=== PATIENT | female | born 1975 | race Caucasian/White ===

== ENCOUNTER 2016-04-01 01:43 | Inpatient (IN) | payer MEDICARE, OTHER ==
[~2016-04-01] VITALS: Ht 160 cm; Wt 68.0 kg
[2016-04-01] VITALS (54 sets, daily range): BP systolic 63–112; BP diastolic 27–83; PULSE 99–119; RESP 12–20; TEMP 98.3; Ht 160 cm; Wt 68.0 kg
[~2016-04-01 01:43] MED LIST: BACL20TA PO; CIPR500S2 PO; CLON-412 PO; DIVA250T4 PO; DULO60CA6 PO; HYDR-3010 PO; HYDR-906 PO; METO5TAB58 PO; OXYB15TA4 PO; OXYC40TA26 PO
[2016-04-01] MEDS ORDERED: SUCCINYLCHOLINE CHLORIDE 100 MG/5 ML SYG IV STA (02:22)
[2016-04-01] MEDS ORDERED: ETOMIDATE 20 MG INJ IV STA (02:22)
[2016-04-01] MEDS ORDERED: PROPOFOL 100 ML IV STA (02:22)
--- NOTE | 2016-04-01 02:25 | RADRPT ---
PROCEDURE: Portable chest x-ray. CLINICAL INDICATION: Shortness of breath. TECHNIQUE: Portable AP view of the chest. COMPARISON: 12/21/2015. FINDINGS: An endotracheal tube terminates 2.9 cm above the galileo. A left upper extremity PICC terminates in t he right atrium. A transcutaneous pacer pad projects over the right chest. No pulmonary edema or co nolidation is identified. The cardiac silhouette is magnified. No pleural effusion is seen. There is no pneumothorax. IMPRESSION: 1. Endotracheal tube tip 2.9 cm above the galileo. 2. Left PICC tip in the right atrium. Recommend 2 cm retraction. 3. Transcutaneous pacer pad. 4. Clear lungs. RPTAT: HTAR .Yuriy Reyes MD, Date Time Electronically viewed and signed by .Yuriy Reyes MD, on 04/01/2016 02:25 .R/
[2016-04-01 02:29] LABS: ALBUMIN 3.5 g/dl (3.3-4.9); CHLORIDE 99 mmol/L (97-110); POTASSIUM 4.3 mmol/L (3.5-5.1); SODIUM 140 mmol/L (135-144)
[2016-04-01] MEDS ORDERED: LEVOFLOXACIN 750MG/D5W (PMX) 150 ML IVPB ONE (02:30)
[2016-04-01] MEDS ORDERED: VANCOMYCIN 1 GM (PMX) 250 ML IVPB ONE (02:30)
[2016-04-01] MEDS ORDERED: SOD CHLORIDE 0.9% 2,020 ML IV ONE (02:30)
[2016-04-01] MEDS ORDERED: ACETAMINOPHEN 650 MG SUPP PR ONE (02:30)
[2016-04-01 02:31] LABS: ANION GAP 15 (8-16); ASPARTATE AMINO TRANSFERASE 19 IU/L (15-46); CARBON DIOXIDE 30 mmol/L (21-31); CREATININE 0.67 mg/dl (0.44-1.00)
[2016-04-01 02:32] LABS: ALANINE AMINOTRANSFERASE 14 IU/L (13-69); ALBUMIN/GLOBULIN RATIO 0.79; ALKALINE PHOSPHATASE 89 IU/L (42-121); BLOOD UREA NITROGEN 12 mg/dl (7-20); CALCIUM 8.9 mg/dl (8.4-10.2); GLUCOSE 124 mg/dl (70-220); TOTAL PROTEIN 7.9 g/dl (6.1-8.1)
[2016-04-01] MEDS ORDERED: LEVE500T8 PO (02:40)
[2016-04-01] MEDS ORDERED: CLIN-73 PO (02:40)
[2016-04-01] MEDS ORDERED: CLON2TAB3 PO (02:40)
[2016-04-01] MEDS ORDERED: DIVA-16 PO (02:40)
[2016-04-01] MEDS ORDERED: ALPR2TAB PO (02:40)
[2016-04-01 02:45] LABS: AADO2 Arterial 277.9 mmHg (7.0-24.0); Allen Test ACCEPTAB; Arterial Base Excess -2.2 mmol/L (-3.0-3); Arterial COHb 0.6 % (0.0-3.0); Arterial Fraction of Oxyhgb 96.5 % (93.0-99.0); Arterial HCO3 22.9 mmol/L (22.0-26.0); Arterial MetHb 0.4 % (0.0-1.5); Arterial Total Hemglobin 12.3 g/dl (12.0-18.0); MODE VENT - AC
[2016-04-01 02:49] LABS: INR 1.07; PROTIME 13.9 Sec (12.2-14.2); PT RATIO 1.1
[2016-04-01 02:50] LABS: PARTIAL THROMBOPLASTIN TIME 30.3 Sec (25.0-35.0)
[2016-04-01 02:55] LABS: TROPONIN-I < 0.012 ng/ml (0.00-0.12)
[2016-04-01 03:02] LABS: ADD UMIC YES; URINE BILIRUBIN (Dip) 1+ (NEGATIVE); URINE BLOOD (Dip) 3+ (NEGATIVE); URINE COLOR YELLOW (YELLOW); URINE GLUCOSE (Dip) NEGATIVE (NEGATIVE); URINE KETONES (Dip) TRACE (NEGATIVE); URINE LEUKOCYTE ESTERASE (Dip) 2+ (NEGATIVE); URINE NITRITE (Dip) NEGATIVE (NEGATIVE); URINE TOTAL PROTEIN (Dip) 2+ (NEGATIVE); URINE UROBILINOGEN (Dip) 0.2 E.U./dL (0.1-1.0)
[2016-04-01 03:12] LABS: ICTOTEST POSITIVE (NEGATIVE)
[2016-04-01 03:13] LABS: BACTERIA,URINE FEW; MUCUS,URINE FEW; SQUAMOUS EPITHELIAL CELL,UR MANY; URINE RBCS >200 /HPF (0)
[2016-04-01 03:21] LABS: HEMATOCRIT 38.9 % (37.0-47.0); HEMOGLOBIN 12.1 g/dl (12.0-16.0); RED BLOOD COUNT 4.48 10^6/ul (4.20-5.40); WHITE BLOOD COUNT 21.4 10^3/ul (4.8-10.8)
[2016-04-01 03:22] LABS: MEAN CORPUSCULAR HGB CONC 31.1 g/dl (32.0-37.0); MEAN CORPUSCULAR VOLUME 86.8 fl (82.0-101.0); PLATELET COUNT 681 10^3/UL (140-440)
--- NOTE | 2016-04-01 03:23 | ERA ---
ER Documentation Chief Complaint Date/Time DATE: 04/01/16 TIME: 03:20 Chief Complaint BROUGHT FROM HOME BY EMS SEC TO SOB [facility] This is a 41 year female brought in by EMS secondary to progressive worsening shortness of breath. Patient has a history of multiple sclerosis. Patient is obtunded upon arrival to ER. Decision made immediately to intubate the patient. ROS All systems reviewed and are negative except as per history of present illness. Medications Home Meds Active Scripts Hydrocodone/Acetaminophen ([place] 5-325 Tablet) 1 Each Tablet, 1 TAB PO Q6H Y for PAIN, #7 TAB Prov:SHYAM GUTHRIE MD 12/20/15 Ciprofloxacin (Ciprofloxacin) 500 Mg/5 Ml Alivia..rec, 500 MG PO BID for 14 Days , #14 TAB Prov:SHYAM GUTHRIE MD 12/20/15 Reported Medications Alprazolam* (Xanax*) 2 Mg Tablet, 2 MG PO Q8H Y for ANXIETY, TAB 04/01/16 Clonazepam* (Clonazepam*) 2 Mg Tablet, 2 MG PO BID, TAB 04/01/16 Levetiracetam* (Levetiracetam*) 500 Mg Tablet, 500 MG PO BID, TAB 04/01/16 Clindamycin Hcl* (Clindamycin Hcl*) 300 Mg Capsule, 300 MG PO Q6, CAP 04/01/16 Divalproex Sodium* (Divalproex Sodium*) 500 Mg Tablet.dr, 500 MG PO BID, #120 TAB 04/01/16 Hydroxyzine Hcl* (Hydroxyzine Hcl*) 10 Mg Tablet, 10 MG PO Q6H Y for ITCHING, # 30 TAB 12/21/15 Divalproex Sodium* (Divalproex Sodium*) 250 Mg Tablet.dr, 250 MG PO TID, #90 TAB 12/21/15 Metoclopramide* (Reglan*) 5 Mg Tablet, 5 MG PO AC MEALS, TAB 12/21/15 Oxycodone Hcl* (Oxycontin*) 40 Mg Tab.er.12h, 40 MG PO Q12, TAB 12/21/15 Clonazepam* (Klonopin*) 1 Mg Tablet, 2 MG PO BID, TAB 12/21/15 Duloxetine Hcl* (Cymbalta*) 60 Mg Capsule.dr, 60 MG PO DAILY, CAP 12/21/15 Oxybutynin Chloride* (Ditropan* XL) 15 Mg/Bottle Tab.osm.24, 15 MG PO BID 06/23/10 Baclofen* (Baclofen*) 20 Mg Tablet, 20 MG PO Q6H 06/23/10 Allergies Allergies: Coded Allergies: Penicillins (Verified Allergy, Unknown, 12/20/15) latex (Verified Allergy, Unknown, 12/20/15) PMhx/Soc History of Surgery: No (sacral wound) Anesthesia Reaction: No Hx Neurological Disorder: Yes (multiple sclerosis) Hx Respiratory Disorders: No Hx Cardiac Disorders: No Hx Psychiatric Problems: Yes (depression) Hx Miscellaneous Medical Probl: No Hx Alcohol Use: No Hx Substance Use: Yes (medical marijuana) Hx Tobacco Use: No Smoking Status: Never smoker Physical Exam Vitals Vital Signs Date Time Temp Pulse Resp B/P Pulse Ox O2 Delivery O2 Flow Rate FiO2 04/01/16 02:16 Non Rebreather 04/01/16 02:12 101.8 143 26 130/73 100 Mechanical Ventilator 04/01/16 02:10 148 14 100 60 04/01/16 02:08 101.8 155 26 130/73 100 Physical Exam Const: [] Head: Atraumatic Eyes: Normal Conjunctiva ENT: Normal External Ears, Nose and Mouth. Neck: Full range of motion..~ No meningismus. Resp: Decreased breath sounds, scattered rales in all lung solano Cardio: Regular rate and rhythm, no murmurs Abd: Soft, non tender, non distended. Normal bowel sounds Skin: No petechiae or rashes Back: No midline or flank tenderness Ext: No cyanosis, or edema Neur: Obtunded Psych: Normal Mood and Affect Result Diagram: 04/01/16 0152 Results 24 hrs Laboratory Tests Test 04/01/16 01:52 04/01/16 01:59 04/01/16 02:02 Activated Partial Thromboplast Time 30.3Sec Alanine Aminotransferase (ALT/SGPT) 14IU/L Albumin 3.5g/dl Albumin/Globulin Ratio 0.79 Alkaline Phosphatase 89IU/L Anion Gap 15 Aspartate Amino Transf (AST/SGOT) 19IU/L Blood Urea Nitrogen 12mg/dl Calcium Level 8.9mg/dl Carbon Dioxide Level 30mmol/L Chloride Level 99mmol/L Creatinine 0.67mg/dl Direct Bilirubin 0.00mg/dl Globulin 4.40g/dl Glucose Level 124mg/dl INR International Normalized Ratio 1.07 Indirect Bilirubin 0.0mg/dl Lactic Acid Level 1.0mmol/L Potassium Level 4.3mmol/L Prothrombin Time 13.9Sec Prothrombin Time Ratio 1.1 Sodium Level 140mmol/L Total Bilirubin 0.0mg/dl Total Protein 7.9g/dl Troponin I < 0.012ng/ml Urine Bacteria FEW Urine Bilirubin 1+ Urine Clarity TURBID Urine Color YELLOW Urine Glucose NEGATIVE% Urine Hemoglobin 3+ Urine Ictotest POSITIVE Urine Ketones TRACE Urine Leukocyte Esterase 2+ Urine Microscopic RBC >200/HPF Urine Microscopic WBC >200/HPF Urine Mucus FEW Urine Nitrite NEGATIVE Urine Specific [place] >=1.030 Urine Squamous Epithelial Cells MANY Urine Total Protein 2+ Urine Urobilinogen 0.2 E.U./dL Urine pH 6.0 Arterial Blood HCO3 22.9mmol/L Arterial Blood Base Excess -2.2mmol/L Arterial Blood Oxygen Saturation 97.5mmHG Talon Test ACCEPTAB Arterial Blood Gas Puncture Site Right Radial Arterial Blood Carboxyhemoglobin 0.6% Arterial Blood Date Drawn 04/01/2016 2:32:34 AM Arterial Blood Methemoglobin 0.4% Arterial Blood pCO2 (Temp correct) 40.4mmhg Arterial Blood pH (Temp corrected) 7.371 Arterial Blood pO2 (Temp corrected) 105.5mmHG Blood Gas A-a O2 Differential 277.9mmHg Blood Gas Actual Respiration Rate 14 Blood Gas Inspiratory Pressure 32.0 Blood Gas Low PEEP Setting 5.0cmH2O Blood Gas Modality VENT - AC Blood Gas Notified Time 04/01/2016 2:45:37 AM Blood Gas Notified Whom AA Blood Gas Respiration Rate 14.0 Blood Gas Specimen Source Blood arterial Blood Gas Temperature 37.0C Blood Gas Tidal Volume 500.0mL FiO2 60.0% Oxyhemoglobin Percent 96.5% Total Hemoglobin 12.3g/dl Current Medications Medications (Trade) Dose Ordered Sig/Stacey Route PRN Reason Start Time Stop Time Status Last Admin Dose Admin Vancomycin HCl 250 ml @ 125 mls/hr ONCE ONCE IVPB 04/01/16 02:30 04/01/16 04:29 Levofloxacin/ Dextrose (Levaquin 750 Mg/ D5W 150 ml (Pmx)) 150 ml @ 100 mls/hr ONCE ONCE IVPB 04/01/16 02:30 04/01/16 03:59 04/01/16 02:19 Acetaminophen 650 mg 650 mg ONCE ONCE OK 04/01/16 02:30 04/01/16 02:31 DC 04/01/16 02:19 Sodium Chloride (NS) 2,020 ml @ 2,020 mls/hr BOLUS X1 ONCE IV 04/01/16 02:30 04/01/16 03:29 04/01/16 02:16 Succinylcholine Chloride (Anectine Syringe) 100 mg ONCE STAT IV 04/01/16 02:22 04/01/16 02:23 DC Etomidate 20 mg 20 mg ONCE STAT IV 04/01/16 02:22 04/01/16 02:23 DC Propofol (Diprivan) 100 ml @ 1.95 mls/hr ONCE STAT IV 04/01/16 02:22 04/03/16 05:38 04/01/16 02:31 Procedures/MDM EKG: Rate/Rhythm: Normal Sinus Rhythm QRS, ST, T-waves: No changes consistent w/ acute ischemia Impression: No evidence of ischemia or arrhythmia Chest X-ray 1V Interpreted by me: Soft Tissue: No acute abnormalities Bones: No acute abnormalities Mediastinum/Cardiac Silhouette/Lungs: ET tube and central line in good position Patient's infectious symptoms have not stabilized and the patient is at risk of rapid decompensation. The patient will be admitted for careful hydration, antibiotic therapy, and infectious source control. Severe Sepsis Assessment: Infectious Source: Pneumonia End organ damage indicated by: [Lactate > 2.0 mmol/L Hypotension( SBP < 90 or >40 mmHG drop or MAP < 65) Acute Resp Failure (sat < 92% w/o oxygen) ] Severe Sepsis Managment: Blood Cultures X 2 before broad spectrum antibiotics initiated within 3 hours of recognition. 30 ml/kg NS bolus Completed Initial Lactate: [normal] Repeat Lactate pending Critical Care: Time: 45 minutes Treatments/Evaluations: Emergent fluid management, while maintaining close respiratory support. Immediate broad spectrum antibiotic therapy. Simultaneous assessment for possible sources in order to direct therapy. Consideration for invasive and chemical support to prevent respiratory or cardiac collapse. Septic Shock Assessment (1 hour post 30 ml/kg fluid bolus): Hypotension (SBP < 90 or 40 mmHg drop, MAP < 65): [No] Lactic acid > 4.0 [No] Perfusion Reassessment for Septic Shock: Temp 99.9, Pulse 90, RR 18, BP 117/77 Heart Exam: [Tachycardic] Lung Exam: [No Crackles] Capillary Refill: [Delayed] Peripheral Pulses: [Radially present] Skin: [Mottled, pale] Hypotensive Treatment (not required for isolated lactic acid elevation): Comfort Care: No Central LIne: Left subclavian Accepting Care Team: Current data and ongoing care discussed. Time: 2 AM Primary Provider: Hospitalist Consulting: [XOXOXO] Outstanding Data: none Departure Diagnosis: Primary Impression: Sepsis Qualified Code: A41.9 - Sepsis, due to unspecified organism Additional Impression: Respiratory failure Qualified Code: J96.01 - Acute respiratory failure with hypoxia and hypercapnia Condition: Critical KATELYN WILSON Apr 01, 2016 03:23
[2016-04-01 05:19] LABS: EOSINOPHILS # 0.6 10^3/ul (0.0-0.5); LYMPHOCYTES # 8.3 10^3/ul (0.8-2.9); MONOCYTE # 2.8 10^3/ul (0.3-0.9); NEUTROPHIL # 9.6 10^3/ul (1.6-7.5)
[2016-04-01 05:20] LABS: PLATELET ESTIMATE PLT APPEAR INCREASED
[2016-04-01] MEDS ORDERED: IPRATROPIUM (HFA) 12.9 GM INHALER INH PRN (06:00)
[2016-04-01] MEDS ORDERED: ALBUTEROL HFA 8 GM INHALER INH PRN (06:00)
[2016-04-01] MEDS ORDERED: VANCOMYCIN IV PER PHARMACY XX SCH (06:00)
[2016-04-01] MEDS ORDERED: PROPOFOL 100 ML IV SCH (06:00)
[2016-04-01] MEDS ORDERED: IMIPENEM-CILAST 500MG IV (PMX) 100 ML IVPB SCH (06:00)
[2016-04-01 06:33] LABS: BASOPHILS % 0.3 % (0.0-2.0); EOSINOPHILS # 0.1 10^3/ul (0.0-0.5); EOSINOPHILS % 0.5 % (0.0-7.0); HEMATOCRIT 31.3 % (37.0-47.0); HEMOGLOBIN 10.6 g/dl (12.0-16.0); LYMPHOCYTES # 3.9 10^3/ul (0.8-2.9); LYMPHOCYTES % 24.5 % (15.0-51.0); MEAN CORPUSCULAR HEMOGLOBIN 27.6 pg (29.0-33.0); MEAN CORPUSCULAR VOLUME 81.2 fl (82.0-101.0); MEAN PLATELET VOLUME 8.2 fl (7.4-10.4); MONOCYTE # 1.4 10^3/ul (0.3-0.9); MONOCYTES % 8.9 % (0.0-11.0); NEUTROPHIL # 10.6 10^3/ul (1.6-7.5); NEUTROPHILS % 65.8 % (39.0-77.0); PLATELET COUNT 511 10^3/UL (140-440); RED BLOOD COUNT 3.86 10^6/ul (4.20-5.40); RED CELL DISTRIBUTION WIDTH 15.7 % (11.5-14.5); UNCORRECTED WBC 16.1 10^3/ul (4.8-10.8); WHITE BLOOD COUNT 16.1 10^3/ul (4.8-10.8)
[2016-04-01 06:34] LABS: CONDITION 1; LH ANALYZER COMMENTS 1
[2016-04-01 06:45] LABS: VALPROATE 50 ug/ml (50-100)
[2016-04-01 07:08] LABS: CARBAMAZEPINE (TEGRETOL) < 8.0 ug/ml (8.0-12.0)
[2016-04-01 07:19] LABS: ALBUMIN 3.6 g/dl (3.3-4.9); POTASSIUM 4.6 mmol/L (3.5-5.1)
[2016-04-01 07:21] LABS: CREATININE 0.69 mg/dl (0.44-1.00)
[2016-04-01 07:22] LABS: ALBUMIN/GLOBULIN RATIO 0.9; CALCIUM 9.2 mg/dl (8.4-10.2); TOTAL PROTEIN 7.6 g/dl (6.1-8.1)
[2016-04-01] MEDS: DEXTROSE 5%-0.45% NACL 1,000 ML IV SCH ×3 (08:58→21:41)
[2016-04-01] MEDS ORDERED: LEVETIRACETAM 500 MG TAB PO SCH (09:00)
[2016-04-01] MEDS ORDERED: DIVALPROEX (EC) 500 MG TAB PO SCH (09:00)
[2016-04-01] MEDS: DULOXETINE 30 MG CAP DR PO SCH (09:00)
--- NOTE | 2016-04-01 09:20 | HP ---
DATE OF ADMISSION: 04/01/2016 TIME SEEN: 5 a.m. CHIEF COMPLAINT: Shortness of breath and altered mentation. HISTORY OF PRESENT ILLNESS: The patient is a 41-year-old female with a history of multiple sclerosi s, wheelchair-bound, depression, bilateral lower extremity weakness, and sacral wounds who was broug ht to the ER for shortness of breath and altered mentation. Upon arrival to the ER, the patient was noted to be obtunded, and as such, she was immediately intubated, and as such, I am not able to get information. As such, information has been obtained from the ER physician and from chart review. Reportedly family noted noisy breathing last night, and at that time they also checked temperature a nd noted that she had a fever of 102. They tried to adjust her position by changing of the head of bed position, but no improvement. Then they noted foam coming out of the patient's mouth so they ca lled 911. They started doing CPR as they were instructed until the EMS arrived. Upon EMS arrival, the patient actually noticed to have a pulse, but she was tachycardic, continued to have some noisy breathing, and also was able to move her upper extremities. Then EMS started ventilation assistance via BVM. When she presented to the ER, as mentioned above, she was obtunded, and as such, she was immediately intubated. Her initial vitals show blood pressure of 130/73, she was tachycardic with a heart rate of 155, tachypneic with a rate of 26, and she was febrile with a temperature of 100.8. Her oxygen saturation was 100% on 60% FIO2. Laboratory value was notable for a WBC of 21,000, platelet count 6 81,000. Otherwise, rest of CBC and also CMP are within normal limits. Chest x-ray showed clear lungs with no consolidation or small effusion. Her urinalysis was consiste nt with a severe UTI. She was started on weight-based IV fluids, and also started on vancomycin and Levaquin. Note that the patient is ALLERGIC TO PENICILLIN. Note that the patient had been admitted here in December of last year for a UTI. She has also been to the ER multiple times, almost all the time related to her indwelling Roberson being clogged. REVIEW OF SYSTEMS: Unable to fully assess. PAST MEDICAL HISTORY: As per HPI. SOCIAL HISTORY: No reported history of tobacco, alcohol, or illicit drug use. ALLERGIES: 1. PENICILLIN. 2. LATEX. HOME MEDICATIONS: 1. Baclofen. 2. Clonidine. 3. Divalproex. 4. Cipro. 5. Cymbalta. 6. [place]. 7. Oxycodone. 8. Reglan. 9. Oxybutynin. 10. Clindamycin. 11. Xanax. 12. Cymbalta. 13. Reglan. PHYSICAL EXAMINATION: VITAL SIGNS: Blood pressure 109/70, heart rate 116, respiratory rate 14, temperature 3 hours ago wa s 101.8, oxygen saturation 100% on a vent on 60% FIO2. GENERAL: Intubated and sedated, looks comfortable on the vent. HEENT: Normocephalic, atraumatic. Pupils are sluggish, but reactive to light. CARDIOVASCULAR: Tachycardic with regular rhythm. LUNGS: Clear, no wheezes. ABDOMEN: Soft, no grimaces noted on palpation. No rigidity. There are positive bowel sounds. EXTREMITIES: No edema. NEUROLOGIC: The patient is currently intubated and sedated, so not able to fully assess. LABORATORY: Pertinent positive results as mentioned in the HPI. IMAGING: Chest x-ray shows clear lungs with no consolidation, effusion, or pneumothorax. IMPRESSION: 1. Sepsis secondary to urinary tract infection. 2. Acute encephalopathy, secondary to sepsis. 3. History of multiple sclerosis and bilateral lower extremity weakness and wheelchair-bound. 4. History of depression. 5. History of sacral wound with wound VAC. 6. Indwelling Roberson. We will admit to ICU. We will continue vent support. She will be placed on broad-spectrum antibiot ic. We will follow up on the culture results. We will consider an ID consult. She will receive IV fluids. We will continue her home medications with adjustment and provided via an NG tube. Further workup and management will be per clinical course. Total critical time spent is about 40 minutes. Dictated By: KATELYN VILLANUEVA/JOSELIN Conf#: [id number] DID#: [id number]
--- NOTE | 2016-04-01 09:52 | QN ---
Documentation Comment The patient was seen and examined. Infectious diseases consult was called. Case discussed with Dr. Ortiz. JORI JO NP Apr 01, 2016 09:52
--- NOTE | 2016-04-01 10:05 | CONS ---
Date/Time of Note Date/Time of Note DATE: 04/01/16 TIME: 09:58 Assessment/Plan Assessment/Plan Additional Assessment/Plan Assessment and recommendations; 1. Patient admitted with severe UTI with sepsis. 2. History of multiple sclerosis. 3. Sacral decubitus ulcer. 4. Multiple other comorbidities as outlined above. Continue current treatment. Antibiotic adjustment to be done once urine culture results and sensitivities are obtained. Consultation Date/Type/Reason Admit Date/Time Apr 01, 2016 at 05:52 Date of Consultation: Apr 01, 2016 Type of Consultation: Pulmonary/critical care Reason for Consultation Patient admitted with respiratory failure and sepsis from UTI. Consultation requested for respiratory failure and ventilator management. History of present illness; patient is a 81-year-old lady who was brought into the hospital with complaints of having altered mental status as well as hypotension. Upon evaluation patient was diagnosed with severe UTI patient also was in respiratory failure was intubated and then transferred to ICU. The time I saw the patient is orally intubated on ventilator sedated and currently in no distress. Will she was obtained from medical records. Past medical history; next 1. History of multiple sclerosis, patient is wheelchair-bound. 2. Sacral wound. A wound VAC in place. 3. Muscle spasms. 4. Hypertension. 5. Urinary incontinence. 6. Depression. 7. Arthritis. Medications; both inpatient and outpatient medications were reviewed. Allergies; penicillin and latex. Social history; noncontributory. Family history; not available. Occupational history; patient is on disability. Review of systems; currently unable to be obtained. General exam; young woman, orally intubated. Sedated. Currently in no distress. Social History Smoking Status: Never smoker Exam/Review of Systems Vital Signs Vitals Vital Signs Date Time Temp Pulse Resp B/P Pulse Ox O2 Delivery O2 Flow Rate FiO2 04/01/16 08:20 115 14 99 60 04/01/16 07:30 98.3 112/81 Room Air 04/01/16 07:00 10.0 Intake and Output 03/31/16 03/31/16 04/01/16 15:00 23:00 07:00 Intake Total 2170 ml Balance 2170 ml Exam Ventilator settings; assist control 14, tidal volume 500, PEEP of 5, 50% FiO2. H EENT examination; supple neck, no JVD. No lymphadenopathy. Orally intubated. Pupils are midsize and reactive to light. No thyromegaly, no neck masses. Chest examination; clear to auscultation bilaterally. S1-S2 audible, no murmurs. Regular rhythm. Abdomen examination; soft, normal distended. No organomegaly. Bowel sounds audible. Extremity examination; no peripheral edema. Back examination; there is a wound VAC in place over the sacrum. ADMISSION DISCHARGE RN examination; patient currently is sedated. Results Result Diagram: 04/01/1652304/01/16523 Results 24 hrs Laboratory Tests Test 04/01/16 01:52 04/01/16 01:59 04/01/16 02:02 04/01/16 05:24 Activated Partial Thromboplast Time 30.3 Alanine Aminotransferase (ALT/SGPT) 14 8 L Albumin 3.5 3.6 Albumin/Globulin Ratio 0.79 0.90 Alkaline Phosphatase 89 83 Anion Gap 15 20 H Aspartate Amino Transf (AST/SGOT) 19 30 Basophils # 0.0 Basophils % 0.3 Blood Urea Nitrogen 12 13 Calcium Level 8.9 9.2 Carbon Dioxide Level 30 27 Chloride Level 99 101 Creatinine 0.67 0.69 Direct Bilirubin 0.00 0.00 Eosinophils # 0.6 H 0.1 Eosinophils % 3.0 0.5 Globulin 4.40 H 4.00 H Glucose Level 124 123 Hematocrit 38.9 31.3 L Hemoglobin 12.1 10.6 L INR International Normalized Ratio 1.07 Indirect Bilirubin 0.0 0.0 Lactic Acid Level 1.0 0.9 Lymphocytes # 8.3 H 3.9 H Lymphocytes % 39.0 24.5 Mean Corpuscular Hemoglobin 27.0 L 27.6 L Mean Corpuscular Hemoglobin Concent 31.1 L 34.0 Mean Corpuscular Volume 86.8 81.2 L Mean Platelet Volume 10.0 # 8.2 Monocytes # 2.8 H 1.4 H Monocytes % 13.0 H 8.9 Neutrophils # 9.6 H 10.6 H Neutrophils % 45.0 65.8 Nucleated Red Blood Cells # 0.0 Nucleated Red Blood Cells % 0.0 Platelet Count 681 #H 511 #H Platelet Estimate PLT APPEAR INCREASED Potassium Level 4.3 4.6 Prothrombin Time 13.9 Prothrombin Time Ratio 1.1 Red Blood Count 4.48 3.86 L Red Cell Distribution Width 15.0 H 15.7 H Sodium Level 140 143 Total Bilirubin 0.0 L 0.0 L Total Protein 7.9 7.6 Troponin I < 0.012 White Blood Count 21.4 #H 16.1 #H Urine Bacteria FEW Urine Bilirubin 1+ H Urine Clarity TURBID Urine Color YELLOW Urine Glucose NEGATIVE Urine Hemoglobin 3+ H Urine Ictotest POSITIVE Urine Ketones TRACE H Urine Leukocyte Esterase 2+ H Urine Microscopic RBC >200 Urine Microscopic WBC >200 Urine Mucus FEW Urine Nitrite NEGATIVE Urine Specific [place] >=1.030 H Urine Squamous Epithelial Cells MANY Urine Total Protein 2+ H Urine Urobilinogen 0.2 E.U./dL Urine pH 6.0 Arterial Blood HCO3 22.9 Arterial Blood Base Excess -2.2 Arterial Blood Oxygen Saturation 97.5 Talon Test ACCEPTAB Arterial Blood Gas Puncture Site Right Radial Arterial Blood Carboxyhemoglobin 0.6 Arterial Blood Date Drawn 04/01/2016 2:32:34 AM Arterial Blood Methemoglobin 0.4 Arterial Blood pCO2 (Temp correct) 40.4 Arterial Blood pH (Temp corrected) 7.371 Arterial Blood pO2 (Temp corrected) 105.5 H Blood Gas A-a O2 Differential 277.9 H Blood Gas Actual Respiration Rate 14 Blood Gas Inspiratory Pressure 32.0 Blood Gas Low PEEP Setting 5.0 Blood Gas Modality VENT - AC Blood Gas Notified Time 04/01/2016 2:45:37 AM Blood Gas Notified Whom AA Blood Gas Respiration Rate 14.0 Blood Gas Specimen Source Blood arterial Blood Gas Temperature 37.0 Blood Gas Tidal Volume 500.0 FiO2 60.0 Oxyhemoglobin Percent 96.5 Total Hemoglobin 12.3 Blood Morphology Comment Carbamazepine (Tegretol) Level < 8.0 L Valproic Acid (Depakene) Level 50 Test 04/01/16 07:00 Lactic Acid Level 0.8 Medications Medications Current Medications Dextrose/Sodium Chloride (D5-1/2ns) 1,000 ml @ 100 mls/hr Q10H IV Last administered on 04/01/16t 08:58; Admin Dose 100 MLS/HR; Start 04/01/16 at 05:49 Ondansetron HCl (Zofran Inj) 4 mg Q6H PRN IV NAUSEA AND/OR VOMITING; Start at 06:00 Acetaminophen (Tylenol Liquid) 650 mg Q6H PRN PO PAIN LEVEL 1-3 OR FEVER; Start 04/01/16 at 06:00 Lorazepam (Ativan) 1 mg Q2H PRN IV ANXIETY; Start 04/01/16 at 06:00 Famotidine (Pepcid Iv) 20 mg Q12 IV ; Start 04/01/16 at 09:00 Enoxaparin Sodium (Lovenox) 40 mg DAILY SC ; Start 04/01/16 at 09:00 Divalproex Sodium (Depakote) 500 mg BID PO ; Start 04/01/16 at 09:00 Duloxetine HCl (Cymbalta) 60 mg DAILY PO ; Start 04/01/16 at 09:00 Levetiracetam 500 mg 500 mg BID PO ; Start 04/01/16 at 09:00 Levofloxacin/ Dextrose (Levaquin 750 Mg/ D5W 150 ml (Pmx)) 150 ml @ 100 mls/hr Q24H IVPB ; Start 04/02/16 at 02:00 HALIMA DRUMMOND Apr 01, 2016 10:05
[2016-04-01] MEDS: FAMOTIDINE 20 MG INJ IV SCH ×2 (10:18→20:51)
[2016-04-01] MEDS: ENOXAPARIN 40 MG/0.4 ML SYG SC SCH (10:32)
[2016-04-01] MEDS: DIVALPROEX SPRINKLE 125 MG CAP NGT SCH ×2 (14:11→20:52)
[2016-04-01] MEDS: LEVETIRACETAM (100 MG/ML) 5ML CUP GTB SCH ×2 (14:12→20:52)
[2016-04-01] MEDS: ACETAMINOPHEN 650MG/20.3ML CUP PO PRN (15:45)
[2016-04-01] MEDS: VANCOMYCIN 1 GM in NS 250 ML IVPB SCH (15:45)
--- NOTE | 2016-04-01 15:53 | CONS ---
DATE OF ADMISSION: 04/01/2016 DATE OF CONSULTATION: 04/01/2016 TYPE OF CONSULTATION: Infectious Disease. REASON FOR CONSULTATION: Antibiotic management. HISTORY OF PRESENT ILLNESS: Carito Piper is a 41-year-old female who comes in with shortness of breath and altered mentation. PAST MEDICAL HISTORY: Her past problems include: 1. Multiple sclerosis, wheelchair bound. 2. Depression. 3. Bilateral lower extremity weakness. 4. Sacral wounds. 5. ALLERGY TO PENICILLIN. She was brought to the emergency room with shortness of breath and altered mentation. She is obtund ed and as such, she was immediately intubated. In the emergency room, her temperature was 102 degre es. She had CPR done in the field until the EMS arrived. She was noted to have a pulse, was tachyc ardic, continued to have some noisy breathing and was able to move her extremities. In the emergenc y room, her vital signs were stable. Heart rate was 155. She was tachypneic at 26, afebrile to 100 .8, oxygen saturation 100% on 60% FIO2. Laboratory value was noted to be 21,000, platelet count 681,000. Chest x-ray reviewed, showed clear lungs with no consolidation or small effusion. A urinalysis was consistent with a UTI. She was started on vancomycin and Levaquin. She also was a dmitted in December for a UTI. She has been to the emergency room on numerous occasions. PAST MEDICAL HISTORY: Operations as outlined. FAMILY HISTORY: Noncontributory. SOCIAL HISTORY: She does not smoke, drink or abuse drugs. ALLERGIES: 1. PENICILLIN. 2. LATEX. MEDICATIONS: Per chart. REVIEW OF SYSTEMS: As per HPI. PHYSICAL EXAMINATION: GENERAL: The patient is a well-developed, well-nourished, chronically ill-appearing female who is i ntubated, sedated, on a respirator. SKIN: Without generalized rash. HEENT: Within normal limits. NECK: Supple. LYMPH NODES: None palpable. CHEST: Decreased breath sounds at the bases. HEART: Without murmur or gallop. ABDOMEN: Soft, nontender, without organosplenomegaly or masses. EXTREMITIES: Without cyanosis, clubbing, or edema. RECTAL AND GENITAL: Deferred. NEUROLOGIC: No focal neurological abnormalities. Chest x-ray showed clear lungs with no consolidation, effusion, or pneumothorax. Patient was begun on Levaquin and vancomycin. She had one dose of imipenem in the emergency room. Her chest x-ray showed a left PICC line in the right atrium, transcutaneous pacer pad, clear lungs a nd an ET tube 2.49 cm above the galileo. Micro is pending. We will continue her on this regimen for the time being. I will dictate my findings to the hospitalist. Dictated By: VISHNU CHRISTIANSON MD, JD/JOSELIN Conf#: [id number] DID#: [id number]
[2016-04-01] MEDS ORDERED: SOD CHLORIDE 0.9% 500 ML IV ONE (19:00)
[2016-04-01] MEDS: morphine 2 MG INJ IV PRN (21:40)
[2016-04-01] MEDS: LORAZEPAM 2 MG INJ IV PRN (23:30)
[2016-04-02] VITALS (36 sets, daily range): BP systolic 59–114; BP diastolic 29–97; PULSE 85–120; RESP 13–25
[2016-04-02] MEDS: LEVOFLOXACIN 750MG/D5W (PMX) 150 ML IVPB SCH (02:02)
[2016-04-02] MEDS: LORAZEPAM 2 MG INJ IV PRN (03:54)
[2016-04-02] MEDS: VANCOMYCIN 1 GM in NS 250 ML IVPB SCH ×2 (04:14→15:46)
[2016-04-02 05:03] LABS: BASOPHILS % 0.3 % (0.0-2.0); EOSINOPHILS # 0.4 10^3/ul (0.0-0.5); EOSINOPHILS % 3.3 % (0.0-7.0); LYMPHOCYTES # 2.1 10^3/ul (0.8-2.9); LYMPHOCYTES % 16.9 % (15.0-51.0); MEAN CORPUSCULAR HEMOGLOBIN 27.5 pg (29.0-33.0); MEAN CORPUSCULAR HGB CONC 33.4 g/dl (32.0-37.0); MEAN CORPUSCULAR VOLUME 82.4 fl (82.0-101.0); MEAN PLATELET VOLUME 7.9 fl (7.4-10.4); MONOCYTES % 8.3 % (0.0-11.0); NEUTROPHIL # 8.8 10^3/ul (1.6-7.5); NEUTROPHILS % 71.2 % (39.0-77.0); PLATELET COUNT 378 10^3/UL (140-440); RED BLOOD COUNT 3.28 10^6/ul (4.20-5.40); RED CELL DISTRIBUTION WIDTH 15.5 % (11.5-14.5); UNCORRECTED WBC 12.3 10^3/ul (4.8-10.8); WHITE BLOOD COUNT 12.3 10^3/ul (4.8-10.8)
[2016-04-02 05:16] LABS: POTASSIUM 3.1 mmol/L (3.5-5.1)
[2016-04-02 05:18] LABS: CREATININE 0.44 mg/dl (0.44-1.00)
[2016-04-02 05:19] LABS: CALCIUM 7.9 mg/dl (8.4-10.2); MAGNESIUM 1.7 mg/dl (1.7-2.5); PHOSPHORUS 2.8 mg/dl (2.5-4.9)
[2016-04-02 05:58] LABS: CONDITION 1; LH ANALYZER COMMENTS 1
[2016-04-02] MEDS ORDERED: POTASSIUM CHLORIDE 250 ML IVPB ONE ×2 (06:30→07:00)
[2016-04-02] MEDS: DIVALPROEX SPRINKLE 125 MG CAP NGT SCH ×2 (08:43→20:39)
[2016-04-02] MEDS: LEVETIRACETAM (100 MG/ML) 5ML CUP GTB SCH ×2 (08:43→20:39)
[2016-04-02] MEDS: FAMOTIDINE 20 MG INJ IV SCH ×2 (08:43→20:39)
[2016-04-02] MEDS: ENOXAPARIN 40 MG/0.4 ML SYG SC SCH (08:46)
--- NOTE | 2016-04-02 09:01 | CONS ---
Date/Time of Note Date/Time of Note DATE: 04/02/16 TIME: 08:57 Assessment/Plan Assessment/Plan Additional Assessment/Plan Ventilator settings; AC of 14, tidal volume 500, PEEP of 5, 30% FiO2. Assessment and recommendations; 1. Patient admitted with severe sepsis from UTI. 2. History of multiple sclerosis with paraplegia. 3. History of sacral decubitus ulcer, currently on wound VAC. 4. History of hypertension. 5. History of muscle spasms. Ventilator settings have been adjusted. Patient has been switched over to CPAP mode and currently has good weaning parameters. I would recommend observing her for the next 30-40 minutes, to perform an ABG and if it is adequate, to extubate her. Meanwhile continue current antibiotics. Continue other supportive measures as well. Consultation Date/Type/Reason Admit Date/Time Apr 01, 2016 at 05:52 Initial Consult Date 04/01/16 Type of Consultation: Pulmonary/critical care 24 HR Interval Summary Free Text/Dictation Patient's condition remains critical. However , patient's mental status is markedly improved, she is off sedation and is awake and alert. Remained hemodynamically stable. General examination; young woman, orally intubated. Awake and alert. Currently in no distress. Exam/Review of Systems Vital Signs Vitals Vital Signs Date Time Temp Pulse Resp B/P Pulse Ox O2 Delivery O2 Flow Rate FiO2 04/02/16 08:00 98.5 106 14 101/68 100 Mechanical Ventilator 04/02/16 05:58 50 04/01/16 07:00 10.0 Intake and Output 04/01/16 04/01/16 04/02/16 15:00 23:00 07:00 Intake Total 779 ml 865 ml 826.95 ml Output Total 1090 ml 270 ml 185 ml Balance -311 ml 595 ml 641.95 ml Exam H EENT examination; supple neck, no JVD. No lymphadenopathy. Or intubated. Pupils are midsize and reactive to light bilaterally. Fair dentition. No thyromegaly. Chest examination; clear to auscultation bilaterally. S1-S2 audible, no murmurs. Regular rhythm. Abdomen examination; soft, nontender. No organomegaly. Bowel sounds audible. Extremity examination; no peripheral edema. EMPLOYEE PLACEMENT SPECIALIST examination; patient is awake and moves upper extremities. Back examination; there is a wound VAC applied to the sacral area. Results Result Diagram: 04/02/16 0415 04/02/16 0415 Results 24 hrs Laboratory Tests Test 04/02/16 04:15 Anion Gap 14 Basophils # 0.0 Basophils % 0.3 Blood Morphology Comment Blood Urea Nitrogen 6 L Calcium Level 7.9 L Carbon Dioxide Level 25 Chloride Level 107 Creatinine 0.44 Eosinophils # 0.4 Eosinophils % 3.3 Glucose Level 121 Hematocrit 27.0 L Hemoglobin 9.0 L Lymphocytes # 2.1 Lymphocytes % 16.9 Magnesium Level 1.7 Mean Corpuscular Hemoglobin 27.5 L Mean Corpuscular Hemoglobin Concent 33.4 Mean Corpuscular Volume 82.4 Mean Platelet Volume 7.9 Monocytes # 1.0 H Monocytes % 8.3 Neutrophils # 8.8 H Neutrophils % 71.2 Nucleated Red Blood Cells # 0.0 Nucleated Red Blood Cells % 0.0 Phosphorus Level 2.8 Platelet Count 378 # Potassium Level 3.1 L Red Blood Count 3.28 L Red Cell Distribution Width 15.5 H Sodium Level 143 White Blood Count 12.3 #H Medications Medications Current Medications Dextrose/Sodium Chloride (D5-1/2ns) 1,000 ml @ 100 mls/hr Q10H IV Last administered on 04/01/16 21:41; Admin Dose 100 MLS/HR; Start 04/01/16 at 05:49 Ondansetron HCl (Zofran Inj) 4 mg Q6H PRN IV NAUSEA AND/OR VOMITING; Start at 06:00 Acetaminophen (Tylenol Liquid) 650 mg Q6H PRN PO PAIN LEVEL 1-3 OR FEVER Last administered on 04/01/16 15:45; Admin Dose 650 MG; Start 04/01/16 at 06:00 Lorazepam (Ativan) 1 mg Q2H PRN IV ANXIETY Last administered on 04/02/16 03:54 ; Admin Dose 1 MG; Start 04/01/16 at 06:00 Famotidine (Pepcid Iv) 20 mg Q12 IV Last administered on 04/02/16 08:43; Admin Dose 20 MG; Start 04/01/16 at 09:00 Enoxaparin Sodium (Lovenox) 40 mg DAILY SC Last administered on 04/02/16 08:46 ; Admin Dose 40 MG; Start 04/01/16 at 09:00 Duloxetine HCl 60 mg 60 mg DAILY PO ; Start 04/01/16 at 09:00; Status Future Hold Levofloxacin/ Dextrose (Levaquin 750 Mg/ D5W 150 ml (Pmx)) 150 ml @ 100 mls/hr Q24H IVPB Last administered on 04/02/16 02:02; Admin Dose 100 MLS/HR; Start at 02:00 Divalproex Sodium (Depakote Sprinkle) 500 mg BID NGT Last administered on 08:43; Admin Dose 500 MG; Start 04/01/16 at 13:00 Levetiracetam (Keppra Liquid) 500 mg BID GTB Last administered on 04/02/16 08: 43; Admin Dose 500 MG; Start 04/01/16 at 13:00 Miscellaneous Information VANCO TR LEVEL PRIOR... ONCE ONCE XX ; Start at 15:00; Stop 04/02/16 at 15:01 Vancomycin HCl (Vancocin) 250 ml @ 125 mls/hr Q12H IVPB Last administered on 04:14; Admin Dose 125 MLS/HR; Start 04/01/16 at 16:00 Morphine Sulfate 2 mg 2 mg Q4H PRN IV severe pain Last administered on 21:40; Admin Dose 2 MG; Start 04/01/16 at 21:30 Magnesium Sulfate 50 ml @ 25 mls/hr ONCE ONCE IVPB ; Start 04/02/16 at 10:30; Stop 04/02/16 at 12:29 Potassium Chloride (KCl 40 MEQ/250 ML NS) 250 ml @ 62.5 mls/hr ONCE ONCE IVPB Last administered on 04/02/16 08:42; Admin Dose 62.5 MLS/HR; Start 04/02/16 at 07:00; Stop 04/02/16 at 10:59 HALIMA DRUMMOND Apr 02, 2016 09:01
--- NOTE | 2016-04-02 10:18 | PN ---
DATE: 04/02/2016 TIME OF EVALUATION: 8:30 a.m. SUBJECTIVE DATA: The patient's vital signs remain stable. The patient remains afebrile. Remains on mechanical ventilation. OBJECTIVE DATA: VITAL SIGNS: Temperature 98.5, pulse rate 106, respiratory rate 14, blood pressure 101/58, oxygen saturation 100% on mechanical ventilator. GENERAL: This is a 41-year-old female lying in bed, orally intubated, not in any apparent distress. HEENT: Head normocephalic and atraumatic. Eyes: Anicteric sclerae. Conjunctivae clear. ENT: Nasal septum is midline. Oral mucosa is dry. Orally intubated. Orogastric tube in place. NECK: Supple. No JVD noticed. RESPIRATORY: Bilaterally diminished breath sounds. On mechanical ventilator. On AC mode ventilation. CARDIAC: Regular rate and rhythm. No obvious murmurs heard. Left-sided subclavian triple-lumen catheter in place. ABDOMEN: Soft, nontender and nondistended. Bowel sounds hypoactive in all 4 quadrants. GENITOURINARY: The patient has a Roberson catheter in place. EXTREMITIES: No cyanosis, no clubbing. Left foot pressure ulcer. Peripheral pulses palpable. NEUROLOGIC: The patient is awake and alert. Follows commands. Moves all 4 extremities. SKIN: Sacral pressure ulcer with wound VAC in place. LABORATORY AND DIAGNOSTIC DATA: WBC 12.3, hemoglobin 9.0, hematocrit 27.0, platelet count 378. Sodium 143, potassium 3.1, chloride 107, carbon dioxide 26 , anion gap 14, BUN 6, creatinine 0.44, glucose 131, calcium 7.9. Phosphorus 2.8, magnesium 1.7. ASSESSMENT: 1. Sepsis, most probably secondary to underlying urinary tract infection and infected pressure ulcers. Cultures pending at this time. On antibiotics as per infectious diseases. 2. Infected pressure ulcer. Continue antibiotics as per infectious diseases. Continue local wound care. Surgical consult called for surgical debridement. 3. Multiple sclerosis. Continue supportive care. 4. Seizure disorder. Continue anticonvulsants. 5. Depression. Continue antidepressants. 6. Acute respiratory failure. Hypoxic. Continue mechanical ventilator. Ventilator weaning as per pulmonary. 7. Fluid, electrolytes and nutrition. N.p.o. Continue IVFs. 8. Deep venous thrombosis prophylaxis with subcutaneous Lovenox. 9. Gastrointestinal prophylaxis with histamine 2 receptor blockers. PLAN: Repeat potassium and magnesium. Ventilator weaning as per pulmonary. Continue antibiotics as per infectious diseases. Case discussed with Dr. Ortiz. Critical care time: 35 minutes. JORI ORTIZ MD, AM/JOSELIN Conf#: [id number] DID#: [id number] MTDD
[2016-04-02] MEDS ORDERED: MAGNESIUM SULFATE 2 GM/50 ML 50 ML IVPB ONE (10:30)
[2016-04-02] MEDS: DEXTROSE 5%-0.45% NACL 1,000 ML IV SCH ×2 (11:46→21:49)
--- NOTE | 2016-04-02 12:05 | PN ---
DATE: 04/02/2016 SUBJECTIVE: The patient was just extubated this morning. She is lethargic, arousable, lying comfor tably in bed. No fevers. VITAL SIGNS: Temperature 98.5, pulse 106, respirations 14, blood pressure 101/68, saturation 100% o n nasal cannula. LABORATORY DATA: WBC 12.3, H and H 9 and 27, platelets 378, neutrophils 71.2. BUN 6, creatinine 0. 44. MICROBIOLOGY: Blood culture growing gram-negative rods since admission. Wound culture is pending. Urinalysis on admission was grossly positive for leukocyte esterase, white blood cell count, bacter ia. INDWELLINGS: The patient has Roberson catheter, left subclavian triple-lumen catheter. ALLERGIES: PENICILLIN. ANTIMICROBIALS: The patient is on: 1. Levaquin. 2. Vancomycin. PHYSICAL EXAMINATION: GENERAL: This is a chronically ill-appearing, middle-aged white woman who is in no distress. HEENT: Head atraumatic, normocephalic. Sclerae anicteric. Buccal mucosa dry. NECK: Supple, trachea midline. CHEST: Rise symmetrical. Breath sounds diminished to bases. HEART: S1, S2. ABDOMEN: Soft, bowel sounds present. EXTREMITIES: Without cyanosis. SKIN: With unstageable sacral wound ASSESSMENT: 1. Severe sepsis status post shock. 2. Acute respiratory failure, status post extubated this morning. 3. Gram-negative arun bacteremia, likely secondary to #4. 4. Urinary tract infection as per urinalysis. 5. Functional quadriplegia secondary to advanced multiple sclerosis. PLAN: The patient remains hemodynamically stable post extubation. WBC tracing down. Blood culture growing gram-negative rods. She is on Levaquin and urine culture supposed to be sent, but I do not see it in the computer. We are going to order urine culture, wound culture and repeat blood cultur e in the a.m. Continue her on current antimicrobials. Continue anti-aspiration measures. Local wo und care. Dictated By: KASIA TAPIA GENERAL INTERNAL MEDICINE PHYSICIAN for VISHNU TINSLEY/JOSELIN Conf#: [id number] DID#: [id number]
--- NOTE | 2016-04-02 21:34 | PN ---
Date/Time of Note Date/Time of Note DATE: 04/02/16 TIME: 21:34 Assessment/Plan Lines/Catheters IV Catheter Type (from [facility]): Central Line Roberson in Place (from [facility]): Yes Assessment/Plan Chief Complaint/Hosp Course 1. Sepsis multifactorial with UTI and probable wound -Antibiotics -Wound care -Supportive 2. Stage IV sacral decubitus ulceration with debris and possible infection -As above -Offload -Local wound care -Nutrition optimization -Vitamin C -Debridement were more stable 3. UTI on antibiotics 4. Multiple sclerosis with significant lower extremity weakness weakness and wheelchair-bound -Optimization of offloading encouraged -Nutrition optimization -Medical optimization 5. Seizure disorder on medication 6. Encephalopathy and respiratory failure improved 7. Anemia without evidence of acute blood loss -Monitor Thank you Dictation # [id number] Problems: Subjective 24 Hr Interval Summary Extubated. No fevers or chills. No nausea vomiting. No bloating. No blood per mouth or rectum. No pyuria. No rashes. No cough. No seizure. Bowel function. Exam/Review of Systems Vital Signs Vitals Vital Signs Date Time Temp Pulse Resp B/P Pulse Ox O2 Delivery O2 Flow Rate FiO2 04/07/16 08:01 98.8 82 18 102/55 94 04/06/16 00:05 21 04/04/16 05:48 3.0 04/03/16 18:51 Room Air Intake and Output 04/06/16 04/06/16 04/07/16 15:00 23:00 07:00 Intake Total 580 ml 790 ml Output Total 1250 ml 1600 ml Balance -670 ml -810 ml Exam Constitutional: alert, No distress Psych: No anxiety Head: atraumatic, normocephalic Eyes: EOMI, nl conjunctiva, No PERRL ENMT: nl external ears & nose, nl nasal mucosa & septum Neck: non-tender, supple, No jvd Respiratory: normal air movement, No congested cough, No labored breathing Cardiovascular: regular rate and rhythm, No edema Gastrointestinal: non-tender, soft, No rebound or guarding Musculoskeletal: No joint tenderness, No nl extremities to inspection, No nl gait and stance Extremities: normal pulses, No calf tenderness Neurological: nl mental status, No nl strength Skin: rash or lesions (sacral decubitus ulcer, stage IV, with debris), No diaphoresis Lymph: nl lymph nodes Results Result Diagram: 04/06/16 0545 04/06/16 0545 LEONILA GARCIA MD Apr 02, 2016 21:34
[2016-04-03] VITALS (22 sets, daily range): BP systolic 71–121; BP diastolic 48–87; PULSE 70–95; RESP 13–26
[2016-04-03] MEDS ORDERED: ALTEPLASE (CATHFLO) 2 MG INJ CATHETER ONE
[2016-04-03] MEDS: LEVOFLOXACIN 750MG/D5W (PMX) 150 ML IVPB SCH (01:43)
[2016-04-03] MEDS: DEXTROSE 5%-0.45% NACL 1,000 ML IV SCH ×2 (02:00→12:59)
[2016-04-03] MEDS: VANCOMYCIN 1 GM in NS 250 ML IVPB SCH ×2 (04:30→16:55)
[2016-04-03 04:47] LABS: BASOPHILS % 0.3 % (0.0-2.0); EOSINOPHILS # 0.5 10^3/ul (0.0-0.5); EOSINOPHILS % 5.4 % (0.0-7.0); HEMATOCRIT 25.6 % (37.0-47.0); HEMOGLOBIN 8.5 g/dl (12.0-16.0); LYMPHOCYTES # 2.7 10^3/ul (0.8-2.9); LYMPHOCYTES % 30.4 % (15.0-51.0); MEAN CORPUSCULAR HEMOGLOBIN 27.4 pg (29.0-33.0); MEAN CORPUSCULAR HGB CONC 33.3 g/dl (32.0-37.0); MEAN CORPUSCULAR VOLUME 82.4 fl (82.0-101.0); MEAN PLATELET VOLUME 7.5 fl (7.4-10.4); MONOCYTE # 0.7 10^3/ul (0.3-0.9); MONOCYTES % 7.6 % (0.0-11.0); NEUTROPHIL # 5.1 10^3/ul (1.6-7.5); NEUTROPHILS % 56.3 % (39.0-77.0); PLATELET COUNT 406 10^3/UL (140-440); RED BLOOD COUNT 3.11 10^6/ul (4.20-5.40); RED CELL DISTRIBUTION WIDTH 15.9 % (11.5-14.5)
[2016-04-03 05:01] LABS: POTASSIUM 3.3 mmol/L (3.5-5.1)
[2016-04-03 05:02] LABS: MAGNESIUM 2.1 mg/dl (1.7-2.5); PHOSPHORUS 3.4 mg/dl (2.5-4.9)
[2016-04-03 05:03] LABS: CREATININE 0.43 mg/dl (0.44-1.00)
[2016-04-03 05:04] LABS: CALCIUM 7.9 mg/dl (8.4-10.2)
[2016-04-03 05:12] LABS: CONDITION 1; LH ANALYZER COMMENTS 1
--- NOTE | 2016-04-03 07:39 | CONS ---
Date/Time of Note Date/Time of Note DATE: 04/03/16 TIME: 07:36 Assessment/Plan Assessment/Plan Additional Assessment/Plan Assessment and recommendations; next 1. Patient admitted with severe sepsis from UTI with respiratory failure now successfully extubated yesterday, doing very well overall. 2. Multiple sclerosis. 3. Stable seizure disorder. 4. Sacral wound. Continue current supportive care. Patient was transferred out of ICU to the medical floor. Consultation Date/Type/Reason Admit Date/Time Apr 01, 2016 at 05:52 Initial Consult Date 04/01/16 Type of Consultation: Pulmonary/critical care 24 HR Interval Summary Free Text/Dictation Patient condition is stable. Was successfully extubated yesterday morning. Has remained hemodynamically stable. General examination; young lady, currently in no distress awake and alert. Exam/Review of Systems Vital Signs Vitals Vital Signs Date Time Temp Pulse Resp B/P Pulse Ox O2 Delivery O2 Flow Rate FiO2 04/03/16 06:00 93 15 88 Nasal Cannula 04/03/16 04:00 98.2 04/03/16 02:37 3.0 04/02/16 09:20 30 Intake and Output 04/02/16 04/02/16 04/03/16 15:00 23:00 07:00 Intake Total 867.00 ml 975.00 ml 1100 ml Output Total 895 ml 655 ml 220 ml Balance -28.00 ml 320.00 ml 880 ml Exam H EENT examination; supple neck, no JVD. No lymphadenopathy. Pupils are midsize and reactive to light. Pharynx is clear. Fair dentition. No neck masses. No thyromegaly. Next Chest examination; clear to auscultation bilaterally. S1-S2 audible, no murmurs. Regular rhythm. Abdomen examination; no distention. No organomegaly. Bowel sounds audible. Back examination; there is a dressing applied over the sacral area with a wound VAC in place. Extremity examination; no peripheral edema. DESIGN PAINTER examination; patient stable paraplegia. Results Result Diagram: 04/03/16 0430 04/03/16 0430 Results 24 hrs Laboratory Tests Test 04/02/16 14:30 04/03/16 04:30 Vancomycin Level Trough 11.8 Anion Gap 10 Basophils # 0.0 Basophils % 0.3 Blood Morphology Comment Blood Urea Nitrogen 3 L Calcium Level 7.9 L Carbon Dioxide Level 27 Chloride Level 112 H Creatinine 0.43 L Eosinophils # 0.5 Eosinophils % 5.4 Glucose Level 111 Hematocrit 25.6 L Hemoglobin 8.5 L Lymphocytes # 2.7 Lymphocytes % 30.4 Magnesium Level 2.1 Mean Corpuscular Hemoglobin 27.4 L Mean Corpuscular Hemoglobin Concent 33.3 Mean Corpuscular Volume 82.4 Mean Platelet Volume 7.5 Monocytes # 0.7 Monocytes % 7.6 Neutrophils # 5.1 Neutrophils % 56.3 Nucleated Red Blood Cells # 0.0 Nucleated Red Blood Cells % 0.0 Phosphorus Level 3.4 Platelet Count 406 Potassium Level 3.3 L Red Blood Count 3.11 L Red Cell Distribution Width 15.9 H Sodium Level 146 H White Blood Count 9.0 # Medications Medications Current Medications Dextrose/Sodium Chloride (D5-1/2ns) 1,000 ml @ 100 mls/hr Q10H IV Last administered on 04/03/16 02:00; Admin Dose 100 MLS/HR; Start 04/01/16 at 05:49 Ondansetron HCl (Zofran Inj) 4 mg Q6H PRN IV NAUSEA AND/OR VOMITING; Start at 06:00 Acetaminophen (Tylenol Liquid) 650 mg Q6H PRN PO PAIN LEVEL 1-3 OR FEVER Last administered on 04/01/16 15:45; Admin Dose 650 MG; Start 04/01/16 at 06:00 Lorazepam (Ativan) 1 mg Q2H PRN IV ANXIETY Last administered on 04/02/16 03:54 ; Admin Dose 1 MG; Start 04/01/16 at 06:00 Famotidine (Pepcid Iv) 20 mg Q12 IV Last administered on 04/02/16 20:39; Admin Dose 20 MG; Start 04/01/16 at 09:00 Enoxaparin Sodium (Lovenox) 40 mg DAILY SC Last administered on 04/02/16 08:46 ; Admin Dose 40 MG; Start 04/01/16 at 09:00 Duloxetine HCl 60 mg 60 mg DAILY PO ; Start 04/01/16 at 09:00; Status Future Hold Levofloxacin/ Dextrose (Levaquin 750 Mg/ D5W 150 ml (Pmx)) 150 ml @ 100 mls/hr Q24H IVPB Last administered on 04/03/16 01:43; Admin Dose 100 MLS/HR; Start at 02:00 Divalproex Sodium (Depakote Sprinkle) 500 mg BID NGT Last administered on 20:39; Admin Dose 500 MG; Start 04/01/16 at 13:00 Levetiracetam 500 mg 500 mg BID GTB Last administered on 04/02/16 20:39; Admin Dose 500 MG; Start 04/01/16 at 13:00 Vancomycin HCl (Vancocin) 250 ml @ 125 mls/hr Q12H IVPB Last administered on 04:30; Admin Dose 125 MLS/HR; Start 04/01/16 at 16:00 Morphine Sulfate (morphine) 2 mg Q4H PRN IV severe pain Last administered on 21:40; Admin Dose 2 MG; Start 04/01/16 at 21:30 HALIMA DRUMMOND Apr 03, 2016 07:39
--- NOTE | 2016-04-03 08:31 | PN ---
Date/Time of Note Date/Time of Note DATE: 04/03/16 TIME: 08:30 Assessment/Plan VTE Prophylaxis VTE Prophylaxis Intervention: LMWH Lines/Catheters IV Catheter Type (from [facility]): Central Line Central line still needed: Yes Urinary Cath still in place: Yes Reason Cath still needed: skin wounds contaminated by urine Assessment/Plan Chief Complaint/Hosp Course 1. Sepsis secondary to underlying urinary tract infection and infected sacral pressure ulcer with implying gram-negative bacteremia. Continue antibiotics as per infectious diseases. No evidence of any septic shock. 2. Infected pressure ulcer. Continue antibiotics as per infectious diseases. Continue local wound care. Surgical consult called for surgical debridement. 3. Multiple sclerosis. Continue supportive care. 4. Seizure disorder. Continue anticonvulsants. 5. Depression. Continue antidepressants. 6. Acute respiratory failure. Hypoxic. The patient was intubated on admission. Extubated on 04/02/2016. 7. Fluid, electrolytes and nutrition. Pending speech therapy evaluation. 8. Deep venous thrombosis prophylaxis with subcutaneous Lovenox. 9. Gastrointestinal prophylaxis with histamine 2 receptor blockers. PLAN: Replete potassium. Continue antibiotics as per infectious diseases. The patient may be moved out of the intensive care unit if cleared by pulmonary. Case discussed with Dr. Ortiz. Critical care time: 35 minutes. Problems: Subjective 24 Hr Interval Summary Free Text/Dictation The patient was extubated on 04/02/2016. Remains awake. Exam/Review of Systems Vital Signs Vitals Vital Signs Date Time Temp Pulse Resp B/P Pulse Ox O2 Delivery O2 Flow Rate FiO2 04/03/16 06:00 93 15 88 Nasal Cannula 04/03/16 04:00 98.2 04/03/16 02:37 3.0 04/02/16 09:20 30 Intake and Output 04/02/16 04/02/16 04/03/16 15:00 23:00 07:00 Intake Total 867.00 ml 975.00 ml 1100 ml Output Total 895 ml 655 ml 220 ml Balance -28.00 ml 320.00 ml 880 ml Exam GENERAL: This is a 41-year-old female lying in bed, orally intubated, not in any apparent distress. HEENT: Head normocephalic and atraumatic. Eyes: Anicteric sclerae. Conjunctivae clear. ENT: Nasal septum is midline. Oral mucosa is dry. NECK: Supple. No JVD noticed. RESPIRATORY: Bilaterally diminished breath sounds. No use of accessory muscles of respiration. CARDIAC: Regular rate and rhythm. No obvious murmurs heard. Left-sided subclavian triple-lumen catheter in place. ABDOMEN: Soft, nontender and nondistended. Bowel sounds hypoactive in all 4 quadrants. GENITOURINARY: The patient has a Roberson catheter in place. EXTREMITIES: No cyanosis, no clubbing. Left foot pressure ulcer. Peripheral pulses palpable. NEUROLOGIC: The patient is awake and alert. Follows commands. Moves all 4 extremities. SKIN: Sacral pressure ulcer. Results Result Diagram: 04/03/1642904/03/16429 Results 24 hrs Laboratory Tests Test 04/02/16 14:30 04/03/16 04:30 Vancomycin Level Trough 11.8 Anion Gap 10 Basophils # 0.0 Basophils % 0.3 Blood Morphology Comment Blood Urea Nitrogen 3 L Calcium Level 7.9 L Carbon Dioxide Level 27 Chloride Level 112 H Creatinine 0.43 L Eosinophils # 0.5 Eosinophils % 5.4 Glucose Level 111 Hematocrit 25.6 L Hemoglobin 8.5 L Lymphocytes # 2.7 Lymphocytes % 30.4 Magnesium Level 2.1 Mean Corpuscular Hemoglobin 27.4 L Mean Corpuscular Hemoglobin Concent 33.3 Mean Corpuscular Volume 82.4 Mean Platelet Volume 7.5 Monocytes # 0.7 Monocytes % 7.6 Neutrophils # 5.1 Neutrophils % 56.3 Nucleated Red Blood Cells # 0.0 Nucleated Red Blood Cells % 0.0 Phosphorus Level 3.4 Platelet Count 406 Potassium Level 3.3 L Red Blood Count 3.11 L Red Cell Distribution Width 15.9 H Sodium Level 146 H White Blood Count 9.0 # Medications Medications Current Medications Dextrose/Sodium Chloride (D5-1/2ns) 1,000 ml @ 100 mls/hr Q10H IV Last administered on 04/03/16 02:00; Admin Dose 100 MLS/HR; Start 04/01/16 at 05:49 Ondansetron HCl (Zofran Inj) 4 mg Q6H PRN IV NAUSEA AND/OR VOMITING; Start at 06:00 Acetaminophen (Tylenol Liquid) 650 mg Q6H PRN PO PAIN LEVEL 1-3 OR FEVER Last administered on 04/01/16 15:45; Admin Dose 650 MG; Start 04/01/16 at 06:00 Lorazepam (Ativan) 1 mg Q2H PRN IV ANXIETY Last administered on 04/02/16 03:54 ; Admin Dose 1 MG; Start 04/01/16 at 06:00 Famotidine (Pepcid Iv) 20 mg Q12 IV Last administered on 04/02/16 20:39; Admin Dose 20 MG; Start 04/01/16 at 09:00 Duloxetine HCl 60 mg 60 mg DAILY PO ; Start 04/01/16 at 09:00; Status Future Hold Levofloxacin/ Dextrose (Levaquin 750 Mg/ D5W 150 ml (Pmx)) 150 ml @ 100 mls/hr Q24H IVPB Last administered on 04/03/16 01:43; Admin Dose 100 MLS/HR; Start at 02:00 Divalproex Sodium (Depakote Sprinkle) 500 mg BID NGT Last administered on 20:39; Admin Dose 500 MG; Start 04/01/16 at 13:00 Levetiracetam 500 mg 500 mg BID GTB Last administered on 04/02/16 20:39; Admin Dose 500 MG; Start 04/01/16 at 13:00 Vancomycin HCl (Vancocin) 250 ml @ 125 mls/hr Q12H IVPB Last administered on 04:30; Admin Dose 125 MLS/HR; Start 04/01/16 at 16:00 Morphine Sulfate (morphine) 2 mg Q4H PRN IV severe pain Last administered on 21:40; Admin Dose 2 MG; Start 04/01/16 at 21:30 Enoxaparin Sodium (Lovenox) 30 mg DAILY SC ; Start 04/03/16 at 09:00 JORI JO NP Apr 03, 2016 08:31
[2016-04-03] MEDS: DIVALPROEX SPRINKLE 125 MG CAP NGT SCH ×2 (09:23→20:41)
[2016-04-03] MEDS: FAMOTIDINE 20 MG INJ IV SCH ×2 (09:24→20:39)
[2016-04-03] MEDS: LEVETIRACETAM (100 MG/ML) 5ML CUP GTB SCH ×2 (09:24→20:40)
[2016-04-03] MEDS ORDERED: POTASSIUM CHLORIDE 250 ML IVPB SCH (09:30)
[2016-04-03] MEDS: ENOXAPARIN 30 MG/0.3 ML SYG SC SCH (09:33)
--- NOTE | 2016-04-03 12:54 | PN ---
DATE: 04/03/2016 SUBJECTIVE: The patient is alert, feels better. Looks comfortable. No fevers. Family at bedside. VITAL SIGNS: Temperature 97.5, pulse 74, respirations 13, blood pressure 121/72, saturation 100% on 2 liters. LABORATORY DATA: WBC 9, H and H 8.5 and 25.6, platelets 406. BUN 3, creatinine 0.43. MICROBIOLOGY: Blood and urine cultures growing E. coli susceptible to cefotaxime and tobramycin, re sistant to Levaquin. Wound culture growing E. coli gram-negative rods and Enterococcus species. INDWELLINGS: The patient has Roberson catheter, left subclavian triple-lumen catheter. ANTIMICROBIALS: 1. Vancomycin. 2. Levaquin. PHYSICAL EXAMINATION: GENERAL: This is a well-developed, ill-appearing, middle-aged woman who is lying comfortably in bed . HEENT: Head atraumatic, normocephalic. Sclerae anicteric. Buccal mucosa dry. NECK: Supple, trachea midline. CHEST: Rise symmetrical. Breath sounds diminished to bases. HEART: S1, S2. ABDOMEN: Soft. Bowel sounds present. EXTREMITIES: Without cyanosis. ASSESSMENT: 1. Resolving sepsis status post shock. 2. Escherichia coli urinary tract infection with bacteremia. 3. Sacral decubitus with culture growing multiple organisms. 4. Neurogenic bladder. 5. Advanced multiple sclerosis. 6. Status post respiratory failure. PLAN: The patient remains stable, overall improving. We are going to change Levaquin to Invanz. C ontinue vancomycin. Await for final wound cultures. Repeat blood cultures in a.m. Follow surgical recommendations. Dictated By: KASIA TAPIA DIGITAL ADVERTISING SPECIALIST for VISHNU TINSLEY/JOSELIN Conf#: [id number] DID#: [id number]
[2016-04-03] MEDS ORDERED: ERTAPENEM SODIUM 1 GM in SOD CHLORIDE 0.9% 100 ML IVPB SCH (14:00)
--- NOTE | 2016-04-03 23:33 | PN ---
Date/Time of Note Date/Time of Note DATE: 04/03/16 TIME: 23:33 Assessment/Plan Lines/Catheters IV [facility] Type (from [facility] Central Line Roberson in Place (from [facility]): Yes Assessment/Plan Chief Complaint/Hosp Course 1. Sepsis multifactorial with UTI and probable wound. Improved -Antibiotics -Wound care -Supportive 2. Stage IV sacral decubitus ulceration with debris and possible infection -As above -Offload -Local wound care -Nutrition optimization -Vitamin C -Debridement were more stable 3. UTI on antibiotics 4. Multiple sclerosis with significant lower extremity weakness weakness and wheelchair-bound -Optimization of offloading encouraged -Nutrition optimization -Medical optimization 5. Seizure disorder on medication 6. Encephalopathy and respiratory failure improved 7. Anemia without evidence of acute blood loss -Monitor Thank you Problems: Subjective 24 Hr Interval Summary No fevers or chills. No nausea vomiting. No bloating. No blood per mouth or rectum. No pyuria. No rashes. No cough. No seizure. Bowel function. Exam/Review of Systems Vital Signs Vitals Vital Signs Date Time Temp Pulse Resp B/P Pulse Ox O2 Delivery O2 Flow Rate FiO2 04/07/16 08:01 98.8 82 18 102/55 94 04/06/16 00:05 21 04/04/16 05:48 3.0 04/03/16 18:51 Room Air Intake and Output 04/06/16 04/06/16 04/07/16 15:00 23:00 07:00 Intake Total 580 ml 790 ml Output Total 1250 ml 1600 ml Balance -670 ml -810 ml Exam Free Text/Dictation Constitutional: alert, No distress Psych: No anxiety Head: atraumatic, normocephalic Eyes: EOMI, nl conjunctiva, No PERRL ENMT: nl external ears & nose, nl nasal mucosa & septum Neck: non-tender, supple, No jvd Respiratory: normal air movement, No congested cough, No labored breathing Cardiovascular: regular rate and rhythm, No edema Gastrointestinal: non-tender, soft, No rebound or guarding Musculoskeletal: No joint tenderness, No nl extremities to inspection, No nl gait and stance Extremities: normal pulses, No calf tenderness Neurological: nl mental status, No nl strength Skin: rash or lesions (sacral decubitus ulcer, stage IV, with debris), No diaphoresis Lymph: nl lymph nodes Results Result Diagram: 04/06/16 0545 04/06/16 0545 LEONILA GARCIA MD Apr 03, 2016 23:33
[2016-04-04] MEDS: DEXTROSE 5%-0.45% NACL 1,000 ML IV SCH ×3 (02:50→23:49)
[2016-04-04] MEDS: VANCOMYCIN 1 GM in NS 250 ML IVPB SCH (03:46)
[2016-04-04 06:13] LABS: POTASSIUM 3.2 mmol/L (3.5-5.1)
[2016-04-04 06:15] LABS: CREATININE 0.37 mg/dl (0.44-1.00); MAGNESIUM 1.9 mg/dl (1.7-2.5)
[2016-04-04 06:16] LABS: CALCIUM 8.2 mg/dl (8.4-10.2)
[2016-04-04 06:55] LABS: BASOPHILS % 0.2 % (0.0-2.0); EOSINOPHILS % 2.3 % (0.0-7.0); HEMATOCRIT 28.2 % (37.0-47.0); HEMOGLOBIN 8.9 g/dl (12.0-16.0); LYMPHOCYTES # 2.7 10^3/ul (0.8-2.9); LYMPHOCYTES % 32.6 % (15.0-51.0); MEAN CORPUSCULAR HEMOGLOBIN 26.7 pg (29.0-33.0); MEAN CORPUSCULAR HGB CONC 31.6 g/dl (32.0-37.0); MEAN CORPUSCULAR VOLUME 84.7 fl (82.0-101.0); MEAN PLATELET VOLUME 9.9 fl (7.4-10.4); MONOCYTES % 8.9 % (0.0-11.0); NEUTROPHIL # 4.6 10^3/ul (1.6-7.5); NEUTROPHILS % 55.8 % (39.0-77.0); PLATELET COUNT 405 10^3/UL (140-440); RED BLOOD COUNT 3.33 10^6/ul (4.20-5.40); RED CELL DISTRIBUTION WIDTH 14.6 % (11.5-14.5); WHITE BLOOD COUNT 8.2 10^3/ul (4.8-10.8)
[2016-04-04 06:56] LABS: EOSINOPHILS # 0.2 10^3/ul (0.0-0.5); MONOCYTE # 0.7 10^3/ul (0.3-0.9)
[2016-04-04 07:24] VITALS: BP 111/58; RESP 14
[2016-04-04] MEDS: DIVALPROEX SPRINKLE 125 MG CAP NGT SCH ×2 (09:46→21:00)
[2016-04-04] MEDS: LEVETIRACETAM (100 MG/ML) 5ML CUP GTB SCH ×2 (09:46→20:31)
[2016-04-04] MEDS: FAMOTIDINE 20 MG INJ IV SCH ×2 (09:46→20:31)
[2016-04-04] MEDS: morphine 2 MG INJ IV PRN ×3 (09:59→21:29)
[2016-04-04] MEDS: ENOXAPARIN 30 MG/0.3 ML SYG SC SCH (10:16)
--- NOTE | 2016-04-04 10:33 | CONS ---
Date/Time of Note Date/Time of Note DATE: 04/04/16 TIME: 10:30 Assessment/Plan Assessment/Plan Additional Assessment/Plan Assessment recommendations; 1. Patient admitted with UTI and severe sepsis with significant clinical improvement. 2. Stable sacral decubitus ulcer. 3. History of multiple sclerosis with paraplegia. The patient is progressing well. Continue current treatment. I will sign off. Thanks for the consult. Consultation Date/Type/Reason Admit Date/Time Apr 01, 2016 at 05:52 Initial Consult Date 04/01/16 Type of Consultation: Pulmonary/critical care 24 HR Interval Summary Free Text/Dictation Patient is doing very well. Has been transferred out of ICU to the medical floor. Denies any shortness of breath, chest pain, wheezing. Denies any nausea , vomiting. Denies any fever or chills. Denies any urinary symptoms. General examination; young lady, awake alert currently in no distress. Exam/Review of Systems Vital Signs Vitals Vital Signs Date Time Temp Pulse Resp B/P Pulse Ox O2 Delivery O2 Flow Rate FiO2 04/04/16 07:24 98.6 50 14 111/58 98 04/04/16 05:48 3.0 04/03/16 18:51 Room Air 04/02/16 09:20 30 Intake and Output 04/03/16 04/03/16 04/04/16 15:00 23:00 07:00 Intake Total 1220.0 ml 690 ml 490 ml Output Total 950 ml 275 ml 450 ml Balance 270.0 ml 415 ml 40 ml Exam HEENT examination; supple neck, no JVD. No lymphadenopathy. Pharynx is clear. Patient has a few missing teeth. Pupils are midsize and reactive to light bilaterally. Chest examination; clear to auscultation bilaterally. S1-S2 audible, no murmurs. Regular rhythm. Abdomen examination; soft, nontender bowel sounds audible no organomegaly. Back examination; there is a wound VAC applied over the sacrum area. Extremity examination; no peripheral edema. ANALYTICAL LABORATORY TECHNICIAN examination; patient has stable paraplegia. Results Result Diagram: 04/04/16 0520 04/04/16 0520 Results 24 hrs Laboratory Tests Test 04/04/16 05:20 Anion Gap 12 Basophils # 0.0 Basophils % 0.2 Blood Urea Nitrogen 3 L Calcium Level 8.2 L Carbon Dioxide Level 25 Chloride Level 112 H Creatinine 0.37 L Eosinophils # 0.2 Eosinophils % 2.3 Glucose Level 89 Hematocrit 28.2 L Hemoglobin 8.9 L Lymphocytes # 2.7 Lymphocytes % 32.6 Magnesium Level 1.9 Mean Corpuscular Hemoglobin 26.7 L Mean Corpuscular Hemoglobin Concent 31.6 L Mean Corpuscular Volume 84.7 Mean Platelet Volume 9.9 # Monocytes # 0.7 Monocytes % 8.9 Neutrophils # 4.6 Neutrophils % 55.8 Nucleated Red Blood Cells # 0.0 Nucleated Red Blood Cells % 0.0 Phosphorus Level 3.0 Platelet Count 405 Potassium Level 3.2 L Red Blood Count 3.33 L Red Cell Distribution Width 14.6 H Sodium Level 146 H White Blood Count 8.2 Medications Medications Current Medications Dextrose/Sodium Chloride (D5-1/2ns) 1,000 ml @ 100 mls/hr Q10H IV Last administered on 04/04/16 02:50; Admin Dose 100 MLS/HR; Start 04/01/16 at 05:49 Ondansetron HCl (Zofran Inj) 4 mg Q6H PRN IV NAUSEA AND/OR VOMITING; Start at 06:00 Acetaminophen (Tylenol Liquid) 650 mg Q6H PRN PO PAIN LEVEL 1-3 OR FEVER Last administered on 04/01/16 15:45; Admin Dose 650 MG; Start 04/01/16 at 06:00 Lorazepam (Ativan) 1 mg Q2H PRN IV ANXIETY Last administered on 04/02/16 03:54 ; Admin Dose 1 MG; Start 04/01/16 at 06:00 Famotidine (Pepcid Iv) 20 mg Q12 IV Last administered on 04/04/16 09:46; Admin Dose 20 MG; Start 04/01/16 at 09:00 Duloxetine HCl (Cymbalta) 60 mg DAILY PO ; Start 04/01/16 at 09:00; Status Future Hold Divalproex Sodium (Depakote Sprinkle) 500 mg BID NGT Last administered on 09:46; Admin Dose 500 MG; Start 04/01/16 at 13:00 Levetiracetam (Keppra Liquid) 500 mg BID GTB Last administered on 04/04/16 09: 46; Admin Dose 500 MG; Start 04/01/16 at 13:00 Morphine Sulfate (morphine) 2 mg Q4H PRN IV severe pain Last administered on 09:59; Admin Dose 2 MG; Start 04/01/16 at 21:30 Enoxaparin Sodium 30 mg 30 mg DAILY SC Last administered on 04/04/16 10:16; Admin Dose 30 MG; Start 04/03/16 at 09:00 Ertapenem/Sodium Chloride (Invanz/NS) 100 ml @ 200 mls/hr Q24H IVPB Last administered on 04/03/16 14:18; Admin Dose 200 MLS/HR; Start 04/03/16 at 14:00 Linezolid (Zyvox) 600 mg BID PO ; Start 04/04/16 at 11:00 HALIMA DRUMMOND Apr 04, 2016 10:32
[2016-04-04] MEDS: ZYVOX 600 MG TAB PO SCH ×2 (11:20→20:31)
[2016-04-04] MEDS ORDERED: TOBRAMYCIN IV PER PHARMACY XX SCH (13:00)
--- NOTE | 2016-04-04 13:01 | PN ---
DATE: 04/04/2016 SUBJECTIVE: No events overnight. The patient is sleeping. Transferred to medical/surgical. Looks comfortable. MICROBIOLOGY: Blood culture growing E. coli and enterococcus species. Sacral wound culture grew Pr oteus mirabilis, VRE and E. coli. ANTIMICROBIALS: 1. Zyvox. 2. Invanz. 3. Status post vancomycin. INDWELLINGS: Roberson catheter, left subclavian triple-lumen catheter. PHYSICAL EXAMINATION: GENERAL: This is a well-developed middle-aged, ill-appearing woman who is in no distress. HEENT: Head atraumatic, normocephalic. Sclerae anicteric. Buccal mucosa dry. NECK: Supple. CHEST: Rise symmetrical. Breath sounds clear, diminished to bases. HEART: S1, S2. ABDOMEN: Soft, bowel sounds present. EXTREMITIES: No cyanosis. ASSESSMENT: 1. Status post septic shock, currently stable. 2. Unstageable sacral decubitus with multidrug resistant bacteria growing from her wound. 3. Polymicrobial bacteremia secondary to urinary tract infection. 4. Advanced multiple sclerosis. 5. Neurogenic bladder. 6. Status post respiratory failure. PLAN: We are going to start patient on tobramycin that will cover E. coli and Proteus mirabilis dina t she is growing both in her blood, urine and wound. Continue her on Zyvox. Continue wound managem ent as per surgical recommendations. Repeat blood cultures. Dictated By: KASIA TAPIA CALL CENTER DIRECTOR for VISHNU CHRISTIANSON MD NI/NTS Conf#: [id number] DID#: [id number]
--- NOTE | 2016-04-04 13:21 | PN ---
Date/Time of Note Date/Time of Note DATE: 04/04/16 TIME: 13:19 Assessment/Plan VTE Prophylaxis VTE Prophylaxis Intervention: LMWH Lines/Catheters IV Catheter Type (from [facility] Central Line Central line still needed: Yes Urinary Cath still in place: Yes Reason Cath still needed: skin wounds contaminated by urine Assessment/Plan Chief Complaint/Hosp Course 1. Sepsis secondary to underlying urinary tract infection and infected sacral pressure ulcer with underlying gram-negative bacteremia. Continue antibiotics as per infectious diseases. No evidence of any septic shock. 2. Infected pressure ulcer. Sacral pressure ulcer culture showing polymicrobials including VRE. Continue antibiotics as per infectious diseases. Continue local wound care. Surgical consult called for surgical debridement. 3. Multiple sclerosis. Continue supportive care. 4. Seizure disorder. Continue anticonvulsants. 5. Depression. Continue antidepressants. 6. Acute respiratory failure. Hypoxic. The patient was intubated on admission. Extubated on 04/02/2016. 7. Fluid, electrolytes and nutrition. Pured diet. 8. Deep venous thrombosis prophylaxis with subcutaneous Lovenox. 9. Gastrointestinal prophylaxis with histamine 2 receptor blockers. PLAN: Replete potassium. Continue antibiotics as per infectious diseases. Case discussed with Dr. Ortiz. Problems: Subjective 24 Hr Interval Summary Free Text/Dictation Patient remains afebrile. Vital signs stable. Exam/Review of Systems Vital Signs Vitals Vital Signs Date Time Temp Pulse Resp B/P Pulse Ox O2 Delivery O2 Flow Rate FiO2 04/04/16 07:24 98.6 50 14 111/58 98 04/04/16 05:48 3.0 04/03/16 18:51 Room Air 04/02/16 09:20 30 Intake and Output 04/03/16 04/03/16 04/04/16 15:00 23:00 07:00 Intake Total 1220.0 ml 690 ml 490 ml Output Total 950 ml 275 ml 450 ml Balance 270.0 ml 415 ml 40 ml Exam GENERAL: This is a 41-year-old female lying in bed, orally intubated, not in any apparent distress. HEENT: Head normocephalic and atraumatic. Eyes: Anicteric sclerae. Conjunctivae clear. ENT: Nasal septum is midline. Oral mucosa is dry. NECK: Supple. No JVD noticed. RESPIRATORY: Bilaterally diminished breath sounds. No use of accessory muscles of respiration. CARDIAC: Regular rate and rhythm. No obvious murmurs heard. Left-sided subclavian triple-lumen catheter in place. ABDOMEN: Soft, nontender and nondistended. Bowel sounds hypoactive in all 4 quadrants. GENITOURINARY: The patient has a Roberson catheter in place. EXTREMITIES: No cyanosis, no clubbing. Left foot pressure ulcer. Peripheral pulses palpable. NEUROLOGIC: The patient is awake and alert. Follows commands. Moves all 4 extremities. SKIN: Sacral pressure ulcer. Results Result Diagram: 04/04/1651904/04/16519 Results 24 hrs Laboratory Tests Test 04/04/16 05:20 Anion Gap 12 Basophils # 0.0 Basophils % 0.2 Blood Urea Nitrogen 3 L Calcium Level 8.2 L Carbon Dioxide Level 25 Chloride Level 112 H Creatinine 0.37 L Eosinophils # 0.2 Eosinophils % 2.3 Glucose Level 89 Hematocrit 28.2 L Hemoglobin 8.9 L Lymphocytes # 2.7 Lymphocytes % 32.6 Magnesium Level 1.9 Mean Corpuscular Hemoglobin 26.7 L Mean Corpuscular Hemoglobin Concent 31.6 L Mean Corpuscular Volume 84.7 Mean Platelet Volume 9.9 # Monocytes # 0.7 Monocytes % 8.9 Neutrophils # 4.6 Neutrophils % 55.8 Nucleated Red Blood Cells # 0.0 Nucleated Red Blood Cells % 0.0 Phosphorus Level 3.0 Platelet Count 405 Potassium Level 3.2 L Red Blood Count 3.33 L Red Cell Distribution Width 14.6 H Sodium Level 146 H White Blood Count 8.2 Medications Medications Current Medications Dextrose/Sodium Chloride (D5-1/2ns) 1,000 ml @ 100 mls/hr Q10H IV Last administered on 04/04/16 02:50; Admin Dose 100 MLS/HR; Start 04/01/16 at 05:49 Ondansetron HCl (Zofran Inj) 4 mg Q6H PRN IV NAUSEA AND/OR VOMITING; Start at 06:00 Acetaminophen (Tylenol Liquid) 650 mg Q6H PRN PO PAIN LEVEL 1-3 OR FEVER Last administered on 04/01/16 15:45; Admin Dose 650 MG; Start 04/01/16 at 06:00 Lorazepam (Ativan) 1 mg Q2H PRN IV ANXIETY Last administered on 04/02/16 03:54 ; Admin Dose 1 MG; Start 04/01/16 at 06:00 Famotidine (Pepcid Iv) 20 mg Q12 IV Last administered on 04/04/16 09:46; Admin Dose 20 MG; Start 04/01/16 at 09:00 Duloxetine HCl (Cymbalta) 60 mg DAILY PO ; Start 04/01/16 at 09:00; Status Future Hold Divalproex Sodium (Depakote Sprinkle) 500 mg BID NGT Last administered on 09:46; Admin Dose 500 MG; Start 04/01/16 at 13:00 Levetiracetam (Keppra Liquid) 500 mg BID GTB Last administered on 04/04/16 09: 46; Admin Dose 500 MG; Start 04/01/16 at 13:00 Morphine Sulfate (morphine) 2 mg Q4H PRN IV severe pain Last administered on 09:59; Admin Dose 2 MG; Start 04/01/16 at 21:30 Enoxaparin Sodium (Lovenox) 30 mg DAILY SC Last administered on 04/04/16 10:16 ; Admin Dose 30 MG; Start 04/03/16 at 09:00 Linezolid (Zyvox) 600 mg BID PO Last administered on 04/04/16 11:20; Admin Dose 600 MG; Start 04/04/16 at 11:00 Tobramycin TOBRAMYCIN PER PHARMACY NOTE XX ; Start 04/04/16 at 13:00 Tobramycin/Sodium Chloride (Tobramycin/NS) 106.25 ml @ 106.25 mls/hr Q24H IVPB ; Start 04/04/16 at 15:00 JORI JO NP Apr 04, 2016 13:21
[2016-04-04] MEDS ORDERED: POTASSIUM CHLORIDE 250 ML IVPB ONE (13:30)
[2016-04-04] MEDS ORDERED: POTASSIUM CHLORIDE IV SCH (14:00)
[2016-04-04] MEDS ORDERED: SOD CHLORIDE 0.9% IV SCH (14:00)
[2016-04-04] MEDS ORDERED: TOBRAMYCIN 250 MG in SOD CHLORIDE 0.9% 100 ML IVPB SCH (15:00)
[2016-04-04 20:43] VITALS: BP 108/64; RESP 18
[2016-04-04] MEDS: ACETAMINOPHEN 650MG/20.3ML CUP PO PRN (23:23)
[2016-04-04] MEDS: LORAZEPAM 2 MG INJ IV PRN (23:24)
[2016-04-05] MEDS: morphine 2 MG INJ IV PRN ×3 (03:15→22:03)
[2016-04-05] MEDS: DEXTROSE 5%-0.45% NACL 1,000 ML IV SCH ×3 (03:17→15:06)
[2016-04-05 05:43] LABS: ADD SCAN DIFF NO
[2016-04-05 06:01] LABS: BASOPHILS % 0.4 % (0.0-2.0); EOSINOPHILS # 0.2 10^3/ul (0.0-0.5); EOSINOPHILS % 2.5 % (0.0-7.0); HEMATOCRIT 27.4 % (37.0-47.0); HEMOGLOBIN 8.9 g/dl (12.0-16.0); LYMPHOCYTES # 2.8 10^3/ul (0.8-2.9); LYMPHOCYTES % 41.4 % (15.0-51.0); MEAN CORPUSCULAR HEMOGLOBIN 27.1 pg (29.0-33.0); MEAN CORPUSCULAR HGB CONC 32.5 g/dl (32.0-37.0); MEAN CORPUSCULAR VOLUME 83.5 fl (82.0-101.0); MEAN PLATELET VOLUME 9.9 fl (7.4-10.4); MONOCYTE # 0.7 10^3/ul (0.3-0.9); MONOCYTES % 9.5 % (0.0-11.0); NEUTROPHIL # 3.2 10^3/ul (1.6-7.5); NEUTROPHILS % 45.9 % (39.0-77.0); PLATELET COUNT 450 10^3/UL (140-415); RED BLOOD COUNT 3.28 10^6/ul (4.20-5.40); RED CELL DISTRIBUTION WIDTH 14.6 % (11.5-14.5); WHITE BLOOD COUNT 6.9 10^3/ul (4.8-10.8)
[2016-04-05 06:05] LABS: POTASSIUM 3.6 mmol/L (3.5-5.1)
[2016-04-05 06:08] LABS: CREATININE 0.44 mg/dl (0.44-1.00)
[2016-04-05 06:09] LABS: CALCIUM 8.5 mg/dl (8.4-10.2)
[2016-04-05 06:44] LABS: MAGNESIUM 1.8 mg/dl (1.7-2.5); PHOSPHORUS 3.2 mg/dl (2.5-4.9)
[2016-04-05 08:42] VITALS: BP 114/69; RESP 20
[2016-04-05] MEDS: DIVALPROEX SPRINKLE 125 MG CAP NGT SCH ×2 (10:12→21:16)
[2016-04-05] MEDS: LEVETIRACETAM (100 MG/ML) 5ML CUP GTB SCH ×2 (10:12→21:10)
[2016-04-05] MEDS: ZYVOX 600 MG TAB PO SCH ×2 (10:13→21:11)
[2016-04-05] MEDS: FAMOTIDINE 20 MG INJ IV SCH (10:13)
[2016-04-05] MEDS: ENOXAPARIN 30 MG/0.3 ML SYG SC SCH (10:16)
--- NOTE | 2016-04-05 12:59 | CONS ---
Date/Time of Note Date/Time of Note DATE: 04/05/16 TIME: 12:57 Assessment/Plan Assessment/Plan Chief Complaint/Hosp Course SUBJECTIVE: No events overnight. The patient is sleeping. Transferred to medical/surgical. Looks comfortable. MICROBIOLOGY: Blood culture growing E. coli and enterococcus species. Sacral wound culture grew Proteus mirabilis, VRE and E. coli. ANTIMICROBIALS: 1. Zyvox. 2. Tobramycin INDWELLINGS: Roberson catheter, left subclavian triple-lumen catheter. PHYSICAL EXAMINATION: GENERAL: This is a well-developed middle-aged, ill-appearing woman who is in no distress. HEENT: Head atraumatic, normocephalic. Sclerae anicteric. Buccal mucosa dry. NECK: Supple. CHEST: Rise symmetrical. Breath sounds clear, diminished to bases. HEART: S1, S2. ABDOMEN: Soft, bowel sounds present. EXTREMITIES: No cyanosis. ASSESSMENT: 1. Status post septic shock, currently stable. 2. Unstageable sacral decubitus with multidrug resistant bacteria growing from her wound. 3. Polymicrobial bacteremia secondary to urinary tract infection. 4. Advanced multiple sclerosis. 5. Neurogenic bladder. 6. Status post respiratory failure. PLAN: Stable, continue abx, local wound care, f/u repeat bld cx DW staff Problems: Consultation Date/Type/Reason Admit Date/Time Apr 01, 2016 at 05:52 Initial Consult Date 04/01/16 Type of Consultation: ID Exam/Review of Systems Vital Signs Vitals Vital Signs Date Time Temp Pulse Resp B/P Pulse Ox O2 Delivery O2 Flow Rate FiO2 04/05/16 08:42 98.9 89 20 114/69 96 04/04/16 17:17 21 04/04/16 05:48 3.0 04/03/16 18:51 Room Air Intake and Output 04/04/16 04/04/16 04/05/16 15:00 23:00 07:00 Intake Total 1000 ml 610 ml 240 ml Output Total 400 ml 600 ml Balance 1000 ml 210 ml -360 ml Results Result Diagram: 04/05/16 0505 04/05/16 0500 Results 24 hrs Laboratory Tests Test 04/05/16 05:00 04/05/16 05:05 Anion Gap 13 Blood Urea Nitrogen 7 Calcium Level 8.5 Carbon Dioxide Level 25 Chloride Level 111 H Creatinine 0.44 Glucose Level 106 Magnesium Level 1.8 Phosphorus Level 3.2 Potassium Level 3.6 Sodium Level 145 H Basophils # 0.0 Basophils % 0.4 Eosinophils # 0.2 Eosinophils % 2.5 Hematocrit 27.4 L Hemoglobin 8.9 L Lymphocytes # 2.8 Lymphocytes % 41.4 Mean Corpuscular Hemoglobin 27.1 L Mean Corpuscular Hemoglobin Concent 32.5 Mean Corpuscular Volume 83.5 Mean Platelet Volume 9.9 Monocytes # 0.7 Monocytes % 9.5 Neutrophils # 3.2 Neutrophils % 45.9 Nucleated Red Blood Cells # 0.0 Nucleated Red Blood Cells % 0.0 Platelet Count 450 H Random Tobramycin Level 1.8 Red Blood Count 3.28 L Red Cell Distribution Width 14.6 H White Blood Count 6.9 Medications Medications Current Medications Dextrose/Sodium Chloride (D5-1/2ns) 1,000 ml @ 100 mls/hr Q10H IV Last administered on 04/05/16 03:17; Admin Dose 100 MLS/HR; Start 04/01/16 at 05:49 Ondansetron HCl (Zofran Inj) 4 mg Q6H PRN IV NAUSEA AND/OR VOMITING; Start at 06:00 Acetaminophen (Tylenol Liquid) 650 mg Q6H PRN PO PAIN LEVEL 1-3 OR FEVER Last administered on 04/04/16 23:23; Admin Dose 650 MG; Start 04/01/16 at 06:00 Lorazepam (Ativan) 1 mg Q2H PRN IV ANXIETY Last administered on 04/04/16 23:24 ; Admin Dose 1 MG; Start 04/01/16 at 06:00 Famotidine (Pepcid Iv) 20 mg Q12 IV Last administered on 04/05/16 10:13; Admin Dose 20 MG; Start 04/01/16 at 09:00 Duloxetine HCl (Cymbalta) 60 mg DAILY PO ; Start 04/01/16 at 09:00; Status Future Hold Divalproex Sodium (Depakote Sprinkle) 500 mg BID NGT Last administered on 10:12; Admin Dose 500 MG; Start 04/01/16 at 13:00 Levetiracetam (Keppra Liquid) 500 mg BID GTB Last administered on 04/05/16 10: 12; Admin Dose 500 MG; Start 04/01/16 at 13:00 Morphine Sulfate (morphine) 2 mg Q4H PRN IV severe pain Last administered on 03:15; Admin Dose 2 MG; Start 04/01/16 at 21:30 Enoxaparin Sodium (Lovenox) 30 mg DAILY SC Last administered on 04/05/16 10:16 ; Admin Dose 30 MG; Start 04/03/16 at 09:00 Linezolid (Zyvox) 600 mg BID PO Last administered on 04/05/16 10:13; Admin Dose 600 MG; Start 04/04/16 at 11:00 Tobramycin TOBRAMYCIN PER PHARMACY NOTE XX ; Start 04/04/16 at 13:00 Tobramycin/Sodium Chloride (Tobramycin/NS) 106.25 ml @ 106.25 mls/hr Q24H IVPB ; Start 04/05/16 at 18:00 Miscellaneous Information (*Rx Drug Level Order Reminder*) TOBRA TROUGH @ 1, 700 ON... ONCE ONCE XX ; Start 04/06/16 at 17:00; Stop 04/06/16 at 17:01 KASIA TAPIA NP Apr 05, 2016 12:59
--- NOTE | 2016-04-05 14:59 | PN ---
Date/Time of Note Date/Time of Note DATE: 04/05/16 TIME: 14:57 Assessment/Plan VTE Prophylaxis VTE Prophylaxis Intervention: LMWH Lines/Catheters IV Catheter Type (from [facility]): Central Line Central line still needed: Yes Urinary Cath still in place: Yes Reason Cath still needed: skin wounds contaminated by urine Assessment/Plan Chief Complaint/Hosp Course 1. Sepsis secondary to underlying urinary tract infection and infected sacral pressure ulcer with underlying gram-negative bacteremia. Continue antibiotics as per infectious diseases. No evidence of any septic shock. 2. Infected pressure ulcer. Sacral pressure ulcer culture showing polymicrobials including VRE. Continue antibiotics as per infectious diseases. Continue local wound care. Surgical consult called for surgical debridement. 3. Multiple sclerosis. Continue supportive care. 4. Seizure disorder. Continue anticonvulsants. 5. Depression. Continue antidepressants. 6. Acute respiratory failure. Hypoxic. Resolved. The patient was intubated on admission. Extubated on 04/02/2016. 7. Fluid, electrolytes and nutrition. Pured diet. 8. Deep venous thrombosis prophylaxis with subcutaneous Lovenox. 9. Gastrointestinal prophylaxis with histamine 2 receptor blockers. PLAN: Continue antibiotics as per infectious diseases. Continue inhouse care. Case discussed with Dr. Ortiz. Problems: Subjective 24 Hr Interval Summary Free Text/Dictation The patient has been refusing diet today. Exam/Review of Systems Vital Signs Vitals Vital Signs Date Time Temp Pulse Resp B/P Pulse Ox O2 Delivery O2 Flow Rate FiO2 04/05/16 08:42 98.9 89 20 114/69 96 04/04/16 17:17 21 04/04/16 05:48 3.0 04/03/16 18:51 Room Air Intake and Output 04/04/16 04/04/16 04/05/16 14:59 22:59 06:59 Intake Total 1000 ml 610 ml 240 ml Output Total 400 ml 600 ml Balance 1000 ml 210 ml -360 ml Exam GENERAL: This is a 41-year-old female lying in bed, orally intubated, not in any apparent distress. HEENT: Head normocephalic and atraumatic. Eyes: Anicteric sclerae. Conjunctivae clear. ENT: Nasal septum is midline. Oral mucosa is dry. NECK: Supple. No JVD noticed. RESPIRATORY: Bilaterally diminished breath sounds. No use of accessory muscles of respiration. CARDIAC: Regular rate and rhythm. No obvious murmurs heard. Left-sided subclavian triple-lumen catheter in place. ABDOMEN: Soft, nontender and nondistended. Bowel sounds hypoactive in all 4 quadrants. GENITOURINARY: The patient has a Roberson catheter in place. EXTREMITIES: No cyanosis, no clubbing. Left foot pressure ulcer. Peripheral pulses palpable. NEUROLOGIC: The patient is awake and alert. Oriented 1-2. Follows commands. Moves all 4 extremities. SKIN: Sacral pressure ulcer. Results Result Diagram: 04/05/16 0505 04/05/16 0500 Results 24 hrs Laboratory Tests Test 04/05/16 05:00 04/05/16 05:05 Anion Gap 13 Blood Urea Nitrogen 7 Calcium Level 8.5 Carbon Dioxide Level 25 Chloride Level 111 H Creatinine 0.44 Glucose Level 106 Magnesium Level 1.8 Phosphorus Level 3.2 Potassium Level 3.6 Sodium Level 145 H Basophils # 0.0 Basophils % 0.4 Eosinophils # 0.2 Eosinophils % 2.5 Hematocrit 27.4 L Hemoglobin 8.9 L Lymphocytes # 2.8 Lymphocytes % 41.4 Mean Corpuscular Hemoglobin 27.1 L Mean Corpuscular Hemoglobin Concent 32.5 Mean Corpuscular Volume 83.5 Mean Platelet Volume 9.9 Monocytes # 0.7 Monocytes % 9.5 Neutrophils # 3.2 Neutrophils % 45.9 Nucleated Red Blood Cells # 0.0 Nucleated Red Blood Cells % 0.0 Platelet Count 450 H Random Tobramycin Level 1.8 Red Blood Count 3.28 L Red Cell Distribution Width 14.6 H White Blood Count 6.9 Medications Medications Current Medications Dextrose/Sodium Chloride (D5-1/2ns) 1,000 ml @ 100 mls/hr Q10H IV Last administered on 04/05/16 03:17; Admin Dose 100 MLS/HR; Start 04/01/16 at 05:49 Ondansetron HCl (Zofran Inj) 4 mg Q6H PRN IV NAUSEA AND/OR VOMITING; Start at 06:00 Acetaminophen (Tylenol Liquid) 650 mg Q6H PRN PO PAIN LEVEL 1-3 OR FEVER Last administered on 04/04/16 23:23; Admin Dose 650 MG; Start 04/01/16 at 06:00 Lorazepam (Ativan) 1 mg Q2H PRN IV ANXIETY Last administered on 04/04/16 23:24 ; Admin Dose 1 MG; Start 04/01/16 at 06:00 Famotidine (Pepcid Iv) 20 mg Q12 IV Last administered on 04/05/16 10:13; Admin Dose 20 MG; Start 04/01/16 at 09:00 Duloxetine HCl (Cymbalta) 60 mg DAILY PO ; Start 04/01/16 at 09:00; Status Future Hold Divalproex Sodium (Depakote Sprinkle) 500 mg BID NGT Last administered on 10:12; Admin Dose 500 MG; Start 04/01/16 at 13:00 Levetiracetam (Keppra Liquid) 500 mg BID GTB Last administered on 04/05/16 10: 12; Admin Dose 500 MG; Start 04/01/16 at 13:00 Morphine Sulfate (morphine) 2 mg Q4H PRN IV severe pain Last administered on 03:15; Admin Dose 2 MG; Start 04/01/16 at 21:30 Enoxaparin Sodium (Lovenox) 30 mg DAILY SC Last administered on 04/05/16 10:16 ; Admin Dose 30 MG; Start 04/03/16 at 09:00 Linezolid (Zyvox) 600 mg BID PO Last administered on 04/05/16 10:13; Admin Dose 600 MG; Start 04/04/16 at 11:00 Tobramycin TOBRAMYCIN PER PHARMACY NOTE XX ; Start 04/04/16 at 13:00 Tobramycin/Sodium Chloride (Tobramycin/NS) 106.25 ml @ 106.25 mls/hr Q24H IVPB ; Start 04/05/16 at 18:00 Miscellaneous Information (*Rx Drug Level Order Reminder*) TOBRA TROUGH @ 1, 700 ON... ONCE ONCE XX ; Start 04/06/16 at 17:00; Stop 04/06/16 at 17:01 JORI JO NP Apr 05, 2016 14:59
[2016-04-05] MEDS: TOBRAMYCIN 250 MG in SOD CHLORIDE 0.9% 100 ML IVPB SCH (18:17)
[2016-04-05] MEDS: ACETAMINOPHEN 650MG/20.3ML CUP PO PRN (19:10)
[2016-04-05 19:46] VITALS: BP 115/63; RESP 16
[2016-04-05] MEDS: FAMOTIDINE 20 MG TAB PO SCH (21:11)
[2016-04-06] MEDS: morphine 2 MG INJ IV PRN ×3 (02:02→09:55)
[2016-04-06] MEDS: DEXTROSE 5%-0.45% NACL 1,000 ML IV SCH ×2 (02:08→05:49)
[2016-04-06] MEDS: LORAZEPAM 2 MG INJ IV PRN (04:30)
[2016-04-06 06:24] LABS: ADD SCAN DIFF NO; BASOPHIL # 0.1 10^3/ul (0.0-0.1); BASOPHILS % 0.5 % (0.0-2.0); EOSINOPHILS # 0.4 10^3/ul (0.0-0.5); EOSINOPHILS % 4.2 % (0.0-7.0); HEMATOCRIT 28.9 % (37.0-47.0); HEMOGLOBIN 9.2 g/dl (12.0-16.0); LYMPHOCYTES # 4.7 10^3/ul (0.8-2.9); LYMPHOCYTES % 50.7 % (15.0-51.0); MEAN CORPUSCULAR HEMOGLOBIN 26.6 pg (29.0-33.0); MEAN CORPUSCULAR HGB CONC 31.8 g/dl (32.0-37.0); MEAN CORPUSCULAR VOLUME 83.5 fl (82.0-101.0); MEAN PLATELET VOLUME 9.5 fl (7.4-10.4); MONOCYTE # 0.9 10^3/ul (0.3-0.9); MONOCYTES % 9.9 % (0.0-11.0); NEUTROPHIL # 3.2 10^3/ul (1.6-7.5); NEUTROPHILS % 34.5 % (39.0-77.0); PLATELET COUNT 463 10^3/UL (140-415); RED BLOOD COUNT 3.46 10^6/ul (4.20-5.40); RED CELL DISTRIBUTION WIDTH 14.7 % (11.5-14.5); WHITE BLOOD COUNT 9.3 10^3/ul (4.8-10.8)
[2016-04-06] MEDS ORDERED: LIDOCAINE 1%/EPI (MDV) 20 ML INJ INJ ONE (06:30)
[2016-04-06 06:52] LABS: PHOSPHORUS 3.6 mg/dl (2.5-4.9)
[2016-04-06 06:53] LABS: MAGNESIUM 1.7 mg/dl (1.7-2.5)
[2016-04-06 07:00] LABS: POTASSIUM 3.5 mmol/L (3.5-5.1)
[2016-04-06 07:02] LABS: CREATININE 0.51 mg/dl (0.44-1.00)
[2016-04-06 07:03] LABS: CALCIUM 8.5 mg/dl (8.4-10.2)
[2016-04-06 07:50] VITALS: BP 122/70; RESP 18
[2016-04-06] MEDS: FAMOTIDINE 20 MG TAB PO SCH ×2 (09:14→20:45)
[2016-04-06] MEDS: ZYVOX 600 MG TAB PO SCH ×2 (09:14→20:45)
[2016-04-06] MEDS: LEVETIRACETAM (100 MG/ML) 5ML CUP GTB SCH ×2 (09:14→20:45)
[2016-04-06] MEDS: DIVALPROEX SPRINKLE 125 MG CAP PO SCH ×2 (09:14→20:45)
[2016-04-06] MEDS: ENOXAPARIN 30 MG/0.3 ML SYG SC SCH (09:36)
--- NOTE | 2016-04-06 10:18 | PN ---
Date/Time of Note Date/Time of Note DATE: 04/06/16 TIME: 10:16 Assessment/Plan VTE Prophylaxis VTE Prophylaxis Intervention: LMWH Lines/Catheters IV Catheter Type (from [facility]): Central Line Central line still needed: Yes Urinary Cath still in place: Yes Reason Cath still needed: skin wounds contaminated by urine Assessment/Plan Chief Complaint/Hosp Course 1. Sepsis secondary to underlying urinary tract infection and infected sacral pressure ulcer with underlying gram-negative bacteremia. Continue antibiotics as per infectious diseases. No evidence of any septic shock. 2. Infected pressure ulcer. Sacral pressure ulcer culture showing polymicrobials including VRE. Continue antibiotics as per infectious diseases. Continue local wound care. Surgical consult called for surgical debridement. 3. Multiple sclerosis. Continue supportive care. 4. Seizure disorder. Continue anticonvulsants. 5. Depression. Continue antidepressants. 6. Acute respiratory failure. Hypoxic. Resolved. The patient was intubated on admission. Extubated on 04/02/2016. 7. Fluid, electrolytes and nutrition. Soft diet. 8. Deep venous thrombosis prophylaxis with subcutaneous Lovenox. 9. Gastrointestinal prophylaxis with histamine 2 receptor blockers. PLAN: Continue antibiotics as per infectious diseases. Continue inhouse care. Case discussed with Dr. Ortiz. Problems: Subjective 24 Hr Interval Summary Free Text/Dictation Complains of pain in the sacral area. Exam/Review of Systems Vital Signs Vitals Vital Signs Date Time Temp Pulse Resp B/P Pulse Ox O2 Delivery O2 Flow Rate FiO2 04/06/16 07:50 98.7 82 18 122/70 95 04/06/16 00:05 21 04/04/16 05:48 3.0 04/03/16 18:51 Room Air Intake and Output 04/05/16 04/05/16 04/06/16 15:00 23:00 07:00 Intake Total 1786.25 ml 1520 ml Output Total 2300 ml 800 ml Balance -513.75 ml 720 ml Exam GENERAL: This is a 41-year-old female lying in bed, orally intubated, not in any apparent distress. HEENT: Head normocephalic and atraumatic. Eyes: Anicteric sclerae. Conjunctivae clear. ENT: Nasal septum is midline. Oral mucosa is dry. NECK: Supple. No JVD noticed. RESPIRATORY: Bilaterally diminished breath sounds. No use of accessory muscles of respiration. CARDIAC: Regular rate and rhythm. No obvious murmurs heard. Left-sided subclavian triple-lumen catheter in place. ABDOMEN: Soft, nontender and nondistended. Bowel sounds hypoactive in all 4 quadrants. GENITOURINARY: The patient has a Roberson catheter in place. EXTREMITIES: No cyanosis, no clubbing. Left foot pressure ulcer. Peripheral pulses palpable. NEUROLOGIC: The patient is awake and alert. Oriented 1-2. Follows commands. Moves all 4 extremities. SKIN: Sacral pressure ulcer. Results Result Diagram: 04/06/1645 04/06/16 0545 Results 24 hrs Laboratory Tests Test 04/06/16 05:45 Anion Gap 14 Basophils # 0.1 Basophils % 0.5 Blood Urea Nitrogen 9 Calcium Level 8.5 Carbon Dioxide Level 26 Chloride Level 111 H Creatinine 0.51 Eosinophils # 0.4 Eosinophils % 4.2 Glucose Level 94 Hematocrit 28.9 L Hemoglobin 9.2 L Lymphocytes # 4.7 H Lymphocytes % 50.7 Magnesium Level 1.7 Mean Corpuscular Hemoglobin 26.6 L Mean Corpuscular Hemoglobin Concent 31.8 L Mean Corpuscular Volume 83.5 Mean Platelet Volume 9.5 Monocytes # 0.9 Monocytes % 9.9 Neutrophils # 3.2 Neutrophils % 34.5 L Nucleated Red Blood Cells # 0.0 Nucleated Red Blood Cells % 0.0 Phosphorus Level 3.6 Platelet Count 463 H Potassium Level 3.5 Red Blood Count 3.46 L Red Cell Distribution Width 14.7 H Sodium Level 147 H White Blood Count 9.3 # Medications Medications Current Medications Dextrose/Sodium Chloride (D5-1/2ns) 1,000 ml @ 100 mls/hr Q10H IV Last administered on 04/06/16 02:08; Admin Dose 100 MLS/HR; Start 04/01/16 at 05:49 Ondansetron HCl (Zofran Inj) 4 mg Q6H PRN IV NAUSEA AND/OR VOMITING; Start at 06:00 Acetaminophen (Tylenol Liquid) 650 mg Q6H PRN PO PAIN LEVEL 1-3 OR FEVER Last administered on 04/05/16 19:10; Admin Dose 650 MG; Start 04/01/16 at 06:00 Lorazepam (Ativan) 1 mg Q2H PRN IV ANXIETY Last administered on 04/06/16 04:30 ; Admin Dose 1 MG; Start 04/01/16 at 06:00 Duloxetine HCl (Cymbalta) 60 mg DAILY PO ; Start 04/01/16 at 09:00; Status Future Hold Levetiracetam (Keppra Liquid) 500 mg BID GTB Last administered on 04/06/16 09: 14; Admin Dose 500 MG; Start 04/01/16 at 13:00 Morphine Sulfate (morphine) 2 mg Q4H PRN IV severe pain Last administered on 09:55; Admin Dose 2 MG; Start 04/01/16 at 21:30 Enoxaparin Sodium (Lovenox) 30 mg DAILY SC Last administered on 04/06/16 09:36 ; Admin Dose 30 MG; Start 04/03/16 at 09:00 Linezolid (Zyvox) 600 mg BID PO Last administered on 04/06/16 09:14; Admin Dose 600 MG; Start 04/04/16 at 11:00 Tobramycin TOBRAMYCIN PER PHARMACY NOTE XX ; Start 04/04/16 at 13:00 Tobramycin/Sodium Chloride (Tobramycin/NS) 106.25 ml @ 106.25 mls/hr Q24H IVPB Last administered on 04/05/16 18:17; Admin Dose 106.25 MLS/HR; Start at 18:00 Miscellaneous Information (*Rx Drug Level Order Reminder*) TOBRA TROUGH @ 1, 700 ON... ONCE ONCE XX ; Start 04/06/16 at 17:00; Stop 04/06/16 at 17:01 Famotidine (Pepcid) 20 mg BID PO Last administered on 04/06/16 09:14; Admin Dose 20 MG; Start 04/05/16 at 21:00 Divalproex Sodium (Depakote Sprinkle) 500 mg BID PO Last administered on 09:14; Admin Dose 500 MG; Start 04/06/16 at 09:00 JORI JO NP Apr 06, 2016 10:17
[2016-04-06 10:56] LABS: IRON 31 ug/dl (35-150)
[2016-04-06 11:10] LABS: TOTAL IRON BINDING CAPACITY 214 ug/dl (241-421)
[2016-04-06] MEDS: HYDROCODONE/APAP (7.5/325) TAB PO PRN ×3 (12:17→20:43)
[2016-04-06] MEDS: morphine 4 MG/ML VIAL IV PRN ×3 (14:09→21:35)
--- NOTE | 2016-04-06 14:25 | CONS ---
Date/Time of Note Date/Time of Note DATE: 04/06/16 TIME: 14:25 Assessment/Plan Assessment/Plan Chief Complaint/Hosp Course ID PROGRESS NOTE CURRENT ABX=> Zyvox #3 + Tobra IV #3 24H INTERVAL SUMMARY * She is tearful today difficulty coping with life "unfair" that she does not get $$$ for diapers and dental care from the Govt' due to her disability while others who are not disabled get $$$ for having children. She feels self- conscious due to lack of front teeth. * She also asks me if it is safe for her to have indwelling urinary catheter as per a [employer] DRIVER @ [facility] informed her a resident due to indwelling FC. My response is that the details of that patient's are not known and cannot be applied to her case. We discussed the risk of catheter related infx + sepsis vs the benefit of keeping her sacral decub dry and skin free of incontinence dermatitis as well as her risk of urinary retention which may require in/out catheter and also carries risks of renal injury, infx. Patient satisfied with our discussion and I assured her that ID team and her primary provider round on her daily to watch for these risks vs benefits. * Afebrile, VSS, NAD PHYSICAL EXAMINATION: GENERAL: VSS, NAD HEENT: Unremarkable -- NECK: Supple, trachea midline. CHEST: Rise symmetrical, without dyspnea on observation HEART: Pulse RRR ABDOMEN: Soft, benign EXTREMITIES: Warm ID ASSESSMENT 41 yo F admit with PMHx advanced MS, functional quadriplegia-bedbound, neurogenic bladder admit with: 1. Status post septic shock due to #2 , currently stable. 2. Polymicrobial bacteremia secondary to urinary tract infection. * MICROBIOLOGY: Blood culture growing E. coli and enterococcus species. Urine Cx (+)VRE * Repeat BCx 04/04/16 (-)48H 3. Unstageable sacral decubitus with multidrug resistant bacteria growing from her wound. * Wound culture grew Proteus mirabilis, VRE and E. coli. 4. Neurogenic bladder-> Indwelling FC 6. Status post respiratory failure. (-)MRSA Nares INVASIVES: L-SC TLC, FC ABX ALLERGY: KNDA CURRENT ABX: =>Zyvox #3 + Tobra IV #3 ID RECOMMENDATIONS 1. Continue Zyvox total 10 days and Tobra IV total 14 days * Back to SNF on ABX to complete course when cleared by PMD 2. Patient given assurance with much time spent therapeutic listening: * She also asks me if it is safe for her to have indwelling urinary catheter as per a [employer] DRIVER @ [facility] informed her a resident due to indwelling FC. My response is that the details of that patient's are not known and cannot be applied to her case. We discussed the risk of catheter related infx + sepsis vs the benefit of keeping her sacral decub dry and skin free of incontinence dermatitis as well as her risk of urinary retention which may require in/out catheter and also carries risks of renal injury, infx. Patient satisfied with our discussion and I assured her that ID team and her primary provider round on her daily to watch for these risks vs benefits. Problems: Consultation Date/Type/Reason Admit Date/Time Apr 01, 2016 at 05:52 Initial Consult Date 04/01/16 Type of Consultation: ID Exam/Review of Systems Vital Signs Vitals Vital Signs Date Time Temp Pulse Resp B/P Pulse Ox O2 Delivery O2 Flow Rate FiO2 04/06/16 07:50 98.7 82 18 122/70 95 04/06/16 00:05 21 04/04/16 05:48 3.0 04/03/16 18:51 Room Air Intake and Output 04/05/16 04/05/16 04/06/16 15:00 23:00 07:00 Intake Total 1786.25 ml 1520 ml Output Total 2300 ml 800 ml Balance -513.75 ml 720 ml Results Result Diagram: 04/06/16 0545 04/06/16 0545 Results 24 hrs Laboratory Tests Test 04/06/16 05:45 Anion Gap 14 Basophils # 0.1 Basophils % 0.5 Blood Urea Nitrogen 9 Calcium Level 8.5 Carbon Dioxide Level 26 Chloride Level 111 H Creatinine 0.51 Eosinophils # 0.4 Eosinophils % 4.2 Ferritin 49.1 Glucose Level 94 Hematocrit 28.9 L Hemoglobin 9.2 L Iron Level 31 L Lymphocytes # 4.7 H Lymphocytes % 50.7 Magnesium Level 1.7 Mean Corpuscular Hemoglobin 26.6 L Mean Corpuscular Hemoglobin Concent 31.8 L Mean Corpuscular Volume 83.5 Mean Platelet Volume 9.5 Monocytes # 0.9 Monocytes % 9.9 Neutrophils # 3.2 Neutrophils % 34.5 L Nucleated Red Blood Cells # 0.0 Nucleated Red Blood Cells % 0.0 Percent Iron Saturation 14 L Phosphorus Level 3.6 Platelet Count 463 H Potassium Level 3.5 Red Blood Count 3.46 L Red Cell Distribution Width 14.7 H Sodium Level 147 H Total Iron Binding Capacity 214 L White Blood Count 9.3 # Medications Medications Current Medications Ondansetron HCl (Zofran Inj) 4 mg Q6H PRN IV NAUSEA AND/OR VOMITING; Start at 06:00 Acetaminophen (Tylenol Liquid) 650 mg Q6H PRN PO PAIN LEVEL 1-3 OR FEVER Last administered on 04/05/16 19:10; Admin Dose 650 MG; Start 04/01/16 at 06:00 Lorazepam (Ativan) 1 mg Q2H PRN IV ANXIETY Last administered on 04/06/16 04:30 ; Admin Dose 1 MG; Start 04/01/16 at 06:00 Duloxetine HCl (Cymbalta) 60 mg DAILY PO ; Start 04/01/16 at 09:00; Status Future hold Levetiracetam (Keppra Liquid) 500 mg BID GTB Last administered on 04/06/16 09: 14; Admin Dose 500 MG; Start 04/01/16 at 13:00 Enoxaparin Sodium (Lovenox) 30 mg DAILY SC Last administered on 04/06/16 09:36 ; Admin Dose 30 MG; Start 04/03/16 at 09:00 Linezolid (Zyvox) 600 mg BID PO Last administered on 04/06/16 09:14; Admin Dose 600 MG; Start 04/04/16 at 11:00 Tobramycin TOBRAMYCIN PER PHARMACY NOTE XX ; Start 04/04/16 at 13:00 Tobramycin/Sodium Chloride (Tobramycin/NS) 106.25 ml @ 106.25 mls/hr Q24H IVPB Last administered on 04/05/16 18:17; Admin Dose 106.25 MLS/HR; Start at 18:00 Miscellaneous Information (*Rx Drug Level Order Reminder*) TOBRA TROUGH @ 1, 700 ON... ONCE ONCE XX ; Start 04/06/16 at 17:00; Stop 04/06/16 at 17:01 Famotidine (Pepcid) 20 mg BID PO Last administered on 04/06/16 09:14; Admin Dose 20 MG; Start 04/05/16 at 21:00 Divalproex Sodium (Depakote Sprinkle) 500 mg BID PO Last administered on 09:14; Admin Dose 500 MG; Start 04/06/16 at 09:00 Morphine Sulfate (morphine) 4 mg Q4H PRN IV severe pain Last administered on 14:09; Admin Dose 4 MG; Start 04/06/16 at 13:30 Acetaminophen/ Hydrocodone Bitart ([place] (7.5-325)) 1 tab Q4H PRN PO Pain Last administered on 04/06/16 12:17; Admin Dose 1 TAB; Start 04/06/16 at 12:00 REMY JUÁREZ NP Apr 06, 2016 14:25
[2016-04-06] MEDS: TOBRAMYCIN 250 MG in SOD CHLORIDE 0.9% 100 ML IVPB SCH (17:59)
[2016-04-06 20:05] VITALS: BP 122/58; RESP 20
[2016-04-06] MEDS: ONDANSETRON 4 MG INJ IV PRN (21:42)
[2016-04-07] MEDS: HYDROCODONE/APAP (7.5/325) TAB PO PRN ×3 (01:01→15:57)
[2016-04-07] MEDS: morphine 4 MG/ML VIAL IV PRN ×4 (03:51→18:16)
[2016-04-07] MEDS: ONDANSETRON 4 MG INJ IV PRN ×2 (03:51→10:36)
[2016-04-07 08:01] VITALS: BP 102/55; RESP 18
[2016-04-07] MEDS: FAMOTIDINE 20 MG TAB PO SCH ×2 (08:52→20:32)
[2016-04-07] MEDS: ZYVOX 600 MG TAB PO SCH ×2 (08:52→20:32)
[2016-04-07] MEDS: DULOXETINE 30 MG CAP DR PO SCH (08:52)
[2016-04-07] MEDS: LEVETIRACETAM (100 MG/ML) 5ML CUP GTB SCH ×2 (08:53→20:32)
[2016-04-07] MEDS: DIVALPROEX SPRINKLE 125 MG CAP PO SCH ×2 (08:53→20:32)
[2016-04-07] MEDS: ENOXAPARIN 30 MG/0.3 ML SYG SC SCH (09:20)
--- NOTE | 2016-04-07 10:09 | PN ---
Date/Time of Note Date/Time of Note DATE: 04/07/16 TIME: 10:07 Assessment/Plan VTE Prophylaxis VTE Prophylaxis Intervention: LMWH Lines/Catheters IV Catheter Type (from [facility]): Central Line Central line still needed: Yes Urinary Cath still in place: Yes Reason Cath still needed: skin wounds contaminated by urine Assessment/Plan Chief Complaint/Hosp Course 1. Sepsis secondary to underlying urinary tract infection and infected sacral pressure ulcer with underlying gram-negative bacteremia. Continue antibiotics as per infectious diseases. No evidence of any septic shock. 2. Infected pressure ulcer. Sacral pressure ulcer culture showing polymicrobials including VRE. Continue antibiotics as per infectious diseases. Continue local wound care. Surgical consult called for surgical debridement. 3. Multiple sclerosis. Continue supportive care. 4. Seizure disorder. Continue anticonvulsants. 5. Depression. Continue antidepressants. 6. Acute respiratory failure. Hypoxic. Resolved. The patient was intubated on admission. Extubated on 04/02/2016. 7. Iron deficiency anemia. Will start the patient on iron supplements. 8. Fluid, electrolytes and nutrition. Soft diet. 9. Deep venous thrombosis prophylaxis with subcutaneous Lovenox. 10. Gastrointestinal prophylaxis with histamine 2 receptor blockers. PLAN: Continue antibiotics as per infectious diseases. Continue inhouse care. Start iron supplements. Case discussed with Dr. Ortiz. Problems: Subjective 24 Hr Interval Summary Free Text/Dictation Patient remains afebrile. Exam/Review of Systems Vital Signs Vitals Vital Signs Date Time Temp Pulse Resp B/P Pulse Ox O2 Delivery O2 Flow Rate FiO2 04/07/16 08:01 98.8 82 18 102/55 94 04/06/16 00:05 21 04/04/16 05:48 3.0 04/03/16 18:51 Room Air Intake and Output 04/06/16 04/06/16 04/07/16 15:00 23:00 07:00 Intake Total 580 ml 790 ml Output Total 1250 ml 1600 ml Balance -670 ml -810 ml Exam GENERAL: This is a 41-year-old female lying in bed, orally intubated, not in any apparent distress. HEENT: Head normocephalic and atraumatic. Eyes: Anicteric sclerae. Conjunctivae clear. ENT: Nasal septum is midline. Oral mucosa is dry. NECK: Supple. No JVD noticed. RESPIRATORY: Bilaterally diminished breath sounds. No use of accessory muscles of respiration. CARDIAC: Regular rate and rhythm. No obvious murmurs heard. Left-sided subclavian triple-lumen catheter in place. ABDOMEN: Soft, nontender and nondistended. Bowel sounds hypoactive in all 4 quadrants. GENITOURINARY: The patient has a Roberson catheter in place. EXTREMITIES: No cyanosis, no clubbing. Left foot pressure ulcer. Peripheral pulses palpable. NEUROLOGIC: The patient is awake and alert. Oriented 2-3. Follows commands. Moves all 4 extremities. SKIN: Sacral pressure ulcer. Results Result Diagram: 04/06/1654404/06/16544 Results 24 hrs Laboratory Tests Test 04/06/16 17:00 Tobramycin Level Trough < 0.6 L Medications Medications Current Medications Ondansetron HCl (Zofran Inj) 4 mg Q6H PRN IV NAUSEA AND/OR VOMITING Last administered on 04/07/16 03:51; Admin Dose 4 MG; Start 04/01/16 at 06:00 Acetaminophen (Tylenol Liquid) 650 mg Q6H PRN PO PAIN LEVEL 1-3 OR FEVER Last administered on 04/05/16 19:10; Admin Dose 650 MG; Start 04/01/16 at 06:00 Lorazepam (Ativan) 1 mg Q2H PRN IV ANXIETY Last administered on 04/06/16 04:30 ; Admin Dose 1 MG; Start 04/01/16 at 06:00 Duloxetine HCl (Cymbalta) 60 mg DAILY PO Last administered on 04/07/16 08:52; Admin Dose 60 MG; Start 04/01/16 at 09:00; Status Future hold Levetiracetam (Keppra Liquid) 500 mg BID GTB Last administered on 04/07/16 08: 53; Admin Dose 500 MG; Start 04/01/16 at 13:00 Enoxaparin Sodium (Lovenox) 30 mg DAILY SC Last administered on 04/07/16 09:20 ; Admin Dose 30 MG; Start 04/03/16 at 09:00 Linezolid (Zyvox) 600 mg BID PO Last administered on 04/07/16 08:52; Admin Dose 600 MG; Start 04/04/16 at 11:00 Tobramycin TOBRAMYCIN PER PHARMACY NOTE XX ; Start 04/04/16 at 13:00 Tobramycin/Sodium Chloride (Tobramycin/NS) 106.25 ml @ 106.25 mls/hr Q24H IVPB Last administered on 04/06/16 17:59; Admin Dose 106.25 MLS/HR; Start at 18:00 Famotidine (Pepcid) 20 mg BID PO Last administered on 04/07/16 08:52; Admin Dose 20 MG; Start 04/05/16 at 21:00 Divalproex Sodium (Depakote Sprinkle) 500 mg BID PO Last administered on 08:53; Admin Dose 500 MG; Start 04/06/16 at 09:00 Morphine Sulfate (morphine) 4 mg Q4H PRN IV severe pain Last administered on 08:55; Admin Dose 4 MG; Start 04/06/16 at 13:30 Acetaminophen/ Hydrocodone Bitart ([place] (7.5-325)) 1 tab Q4H PRN PO Pain Last administered on 04/07/16 05:43; Admin Dose 1 TAB; Start 04/06/16 at 12:00 JORI JO NP Apr 07, 2016 10:09
[2016-04-07] MEDS: SOD FERRIC GLUC COMPLX 125 MG in SOD CHLORIDE 0.9% 100 ML IVPB SCH (13:15)
--- NOTE | 2016-04-07 15:34 | CONS ---
Date/Time of Note Date/Time of Note DATE: 04/07/16 TIME: 15:32 Assessment/Plan Assessment/Plan Chief Complaint/Hosp Course ID PROGRESS NOTE CURRENT ABX=> Zyvox #4 + Tobra IV #4 24H INTERVAL SUMMARY * Clinically status quo - no new issues, no fevers, VSS, NAD * Overall much improved - sepsis on admission resolved PHYSICAL EXAMINATION: GENERAL: VSS, NAD HEENT: Unremarkable -- NECK: Supple, trachea midline. CHEST: Rise symmetrical, without dyspnea on observation HEART: Pulse RRR ABDOMEN: Soft, benign EXTREMITIES: Warm ID ASSESSMENT 41 yo F admit with PMHx advanced MS, functional quadriplegia-bedbound, neurogenic bladder admit with: 1. Status post septic shock due to #2 , currently stable. 2. Polymicrobial bacteremia secondary to urinary tract infection. * MICROBIOLOGY: Blood culture growing E. coli and enterococcus species. Urine Cx (+)VRE * Repeat BCx 04/04/16 (-)48H 3. Unstageable sacral decubitus with multidrug resistant bacteria growing from her wound. * Wound culture grew Proteus mirabilis, VRE and E. coli. 4. Neurogenic bladder-> Indwelling FC 6. Status post respiratory failure. (-)MRSA Nares INVASIVES: L-SC TLC, FC ABX ALLERGY: KNDA CURRENT ABX: =>Zyvox #4 + Tobra IV #4 ID RECOMMENDATIONS 1. Continue Zyvox total 10 days and Tobra IV total 14 days * Back to SNF on ABX to complete course when cleared by PMD 2.Patient given assurance on ABX plan of care -- she will be monitored for recurrent UTI/Urosepsis while chronic FC remains intact due to urinary retention + incontinence dermatitis that risks healing of decubs/ . Problems: Consultation Date/Type/Reason Admit Date/Time Apr 01, 2016 at 05:52 Initial Consult Date 04/01/16 Type of Consultation: ID Exam/Review of Systems Vital Signs Vitals Vital Signs Date Time Temp Pulse Resp B/P Pulse Ox O2 Delivery O2 Flow Rate FiO2 04/07/16 08:01 98.8 82 18 102/55 94 04/06/16 00:05 21 04/04/16 05:48 3.0 04/03/16 18:51 Room Air Intake and Output 04/06/16 04/06/16 04/07/16 15:00 23:00 07:00 Intake Total 580 ml 790 ml Output Total 1250 ml 1600 ml Balance -670 ml -810 ml Results Result Diagram: 04/06/16 0545 04/06/16 0545 Results 24 hrs Laboratory Tests Test 04/06/16 17:00 Tobramycin Level Trough < 0.6 L Medications Medications Current Medications Ondansetron HCl (Zofran Inj) 4 mg Q6H PRN IV NAUSEA AND/OR VOMITING Last administered on 04/07/16 10:36; Admin Dose 4 MG; Start 04/01/16 at 06:00 Acetaminophen (Tylenol Liquid) 650 mg Q6H PRN PO PAIN LEVEL 1-3 OR FEVER Last administered on 04/05/16 19:10; Admin Dose 650 MG; Start 04/01/16 at 06:00 Lorazepam (Ativan) 1 mg Q2H PRN IV ANXIETY Last administered on 04/06/16 04:30 ; Admin Dose 1 MG; Start 04/01/16 at 06:00 Duloxetine HCl (Cymbalta) 60 mg DAILY PO Last administered on 04/07/16 08:52; Admin Dose 60 MG; Start 04/01/16 at 09:00; Status Future hold Levetiracetam (Keppra Liquid) 500 mg BID GTB Last administered on 04/07/16 08: 53; Admin Dose 500 MG; Start 04/01/16 at 13:00 Enoxaparin Sodium (Lovenox) 30 mg DAILY SC Last administered on 04/07/16 09:20 ; Admin Dose 30 MG; Start 04/03/16 at 09:00 Linezolid (Zyvox) 600 mg BID PO Last administered on 04/07/16 08:52; Admin Dose 600 MG; Start 04/04/16 at 11:00 Tobramycin TOBRAMYCIN PER PHARMACY NOTE XX ; Start 04/04/16 at 13:00 Tobramycin/Sodium Chloride (Tobramycin/NS) 106.25 ml @ 106.25 mls/hr Q24H IVPB Last administered on 04/06/16 17:59; Admin Dose 106.25 MLS/HR; Start at 18:00 Famotidine (Pepcid) 20 mg BID PO Last administered on 04/07/16 08:52; Admin Dose 20 MG; Start 04/05/16 at 21:00 Divalproex Sodium (Depakote Sprinkle) 500 mg BID PO Last administered on 08:53; Admin Dose 500 MG; Start 04/06/16 at 09:00 Morphine Sulfate (morphine) 4 mg Q4H PRN IV severe pain Last administered on 13:16; Admin Dose 4 MG; Start 04/06/16 at 13:30 Acetaminophen/ Hydrocodone Bitart 1 tab 1 tab Q4H PRN PO Pain Last administered on 04/07/16 05:43; Admin Dose 1 TAB; Start 04/06/16 at 12:00 Ferric Sodium Gluconate Complex/ Sodium Chloride ([place]lecit/NS) 110 ml @ 100 mls/hr Q24H IVPB Last administered on 04/07/16 13:15; Admin Dose 100 MLS/HR; Start 04/07/16 at 12:00; Stop 04/09/16 at 13:05 REMY JUÁREZ NP Apr 07, 2016 15:34
--- NOTE | 2016-04-07 17:16 | QN ---
Documentation Comment Date/Time of Note DATE: 04/04/16 TIME: 23:33 Assessment/Plan 1. Sepsis multifactorial with UTI and probable wound. Improved -Antibiotics -Wound care -Supportive 2. Stage IV sacral decubitus ulceration with debris and possible infection -As above -Offload -Local wound care -Nutrition optimization -Vitamin C -Debridement were more stable 3. UTI on antibiotics 4. Multiple sclerosis with significant lower extremity weakness weakness and wheelchair-bound -Optimization of offloading encouraged -Nutrition optimization -Medical optimization 5. Seizure disorder on medication 6. Encephalopathy and respiratory failure improved 7. Anemia without evidence of acute blood loss -Monitor Thank you Subjective No fevers or chills. No nausea vomiting. No bloating. No blood per mouth or rectum. No pyuria. No rashes. No cough. No seizure. Bowel function. Exam/Review of Systems Vital Signs Vitals noted Exam Constitutional: alert, No distress Psych: No anxiety Head: atraumatic, normocephalic Eyes: EOMI, nl conjunctiva, No PERRL ENMT: nl external ears & nose, nl nasal mucosa & septum Neck: non-tender, supple, No jvd Respiratory: normal air movement, No congested cough, No labored breathing Cardiovascular: regular rate and rhythm, No edema Gastrointestinal: non-tender, soft, No rebound or guarding Musculoskeletal: No joint tenderness, No nl extremities to inspection, No nl gait and stance Extremities: normal pulses, No calf tenderness Neurological: nl mental status, No nl strength Skin: rash or lesions (sacral decubitus ulcer, stage IV, with debris), No diaphoresis Lymph: nl lymph nodes Results Noted LEONILA GARCIA MD Apr 07, 2016 17:16
--- NOTE | 2016-04-07 17:21 | OPR ---
Date/Time of Note Date/Time of Note DATE: 04/07/16 TIME: 17:18 Operative Report Procedure Date: Apr 06, 2016 Preoperative Diagnosis Stage IV sacral thickness ulcer with debris, 5 x 4.5 cm Postoperative Diagnosis Same Operation Performed Excision and debridement of sacral skin, subcutaneous, muscle, fascia, bone. 5 x 4.5 cm Surgeon: LEONILA GARCIA MD Estimated Blood Loss: 0 - 10 ml's Specimens None Tubes/Drains Curlex packing Complications: None Pt Condition Post Procedure: stable Disposition: other (on room) Indications Per notes Risks benefits and alternatives as usual and customary Procedure Description Patient was placed in lateral decubitus position. All pressure points well- padded. Timeout was performed. Area was prepped and draped. Using the curet necrotic tissue of skin and subcutaneous muscle fascia and expose bone were debrided to healthier edges. Wound was irrigated. Hemostasis is obtained with packing and pressure. Wound packed with Kerlix and dry gauze applied. Patient tolerated procedure well. LEONILA GARCIA MD Apr 07, 2016 17:21
--- NOTE | 2016-04-07 17:24 | PN ---
Date/Time of Note Date/Time of Note DATE: 04/07/16 TIME: 17:21 Assessment/Plan Lines/Catheters IV Catheter Type (from [facility]): Central Line Roberson in Place (from [facility]): Yes Assessment/Plan Chief Complaint/Hosp Course 1. Sepsis multifactorial with UTI and probable wound. Improved -Antibiotics -Wound care -Supportive 2. Stage IV sacral decubitus ulceration with debris test was excisional debridement -As above -Offload -Local wound care -Nutrition optimization -Vitamin C 3. UTI s/p antibiotics 4. Multiple sclerosis with significant lower extremity weakness weakness and wheelchair-bound -Optimization of offloading encouraged -Nutrition optimization -Medical optimization 5. Seizure disorder on medication 6. Encephalopathy and respiratory failure improved 7. Anemia without evidence of acute blood loss -Monitor Thank you Problems: Subjective 24 Hr Interval Summary s/p excisional debridement of sacral decubitus ulcer 04/06. No fevers or chills. No nausea vomiting. No bloating. No blood per mouth or rectum. No pyuria. No rashes. No cough. No seizure. Bowel function. Exam/Review of Systems Vital Signs Vitals Vital Signs Date Time Temp Pulse Resp B/P Pulse Ox O2 Delivery O2 Flow Rate FiO2 04/07/16 08:01 98.8 82 18 102/55 94 04/06/16 00:05 21 04/04/16 05:48 3.0 04/03/16 18:51 Room Air Intake and Output 04/06/16 04/06/16 04/07/16 15:00 23:00 07:00 Intake Total 580 ml 790 ml Output Total 1250 ml 1600 ml Balance -670 ml -810 ml Exam Free Text/Dictation Constitutional: alert, No distress Psych: No anxiety Head: atraumatic, normocephalic Eyes: EOMI, nl conjunctiva, No PERRL ENMT: nl external ears & nose, nl nasal mucosa & septum Neck: non-tender, supple, No jvd Respiratory: normal air movement, No congested cough, No labored breathing Cardiovascular: regular rate and rhythm, No edema Gastrointestinal: non-tender, soft, No rebound or guarding Musculoskeletal: No joint tenderness, No nl extremities to inspection, No nl gait and stance Extremities: normal pulses, No calf tenderness Neurological: nl mental status, No nl strength Skin: rash or lesions (sacral decubitus ulcer, stage IV, with packing), No diaphoresis Lymph: nl lymph nodes Results Result Diagram: 04/06/16 0545 04/06/16 0545 LEONILA GARCIA MD Apr 07, 2016 17:23
[2016-04-07] MEDS: TOBRAMYCIN 250 MG in SOD CHLORIDE 0.9% 100 ML IVPB SCH (18:16)
--- NOTE | 2016-04-07 19:15 | CONS ---
DATE OF ADMISSION: 04/01/2016 DATE OF CONSULTATION: 04/02/2016 TYPE OF CONSULTATION: Surgical. REFERRING PHYSICIAN: Chet Soler NP CHIEF COMPLAINT: 1. Sacral decubitus ulceration, stage IV. 2. Sepsis. 3. Urinary tract infection. 4. Encephalopathy. 5. Multiple sclerosis. HISTORY OF PRESENT ILLNESS: Ms. Carito Gutierrez is a 41-year-old female with multiple significant c omorbidities who was brought into the ER for shortness of breath and altered mentation and initially was found to be obtunded; however, has improved since then. She was intubated and was found to hav e fever, leukocytosis, and tachycardia and thrombocytosis. The patient was found to have urinary tr act infection and encephalopathy. She also has a wound and surgical consult is obtained for further evaluation and treatment. The patient is unable to give information; however, from review from [facility] and staff, fevers have improved. There is no cough or seizure. No blood per mouth or rectum. N o bloating. No vomiting. No rashes. No pyuria except on studies. PAST MEDICAL HISTORY: 1. Multiple sclerosis. 2. Sepsis. 3. Encephalopathy. 4. Wheelchair bound. 5. Depression. 6. Bilateral lower extremity weakness. 7. Sacral stage IV decubitus ulceration. 8. Respiratory failure. 9. Thrombocytosis. 10. Leukocytosis. 11. Seizure disorder. PAST SURGICAL HISTORY: None. MEDICATIONS: As per MAR. ALLERGIES: As per chart, INCLUDING PENICILLIN AND LATEX. SOCIAL HISTORY: No current alcohol, drugs or tobacco. FAMILY HISTORY: Noncontributory. REVIEW OF SYSTEMS: A 12-point review of systems is negative unless addressed in HPI. PHYSICAL EXAMINATION: VITAL SIGNS: Temperature is 98, pulse 72, blood pressure 106/68, satting 100%. GENERAL: Extubated. No acute distress. HEENT: Pupils equal, reactive. No scleral icterus. Mucous membranes somewhat dry. NECK: No crepitus, no JVD. PULMONARY: Normal respiratory effort. CARDIAC: S1, S2 present. ABDOMEN: Soft, nontender. EXTREMITIES: Significant weakness in the lower extremity, some weakness in the upper extremit ies. VASCULAR: Capillary refill is 2 seconds. NEUROLOGIC: Responsive. SKIN: No rashes. No jaundice. Sacral decubitus ulcer with debris. LABORATORY AND RADIOGRAPHIC: As per chart and HPI. ASSESSMENT AND PLAN: 1. Sepsis, multifactorial with urinary tract infection and probable wound. Antibiotics. Wound care. Supportive. 2. Stage IV sacral decubitus ulceration with debris and possible infection. As above. Offloading. Local wound care. Nutrition and optimization. Vitamin C. Debridement when more stable. 3. Urinary tract infection, on antibiotics. 4. Multiple sclerosis with significant lower extremity weakness and wheelchair bound. Medical optimization. 5. Optimization of offloading encouraged. Nutrition and optimization. 6. Seizure disorder, on medication. 7. Encephalopathy and respiratory failure, improved. 8. Anemia without evidence of acute blood loss. Monitor. Thank you very much for consulting me in this patient's care. Dictated By: LEONILA HURTADO/JOSELIN Conf#: [id number] DID#: [id number]
[2016-04-07 20:10] VITALS: BP 112/55; RESP 20
[2016-04-08 04:52] LABS: ADD SCAN DIFF NO
[2016-04-08 04:56] LABS: BASOPHILS % 0.5 % (0.0-2.0); EOSINOPHILS # 0.3 10^3/ul (0.0-0.5); EOSINOPHILS % 4.2 % (0.0-7.0); HEMATOCRIT 29.1 % (37.0-47.0); HEMOGLOBIN 9.3 g/dl (12.0-16.0); LYMPHOCYTES # 2.5 10^3/ul (0.8-2.9); LYMPHOCYTES % 32.3 % (15.0-51.0); MEAN CORPUSCULAR HEMOGLOBIN 26.9 pg (29.0-33.0); MEAN CORPUSCULAR VOLUME 84.1 fl (82.0-101.0); MEAN PLATELET VOLUME 9.1 fl (7.4-10.4); MONOCYTE # 0.6 10^3/ul (0.3-0.9); MONOCYTES % 7.9 % (0.0-11.0); NEUTROPHIL # 4.2 10^3/ul (1.6-7.5); NEUTROPHILS % 54.7 % (39.0-77.0); PLATELET COUNT 463 10^3/UL (140-415); RED BLOOD COUNT 3.46 10^6/ul (4.20-5.40); RED CELL DISTRIBUTION WIDTH 14.9 % (11.5-14.5); WHITE BLOOD COUNT 7.6 10^3/ul (4.8-10.8)
[2016-04-08] MEDS ORDERED: ALTEPLASE (CATHFLO) 2 MG INJ CATHETER PRN (05:30)
[2016-04-08 05:35] LABS: POTASSIUM 3.4 mmol/L (3.5-5.1)
[2016-04-08 05:38] LABS: CREATININE 0.55 mg/dl (0.44-1.00)
[2016-04-08 05:58] LABS: MAGNESIUM 1.9 mg/dl (1.7-2.5); PHOSPHORUS 3.8 mg/dl (2.5-4.9)
[2016-04-08 07:50] VITALS: BP 117/65; RESP 18
[2016-04-08] MEDS: DULOXETINE 30 MG CAP DR PO SCH (09:08)
[2016-04-08] MEDS: SODIUM HYPOCHLORITE 0.125% 473 ML BTL IRR SCH (09:08)
[2016-04-08] MEDS: ZYVOX 600 MG TAB PO SCH ×2 (09:08→21:07)
[2016-04-08] MEDS: FAMOTIDINE 20 MG TAB PO SCH ×2 (09:09→21:07)
[2016-04-08] MEDS: DIVALPROEX SPRINKLE 125 MG CAP PO SCH ×2 (09:09→21:08)
[2016-04-08] MEDS: LEVETIRACETAM (100 MG/ML) 5ML CUP GTB SCH ×2 (09:09→21:07)
[2016-04-08] MEDS: ENOXAPARIN 30 MG/0.3 ML SYG SC SCH (09:23)
--- NOTE | 2016-04-08 09:33 | PN ---
Date/Time of Note Date/Time of Note DATE: 04/08/16 TIME: 09:31 Assessment/Plan Lines/Catheters IV Catheter Type (from [facility]): Central Line Roberson in Place (from [facility]): Yes Assessment/Plan Chief Complaint/Hosp Course 1. Sepsis multifactorial with UTI and probable wound. Improved -Antibiotics -Wound care -Supportive 2. Stage IV sacral decubitus ulceration with debris test was excisional debridement 04/06 -As above -Offload -Local wound care -Nutrition optimization -Vitamin C 3. UTI s/p antibiotics 4. Multiple sclerosis with significant lower extremity weakness weakness and wheelchair-bound -Optimization of offloading encouraged -Nutrition optimization -Medical optimization 5. Seizure disorder on medication 6. Encephalopathy and respiratory failure improved 7. Anemia without evidence of acute blood loss -Monitor Thank you Problems: Subjective 24 Hr Interval Summary s/p excisional debridement of sacral decubitus ulcer 04/06. No fevers or chills. No nausea vomiting. No bloating. No blood per mouth or rectum. No pyuria. No rashes. No cough. No seizure. Bowel function. Exam/Review of Systems Vital Signs Vitals Vital Signs Date Time Temp Pulse Resp B/P Pulse Ox O2 Delivery O2 Flow Rate FiO2 04/08/16 07:50 99.0 71 18 117/65 94 04/06/16 00:05 21 Intake and Output 04/07/16 04/07/16 04/08/16 15:00 23:00 07:00 Intake Total 436.25 ml Output Total 450 ml 400 ml Balance -13.75 ml -400 ml Exam Free Text/Dictation Constitutional: alert, No distress Psych: No anxiety Head: atraumatic, normocephalic Eyes: EOMI, nl conjunctiva, No PERRL ENMT: nl external ears & nose, nl nasal mucosa & septum Neck: non-tender, supple, No jvd Respiratory: normal air movement, No congested cough, No labored breathing Cardiovascular: regular rate and rhythm, No edema Gastrointestinal: non-tender, soft, No rebound or guarding Musculoskeletal: No joint tenderness, No nl extremities to inspection, No nl gait and stance Extremities: normal pulses, No calf tenderness Neurological: nl mental status, No nl strength Skin: rash or lesions (sacral decubitus ulcer, stage IV, with packing), No diaphoresis Lymph: nl lymph nodes Results Result Diagram: 04/08/16 0430 04/08/16 0430 LEONILA GARCIA MD Apr 08, 2016 09:32
[2016-04-08] MEDS: SOD FERRIC GLUC COMPLX 125 MG in SOD CHLORIDE 0.9% 100 ML IVPB SCH (12:09)
--- NOTE | 2016-04-08 12:27 | CONS ---
Date/Time of Note Date/Time of Note DATE: 04/08/16 TIME: 12:25 Assessment/Plan Assessment/Plan Chief Complaint/Hosp Course SUBJECTIVE: No events overnight. The patient is sleeping. Transferred to medical/surgical. Looks comfortable. MICROBIOLOGY: Blood culture growing E. coli and enterococcus species. Sacral wound culture grew Proteus mirabilis, VRE and E. coli. ANTIMICROBIALS: 1. Zyvox. 2. Tobramycin INDWELLINGS: Roberson catheter, left subclavian triple-lumen catheter. PHYSICAL EXAMINATION: GENERAL: This is a well-developed middle-aged, ill-appearing woman who is in no distress. HEENT: Head atraumatic, normocephalic. Sclerae anicteric. Buccal mucosa dry. NECK: Supple. CHEST: Rise symmetrical. Breath sounds clear, diminished to bases. HEART: S1, S2. ABDOMEN: Soft, bowel sounds present. EXTREMITIES: No cyanosis. ASSESSMENT: 1. Status post septic shock, currently stable. 2. Unstageable sacral decubitus, poss OM===> s/p debridement 3. Polymicrobial bacteremia secondary to urinary tract infection. 4. Advanced multiple sclerosis. 5. Neurogenic bladder. 6. Status post respiratory failure. PLAN: Remains stable, will likely need senior care abx given bone involvement of sacral wound, anticipate treating with Daptomycin and Tobramycin for 4-6 weeks [facility] staff Problems: Consultation Date/Type/Reason Admit Date/Time Apr 01, 2016 at 05:52 Initial Consult Date 04/01/16 Type of Consultation: ID Exam/Review of Systems Vital Signs Vitals Vital Signs Date Time Temp Pulse Resp B/P Pulse Ox O2 Delivery O2 Flow Rate FiO2 04/08/16 07:50 99.0 71 18 117/65 94 04/06/16 00:05 21 Intake and Output 04/07/16 04/07/16 04/08/16 15:00 23:00 07:00 Intake Total 436.25 ml Output Total 450 ml 400 ml Balance -13.75 ml -400 ml Results Result Diagram: 04/08/16 0430 04/08/16 0430 Results 24 hrs Laboratory Tests Test 04/08/16 04:30 Anion Gap 13 Basophils # 0.0 Basophils % 0.5 Blood Urea Nitrogen 10 Calcium Level 8.0 L Carbon Dioxide Level 27 Chloride Level 109 Creatinine 0.55 Eosinophils # 0.3 Eosinophils % 4.2 Glucose Level 85 Hematocrit 29.1 L Hemoglobin 9.3 L Lymphocytes # 2.5 Lymphocytes % 32.3 Magnesium Level 1.9 Mean Corpuscular Hemoglobin 26.9 L Mean Corpuscular Hemoglobin Concent 32.0 Mean Corpuscular Volume 84.1 Mean Platelet Volume 9.1 Monocytes # 0.6 Monocytes % 7.9 Neutrophils # 4.2 Neutrophils % 54.7 Nucleated Red Blood Cells # 0.0 Nucleated Red Blood Cells % 0.0 Phosphorus Level 3.8 Platelet Count 463 H Potassium Level 3.4 L Red Blood Count 3.46 L Red Cell Distribution Width 14.9 H Sodium Level 146 H White Blood Count 7.6 Medications Medications Current Medications Ondansetron HCl (Zofran Inj) 4 mg Q6H PRN IV NAUSEA AND/OR VOMITING Last administered on 04/07/16 10:36; Admin Dose 4 MG; Start 04/01/16 at 06:00 Acetaminophen (Tylenol Liquid) 650 mg Q6H PRN PO PAIN LEVEL 1-3 OR FEVER Last administered on 04/05/16 19:10; Admin Dose 650 MG; Start 04/01/16 at 06:00 Lorazepam (Ativan) 1 mg Q2H PRN IV ANXIETY Last administered on 04/06/16 04:30 ; Admin Dose 1 MG; Start 04/01/16 at 06:00 Duloxetine HCl (Cymbalta) 60 mg DAILY PO Last administered on 04/08/16 09:08; Admin Dose 60 MG; Start 04/01/16 at 09:00; Status Future hold Levetiracetam (Keppra Liquid) 500 mg BID GTB Last administered on 04/08/16 09: 09; Admin Dose 500 MG; Start 04/01/16 at 13:00 Enoxaparin Sodium (Lovenox) 30 mg DAILY SC Last administered on 04/08/16 09:23 ; Admin Dose 30 MG; Start 04/03/16 at 09:00 Linezolid (Zyvox) 600 mg BID PO Last administered on 04/08/16 09:08; Admin Dose 600 MG; Start 04/04/16 at 11:00 Tobramycin TOBRAMYCIN PER PHARMACY NOTE XX ; Start 04/04/16 at 13:00 Tobramycin/Sodium Chloride (Tobramycin/NS) 106.25 ml @ 106.25 mls/hr Q24H IVPB Last administered on 04/07/16 18:16; Admin Dose 106.25 MLS/HR; Start at 18:00 Famotidine (Pepcid) 20 mg BID PO Last administered on 04/08/16 09:09; Admin Dose 20 MG; Start 04/05/16 at 21:00 Divalproex Sodium (Depakote Sprinkle) 500 mg BID PO Last administered on 09:09; Admin Dose 500 MG; Start 04/06/16 at 09:00 Morphine Sulfate (morphine) 4 mg Q4H PRN IV severe pain Last administered on 18:16; Admin Dose 4 MG; Start 04/06/16 at 13:30 Acetaminophen/ Hydrocodone Bitart 1 tab 1 tab Q4H PRN PO Pain Last administered on 04/07/16 15:57; Admin Dose 1 TAB; Start 04/06/16 at 12:00 Ferric Sodium Gluconate Complex/ Sodium Chloride (Ferrlecit/NS) 110 ml @ 100 mls/hr Q24H IVPB Last administered on 04/08/16 12:09; Admin Dose 100 MLS/HR; Start 04/07/16 at 12:00; Stop 04/09/16 at 13:05 Sodium Hypochlorite (Dakin'S (1/4 Strength)) 1 applic DAILY IRR Last administered on 04/08/16 09:08; Admin Dose 1 APPLIC; Start 04/08/16 at 09:00 KASIA TAPIA NP Apr 08, 2016 12:27
--- NOTE | 2016-04-08 14:30 | PN ---
Date/Time of Note Date/Time of Note DATE: 04/08/16 TIME: 14:26 Assessment/Plan VTE Prophylaxis VTE Prophylaxis Intervention: LMWH Lines/Catheters IV Catheter Type (from [facility]): Central Line Urinary Cath still in place: Yes Assessment/Plan Chief Complaint/Hosp Course Assessment and plan 1. Sepsis secondary to UTI and infected sacral pressure ulcer. Continue on antibiotics. Surgeon following. Patient status post debridement. Continue with wound care 2. Infected pressure ulcer. Patient is of sacral ulcer with poor microbials including VRE. Continue antibiotic regimen. Continue with surgeon recommendations. 3. History of multiple sclerosis. Continue supportive care. Turn every 2 hours as needed for further prevention of decubitus ulcer 4. Seizure disorder. Continue on anticonvulsants 5. History of depression. Continue antidepressants 6. Iron deficiency anemia. Continue on iron 7. Acute respiratory failure. Patient status post intubation on admission. Patient of note extubated on 04/02/2016. We'll provide with oxygen as needed Disposition and plan: Continue antibiotics. Continue with wound care. Discharge when medically stable and clear by consultants Discussed plan of care with Dr. Falk Problems: Subjective 24 Hr Interval Summary Free Text/Dictation no s/s of distress Exam/Review of Systems Vital Signs Vitals Vital Signs Date Time Temp Pulse Resp B/P Pulse Ox O2 Delivery O2 Flow Rate FiO2 04/08/16 07:50 99.0 71 18 117/65 94 04/06/16 00:05 21 Intake and Output 04/07/16 04/07/16 04/08/16 14:59 22:59 06:59 Intake Total 436.25 ml Output Total 450 ml 400 ml Balance -13.75 ml -400 ml Exam General: No acute signs or symptoms of distress Eyes: pupils equal round, Anicteric sclera Neck: Supple nontender, no JVD Cardiac: S1, S2 auscultated, regular rhythm and rate Pulmonary: No coarse rhonchi or breathing auscultated GI: Abdomen soft nontender nondistended, bowel sounds active Extremities: No edema bilateral lower extremities Skin: Noted with decubitus ulcer on sacral area Neurologic: Alert to person place and time and situation Results Result Diagram: 04/08/16 0430 04/08/16 0430 Results 24 hrs Laboratory Tests Test 04/08/16 04:30 Anion Gap 13 Basophils # 0.0 Basophils % 0.5 Blood Urea Nitrogen 10 Calcium Level 8.0 L Carbon Dioxide Level 27 Chloride Level 109 Creatinine 0.55 Eosinophils # 0.3 Eosinophils % 4.2 Glucose Level 85 Hematocrit 29.1 L Hemoglobin 9.3 L Lymphocytes # 2.5 Lymphocytes % 32.3 Magnesium Level 1.9 Mean Corpuscular Hemoglobin 26.9 L Mean Corpuscular Hemoglobin Concent 32.0 Mean Corpuscular Volume 84.1 Mean Platelet Volume 9.1 Monocytes # 0.6 Monocytes % 7.9 Neutrophils # 4.2 Neutrophils % 54.7 Nucleated Red Blood Cells # 0.0 Nucleated Red Blood Cells % 0.0 Phosphorus Level 3.8 Platelet Count 463 H Potassium Level 3.4 L Red Blood Count 3.46 L Red Cell Distribution Width 14.9 H Sodium Level 146 H White Blood Count 7.6 Medications Medications Current Medications Ondansetron HCl (Zofran Inj) 4 mg Q6H PRN IV NAUSEA AND/OR VOMITING Last administered on 04/07/16 10:36; Admin Dose 4 MG; Start 04/01/16 at 06:00 Acetaminophen (Tylenol Liquid) 650 mg Q6H PRN PO PAIN LEVEL 1-3 OR FEVER Last administered on 04/05/16 19:10; Admin Dose 650 MG; Start 04/01/16 at 06:00 Lorazepam (Ativan) 1 mg Q2H PRN IV ANXIETY Last administered on 04/06/16 04:30 ; Admin Dose 1 MG; Start 04/01/16 at 06:00 Duloxetine HCl (Cymbalta) 60 mg DAILY PO Last administered on 04/08/16 09:08; Admin Dose 60 MG; Start 04/01/16 at 09:00; Status Future hold Levetiracetam (Keppra Liquid) 500 mg BID GTB Last administered on 04/08/16 09: 09; Admin Dose 500 MG; Start 04/01/16 at 13:00 Enoxaparin Sodium (Lovenox) 30 mg DAILY SC Last administered on 04/08/16 09:23 ; Admin Dose 30 MG; Start 04/03/16 at 09:00 Linezolid (Zyvox) 600 mg BID PO Last administered on 04/08/16 09:08; Admin Dose 600 MG; Start 04/04/16 at 11:00 Tobramycin TOBRAMYCIN PER PHARMACY NOTE XX ; Start 04/04/16 at 13:00 Tobramycin/Sodium Chloride (Tobramycin/NS) 106.25 ml @ 106.25 mls/hr Q24H IVPB Last administered on 04/07/16 18:16; Admin Dose 106.25 MLS/HR; Start at 18:00 Famotidine (Pepcid) 20 mg BID PO Last administered on 04/08/16 09:09; Admin Dose 20 MG; Start 04/05/16 at 21:00 Divalproex Sodium (Depakote Sprinkle) 500 mg BID PO Last administered on 09:09; Admin Dose 500 MG; Start 04/06/16 at 09:00 Morphine Sulfate (morphine) 4 mg Q4H PRN IV severe pain Last administered on 18:16; Admin Dose 4 MG; Start 04/06/16 at 13:30 Acetaminophen/ Hydrocodone Bitart 1 tab 1 tab Q4H PRN PO Pain Last administered on 04/07/16 15:57; Admin Dose 1 TAB; Start 04/06/16 at 12:00 Ferric Sodium Gluconate Complex/ Sodium Chloride (Ferrlecit/NS) 110 ml @ 100 mls/hr Q24H IVPB Last administered on 04/08/16 12:09; Admin Dose 100 MLS/HR; Start 04/07/16 at 12:00; Stop 04/09/16 at 13:05 Sodium Hypochlorite (Dakin'S (1/4 Strength)) 1 applic DAILY IRR Last administered on 04/08/16 09:08; Admin Dose 1 APPLIC; Start 04/08/16 at 09:00 CRISTO GERARDO Apr 08, 2016 14:30
[2016-04-08] MEDS: morphine 4 MG/ML VIAL IV PRN ×2 (15:54→21:09)
[2016-04-08] MEDS: TOBRAMYCIN 250 MG in SOD CHLORIDE 0.9% 100 ML IVPB SCH (17:10)
[2016-04-08 19:24] VITALS: BP 124/60; RESP 20
[2016-04-08 20:30] VITALS: PULSE 72
[2016-04-09] MEDS: morphine 4 MG/ML VIAL IV PRN ×2 (01:43→21:23)
[2016-04-09 08:08] VITALS: BP 120/66; RESP 20
[2016-04-09] MEDS: DIVALPROEX SPRINKLE 125 MG CAP PO SCH ×2 (09:18→21:09)
[2016-04-09] MEDS: SODIUM HYPOCHLORITE 0.125% 473 ML BTL IRR SCH (09:18)
[2016-04-09] MEDS: ZYVOX 600 MG TAB PO SCH ×2 (09:18→21:11)
[2016-04-09] MEDS: FAMOTIDINE 20 MG TAB PO SCH ×2 (09:19→21:11)
[2016-04-09] MEDS: DULOXETINE 30 MG CAP DR PO SCH (09:19)
[2016-04-09] MEDS: LEVETIRACETAM (100 MG/ML) 5ML CUP GTB SCH ×2 (09:19→21:09)
[2016-04-09] MEDS: ENOXAPARIN 30 MG/0.3 ML SYG SC SCH (10:12)
[2016-04-09] MEDS: SOD FERRIC GLUC COMPLX 125 MG in SOD CHLORIDE 0.9% 100 ML IVPB SCH (12:00)
--- NOTE | 2016-04-09 12:04 | CONS ---
Date/Time of Note Date/Time of Note DATE: 04/09/16 TIME: 12:03 Assessment/Plan Assessment/Plan Chief Complaint/Hosp Course SUBJECTIVE: No events overnight. The patient is sleeping. Transferred to medical/surgical. Looks comfortable. MICROBIOLOGY: Blood culture growing E. coli and enterococcus species. Sacral wound culture grew Proteus mirabilis, VRE and E. coli. ANTIMICROBIALS: 1. Zyvox. 2. Tobramycin INDWELLINGS: Roberson catheter, left subclavian triple-lumen catheter. PHYSICAL EXAMINATION: GENERAL: This is a well-developed middle-aged, ill-appearing woman who is in no distress. HEENT: Head atraumatic, normocephalic. Sclerae anicteric. Buccal mucosa dry. NECK: Supple. CHEST: Rise symmetrical. Breath sounds clear, diminished to bases. HEART: S1, S2. ABDOMEN: Soft, bowel sounds present. EXTREMITIES: No cyanosis. ASSESSMENT: 1. Status post septic shock, currently stable. 2. Unstageable sacral decubitus, poss OM===> s/p debridement 3. Polymicrobial bacteremia secondary to urinary tract infection. 4. Advanced multiple sclerosis. 5. Neurogenic bladder. 6. Status post respiratory failure. PLAN: Remains stable, will likely need assisted abx given bone involvement of sacral wound, will start Cefepime today and if no reaction anticipate sending home on Daptomycin and Cefepime, otherwise will need to be on Tobramycin and Daptomycin [facility] staff Problems: Consultation Date/Type/Reason Admit Date/Time Apr 01, 2016 at 05:52 Initial Consult Date 04/01/16 Type of Consultation: ID Exam/Review of Systems Vital Signs Vitals Vital Signs Date Time Temp Pulse Resp B/P Pulse Ox O2 Delivery O2 Flow Rate FiO2 04/09/16 08:08 98.9 78 20 120/66 95 04/06/16 00:05 21 Intake and Output 04/08/16 04/08/16 04/09/16 15:00 23:00 07:00 Intake Total 206.25 ml 300 ml Output Total 400 ml 450 ml Balance -193.75 ml -150 ml Results Result Diagram: 04/08/16 0430 04/08/16 0430 Medications Medications Current Medications Ondansetron HCl (Zofran Inj) 4 mg Q6H PRN IV NAUSEA AND/OR VOMITING Last administered on 04/07/16 10:36; Admin Dose 4 MG; Start 04/01/16 at 06:00 Acetaminophen (Tylenol Liquid) 650 mg Q6H PRN PO PAIN LEVEL 1-3 OR FEVER Last administered on 04/05/16 19:10; Admin Dose 650 MG; Start 04/01/16 at 06:00 Lorazepam (Ativan) 1 mg Q2H PRN IV ANXIETY Last administered on 04/06/16 04:30 ; Admin Dose 1 MG; Start 04/01/16 at 06:00 Duloxetine HCl (Cymbalta) 60 mg DAILY PO Last administered on 04/09/16 09:19; Admin Dose 60 MG; Start 04/01/16 at 09:00; Status Future hold Levetiracetam (Keppra Liquid) 500 mg BID GTB Last administered on 04/09/16 09: 19; Admin Dose 500 MG; Start 04/01/16 at 13:00 Enoxaparin Sodium (Lovenox) 30 mg DAILY SC Last administered on 04/09/16 10:12 ; Admin Dose 30 MG; Start 04/03/16 at 09:00 Linezolid (Zyvox) 600 mg BID PO Last administered on 04/09/16 09:18; Admin Dose 600 MG; Start 04/04/16 at 11:00 Tobramycin TOBRAMYCIN PER PHARMACY NOTE XX ; Start 04/04/16 at 13:00 Tobramycin/Sodium Chloride (Tobramycin/NS) 106.25 ml @ 106.25 mls/hr Q24H IVPB Last administered on 04/08/16 17:10; Admin Dose 106.25 MLS/HR; Start at 18:00 Famotidine (Pepcid) 20 mg BID PO Last administered on 04/09/16 09:19; Admin Dose 20 MG; Start 04/05/16 at 21:00 Divalproex Sodium (Depakote Sprinkle) 500 mg BID PO Last administered on 09:18; Admin Dose 500 MG; Start 04/06/16 at 09:00 Morphine Sulfate (morphine) 4 mg Q4H PRN IV severe pain Last administered on 01:43; Admin Dose 4 MG; Start 04/06/16 at 13:30 Acetaminophen/ Hydrocodone Bitart 1 tab 1 tab Q4H PRN PO Pain Last administered on 04/07/16 15:57; Admin Dose 1 TAB; Start 04/06/16 at 12:00 Ferric Sodium Gluconate Complex/ Sodium Chloride (Ferrlecit/NS) 110 ml @ 100 mls/hr Q24H IVPB Last administered on 04/09/16 12:00; Admin Dose 100 MLS/HR; Start 04/07/16 at 12:00; Stop 04/09/16 at 13:05 Sodium Hypochlorite (Dakin'S (1/4 Strength)) 1 applic DAILY IRR Last administered on 04/09/16 09:18; Admin Dose 1 APPLIC; Start 04/08/16 at 09:00 Miscellaneous Information (*Rx Drug Level Order Reminder*) TOBRAMYCIN TROUGH 04/10 AT 1700 ONCE ONCE XX ; Start 04/10/16 at 17:00; Stop 04/10/16 at 17:01 KASIA TAPIA NP Apr 09, 2016 12:04
[2016-04-09] MEDS: CEFEPIME 1GM/50 ML (PMX) 50 ML IVPB SCH ×2 (12:52→21:09)
--- NOTE | 2016-04-09 14:40 | PN ---
Date/Time of Note Date/Time of Note DATE: 04/09/16 TIME: 14:37 Assessment/Plan VTE Prophylaxis VTE Prophylaxis Intervention: LMWH Lines/Catheters [facility] Central Line Urinary Cath still in place: Yes Assessment/Plan Chief Complaint/Hosp Course Assessment and plan 1. Sepsis secondary to UTI and infected sacral pressure ulcer. Continue on antibiotics. Surgeon following. Patient status post debridement. Continue with wound care 2. Infected pressure ulcer. Patient is of sacral ulcer with poor microbials including VRE. Continue antibiotic regimen. Continue with surgeon recommendations. 3. History of multiple sclerosis. Continue supportive care. Turn every 2 hours as needed for further prevention of decubitus ulcer 4. Seizure disorder. Continue on anticonvulsants 5. History of depression. Continue antidepressants 6. Iron deficiency anemia. Continue on iron 7. Acute respiratory failure. Patient status post intubation on admission. Patient of note extubated on 04/02/2016. We'll provide with oxygen as needed Disposition and plan: Continue antibiotics. Continue with wound care. Monitors to see if allergic reaction to cefepime. Anticipate discharge on antibiotics per ID recommendations. We'll follow-up Discussed plan of care with Dr. Falk Problems: Subjective 24 Hr Interval Summary Free Text/Dictation no s/s of distress. comfortable at present Exam/Review of Systems Vital Signs Vitals Vital Signs Date Time Temp Pulse Resp B/P Pulse Ox O2 Delivery O2 Flow Rate FiO2 04/09/16 08:08 98.9 78 20 120/66 95 04/06/16 00:05 21 Intake and Output 04/08/16 04/08/16 04/09/16 14:59 22:59 06:59 Intake Total 206.25 ml 300 ml Output Total 400 ml 450 ml Balance -193.75 ml -150 ml Exam General: No acute signs or symptoms of distress Eyes: pupils equal round, Anicteric sclera Neck: Supple nontender, no JVD Cardiac: S1, S2 auscultated, regular rhythm and rate Pulmonary: No coarse rhonchi or breathing auscultated GI: Abdomen soft nontender nondistended, bowel sounds active Extremities: No edema bilateral lower extremities Skin: Noted with decubitus ulcer on sacral area Neurologic: Alert to person place and time and situation Results Result Diagram: 04/08/16 0430 04/08/16 0430 Medications Medications Current Medications Ondansetron HCl (Zofran Inj) 4 mg Q6H PRN IV NAUSEA AND/OR VOMITING Last administered on 04/07/16 10:36; Admin Dose 4 MG; Start 04/01/16 at 06:00 Acetaminophen (Tylenol Liquid) 650 mg Q6H PRN PO PAIN LEVEL 1-3 OR FEVER Last administered on 04/05/16 19:10; Admin Dose 650 MG; Start 04/01/16 at 06:00 Lorazepam (Ativan) 1 mg Q2H PRN IV ANXIETY Last administered on 04/06/16 04:30 ; Admin Dose 1 MG; Start 04/01/16 at 06:00 Duloxetine HCl (Cymbalta) 60 mg DAILY PO Last administered on 04/09/16 09:19; Admin Dose 60 MG; Start 04/01/16 at 09:00; Status Future hold Levetiracetam (Keppra Liquid) 500 mg BID GTB Last administered on 04/09/16 09: 19; Admin Dose 500 MG; Start 04/01/16 at 13:00 Enoxaparin Sodium (Lovenox) 30 mg DAILY SC Last administered on 04/09/16 10:12 ; Admin Dose 30 MG; Start 04/03/16 at 09:00 Linezolid (Zyvox) 600 mg BID PO Last administered on 04/09/16 09:18; Admin Dose 600 MG; Start 04/04/16 at 11:00 Famotidine (Pepcid) 20 mg BID PO Last administered on 04/09/16 09:19; Admin Dose 20 MG; Start 04/05/16 at 21:00 Divalproex Sodium (Depakote Sprinkle) 500 mg BID PO Last administered on 09:18; Admin Dose 500 MG; Start 04/06/16 at 09:00 Morphine Sulfate (morphine) 4 mg Q4H PRN IV severe pain Last administered on 01:43; Admin Dose 4 MG; Start 04/06/16 at 13:30 Acetaminophen/ Hydrocodone Bitart ([place] (7.5-325)) 1 tab Q4H PRN PO Pain Last administered on 04/07/16 15:57; Admin Dose 1 TAB; Start 04/06/16 at 12:00 Sodium Hypochlorite 1 applic 1 applic DAILY IRR Last administered on 04/09/16 09:18; Admin Dose 1 APPLIC; Start 04/08/16 at 09:00 Cefepime HCl (Maxipime 1gm/50 ml (Pmx)) 50 ml @ 100 mls/hr Q12 IVPB Last administered on 04/09/16 12:52; Admin Dose 100 MLS/HR; Start 04/09/16 at 12:30 CRISTO GERARDO Apr 09, 2016 14:40
[2016-04-09 20:44] VITALS: BP 138/59; RESP 18
--- NOTE | 2016-04-09 23:34 | PN ---
Date/Time of Note Date/Time of Note DATE: 04/09/16 TIME: 23:33 Assessment/Plan Lines/Catheters IV Catheter Type (from [facility]): Central Line Roberson in Place (from [facility]): Yes Assessment/Plan Chief Complaint/Hosp Course 1. Sepsis multifactorial with UTI and probable wound. Improved -Antibiotics -Wound care -Supportive 2. Stage IV sacral decubitus ulceration with debris test was excisional debridement 04/06 -As above -Offload -Local wound care -Nutrition optimization -Vitamin C 3. UTI s/p antibiotics 4. Multiple sclerosis with significant lower extremity weakness weakness and wheelchair-bound -Optimization of offloading encouraged -Nutrition optimization -Medical optimization 5. Seizure disorder on medication 6. Encephalopathy and respiratory failure improved 7. Anemia without evidence of acute blood loss -Monitor Thank you Problems: Subjective 24 Hr Interval Summary s/p excisional debridement of sacral decubitus ulcer 04/06. No fevers or chills. No nausea vomiting. No bloating. No blood per mouth or rectum. No pyuria. No rashes. No cough. No seizure. Bowel function. Exam/Review of Systems Vital Signs Vitals Vital Signs Date Time Temp Pulse Resp B/P Pulse Ox O2 Delivery O2 Flow Rate FiO2 04/09/16 20:44 98.9 72 18 138/59 96 04/06/16 00:05 21 Intake and Output 04/08/16 04/08/16 04/09/16 15:00 23:00 07:00 Intake Total 206.25 ml 300 ml Output Total 400 ml 450 ml Balance -193.75 ml -150 ml Exam Free Text/Dictation Constitutional: alert, No distress Psych: No anxiety Head: atraumatic, normocephalic Eyes: EOMI, nl conjunctiva, No PERRL ENMT: nl external ears & nose, nl nasal mucosa & septum Neck: non-tender, supple, No jvd Respiratory: normal air movement, No congested cough, No labored breathing Cardiovascular: regular rate and rhythm, No edema Gastrointestinal: non-tender, soft, No rebound or guarding Musculoskeletal: No joint tenderness, No nl extremities to inspection, No nl gait and stance Extremities: normal pulses, No calf tenderness Neurological: nl mental status, No nl strength Skin: rash or lesions (sacral decubitus ulcer, stage IV, with packing), No diaphoresis Lymph: nl lymph nodes Results Result Diagram: 04/08/16 0430 04/08/16 0430 LEONILA GARCIA MD Apr 09, 2016 23:34
[2016-04-10] MEDS: morphine 4 MG/ML VIAL IV PRN ×4 (07:15→21:48)
[2016-04-10 07:44] VITALS: BP 113/57; RESP 18
[2016-04-10] MEDS ORDERED: LIDOCAINE 1% (MDV) 20 ML INJ SC ONE (09:00)
[2016-04-10] MEDS: LEVETIRACETAM (100 MG/ML) 5ML CUP GTB SCH ×2 (09:02→21:46)
[2016-04-10] MEDS: DIVALPROEX SPRINKLE 125 MG CAP PO SCH ×2 (09:02→21:49)
[2016-04-10] MEDS: SODIUM HYPOCHLORITE 0.125% 473 ML BTL IRR SCH (09:02)
[2016-04-10] MEDS: CEFEPIME 1GM/50 ML (PMX) 50 ML IVPB SCH ×2 (09:02→21:48)
[2016-04-10] MEDS: ZYVOX 600 MG TAB PO SCH ×2 (09:03→21:49)
[2016-04-10] MEDS: DULOXETINE 30 MG CAP DR PO SCH (09:03)
[2016-04-10] MEDS: FAMOTIDINE 20 MG TAB PO SCH ×2 (09:03→21:49)
[2016-04-10] MEDS ORDERED: HYDR-3605 PO (09:47)
[2016-04-10] MEDS ORDERED: ALBU18HF INH (09:47)
[2016-04-10] MEDS ORDERED: DIVA125C11 PO (09:47)
[2016-04-10] MEDS ORDERED: LEVE500S9 GTB (09:47)
--- NOTE | 2016-04-10 09:52 | PDOCDIS ---
Discharge Instructions DIAGNOSIS Discharge Diagnosis: 1. Sepsis secondary to UTI and infected sacral pressure ulcer CONDITION Patient Condition: Stable HOME CARE INSTRUCTIONS: Special Diet: mechanical soft FOLLOW UP/APPOINTMENTS Appointments 1. Follow-up with your primary care provider within a week CRISTO GERARDO Apr 10, 2016 09:52
[2016-04-10] MEDS: ENOXAPARIN 30 MG/0.3 ML SYG SC SCH (09:55)
[2016-04-10] MEDS: ONDANSETRON 4 MG INJ IV PRN (11:11)
--- NOTE | 2016-04-10 14:48 | CONS ---
Date/Time of Note Date/Time of Note DATE: 04/10/16 TIME: 14:47 Assessment/Plan Assessment/Plan Chief Complaint/Hosp Course SUBJECTIVE: No events overnight. The patient is sleeping. Transferred to medical/surgical. Looks comfortable. MICROBIOLOGY: Blood culture growing E. coli and enterococcus species. Sacral wound culture grew Proteus mirabilis, VRE and E. coli. ANTIMICROBIALS: 1. Zyvox. 2. Cefepime INDWELLINGS: Roberson catheter, left subclavian triple-lumen catheter. PHYSICAL EXAMINATION: GENERAL: This is a well-developed middle-aged, ill-appearing woman who is in no distress. HEENT: Head atraumatic, normocephalic. Sclerae anicteric. Buccal mucosa dry. NECK: Supple. CHEST: Rise symmetrical. Breath sounds clear, diminished to bases. HEART: S1, S2. ABDOMEN: Soft, bowel sounds present. EXTREMITIES: No cyanosis. ASSESSMENT: 1. Status post septic shock, currently stable. 2. Unstageable sacral decubitus, poss OM===> s/p debridement 3. Polymicrobial bacteremia secondary to urinary tract infection. 4. Advanced multiple sclerosis. 5. Neurogenic bladder. 6. Status post respiratory failure. PLAN: Remains stable, continue on current abx for 4 more weeks, local wound care per surgical rec-s [facility] staff Problems: Consultation Date/Type/Reason Admit Date/Time Apr 01, 2016 at 05:52 Initial Consult Date 04/01/16 Type of Consultation: ID Exam/Review of Systems Vital Signs Vitals Vital Signs Date Time Temp Pulse Resp B/P Pulse Ox O2 Delivery O2 Flow Rate FiO2 04/10/16 07:44 99.1 80 18 113/57 94 Intake and Output 04/09/16 04/09/16 04/10/16 15:00 23:00 07:00 Intake Total 110 ml 100 ml 420 ml Output Total 1400 ml Balance 110 ml 100 ml -980 ml Results Result Diagram: 04/08/1642904/08/16429 Medications Medications Current Medications Ondansetron HCl (Zofran Inj) 4 mg Q6H PRN IV NAUSEA AND/OR VOMITING Last administered on 04/10/16t 11:11; Admin Dose 4 MG; Start 04/01/16 at 06:00 Acetaminophen (Tylenol Liquid) 650 mg Q6H PRN PO PAIN LEVEL 1-3 OR FEVER Last administered on 04/05/16 19:10; Admin Dose 650 MG; Start 04/01/16 at 06:00 Lorazepam (Ativan) 1 mg Q2H PRN IV ANXIETY Last administered on 04/06/16 04:30 ; Admin Dose 1 MG; Start 04/01/16 at 06:00 Duloxetine HCl (Cymbalta) 60 mg DAILY PO Last administered on 04/10/16 09:03; Admin Dose 60 MG; Start 04/01/16 at 09:00; Status Future hold Levetiracetam (Keppra Liquid) 500 mg BID GTB Last administered on 04/10/16 09: 02; Admin Dose 500 MG; Start 04/01/16 at 13:00 Enoxaparin Sodium (Lovenox) 30 mg DAILY SC Last administered on 04/10/16 09:55 ; Admin Dose 30 MG; Start 04/03/16 at 09:00 Linezolid (Zyvox) 600 mg BID PO Last administered on 04/10/16 09:03; Admin Dose 600 MG; Start 04/04/16 at 11:00 Famotidine (Pepcid) 20 mg BID PO Last administered on 04/10/16 09:03; Admin Dose 20 MG; Start 04/05/16 at 21:00 Divalproex Sodium (Depakote Sprinkle) 500 mg BID PO Last administered on 09:02; Admin Dose 500 MG; Start 04/06/16 at 09:00 Morphine Sulfate (morphine) 4 mg Q4H PRN IV severe pain Last administered on 11:11; Admin Dose 4 MG; Start 04/06/16 at 13:30 Acetaminophen/ Hydrocodone Bitart ([place] (7.5-325)) 1 tab Q4H PRN PO Pain Last administered on 04/07/16 15:57; Admin Dose 1 TAB; Start 04/06/16 at 12:00 Sodium Hypochlorite 1 applic 1 applic DAILY IRR Last administered on 04/10/16 09:02; Admin Dose 1 APPLIC; Start 04/08/16 at 09:00 Cefepime HCl (Maxipime 1gm/50 ml (Pmx)) 50 ml @ 100 mls/hr Q12 IVPB Last administered on 3/1/17at 09:02; Admin Dose 100 MLS/HR; Start 04/09/16 at 12:30 KASIA TAPIA NP Apr 10, 2016 14:48
--- NOTE | 2016-04-10 15:31 | PN ---
Date/Time of Note Date/Time of Note DATE: 04/10/16 TIME: 15:28 Assessment/Plan VTE Prophylaxis VTE Prophylaxis Intervention: LMWH Lines/Catheters IV Catheter Type (from [facility]): Central Line Urinary Cath still in place: Yes Assessment/Plan Chief Complaint/Hosp Course Assessment and plan 1. Sepsis secondary to UTI and infected sacral pressure ulcer. Continue on antibiotics. Surgeon following. Patient status post debridement. Continue with wound care. Plan for long-term ABX per ID recommendations 2. Infected pressure ulcer. Patient is of sacral ulcer with poor microbials including VRE. Antibiotic regimen per ID. Plan for long-term ABX as outpatient 3. History of multiple sclerosis. Continue supportive care. Turn every 2 hours as needed for further prevention of decubitus ulcer 4. Seizure disorder. Continue on anticonvulsants. Stable 5. History of depression. Continue antidepressants. Stable at present 6. Iron deficiency anemia. Continue on iron 7. Acute respiratory failure. Patient status post intubation on admission. Patient of note extubated on 04/02/2016. We'll provide with oxygen as needed. Improved Disposition and plan: Continue antibiotics. Continue with wound care. Discussed with case management, per [facility] patient will need to have one dose of daptomycin in hospital prior to discharge. We'll provide with dose at this time. Discharge planning Discussed plan of care with Dr. Falk Problems: Subjective 24 Hr Interval Summary Free Text/Dictation Comfortable at present. No apparent distress Exam/Review of Systems Vital Signs Vitals Vital Signs Date Time Temp Pulse Resp B/P Pulse Ox O2 Delivery O2 Flow Rate FiO2 04/10/16 07:44 99.1 80 18 113/57 94 Intake and Output 04/09/16 04/09/16 04/10/16 15:00 23:00 07:00 Intake Total 110 ml 100 ml 420 ml Output Total 1400 ml Balance 110 ml 100 ml -980 ml Exam General: No acute signs or symptoms of distress, slightly anxious Eyes: pupils equal round, Anicteric sclera Neck: Supple nontender, no JVD Cardiac: Regular rate. S1-S2 auscultated Pulmonary: Minimally diminished at lung bases GI: Abdomen soft nontender nondistended, bowel sounds active Extremities: No obvious edema bilateral lower extremities Skin: Noted with sacral ulcer Neurologic: Alert to person place and time and situation Results Result Diagram: 04/08/1642904/08/16 388 Medications Medications Current Medications Ondansetron HCl (Zofran Inj) 4 mg Q6H PRN IV NAUSEA AND/OR VOMITING Last administered on 04/10/16 11:11; Admin Dose 4 MG; Start 04/01/16 at 06:00 Acetaminophen (Tylenol Liquid) 650 mg Q6H PRN PO PAIN LEVEL 1-3 OR FEVER Last administered on 04/05/16 19:10; Admin Dose 650 MG; Start 04/01/16 at 06:00 Lorazepam (Ativan) 1 mg Q2H PRN IV ANXIETY Last administered on 04/06/16 04:30 ; Admin Dose 1 MG; Start 04/01/16 at 06:00 Duloxetine HCl (Cymbalta) 60 mg DAILY PO Last administered on 04/10/16 09:03; Admin Dose 60 MG; Start 04/01/16 at 09:00; Status Future hold Levetiracetam (Keppra Liquid) 500 mg BID GTB Last administered on 04/10/16 09: 02; Admin Dose 500 MG; Start 04/01/16 at 13:00 Enoxaparin Sodium (Lovenox) 30 mg DAILY SC Last administered on 04/10/16 09:55 ; Admin Dose 30 MG; Start 04/03/16 at 09:00 Linezolid (Zyvox) 600 mg BID PO Last administered on 04/10/16 09:03; Admin Dose 600 MG; Start 04/04/16 at 11:00 Famotidine (Pepcid) 20 mg BID PO Last administered on 04/10/16 09:03; Admin Dose 20 MG; Start 04/05/16 at 21:00 Divalproex Sodium (Depakote Sprinkle) 500 mg BID PO Last administered on 09:02; Admin Dose 500 MG; Start 04/06/16 at 09:00 Morphine Sulfate (morphine) 4 mg Q4H PRN IV severe pain Last administered on 11:11; Admin Dose 4 MG; Start 04/06/16 at 13:30 Acetaminophen/ Hydrocodone Bitart ([place] (7.5-325)) 1 tab Q4H PRN PO Pain Last administered on 04/07/16 15:57; Admin Dose 1 TAB; Start 04/06/16 at 12:00 Sodium Hypochlorite 1 applic 1 applic DAILY IRR Last administered on 04/10/16 09:02; Admin Dose 1 APPLIC; Start 04/08/16 at 09:00 Cefepime HCl (Maxipime 1gm/50 ml (Pmx)) 50 ml @ 100 mls/hr Q12 IVPB Last administered on 04/10/16 09:02; Admin Dose 100 MLS/HR; Start 04/09/16 at 12:30 CRISTO GERARDO Apr 10, 2016 15:31
[2016-04-10] MEDS ORDERED: DAPTOMYCIN 410 MG in SOD CHLORIDE 0.9% 100 ML IVPB SCH (18:00)
[2016-04-10 20:14] VITALS: BP 117/57; RESP 20
--- NOTE | 2016-04-10 20:24 | RADRPT ---
PROCEDURE: XR Chest. CLINICAL INDICATION: Assess PICC line catheter. TECHNIQUE: Single frontal view of the chest was obtained COMPARISON: Chest x-ray 04/01/2016. FINDINGS: The soft tissues are normal. The bony elements are normal. The the heart, cardiomediastinal silhou ette, pulmonary vasculature and hilar structures are normal. There is a left-sided aorta. There is c onsolidative infiltrate or atelectasis associated with elevation of the left diaphragm. A central v enous catheter enters from a left subclavian approach with its tip in the superior vena cava. An en dotracheal tube was removed. PICC line catheter was advanced to the right arm resting inferior to t he medial third of the right clavicle. The costophrenic angles are normal. IMPRESSION: 1. The PICC line catheter rests inferior to the medial third of the right clavicle. 2. Consolidative infiltrate/atelectasis in the left lower lobe developing since 04/01/2016. 3. Interval removal of an endotracheal tube. 4. The central venous catheter entering from a left subclavian approach is well positioned in the s uperior vena cava. No pneumothorax is identified. RPTAT:AAJJ Physician Jhon Date Time Electronically viewed and signed by Physician John on 04/10/2016 20:23 /
[2016-04-10] MEDS ORDERED: SENNA TAB PO ONE (21:30)
[2016-04-10] MEDS ORDERED: MAGNESIUM HYDROXIDE 30ML CUP PO ONE (21:30)
[2016-04-10] MEDS ORDERED: MAGNESIUM HYDROXIDE 30ML CUP PO PRN (21:30)
--- NOTE | 2016-04-10 22:32 | PN ---
Date/Time of Note Date/Time of Note DATE: 04/10/16 TIME: 22:31 Assessment/Plan Lines/Catheters IV Catheter Type (from [facility]): Mid Line Roberson in Place (from [facility]): Yes Assessment/Plan Chief Complaint/Hosp Course 1. Sepsis multifactorial with UTI and probable wound. Improved -Antibiotics -Wound care -Supportive 2. Stage IV sacral decubitus ulceration with debris test was excisional debridement 04/06 -As above -Offload -Local wound care -Nutrition optimization -Vitamin C 3. UTI s/p antibiotics 4. Multiple sclerosis with significant lower extremity weakness weakness and wheelchair-bound -Optimization of offloading encouraged -Nutrition optimization -Medical optimization 5. Seizure disorder on medication 6. Encephalopathy and respiratory failure improved 7. Anemia without evidence of acute blood loss -Monitor Thank you Problems: Subjective 24 Hr Interval Summary s/p excisional debridement of sacral decubitus ulcer 04/06. No fevers or chills. No nausea vomiting. No bloating. No blood per mouth or rectum. No pyuria. No rashes. No cough. No seizure. Bowel function. Exam/Review of Systems Vital Signs Vitals Vital Signs Date Time Temp Pulse Resp B/P Pulse Ox O2 Delivery O2 Flow Rate FiO2 04/10/16 20:14 98.6 75 20 117/57 95 Intake and Output 04/09/16 04/09/16 04/10/16 15:00 23:00 07:00 Intake Total 110 ml 100 ml 420 ml Output Total 1400 ml Balance 110 ml 100 ml -980 ml Exam Free Text/Dictation Constitutional: alert, No distress Psych: No anxiety Head: atraumatic, normocephalic Eyes: EOMI, nl conjunctiva, No PERRL ENMT: nl external ears & nose, nl nasal mucosa & septum Neck: non-tender, supple, No jvd Respiratory: normal air movement, No congested cough, No labored breathing Cardiovascular: regular rate and rhythm, No edema Gastrointestinal: non-tender, soft, No rebound or guarding Musculoskeletal: No joint tenderness, No nl extremities to inspection, No nl gait and stance Extremities: normal pulses, No calf tenderness Neurological: nl mental status, No nl strength Skin: rash or lesions (sacral decubitus ulcer, stage IV, with packing), No diaphoresis Lymph: nl lymph nodes Results Result Diagram: 04/08/1642904/08/16429 LEONILA GARCIA MD Apr 10, 2016 22:31
[2016-04-11] MEDS: morphine 4 MG/ML VIAL IV PRN ×3 (02:01→10:35)
[2016-04-11 08:08] VITALS: BP 117/64; RESP 18
[2016-04-11] MEDS: FAMOTIDINE 20 MG TAB PO SCH (08:48)
[2016-04-11] MEDS: DULOXETINE 30 MG CAP DR PO SCH (08:48)
[2016-04-11] MEDS: ZYVOX 600 MG TAB PO SCH (08:48)
[2016-04-11] MEDS: DIVALPROEX SPRINKLE 125 MG CAP PO SCH (08:49)
[2016-04-11] MEDS: LEVETIRACETAM (100 MG/ML) 5ML CUP GTB SCH (08:51)
[2016-04-11] MEDS: SODIUM HYPOCHLORITE 0.125% 473 ML BTL IRR SCH (08:51)
[2016-04-11] MEDS: CEFEPIME 1GM/50 ML (PMX) 50 ML IVPB SCH (08:51)
[2016-04-11] MEDS ORDERED: SENNA TAB PO SCH (09:00)
[2016-04-11] MEDS: ENOXAPARIN 30 MG/0.3 ML SYG SC SCH (09:06)
--- NOTE | 2016-04-11 10:25 | RADRPT ---
PROCEDURE: US guidance for PICC line CLINICAL INDICATION: PICC line placement TECHNIQUE: Multiple real-time images were acquired of the patient's arm utilizing a high resolutio n transducer. This was performed by the PICC line nurse for venous access. COMPARISON: None FINDINGS: Ultrasound guidance for PICC line placement. IMPRESSION: Ultrasound guidance for PICC line placement. RPTAT: AA .Brian Russell MD, MD Date Time Electronically viewed and signed by .Brian Russell MD, on 04/11/2016 10:25 .S/
--- NOTE | 2016-04-11 11:38 | CONS ---
Date/Time of Note Date/Time of Note DATE: 04/11/16 TIME: 11:37 Assessment/Plan Assessment/Plan Chief Complaint/Hosp Course SUBJECTIVE: No events overnight. The patient is alert, feels tired. Looks comfortable. MICROBIOLOGY: Blood culture growing E. coli and enterococcus species. Sacral wound culture grew Proteus mirabilis, VRE and E. coli. ANTIMICROBIALS: 1. Zyvox. 2. Cefepime INDWELLINGS: Roberson catheter, PICC. PHYSICAL EXAMINATION: GENERAL: This is a well-developed middle-aged, ill-appearing woman who is in no distress. HEENT: Head atraumatic, normocephalic. Sclerae anicteric. Buccal mucosa dry. NECK: Supple. CHEST: Rise symmetrical. Breath sounds clear, diminished to bases. HEART: S1, S2. ABDOMEN: Soft, bowel sounds present. EXTREMITIES: No cyanosis. ASSESSMENT: 1. Status post septic shock, currently stable. 2. Unstageable sacral decubitus, poss OM===> s/p debridement 3. Polymicrobial bacteremia secondary to urinary tract infection. 4. Advanced multiple sclerosis. 5. Neurogenic bladder. 6. Status post respiratory failure. PLAN: Remains stable, continue on current abx for 4 weeks, local wound care per surgical rec-s, pending dc planning staff Problems: Consultation Date/Type/Reason Admit Date/Time Apr 01, 2016 at 05:52 Initial Consult Date 04/01/16 Type of Consultation: ID Exam/Review of Systems Vital Signs Vitals Vital Signs Date Time Temp Pulse Resp B/P Pulse Ox O2 Delivery O2 Flow Rate FiO2 04/11/16 08:08 98.6 85 18 117/64 96 Intake and Output 04/10/16 04/10/16 04/11/16 15:00 23:00 07:00 Intake Total 200 ml Output Total 150 ml 400 ml Balance 50 ml -400 ml Results Result Diagram: 04/08/1642904/08/16 043 Medications Medications Current Medications Ondansetron HCl (Zofran Inj) 4 mg Q6H PRN IV NAUSEA AND/OR VOMITING Last administered on 04/10/16 11:11; Admin Dose 4 MG; Start 04/01/16 at 06:00 Acetaminophen (Tylenol Liquid) 650 mg Q6H PRN PO PAIN LEVEL 1-3 OR FEVER Last administered on 04/05/16 19:10; Admin Dose 650 MG; Start 04/01/16 at 06:00 Lorazepam (Ativan) 1 mg Q2H PRN IV ANXIETY Last administered on 04/06/16 04:30 ; Admin Dose 1 MG; Start 04/01/16 at 06:00 Duloxetine HCl (Cymbalta) 60 mg DAILY PO Last administered on 04/11/16 08:48; Admin Dose 60 MG; Start 04/01/16 at 09:00; Status Future hold Levetiracetam (Keppra Liquid) 500 mg BID GTB Last administered on 04/11/16 08: 51; Admin Dose 500 MG; Start 04/01/16 at 13:00 Enoxaparin Sodium (Lovenox) 30 mg DAILY SC Last administered on 04/11/16 09:06 ; Admin Dose 30 MG; Start 04/03/16 at 09:00 Linezolid (Zyvox) 600 mg BID PO Last administered on 04/11/16 08:48; Admin Dose 600 MG; Start 04/04/16 at 11:00 Famotidine (Pepcid) 20 mg BID PO Last administered on 04/11/16 08:48; Admin Dose 20 MG; Start 04/05/16 at 21:00 Divalproex Sodium (Depakote Sprinkle) 500 mg BID PO Last administered on 08:49; Admin Dose 500 MG; Start 04/06/16 at 09:00 Morphine Sulfate (morphine) 4 mg Q4H PRN IV severe pain Last administered on 10:35; Admin Dose 4 MG; Start 04/06/16 at 13:30 Acetaminophen/ Hydrocodone Bitart ([place] (7.5-325)) 1 tab Q4H PRN PO Pain Last administered on 04/07/16 15:57; Admin Dose 1 TAB; Start 04/06/16 at 12:00 Sodium Hypochlorite 1 applic 1 applic DAILY IRR Last administered on 04/11/16 08:51; Admin Dose 1 APPLIC; Start 04/08/16 at 09:00 Cefepime HCl (Maxipime 1gm/50 ml (Pmx)) 50 ml @ 100 mls/hr Q12 IVPB Last administered on 04/11/16 08:51; Admin Dose 100 MLS/HR; Start 04/09/16 at 12:30 Magnesium Hydroxide (Milk Of Mag) 30 ml DAILY PRN PO CONSTIPATION; Start at 21:30 Senna (Senokot) 2 tab DAILY PO Last administered on 04/11/16 08:49; Admin Dose 2 TAB; Start 04/11/16 at 09:00 KASIA TAPIA NP Apr 11, 2016 11:38
[2016-04-11] MEDS ORDERED: SOD CHLORIDE 0.9% 100 ML ONE (17:56)
--- NOTE | 2016-04-16 22:47 | DS ---
DATE OF ADMISSION: 04/01/2016 DATE OF DISCHARGE: 04/11/2016 CONSULTANTS: 1. Pradeep Santana MD 2. Dr. Jaden Lopez. 3. Nurse practitioner, Randi Pompa. 4. Nurse practitioner, Nick Lock DISCHARGE DIAGNOSES: 1. Sepsis secondary to urinary tract infection and infected sacral pressure ulcer. 2. History of multiple sclerosis. 3. History of seizure disorder. 4. History of depression. 5. Iron deficiency anemia. 6. Acute respiratory failure. HOSPITAL COURSE: This is a 41-year-old female with history of multiple sclerosis, wheelchair bound, depression, bilateral lower extremity weakness, and sacral wounds who came in to [facility] due to reports of shortness of breath as well as altered mentation. Upon arrival, yamileth cline was noted to be obtunded and, as such, she was intubated for airway support. Initially from [facility], it was noted that the family had stated that the patient had noisy breathing the night prior to a dmission and when they checked her temperature, she had a fever of 102. They noted to see foam dalia heath out of her mouth and they started CPR, which was instructed per EMS prior to the arrival of g[facility]. She was noted to have a pulse, but was tachycardiac. She was brought to [facility] due to the aforementioned issues. She was noted to have tachycardia as high as 155 and ta chypneic with a rate of 26 and a temperature of 100.8. The patient was in clinical picture of sepsi s. She did have a chest x-ray, however, that showed clear lungs with no consolidation or effusion. Urinalysis was consistent, however, with severe UTI. The patient was seen by infectious disease ph ysician and placed on appropriate antibiotics. Initially, she was intubated due to respiratory dist ress. She was gradually weaned off and extubated for her respiratory failure. The patient was also noted with sacral wounds, which likely could have also been cause for her sepsis. The patient was seen by general surgeon for her sacral decubitus wounds and did receive excision and debridement of her sacral skin, subcutaneous, muscle, fascia, and bone. She did tolerate the procedure well. She was seen by wound care consult and provided with appropriate wound care. During her course of stay, she did improve. Her symptoms have resolved and she did improve with antibiotics, although due to her severe infection, she likely would need long-term antibiotics, for which we did set the patient up with a machine adjuster leader case trim for IV antibiotics for 4 to 6 weeks' duration. She was noted with polymicrob ial in her wound and notably with E. coli and Proteus mirabilis as well as VRE. She was placed on a ppropriate antibiotics per ID recommendations. She was also noted with E. coli and VRE in her urine for which she was also placed on appropriate antibiotics per ID. As previously mentioned, during h er course of stay, she did improve. She was otherwise optimized medically with anticonvulsants for her seizure disorder and supportive care for multiple sclerosis, antidepressants for her depression, and iron for her iron deficiency anemia. Plan of care was discussed with patient and patient did v erbalize her understanding. On the day of discharge, the patient was in stable condition. Discharge physical exam and vital signs are stable. CONDITION: Stable. DISCHARGE PLAN: 1. Diet is mechanical soft. 2. The patient to follow up with her primary care provider within a week. DISCHARGE MEDICATIONS: 1. Ventolin HFA 2 puffs q.4 hours as needed for shortness of breath. 2. Depakote 500 mg p.o. b.i.d. 3. Ovid 7.5/325 one tab p.o. q.4h. as needed for pain. 4. Keppra 500 mg b.i.d. 5. Alprazolam 2 mg p.o. q.8 hours as needed for anxiety. 6. Cymbalta 60 mg p.o. daily. 7. Hydroxyzine 10 mg p.o. q.6h. as needed for itching. 8. Reglan 5 mg p.o. q.a.c. 9. Ditropan XL 50 mg p.o. b.i.d. 10. OxyContin 40 mg p.o. b.i.d. DISCHARGE PROCESS TIME: 45 minutes. Discussed plan of care with Dr. Falk. Dictated By: CRISTO GERARDO COMMUNITY INTEGRATION SPECIALIST for VANDANA FALK MD RR/NTS Conf#: [id number] DID#: [id number] CC: KATELYN BOLANOS MD;*EndCC*
== END 2016-04-11 16:00 | disposition home health service (06) | DRG 853 ==
LOC: E/R 01:43 → ICU 05:52 → MS2 04-03 18:45
PROVIDERS: ADMIT Internal Medicine; ATTEND Internal Medicine
PROC: 5A1935Z Respiratory Ventilation, Less than 24 Consecutive Hours (ICD-10-PCS; 2016-04-01)
PROC: 0BH17EZ Insertion of Endotracheal Airway into Trachea, Via Natural or Artificial Opening (ICD-10-PCS; 2016-04-01)
PROC: 0JD70ZZ Extraction of Back Subcutaneous Tissue and Fascia, Open Approach (ICD-10-PCS; principal; 2016-04-06)
PROC: 02HV33Z Insertion of Infusion Device into Superior Vena Cava, Percutaneous Approach (ICD-10-PCS; 2016-04-10)
PROC: B548ZZA Ultrasonography of Superior Vena Cava, Guidance (ICD-10-PCS; 2016-04-10)
DX: A41.51 Sepsis due to Escherichia coli [E. coli] (principal); R65.21 Severe sepsis with septic shock; J96.01 Acute respiratory failure with hypoxia; J96.02 Acute respiratory failure with hypercapnia; L89.154 Pressure ulcer of sacral region, stage 4; G35 Multiple sclerosis; R53.2 Functional quadriplegia; N39.0 Urinary tract infection, site not specified; A41.59 Other Gram-negative sepsis; A41.81 Sepsis due to Enterococcus; G94 Other disorders of brain in diseases classified elsewhere; Z99.3 Dependence on wheelchair; F32.9 Major depressive disorder, single episode, unspecified; M19.90 Unspecified osteoarthritis, unspecified site; I10 Essential (primary) hypertension; G40.909 Epilepsy, unspecified, not intractable, without status epilepticus; Z88.0 Allergy status to penicillin; N31.9 Neuromuscular dysfunction of bladder, unspecified; R32 Unspecified urinary incontinence; D50.9 Iron deficiency anemia, unspecified; D47.3 Essential (hemorrhagic) thrombocythemia; Z16.24 Resistance to multiple antibiotics
CPT/HCPCS: 31500; 36415; 36569; 36600; 71010; 76937; 80048; 80053; 80156; 80164; 80200; 80202; 81001; 81003; 82728; 82803; 83540; 83605; 83735; 84100; 84484; 85025; 85610; 85730; 87040; 87070; 87081; 87086; 92526; 92610; 93005; 94002; 94003; 94770; 96361; 96365; 96366; 96375; C1751; C1769; J0330; J0692; J1335; J1650; J1956; J2060; J2270; J2405; J2916; J2997; J3260; J3370; J3475; J3480; J7030; J7040; J7042; J7050

== ENCOUNTER → 2016-04-18 | Emergency (ER) | payer MEDICARE, OTHER ==
[~2016-04-18] VITALS: Ht 167.6 cm; Wt 80.0 kg
[~2016-04-18] MED LIST changes: +ALBU18HF INH; +ALPR2TAB PO; +ALTEPLASE (CATHFLO) 2 MG INJ CATHETER ONE; -BACL20TA PO; -CIPR500S2 PO; -CLON-412 PO; +DIVA125C11 PO; -DIVA250T4 PO; +HYDR-3605 PO; -HYDR-906 PO; +LEVE500S9 GTB
[2016-04-18 14:19] VITALS: Ht 167.6 cm; Wt 80.0 kg
--- NOTE | 2016-04-18 16:37 | ERD ---
ER Documentation Chief Complaint Date/Time DATE: 04/18/16 TIME: 16:35 Chief Complaint HPI This is a 41-year-old female who presents to the emergency room for evaluation of a clogged PICC line in the right upper extremity. This patient is being treated for sacral decubitus ulcer, and is receiving vancomycin in her PICC line. She came to the ER today because her home health nurse noted that the PICC line was clogged. The patient has not had any fevers or pain or swelling in the area ROS All systems reviewed and are negative except as per history of present illness. Medications Home Meds Active Scripts Hydrocodone/Acetaminophen (Hydrocodon-Acetaminoph 7.5-325) 1 Each Tablet, 1 TAB PO Q4H Y for Pain, #30 TAB Prov:CRISTO GERARDO 04/10/16 Albuterol Sulfate* (Ventolin HFA*) 18 Gm Hfa.aer.ad, 4 PUFF INH Q2H RESP THERAPY Y for SHORTNESS OF BREATH, #1 INHALER Prov:CRISTO GERARDO 04/10/16 Levetiracetam* (Keppra*) 500 Mg/5 Ml Solution, 500 MG GTB BID for 30 Days Prov:CRISTO GERARDO 04/10/16 Divalproex Sodium* (Depakote* Sprinkle) 125 Mg Cap.sprink, 500 MG PO BID for 30 Days, CAP Prov:CRISTO GERARDO 04/10/16 Reported Medications Alprazolam* (Xanax*) 2 Mg Tablet, 2 MG PO Q8H Y for ANXIETY, TAB 04/01/16 Hydroxyzine Hcl* (Hydroxyzine Hcl*) 10 Mg Tablet, 10 MG PO Q6H Y for ITCHING, # 30 TAB 12/21/15 Metoclopramide* (Reglan*) 5 Mg Tablet, 5 MG PO AC MEALS, TAB 12/21/15 Oxycodone Hcl* (Oxycontin*) 40 Mg Tab.er.12h, 40 MG PO Q12, TAB 12/21/15 Duloxetine Hcl* (Cymbalta*) 60 Mg Capsule.dr, 60 MG PO DAILY, CAP 12/21/15 Oxybutynin Chloride* (Ditropan* XL) 15 Mg/Bottle Tab.osm.24, 15 MG PO BID 06/23/10 Allergies Allergies: Coded Allergies: Penicillins (Verified Allergy, Unknown, 12/20/15) latex (Verified Allergy, Unknown, 12/20/15) PMhx/Soc History of Surgery: No Anesthesia Reaction: No Hx Neurological Disorder: Yes (seizure, MS, encephalopathy) Hx Respiratory Disorders: Yes (COPD) Hx Cardiac Disorders: No Hx Psychiatric Problems: Yes (depression) Hx Miscellaneous Medical Probl: Yes (sepsis with septic shock) Hx Alcohol Use: No Hx Substance Use: Yes (marijuana) Hx Tobacco Use: No Physical Exam Physical Exam Const: No acute distress Head: Atraumatic Eyes: Normal Conjunctiva ENT: Normal External Ears, Nose and Mouth. Neck: Full range of motion..~ No meningismus. Resp: Clear to auscultation bilaterally Cardio: Regular rate and rhythm, no murmurs Abd: Soft, non tender, non distended. Normal bowel sounds Skin: PICC line in right upper extremity, sacral decubitus ulcer, no petechiae or rashes Back: No midline or flank tenderness Ext: No cyanosis, or edema Neur: Awake and alert Psych: Normal Mood and Affect Results 24 hrs Current Medications Medications (Trade) Dose Ordered Sig/Stacey Route PRN Reason Start Time Stop Time Status Last Admin Dose Admin Alteplase, Recombinant (Cathflo (Activase)) 2 mg ONCE ONCE CATHETER 04/18/16 15:30 04/18/16 15:31 DC Procedures/MDM This 41-year-old female presents to the ER for evaluation of right upper extremity PICC line clogging. I did place cath flow in the port with complete resolution of the blood clot which was clogging the port. This patient is no acute distress will be discharged home at this time with instructions to follow- up with the ER if her symptoms worsen in any way. Departure Diagnosis: Primary Impression: Complication of vascular access for dialysis Condition: Stable ELIS VANEGAS DO Apr 18, 2016 16:36
[2016-04-18 16:52] VITALS: BP 113/60; PULSE 71; RESP 18; TEMP 97.9
== END | disposition home or self-care (01) ==
LOC: E/R 14:19
DX: T82.868A Thrombosis due to vascular prosthetic devices, implants and grafts, initial encounter (principal); J44.9 Chronic obstructive pulmonary disease, unspecified; Y82.8 Other medical devices associated with adverse incidents; Z91.040 Latex allergy status
CPT/HCPCS: 99282; J2997

== ENCOUNTER 2016-04-25 03:39 | Emergency (ER) | payer MEDICARE, OTHER ==
[~2016-04-25] VITALS: Ht 152.4 cm; Wt 70.0 kg
[~2016-04-25 03:39] MED LIST changes: -ALTEPLASE (CATHFLO) 2 MG INJ CATHETER ONE
[2016-04-25 03:40] VITALS: Ht 152.4 cm; Wt 70.0 kg
[2016-04-25 04:05] VITALS: TEMP 97.9
--- NOTE | 2016-04-25 04:15 | ERA ---
ER Documentation Chief Complaint Date/Time DATE: 04/25/16 TIME: 04:15 Chief Complaint Dislodged Roberson catheter HPI The patient is a 41-year-old female, with history of MS, bedbound. She fell off the bed and accidentally dislodged her Roberson catheter. He wants us to check her right upper extremity PICC line to make sure it is working for her antibiotic due to recent sepsis; She denies any head injury, neck pain, chest pain, dyspnea, abdominal pain, vomiting with dysuria. She does not smoke nor drink. Past medical history: MS, seizure, COPD, depression ROS All systems reviewed and are negative except as per history of present illness. Medications Home Meds Active Scripts Hydrocodone/Acetaminophen (Hydrocodon-Acetaminoph 7.5-325) 1 Each Tablet, 1 TAB PO Q4H Y for Pain, #30 TAB Prov:CRISTO GERARDO 04/10/16 Albuterol Sulfate* (Ventolin HFA*) 18 Gm Hfa.aer.ad, 4 PUFF INH Q2H RESP THERAPY Y for SHORTNESS OF BREATH, #1 INHALER Prov:CRISTO GERARDO 04/10/16 Levetiracetam* (Keppra*) 500 Mg/5 Ml Solution, 500 MG GTB BID for 30 Days Prov:CRISTO GERARDO 04/10/16 Divalproex Sodium* (Depakote* Sprinkle) 125 Mg Cap.sprink, 500 MG PO BID for 30 Days, CAP Prov:CRISTO GERARDO 04/10/16 Reported Medications Alprazolam* (Xanax*) 2 Mg Tablet, 2 MG PO Q8H Y for ANXIETY, TAB 04/01/16 Hydroxyzine Hcl* (Hydroxyzine Hcl*) 10 Mg Tablet, 10 MG PO Q6H Y for ITCHING, # 30 TAB 12/21/15 Metoclopramide* (Reglan*) 5 Mg Tablet, 5 MG PO AC MEALS, TAB 12/21/15 Oxycodone Hcl* (Oxycontin*) 40 Mg Tab.er.12h, 40 MG PO Q12, TAB 12/21/15 Duloxetine Hcl* (Cymbalta*) 60 Mg Capsule.dr, 60 MG PO DAILY, CAP 12/21/15 Oxybutynin Chloride* (Ditropan* XL) 15 Mg/Bottle Tab.osm.24, 15 MG PO BID 06/23/10 Allergies Allergies: Coded Allergies: Penicillins (Verified Allergy, Unknown, 12/20/15) latex (Verified Allergy, Unknown, 12/20/15) PMhx/Soc History of Surgery: No Anesthesia Reaction: No Hx Neurological Disorder: Yes (seizure, MS, encephalopathy) Hx Respiratory Disorders: Yes (COPD) Hx Cardiac Disorders: No Hx Psychiatric Problems: Yes (depression) Hx Miscellaneous Medical Probl: Yes (sepsis with septic shock) Hx Alcohol Use: No Hx Substance Use: Yes (marijuana) Hx Tobacco Use: No Physical Exam Vitals Vital Signs Date Time Temp Pulse Resp B/P Pulse Ox O2 Delivery O2 Flow Rate FiO2 04/25/16 06:14 74 18 99/74 97 Room Air 04/25/16 04:05 97.9 78 20 96/67 96 Room Air 04/25/16 03:40 98.6 86 16 143/74 100 Physical Exam Const: No acute distress. Head: Atraumatic. Eyes: Normal Conjunctiva. ENT: Normal External Ears, Nose and Mouth. Neck: Full range of motion. No meningismus. Resp: Clear to auscultation bilaterally. Cardio: Regular rate and rhythm, no murmurs. Abd: Soft, non distended, normal bowel sounds, non tender. Skin: No petechiae or rashes. Back: No midline or flank tenderness. Ext: No cyanosis, or edema. Neur: Awake and alert. Limited due to her condition Psych: Anxious Results 24 hrs Current Medications Medications (Trade) Dose Ordered Sig/Stacey Route PRN Reason Start Time Stop Time Status Last Admin Dose Admin Alteplase, Recombinant (Cathflo (Activase)) 2 mg ONCE ONCE CATHETER 04/25/16 04:30 04/25/16 04:31 DC 04/25/16 04:55 Ibuprofen (Motrin) 600 mg ONCE ONCE PO 04/25/16 05:00 04/25/16 05:01 DC Procedures/MDM MEDICAL MAKING DECISION: The patient is a 41-year-old female, presenting with dislodged Roberson catheter, clotted PICC line. Roberson catheter was inserted without any difficulty. The PICC line was opened with TPA. The differential diagnoses considered include but are not limited to UTI, pyelonephritis, fracture, sprain, contusion, pneumonia, pneumothorax Departure Diagnosis: Primary Impression: Complication of Roberson catheter Additional Impression: PICC (peripherally inserted central catheter) flush Condition: Good Comments I discussed the findings with the patient. I advised the patient to follow-up with the primary physician in about 1-2 days, sooner if needed and return if any concern. RADHA CENTENO MD Apr 25, 2016 04:15
[2016-04-25] MEDS ORDERED: ALTEPLASE (CATHFLO) 2 MG INJ CATHETER ONE (04:30)
[2016-04-25] MEDS ORDERED: IBUPROFEN 600 MG TAB PO ONE (05:00)
[2016-04-25 06:14] VITALS: BP 99/74; PULSE 74; RESP 18
--- NOTE | 2016-04-25 06:37 | RADRPT ---
PROCEDURE: CHEST - 1 VIEW CLINICAL INDICATION: 41-year-old female with trauma. TECHNIQUE: A single frontal AP view of the chest was performed. The images were reviewed on a PAC S workstation. COMPARISON: Chest x-ray April 10, 2016. FINDINGS: There is a right-sided PICC line with the tip in the region of the subclavian vein. There is a left -sided PICC line with the tip at the cavoatrial junction. The cardiomediastinal silhouette has a no rmal appearance. There is no evidence for an infiltrate. There is no evidence for congestive heart failure. There is no evidence for pneumothorax. The osseous structures are intact. IMPRESSION: 1. No evidence for active cardiopulmonary disease. 2. Right-sided PICC line with the tip in the region of the subclavian vein. 3. Left-sided PICC line with the tip at the cavoatrial junction region. .Elijah Montes MD, MD Date Time Electronically viewed and signed by .Elijah Montes MD, on 04/25/2016 06:37 .M/
== END 2016-04-25 07:04 | disposition home or self-care (01) ==
LOC: E/R 03:39
DX: T83.098A Other mechanical complication of other urinary catheter, initial encounter (principal); J44.9 Chronic obstructive pulmonary disease, unspecified; T82.868A Thrombosis due to vascular prosthetic devices, implants and grafts, initial encounter; Y73.3 Surgical instruments, materials and gastroenterology and urology devices (including sutures) associated with adverse incidents
CPT/HCPCS: 51702; 71010; 99283; J2997

== ENCOUNTER 2016-10-12 18:33 | Emergency (ER) | payer MEDICARE, OTHER ==
[~2016-10-12] VITALS: Ht 167.6 cm; Wt 82.0 kg
[~2016-10-12 18:33] MED LIST changes: +LEVE500S8 GTB; -LEVE500S9 GTB
[2016-10-12 18:55] VITALS: Ht 167.6 cm; Wt 82.0 kg
[2016-10-12] MEDS ORDERED: SOD CHLORIDE 0.9% 500 ML IV STA (19:36)
[2016-10-12 19:50] LABS: BASOPHILS % 0.5 % (0.0-2.0); EOSINOPHILS # 0.4 10^3/ul (0.0-0.5); EOSINOPHILS % 4.3 % (0.0-7.0); HEMATOCRIT 38.7 % (37.0-47.0); HEMOGLOBIN 12.5 g/dl (12.0-16.0); LYMPHOCYTES % 45.9 % (15.0-51.0); MEAN CORPUSCULAR HEMOGLOBIN 28.6 pg (29.0-33.0); MEAN CORPUSCULAR HGB CONC 32.3 g/dl (32.0-37.0); MEAN CORPUSCULAR VOLUME 88.6 fl (82.0-101.0); MEAN PLATELET VOLUME 10.1 fl (7.4-10.4); MONOCYTE # 0.7 10^3/ul (0.3-0.9); MONOCYTES % 7.9 % (0.0-11.0); NEUTROPHILS % 41.2 % (39.0-77.0); PLATELET COUNT 360 10^3/UL (140-415); RED BLOOD COUNT 4.37 10^6/ul (4.20-5.40); RED CELL DISTRIBUTION WIDTH 15.1 % (11.5-14.5); WHITE BLOOD COUNT 8.6 10^3/ul (4.8-10.8)
[2016-10-12 19:55] LABS: ALBUMIN 3.4 g/dl (3.3-4.9); ALBUMIN/GLOBULIN RATIO 0.89; CALCIUM 8.8 mg/dl (8.4-10.2); CREATININE 0.52 mg/dl (0.44-1.00); POTASSIUM 4.4 mmol/L (3.5-5.1); TOTAL PROTEIN 7.2 g/dl (6.1-8.1)
[2016-10-12] MEDS ORDERED: CEFEPIME 2GM/50 ML (PMX) 50 ML IVPB ONE (20:00)
[2016-10-12 21:07] LABS: ADD UMIC YES; UR ASCORBIC ACID 40 mg/dL (NEGATIVE); UR BACTERIA FEW /HPF (NONE SEEN); UR BILIRUBIN (Dip) NEGATIVE (NEGATIVE); UR BLOOD (Dip) 1+ mg/dL (NEGATIVE); UR BUDDING YEAST MODERATE /HPF (NONE SEEN); UR CLARITY TURBID (CLEAR); UR COLOR AMBER (YELLOW); UR GLUCOSE (Dip) NEGATIVE (NEGATIVE); UR KETONES (Dip) TRACE mg/dL (NEGATIVE); UR LEUKOCYTE ESTERASE (Dip) 2+ Leu/ul (NEGATIVE); UR MUCUS MANY /HPF (NONE SEEN); UR NITRITE (Dip) POSITIVE (NEGATIVE); UR NONSQUAMOUS EPITHELIAL CELL 3 /HPF (NONE SEEN); UR RBC 88 /HPF (0-5); UR SQUAMOUS EPITHELIAL CELL FEW /HPF (FEW); UR TOTAL PROTEIN (Dip) 2+ mg/dl (NEGATIVE); UR UROBILINOGEN (Dip) NEGATIVE (NEGATIVE); UR WBC CLUMPS MANY /HPF (NONE SEEN)
[2016-10-12] MEDS ORDERED: LEVO750T25 PO ×2 (21:24→21:32)
--- NOTE | 2016-10-12 21:34 | ERD ---
ER Documentation Chief Complaint Date/Time DATE: 10/12/16 TIME: 21:33 Chief Complaint sent from home, healthcare account manager claims she has UTI HPI 41-year-old female with a history of multiple sclerosis with a chronic Roberson presenting with suprapubic pain and complains that she has a UTI. She denies any other associated symptoms such as fever, chills, nausea, vomiting. Her title insurance examiner sent her in for evaluation.Her Roberson was last changed 1 week ago. ROS All systems reviewed and are negative except as per history of present illness. Medications Home Meds Active Scripts Levofloxacin* (Levaquin*) 750 Mg Tablet, 750 MG PO DAILY for 5 Days, TAB 0 Refills Prov:ED SULLIVAN MD 10/12/16 Hydrocodone/Acetaminophen (Hydrocodon-Acetaminoph 7.5-325) 1 Each Tablet, 1 TAB PO Q4H Y for Pain, #30 TAB Prov:CRISTO GERARDO 04/10/16 Albuterol Sulfate* (Ventolin HFA*) 18 Gm Hfa.aer.ad, 4 PUFF INH Q2H RESP THERAPY Y for SHORTNESS OF BREATH, #1 INHALER Prov:CRISTO GERARDO 04/10/16 Levetiracetam* (Keppra*) 500 Mg/5 Ml Solution, 500 MG GTB BID for 30 Days Prov:CRISTO GERARDO 04/10/16 Divalproex Sodium* (Depakote* Sprinkle) 125 Mg Cap.sprink, 500 MG PO BID for 30 Days, CAP Prov:CRISTO GERARDO 04/10/16 Reported Medications Alprazolam* (Xanax*) 2 Mg Tablet, 2 MG PO Q8H Y for ANXIETY, TAB 04/01/16 Hydroxyzine Hcl* (Hydroxyzine Hcl*) 10 Mg Tablet, 10 MG PO Q6H Y for ITCHING, # 30 TAB 12/21/15 Metoclopramide* (Reglan*) 5 Mg Tablet, 5 MG PO AC MEALS, TAB 12/21/15 Oxycodone Hcl* (Oxycontin*) 40 Mg Tab.er.12h, 40 MG PO Q12, TAB 12/21/15 Duloxetine Hcl* (Cymbalta*) 60 Mg Capsule.dr, 60 MG PO DAILY, CAP 12/21/15 Oxybutynin Chloride* (Ditropan* XL) 15 Mg/Bottle Tab.osm.24, 15 MG PO BID 06/23/10 Allergies Allergies: Coded Allergies: Penicillins (Verified Allergy, Unknown, 12/20/15) latex (Verified Allergy, Unknown, 12/20/15) PMhx/Soc History of Surgery: No Anesthesia Reaction: No Hx Neurological Disorder: Yes (seizure, MS, encephalopathy) Hx Respiratory Disorders: Yes (COPD) Hx Cardiac Disorders: No Hx Psychiatric Problems: Yes (depression) Hx Miscellaneous Medical Probl: Yes (sepsis with septic shock) Hx Alcohol Use: No Hx Substance Use: Yes (marijuana) Hx Tobacco Use: No Smoking Status: Unknown if ever smoked FmHx Family History: No diabetes Physical Exam Vitals Vital Signs Date Time Temp Pulse Resp B/P Pulse Ox O2 Delivery O2 Flow Rate FiO2 10/12/16 21:05 99.0 98 14 101/71 98 Room Air 10/12/16 18:55 99.0 113 20 113/68 97 Physical Exam Const: Bedbound, no apparent distress, nontoxic Head: Atraumatic Eyes: Normal Conjunctiva ENT: Normal External Ears, Nose and Mouth. Neck: Full range of motion..~ No meningismus. Resp: Clear to auscultation bilaterally Cardio: Regular rate and rhythm, no murmurs Abd: Soft, Minimal suprapubic tenderness, non distended. Normal bowel sounds Skin: No petechiae or rashes Back: No midline or flank tenderness Ext: No cyanosis, or edema Neur: Awake and alert Psych: Normal Mood and Affect Result Diagram: 10/12/16189910/12/161899 Results 24 hrs Laboratory Tests Test 10/12/16 19:00 10/12/16 20:15 White Blood Count 8.610^3/ul Red Blood Count 4.3710^6/ul Hemoglobin 12.5g/dl Hematocrit 38.7% Mean Corpuscular Volume 88.6fl Mean Corpuscular Hemoglobin 28.6pg Mean Corpuscular Hemoglobin Concent 32.3g/dl Red Cell Distribution Width 15.1% Platelet Count 90860^3/UL Mean Platelet Volume 10.1fl Neutrophils % 41.2% Lymphocytes % 45.9% Monocytes % 7.9% Eosinophils % 4.3% Basophils % 0.5% Nucleated Red Blood Cells % 0.0/100WBC Neutrophils # (Manual) 3.610^3/ul Lymphocytes # 4.010^3/ul Monocytes # 0.710^3/ul Eosinophils # 0.410^3/ul Basophils # 0.010^3/ul Nucleated Red Blood Cells # 0.010^3/ul Sodium Level 142mmol/L Potassium Level 4.4mmol/L Chloride Level 104mmol/L Carbon Dioxide Level 32mmol/L Anion Gap 10 Blood Urea Nitrogen 22mg/dl Creatinine 0.52mg/dl Glucose Level 91mg/dl Calcium Level 8.8mg/dl Total Bilirubin 0.0mg/dl Direct Bilirubin 0.00mg/dl Indirect Bilirubin 0.0mg/dl Aspartate Amino Transf (AST/SGOT) 21IU/L Alanine Aminotransferase (ALT/SGPT) 19IU/L Alkaline Phosphatase 80IU/L Total Protein 7.2g/dl Albumin 3.4g/dl Globulin 3.80g/dl Albumin/Globulin Ratio 0.89 Lipase 39U/L Urine Color JEREL Urine Clarity TURBID Urine pH 5.0 Urine Specific Leola 1.030 Urine Ketones TRACEmg/dL Urine Nitrite POSITIVEmg/dL Urine Bilirubin NEGATIVEmg/dL Urine Urobilinogen NEGATIVEmg/dL Urine Leukocyte Esterase 2+Koel/ul Urine Microscopic RBC 88/HPF Urine Microscopic WBC 153/HPF Urine Squamous Epithelial Cells FEW/HPF Urine Bacteria FEW/HPF Urine Mucus MANY/HPF Urine Yeast (Budding) MODERATE/HPF Urine Hemoglobin 1+mg/dL Urine Glucose NEGATIVEmg/dL Urine Total Protein 2+mg/dl Current Medications Medications (Trade) Dose Ordered Sig/Stacey Route PRN Reason Start Time Stop Time Status Last Admin Dose Admin Sodium Chloride 500 ml @ 500 mls/hr Q1H STAT IV 10/12/16 19:36 10/12/16 20:35 DC 10/12/16 20:04 Cefepime HCl (Maxipime 2gm/50 ml (Pmx)) 50 ml @ 100 mls/hr ONCE ONCE IVPB 10/12/16 20:00 10/12/16 20:29 DC 10/12/16 20:13 Procedures/MDM UA shows evidence of UTI CBC, BMP unremarkable MDM Patient is presenting with what seems to be a complicated UTI based on their evaluation done today. She is afebrile with mild tachycardia. IV fluids were given. IV antibiotics were given. Sepsis workup was not done sepsis workup was not initiated as the patient does not meet sepsis criteria. I will discharge the patient with Levaquin for a complicated UTI. Return precautions were given. She was sent by ambulance back to her home. Departure Diagnosis: Primary Impression: Complicated UTI (urinary tract infection) Condition: Stable Patient Instructions: Catheter-Associated Urinary Tract Infections Additional Instructions: Follow-up with your primary care doctor within the next 2 days. Return for worsening symptoms. ED SULLIVAN MD Oct 12, 2016 21:34
[2016-10-13] VITALS: BP 120/73; PULSE 74; RESP 15; TEMP 98.9
== END 2016-10-13 00:12 | disposition home or self-care (01) ==
LOC: E/R 18:33
DX: N39.0 Urinary tract infection, site not specified (principal); J44.9 Chronic obstructive pulmonary disease, unspecified; R40.2142 Coma scale, eyes open, spontaneous, at arrival to emergency department; R40.2252 Coma scale, best verbal response, oriented, at arrival to emergency department; R40.2362 Coma scale, best motor response, obeys commands, at arrival to emergency department; Z91.040 Latex allergy status
CPT/HCPCS: 36415; 80053; 81001; 83690; 85025; 87086; 96374; 99284; J0692; J7040

== ENCOUNTER 2016-12-20 01:34 | Inpatient (IN) | payer MEDICARE, OTHER ==
[~2016-12-20] VITALS: Ht 162.6 cm; Wt 78.0 kg
[2016-12-20] VITALS (23 sets, daily range): BP systolic 56–140; BP diastolic 33–107; PULSE 78–98; RESP 10–18; TEMP 98.9; Ht 162.6 cm; Wt 78.0 kg
[~2016-12-20 01:34] MED LIST changes: +LEVO750T25 PO
--- NOTE | 2016-12-20 02:01 | ERD ---
ER Documentation Chief Complaint Chief Complaint Cough HPI The patient is a 41-year-old female, presenting to the ER because of intermittent cough for a week and a half with decreased appetite.. The history is obtained from the caregiver, she is sleeping after receiving pain medication from the caregiver. She does not have any chest pain, dyspnea, abdominal pain, vomiting. She has a indwelling Roberson catheter that came out on the way to the ER. She does not smoke nor drink but smokes marijuana Past medical history: Anxiety, depression, MS, epilepsy, anemia, decubitus ulcer Past surgical history: None ROS All systems reviewed and are negative except as per history of present illness. Medications Home Meds Active Scripts Albuterol Sulfate* (Proair HFA*) 8.5 Gm Hfa.aer.ad, 2 PUFF INH Q4, #1 INHALER Prov:RADHA CENTENO MD 12/20/16 Levofloxacin* (Levaquin*) 750 Mg Tablet, 750 MG PO DAILY for 5 Days, TAB Prov:RADHA CENTENO MD 12/20/16 Levofloxacin* (Levaquin*) 750 Mg Tablet, 750 MG PO DAILY for 5 Days, TAB 0 Refills Prov:ED SULLIVAN MD 10/12/16 Hydrocodone/Acetaminophen (Hydrocodon-Acetaminoph 7.5-325) 1 Each Tablet, 1 TAB PO Q4H Y for Pain, #30 TAB Prov:CRISTO GERARDO 04/10/16 Albuterol Sulfate* (Ventolin HFA*) 18 Gm Hfa.aer.ad, 4 PUFF INH Q2H RESP THERAPY Y for SHORTNESS OF BREATH, #1 INHALER Prov:CRISTO GERARDO 04/10/16 Levetiracetam* (Keppra*) 500 Mg/5 Ml Solution, 500 MG GTB BID for 30 Days Prov:CRISTO GERARDO 04/10/16 Divalproex Sodium* (Depakote* Sprinkle) 125 Mg Cap.sprink, 500 MG PO BID for 30 Days, CAP Prov:CRISTO GERARDO 04/10/16 Reported Medications Alprazolam* (Xanax*) 2 Mg Tablet, 2 MG PO Q8H Y for ANXIETY, TAB 04/01/16 Hydroxyzine Hcl* (Hydroxyzine Hcl*) 10 Mg Tablet, 10 MG PO Q6H Y for ITCHING, # 30 TAB 12/21/15 Metoclopramide* (Reglan*) 5 Mg Tablet, 5 MG PO AC MEALS, TAB 12/21/15 Oxycodone Hcl* (Oxycontin*) 40 Mg Tab.er.12h, 40 MG PO Q12, TAB 12/21/15 Duloxetine Hcl* (Cymbalta*) 60 Mg Capsule.dr, 60 MG PO DAILY, CAP 12/21/15 Oxybutynin Chloride* (Ditropan* XL) 15 Mg/Bottle Tab.osm.24, 15 MG PO BID 06/23/10 Allergies Allergies: Coded Allergies: Penicillins (Verified Allergy, Unknown, 12/20/15) latex (Verified Allergy, Unknown, 12/20/15) PMhx/Soc History of Surgery: No Anesthesia Reaction: No Hx Neurological Disorder: Yes (seizure, MS, encephalopathy) Hx Respiratory Disorders: Yes (COPD) Hx Cardiac Disorders: No Hx Psychiatric Problems: Yes (depression) Hx Miscellaneous Medical Probl: Yes (sepsis with septic shock) Hx Alcohol Use: No Hx Substance Use: Yes (marijuana) Hx Tobacco Use: No Physical Exam Vitals Vital Signs Date Time Temp Pulse Resp B/P Pulse Ox O2 Delivery O2 Flow Rate FiO2 12/20/16 02:49 110 22 95 21 12/20/16 01:49 99.1 115 20 104/69 93 Room Air 12/20/16 01:39 99.1 82 20 118/88 96 Physical Exam Const: No acute distress. Head: Atraumatic. Eyes: Normal Conjunctiva. ENT: Normal External Ears, Nose and Mouth. Neck: Full range of motion. No meningismus. Resp: Clear to auscultation bilaterally. Cardio: Regular rate and rhythm. Abd: Soft, non distended, normal bowel sounds, non tender. Skin: No petechiae or rashes. Back: No midline or flank tenderness. Ext: No cyanosis, or edema. Neur: Unable to perform due to her condition Psych: Unable to perform due to her condition Result Diagram: 12/20/1623912/20/16239 Results 24 hrs Laboratory Tests Test 12/20/16 02:40 12/20/16 03:09 White Blood Count 13.810^3/ul Red Blood Count 4.6110^6/ul Hemoglobin 13.0g/dl Hematocrit 40.5% Mean Corpuscular Volume 87.9fl Mean Corpuscular Hemoglobin 28.2pg Mean Corpuscular Hemoglobin Concent 32.1g/dl Red Cell Distribution Width 15.7% Platelet Count 87246^3/UL Mean Platelet Volume 10.6fl Neutrophils % 57.3% Lymphocytes % 30.7% Monocytes % 11.2% Eosinophils % 0.1% Basophils % 0.4% Nucleated Red Blood Cells % 0.0/100WBC Neutrophils # 7.910^3/ul Lymphocytes # 4.210^3/ul Monocytes # 1.610^3/ul Eosinophils # 0.010^3/ul Basophils # 0.110^3/ul Nucleated Red Blood Cells # 0.010^3/ul Sodium Level 145mmol/L Potassium Level 3.9mmol/L Chloride Level 106mmol/L Carbon Dioxide Level 27mmol/L Anion Gap 16 Blood Urea Nitrogen 24mg/dl Creatinine 0.60mg/dl Glucose Level 102mg/dl Calcium Level 8.9mg/dl Bedside Urine pH (LAB) 6.0 Bedside Urine Protein (LAB) 3+ Bedside Urine Glucose (UA) Negative Bedside Urine Ketones (LAB) 2+ Bedside Urine Blood 2+ Bedside Urine Nitrite (LAB) Positive Bedside Urine Leukocyte Esterase (L Trace Current Medications Medications (Trade) Dose Ordered Sig/Stacey Route PRN Reason Start Time Stop Time Status Last Admin Dose Admin Levalbuterol (Xopenex Neb) 1.25 mg ONCE ONCE N 12/20/16 02:30 12/20/16 02:31 DC 12/20/16 02:49 Ipratropium Posey 0.5 mg 0.5 mg ONCE ONCE HHN 12/20/16 02:30 12/20/16 02:31 DC 12/20/16 02:49 Sodium Chloride 1,000 ml @ 1,000 mls/hr Q1H ONCE IV 12/20/16 04:30 12/20/16 05:29 12/20/16 04:33 Levofloxacin/ Dextrose 150 ml @ 100 mls/hr ONCE ONCE IVPB 12/20/16 04:30 12/20/16 05:59 12/20/16 04:32 Sodium Chloride (NS) 1,000 ml @ 1,000 mls/hr Q1H ONCE IV 12/20/16 04:30 12/20/16 05:29 Procedures/MDM [place] [address] Radiology Main Line: [phone] DIAGNOSTIC IMAGING REPORT Patient: JEYSON CARTER : 1975 Age: 41 Sex: F MR #: [id number] DOS: 12/20/16 0211 Ordering MD: RADHA CENTENO MD Location: E/R Room/Bed: PROCEDURE: CHEST - 1 VIEW CLINICAL INDICATION: 41-year-old female with chest pain. TECHNIQUE: A single frontal AP semi-erect portable view of the chest was performed. The images were reviewed on a PACS workstation. COMPARISON: X-ray April 25, 2016. FINDINGS: There is a left-sided PICC line again identified with the tip at the cavoatrial junction region. There is a shallow inspiration accentuating the heart size. Accounting for this, the cardiomediastinal silhouette is within normal limits. There is bilateral lower lung zone subsegmental atelectasis. There is no evidence for an infiltrate. There is no evidence for congestive heart failure. There is no evidence for pneumothorax. The osseous structures are intact. IMPRESSION: 1. Left-sided PICC line with the tip at the cavoatrial junction. 2. Shallow inspiration. 3. Bilateral lower lung zone subsegmental atelectasis. .Elijah Montes MD, MD Date Time Electronically viewed and signed by .Elijah Montes MD, MD on 12/20/2016 02:39 .M/ CC: RADHA CENTENO MD MEDICAL MAKING DECISION: The patient is a 41-year-old female, presenting with acute dehydration, acute cystitis, acute cough. She was treated with Xopenex 1.25 mg and Atrovent 0.5 mg for congestion, 2 L normal saline IV for dehydration , Levaquin IV for acute cystitis good response. A new Roberson catheter was inserted The differential diagnoses considered include but are not limited to pneumonia, pyelonephritis, influenza, viral syndrome Departure Diagnosis: Primary Impression: UTI (urinary tract infection) Additional Impression: Dehydration Condition: Good Comments She was discharged with Levaquin and albuterol MDI I discussed the findings with the patient. I advised the patient to follow-up with the primary physician in about 1-2 days, sooner if needed and return if any concern. Disclaimer: Inadvertent spelling and grammatical errors are likely due to EHR/ dictation software use and do not reflect on the overall quality of patient care. Also, please note that the electronic time recorded on this note does not necessarily reflect the actual time of the patient encounter. RADHA CENTENO MD Dec 20, 2016 02:01
[2016-12-20] MEDS ORDERED: IPRATROPIUM (NEB) 0.5 MG/2.5 ML AMP HHN ONE (02:30)
[2016-12-20] MEDS ORDERED: LEVALBUTEROL (NEB) 1.25 MG/0.5 ML AMP HHN ONE (02:30)
--- NOTE | 2016-12-20 02:39 | RADRPT ---
PROCEDURE: CHEST - 1 VIEW CLINICAL INDICATION: 41-year-old female with chest pain. TECHNIQUE: A single frontal AP semi-erect portable view of the chest was performed. The images we re reviewed on a PACS workstation. COMPARISON: X-ray April 25, 2016. FINDINGS: There is a left-sided PICC line again identified with the tip at the cavoatrial junction region. The re is a shallow inspiration accentuating the heart size. Accounting for this, the cardiomediastinal silhouette is within normal limits. There is bilateral lower lung zone subsegmental atelectasis. Th ere is no evidence for an infiltrate. There is no evidence for congestive heart failure. There is n o evidence for pneumothorax. The osseous structures are intact. IMPRESSION: 1. Left-sided PICC line with the tip at the cavoatrial junction. 2. Shallow inspiration. 3. Bilateral lower lung zone subsegmental atelectasis. .Elijah Montes MD, Date Time Electronically viewed and signed by .Elijah Montes MD, on 12/20/2016 02:39 .M/
[2016-12-20 03:11] LABS: URINE BLOOD (Dip) POC 2+ (NEGATIVE)
[2016-12-20 03:52] LABS: ABNORMAL IP MESSAGE 1; BASOPHIL # 0.1 10^3/ul (0.0-0.1); BASOPHILS % 0.4 % (0.0-2.0); EOSINOPHILS % 0.1 % (0.0-7.0); HEMATOCRIT 40.5 % (37.0-47.0); LYMPHOCYTES # 4.2 10^3/ul (0.8-2.9); LYMPHOCYTES % 30.7 % (15.0-51.0); MEAN CORPUSCULAR HEMOGLOBIN 28.2 pg (29.0-33.0); MEAN CORPUSCULAR HGB CONC 32.1 g/dl (32.0-37.0); MEAN CORPUSCULAR VOLUME 87.9 fl (82.0-101.0); MEAN PLATELET VOLUME 10.6 fl (7.4-10.4); MONOCYTE # 1.6 10^3/ul (0.3-0.9); MONOCYTES % 11.2 % (0.0-11.0); NEUTROPHIL # 7.9 10^3/ul (1.6-7.5); NEUTROPHILS % 57.3 % (39.0-77.0); PLATELET COUNT 343 10^3/UL (140-415); RED BLOOD COUNT 4.61 10^6/ul (4.20-5.40); RED CELL DISTRIBUTION WIDTH 15.7 % (11.5-14.5); WHITE BLOOD COUNT 13.8 10^3/ul (4.8-10.8)
[2016-12-20 03:58] LABS: POSITIVE DIFF @See below
[2016-12-20 04:06] LABS: CALCIUM 8.9 mg/dl (8.4-10.2); CREATININE 0.6 mg/dl (0.44-1.00); POTASSIUM 3.9 mmol/L (3.5-5.1)
[2016-12-20] MEDS ORDERED: LEVO750T25 PO (04:14)
[2016-12-20] MEDS ORDERED: ALBU8.5H3 INH (04:15)
[2016-12-20] MEDS ORDERED: SOD CHLORIDE 0.9% 1,000 ML IV ONE ×2 (04:30)
[2016-12-20] MEDS ORDERED: LEVOFLOXACIN 750MG/D5W (PMX) 150 ML IVPB ONE (04:30)
[2016-12-20] MEDS ORDERED: SOD CHLORIDE 0.9% 500 ML IV STA (08:53)
[2016-12-20] MEDS ORDERED: NORepinephrine 8MG/250 ML (PMX 250 ML IV STA (08:53)
[2016-12-20] MEDS ORDERED: VANCOMYCIN 1 GM (PMX) 250 ML IVPB SCH (09:30)
[2016-12-20] MEDS ORDERED: AZTREONAM 1 GM/NS (PMX) 50 ML IVPB ONE (09:30)
[2016-12-20 10:50] LABS: ADD UMIC YES; UR ASCORBIC ACID NEGATIVE (NEGATIVE); UR BACTERIA FEW /HPF (NONE SEEN); UR BILIRUBIN (Dip) NEGATIVE (NEGATIVE); UR BLOOD (Dip) NEGATIVE (NEGATIVE); UR CLARITY SLIGHTLY CLOUDY (CLEAR); UR COLOR YELLOW (YELLOW); UR GLUCOSE (Dip) NEGATIVE (NEGATIVE); UR KETONES (Dip) 1+ mg/dL (NEGATIVE); UR LEUKOCYTE ESTERASE (Dip) 2+ Leu/ul (NEGATIVE); UR MUCUS FEW /HPF (NONE SEEN); UR NITRITE (Dip) POSITIVE (NEGATIVE); UR RBC 8 /HPF (0-5); UR SPECIFIC GRAVITY (Dip) 1.026 (1.003-1.030); UR TOTAL PROTEIN (Dip) 1+ mg/dl (NEGATIVE); UR UROBILINOGEN (Dip) NEGATIVE (NEGATIVE)
[2016-12-20] MEDS ORDERED: MAGNESIUM HYDROXIDE 30ML CUP PO PRN (11:30)
[2016-12-20] MEDS ORDERED: ALBUTEROL/IPRATROPIUM (NEB) 3 ML AMP HHN PRN (11:30)
[2016-12-20] MEDS ORDERED: NITROGLYCERIN (SL) 0.4 MG TAB SL PRN (11:30)
[2016-12-20] MEDS ORDERED: NA PHOSPHATE/BIPHOS 133 ML ENEMA PR PRN (11:30)
[2016-12-20] MEDS ORDERED: DOCUSATE SODIUM 100 MG CAP PO PRN (11:30)
[2016-12-20] MEDS ORDERED: NACL 0.9% 3 ML SYG IV SCH (11:30)
[2016-12-20 12:15] LABS: INR 1.18; PROTIME 15.1 Sec (12.2-14.2); PT RATIO 1.2
[2016-12-20] MEDS: AZTREONAM 2 GM in SOD CHLORIDE 0.9% 100 ML IVPB SCH ×2 (13:15→23:13)
--- NOTE | 2016-12-20 14:18 | CONS ---
DATE OF ADMISSION: 12/20/2016 DATE OF CONSULTATION: 12/20/2016 TYPE OF CONSULTATION: Infectious disease. REASON FOR CONSULTATION: Antibiotic management. HISTORY OF PRESENT ILLNESS: Carito Gutierrez is a 41-year-old female with numerous problems who is a dmitted now with cough and is being seen for antibiotic management. Past problems include: 1. Multiple sclerosis. 2. History of seizures. 3. Decubitus ulcers. 4. Anemia of chronic disease. 5. Anxiety and depression. Acutely, the patient comes in with intermittent cough for a week and half with decreased appetite. She has no chest pain, nausea, vomiting or diarrhea. She has an indwelling Roberson catheter that came out on the way to the emergency room. She has an ALLERGY TO PENICILLIN. She also has, as noted, sugar dobbs. She is encephalopathic and has a history of depression. PAST MEDICAL HISTORY: Operations as outlined, none. FAMILY HISTORY: Noncontributory. SOCIAL HISTORY: She does not smoke, drink or abuse drugs. She does use marijuana. ALLERGIES: PENICILLIN. NONE TO SULFA OR FOODS. MEDICATIONS: Per chart. REVIEW OF SYSTEMS: As per HPI. PHYSICAL EXAMINATION: GENERAL: The patient is a chronically ill-appearing female who is encephalopathic, in no acute dist ress. VITAL SIGNS: Being maintained with norepinephrine. She is afebrile. Left PICC line is placed with the tip at the cavoatrial junction. SKIN: Without generalized rash. HEENT: Within normal limits. NECK: Supple. LYMPH NODES: None palpable. CHEST: Decreased breath sounds at the bases. HEART: Without murmur or gallop. ABDOMEN: Soft, nontender, nondistended. No organosplenomegaly or masses. EXTREMITIES: Without cyanosis, clubbing or edema. RECTAL AND GENITAL: Deferred. NEUROLOGIC: Difficult to assess. The patient is lethargic and obtunded. She has multiple sclerosi s. ANCILLARY LABORATORY DATA: White count 13.8, H and H 13 and 40.5, platelet count 343,000. BUN and creatinine 24/0.6. Random glucose of 102. IMPRESSION AND PLAN: The patient was initially on Levaquin, switched over to aztreonam and vancomyc in. Urinalysis was ordered. Blood cultures were ordered x4. Methicillin resistant Staphylococcus aureus screen and urine cultures were ordered as well. Her urine shows positive nitrite, 2+ leukocy te esterase, greater than 90 white cells per high-power field. So, in conclusion, Carito Gutierrez i s a 41-year-old female who comes in now with probable urinary tract infection with septic shock. Wi ll continue her on broad-spectrum antibiotics with vancomycin and aztreonam. I will dictate my find ings to the hospitalist. Dictated By: VISHNU CHRISTIANSON MD, JD/JOSELIN Conf#: [id number] DID#: [id number] CC: ANGIE BENAVIDEZ MD;*EndCC*
--- NOTE | 2016-12-20 19:01 | HP ---
DATE OF ADMISSION: 12/20/2016 CHIEF COMPLAINT: Cough. HISTORY OF PRESENT ILLNESS: The patient is a 41-year-old female with a past medical history based on records of urinary issues, COPD, seizure history, multiple sclerosis, encephalopathy, COPD, who presents with cough. The symptoms have been going on for about 1 and a half weeks. She has also had decreased appetite. Most of the information was obtained from the ER documentation. The patient is unable to provide a full HPI at this time. She did deny vomiting and nausea, no abdominal pain, no chest pain, no shortness of breath. Apparently she has a history of an indwelling Roberson catheter, which came out on the way to the ER. She does smoke marijuana. When she came in she was found with white blood cell count elevation of 13.8. She was afebrile, she had signs of a positive UA, and her blood pressure was actually low systolic in the 70 to 80 range and had to be started on pressor support in the ER. PAST MEDICAL HISTORY: As stated above. ALLERGIES: PENICILLIN AND LATEX. MEDICATIONS: Home medications include Ventolin HFA 4 puffs inhaled q.2 hours p.r.n., ProAir HFA 2 puffs inhaled q.4 hours p.r.n., Xanax 2 mg p.o. q.8 p.r.n., Depakote 500 mg b.i.d., Cymbalta 60 mg daily, [place] 7.5/325 q.4 p.r.n., hydroxyzine 10 mg q.6 p.r.n., Keppra 500 mg b.i.d., OxyContin 40 mg q.12 hours, Reglan 5 mg with meals, Ditropan XL 50 mg b.i.d. PAST SURGICAL HISTORY: None. FAMILY HISTORY: Noncontributory. SOCIAL HISTORY: She does smoke marijuana. Negative for alcohol use. No cigarette smoking. PHYSICAL EXAMINATION: VITAL SIGNS: T-max 99.1, pulse 115 to 82, blood pressure 75 to 118 systolic over 50 to 88 diastolic, sating at 93 to 96 percent on room air. GENERAL: The patient is lying in bed, sleeping, mildly arousable, unable to provide full answers, no acute distress. HEENT: Pupils are equal, round, and reactive to light. NECK: Supple. No thyromegaly. LUNGS: Slightly distant breath sounds bilaterally. CARDIOVASCULAR: S1 and S2 heard. No murmurs, rubs, or gallops. ABDOMEN: Soft, nontender, nondistended. Normal bowel sounds. No rebound or guarding. MUSCULOSKELETAL: No lower extremity edema bilaterally. NEUROLOGIC: Unable to perform due to the patient's current condition. LABORATORY DATA: WBC 13.8, hemoglobin 13.0, hematocrit 40.5, platelets 343. UA shows positive nitrites, 1 plus ketones positive, 2 plus leukocyte esterase positive. Basic metabolic panel is normal. Lactic acid is normal. IMAGING: The patient had a chest x-ray today that shows a left sided PICC line in place, shallow inspiration bilateral lower lung zone, subsegmental atelectasis. ASSESSMENT AND PLAN: A 41-year-old female, who presents with cough and found with septic shock secondary to urinary tract infection. 1. Septic shock secondary to the positive urinalysis and urinary tract infection. Will admit the patient and follow up final culture results, put on broad spectrum antibiotics, get infectious disease consult, continue pressor support, wean off as tolerated. Check TSH, A1c, lipid panel. Continue pain control medications consciously. 2. History of multiple sclerosis. Continue to monitor for now. 3. History of decubitus ulcer. Consider wound care consult. May need to check and see if this is infected as well. 4. History of anxiety and depression. Continue to monitor for now. She is on Ativan p.r.n. 5. History of epilepsy. Continue Keppra for now. 6. Deep vein thrombosis prophylaxis. Heparin subcutaneously. 7. Gastrointestinal prophylaxis. PPI. Dictated By: Marc Calloway MD /kasia/alonzo /Document#: [id number]
[2016-12-20] MEDS ORDERED: GLUCOSE GEL 15 GRAM TUBE PO PRN ×2 (20:30)
[2016-12-20] MEDS ORDERED: GLUCAGON 1 MG INJ IM PRN (20:30)
[2016-12-20] MEDS ORDERED: DEXTROSE 50% 50 ML SYRINGE IV PRN ×2 (20:30)
[2016-12-20] MEDS ORDERED: GLUCOSE GEL 15 GRAM TUBE BUCCAL PRN (20:30)
[2016-12-20] MEDS: INSULIN ASPART [NOVOLOG] 3 ML PEN SC SCH (20:57)
[2016-12-20] MEDS: LEVETIRACETAM 500 MG (PMX) 100 ML IVPB SCH (20:57)
[2016-12-20] MEDS: morphine 2 MG INJ IV PRN (20:58)
[2016-12-20] MEDS: HEPARIN 5,000 UNIT/0.5 ML VIAL SC SCH (21:09)
[2016-12-21] VITALS (88 sets, daily range): BP systolic 63–162; BP diastolic 43–146; PULSE 61–100; RESP 4–24
[2016-12-21] MEDS: ACCU-CHEK XX SCH (01:05)
[2016-12-21] MEDS ORDERED: ACCU-CHEK XX SCH ×2 (02:00)
[2016-12-21] MEDS: AZTREONAM 2 GM in SOD CHLORIDE 0.9% 100 ML IVPB SCH ×2 (05:36→14:16)
[2016-12-21] MEDS ORDERED: PANTOPRAZOLE 40 MG INJ IV SCH (06:00)
[2016-12-21 06:43] LABS: BASOPHILS % 0.5 % (0.0-2.0); EOSINOPHILS # 0.2 10^3/ul (0.0-0.5); EOSINOPHILS % 3.5 % (0.0-7.0); HEMATOCRIT 36.8 % (37.0-47.0); HEMOGLOBIN 11.6 g/dl (12.0-16.0); LYMPHOCYTES # 2.7 10^3/ul (0.8-2.9); LYMPHOCYTES % 41.2 % (15.0-51.0); MEAN CORPUSCULAR HEMOGLOBIN 28.2 pg (29.0-33.0); MEAN CORPUSCULAR HGB CONC 31.5 g/dl (32.0-37.0); MEAN CORPUSCULAR VOLUME 89.3 fl (82.0-101.0); MEAN PLATELET VOLUME 10.2 fl (7.4-10.4); MONOCYTE # 0.7 10^3/ul (0.3-0.9); MONOCYTES % 10.1 % (0.0-11.0); NEUTROPHILS % 44.5 % (39.0-77.0); PLATELET COUNT 267 10^3/UL (140-415); RED BLOOD COUNT 4.12 10^6/ul (4.20-5.40); RED CELL DISTRIBUTION WIDTH 14.9 % (11.5-14.5); WHITE BLOOD COUNT 6.7 10^3/ul (4.8-10.8)
[2016-12-21 07:18] LABS: CALCIUM 8.9 mg/dl (8.4-10.2); CREATININE 0.45 mg/dl (0.44-1.00); MAGNESIUM 1.7 mg/dl (1.7-2.5); PHOSPHORUS 3.4 mg/dl (2.5-4.9); POTASSIUM 3.4 mmol/L (3.5-5.1)
[2016-12-21 07:21] LABS: CHOL/HDL RATIO 4.1 RATIO
[2016-12-21] MEDS: INSULIN ASPART [NOVOLOG] 3 ML PEN SC SCH ×4 (07:35→21:00)
[2016-12-21] MEDS ORDERED: INSULIN ASPART [NOVOLOG] 3 ML PEN SC SCH (07:35)
[2016-12-21 07:49] LABS: THYROID STIMULATING HORMONE 5.46 MIU/L (0.465-4.680)
[2016-12-21] MEDS: HEPARIN 5,000 UNIT/0.5 ML VIAL SC SCH ×2 (08:16→21:00)
[2016-12-21] MEDS: LEVETIRACETAM 500 MG (PMX) 100 ML IVPB SCH ×2 (10:10→20:57)
[2016-12-21] MEDS ORDERED: SOD CHLORIDE 0.9% 500 ML IV ONE (13:00)
[2016-12-21] MEDS ORDERED: POTASSIUM CHLORIDE 250 ML IVPB ONE (13:00)
--- NOTE | 2016-12-21 13:15 | PN ---
Date/Time of Note Date/Time of Note DATE: 12/21/16 TIME: 12:49 Assessment/Plan VTE Prophylaxis VTE Prophylaxis Intervention: heparin Lines/Catheters IV [facility] PORT-A CATH Urinary Cath still in place: Yes Reason Cath still needed: urinary retention Assessment/Plan Chief Complaint/Hosp Course ASSESSMENT AND PLAN: 41-year-old female, who presents with cough and found with septic shock secondary to urinary tract infection. 1. Septic shock - secondary to the positive urinalysis and urinary tract infection. -Continue low-dose pressor support try to wean down, final culture results, put on broad spectrum antibiotics, get infectious disease consult, continue pressor support, wean off as tolerated. Follow-up TSH, A1c, lipid panel. Continue pain control medications consciously. 2. History of multiple sclerosis. Continue to monitor for now. 3. History of decubitus ulcer. Consider wound care consult. 4. History of anxiety and depression. Continue to monitor for now. She is on Ativan p.r.n. 5. History of epilepsy. Continue Keppra for now. 6. Deep vein thrombosis prophylaxis. Heparin subcutaneously. 7. Gastrointestinal prophylaxis. PPI. Critical care time spent on patient care today equals 45 minutes. Problems: Subjective 24 Hr Interval Summary Free Text/Dictation Patient still on low-dose pressor support, more awake, alert now. Exam/Review of Systems Vital Signs Vitals Vital Signs Date Time Temp Pulse Resp B/P Pulse Ox O2 Delivery O2 Flow Rate FiO2 12/21/16 10:00 86 21 114/67 98 Room Air 12/21/16 08:00 98.8 12/20/16 17:53 3.0 12/20/16 02:49 21 Intake and Output 12/20/16 12/20/16 12/21/16 14:59 22:59 06:59 Intake Total 220 ml 209.375 ml Output Total 740 ml 190 ml Balance -520 ml 19.375 ml Exam GENERAL: The patient is lying in bed, answering questions, no acute distress. HEENT: Pupils are equal, round, and reactive to light. NECK: Supple. No thyromegaly. LUNGS: Less distant breath sounds bilaterally. CARDIOVASCULAR: S1 and S2 heard. No murmurs, rubs, or gallops. ABDOMEN: Soft, nontender, nondistended. Normal bowel sounds. No rebound or guarding. MUSCULOSKELETAL: No lower extremity edema bilaterally. NEUROLOGIC: Unable to perform due to the patient's current condition. Results Result Diagram: 12/21/16 0625 12/21/16 0625 Results 24 hrs Laboratory Tests Test 12/20/16 20:56 12/20/16 23:09 12/21/16 06:25 12/21/16 08:12 Bedside Glucose 68 L 120 83 White Blood Count 6.7 # Red Blood Count 4.12 L Hemoglobin 11.6 L Hematocrit 36.8 L Mean Corpuscular Volume 89.3 Mean Corpuscular Hemoglobin 28.2 L Mean Corpuscular Hemoglobin Concent 31.5 L Red Cell Distribution Width 14.9 H Platelet Count 267 # Mean Platelet Volume 10.2 Neutrophils % 44.5 Lymphocytes % 41.2 Monocytes % 10.1 Eosinophils % 3.5 Basophils % 0.5 Nucleated Red Blood Cells % 0.0 Neutrophils # 3.0 Lymphocytes # 2.7 Monocytes # 0.7 Eosinophils # 0.2 Basophils # 0.0 Nucleated Red Blood Cells # 0.0 Sodium Level 143 Potassium Level 3.4 L Chloride Level 108 Carbon Dioxide Level 30 Anion Gap 8 # Blood Urea Nitrogen 15 # Creatinine 0.45 Glucose Level 80 Hemoglobin A1c 5.2 Calcium Level 8.9 Phosphorus Level 3.4 Magnesium Level 1.7 Triglycerides Level 159 H Cholesterol Level 145 LDL Cholesterol, Calculated 78 HDL Cholesterol 35 Cholesterol/HDL Ratio 4.1 Thyroid Stimulating Hormone (TSH) 5.460 H Test 12/21/16 12:19 Bedside Glucose 123 Medications Medications Current Medications Ondansetron HCl (Zofran Inj) 4 mg Q6H PRN IV NAUSEA AND/OR VOMITING; Start 11/26 at 11:30 Acetaminophen (Tylenol Tab) 650 mg Q6H PRN PO PAIN LEVEL 1-3 OR FEVER; Start 12/20/16 at 11:30 Acetaminophen/ Hydrocodone Bitart ([place] (5/325)) 1 tab Q6H PRN PO MODERATE PAIN LEVEL 4-6; Start 12/20/16 at 11:30 Morphine Sulfate (morphine) 2 mg Q4H PRN IV SEVERE PAIN LEVEL 7-10 Last administered on 12/20/16t 20:58; Admin Dose 2 MG; Start 12/20/16 at 11:30 Docusate Sodium (Colace) 100 mg Q12H PRN PO CONSTIPATION; Start 12/20/16 at 11 :30 Magnesium Hydroxide (Milk Of Mag) 30 ml DAILY PRN PO CONSTIPATION; Start 12/20 at 11:30 Sodium Biphosphate/ Sodium Phosphate (Fleet Enema) 133 ml DAILY PRN VT CONSTIPATION; Start 12/20/16 at 11:30 Heparin Sodium (Porcine) (Heparin (5000 Units/0.5 ml)) 5,000 unit Q12 SC Last administered on 12/21/16 08:16; Admin Dose 5,000 UNIT; Start 12/20/16 at 21: 00 Lorazepam (Ativan) 0.5 mg Q6H PRN IV ANXIETY; Start 12/20/16 at 11:30 Nitroglycerin (Nitroglycerin (Sl Tab) 0.4 Mg) 1 tab Q5M PRN SL ANGINA; Start 12/20/16 at 11:30 Pantoprazole 40 mg 40 mg DAILY@06 IV Last administered on 12/21/16 05:36; Admin Dose 40 MG; Start 12/21/16 at 06:00 Aztreonam 2 gm/ Sodium Chloride 100 ml @ 100 mls/hr Q8 IVPB Last administered on 12/21/16 05:36; Admin Dose 100 MLS/HR; Start 12/20/16 at 14:00; Stop 12/27 at 16:00 Norepinephrine 32 mg/Dextrose 500 ml @ 0.93 mls/hr TITRATE IV ; Start at 11:30 Levetiracetam (Keppra 500 Mg/ 100ml (Pmx)) 100 ml @ 400 mls/hr Q12 IVPB Last administered on 12/21/16 10:10; Admin Dose 400 MLS/HR; Start 12/20/16 at 21: 00 Diagnostic Test (Pha) (Accu-Chek) 1 ea 02 XX Last administered on 12/21/16 01 :05; Admin Dose 1 EA; Start 12/21/16 at 02:00 Miscellaneous Information 1 ea NOTE XX ; Start 12/20/16 at 20:30 Glucose (Glutose) 15 gm Q15M PRN PO DECREASED GLUCOSE; Start 12/20/16 at 20:30 Glucose (Glutose) 22.5 gm Q15M PRN PO DECREASED GLUCOSE; Start 12/20/16 at 20: 30 Dextrose (D50w Syringe) 25 ml Q15M PRN IV DECREASED GLUCOSE; Start 12/20/16 at 20:30 Dextrose (D50w Syringe) 50 ml Q15M PRN IV DECREASED GLUCOSE; Start 12/20/16 at 20:30 Glucagon (Glucagen) 1 mg Q15M PRN IM DECREASED GLUCOSE; Start 12/20/16 at 20: 30 Glucose 15 gm 15 gm Q15M PRN BUCCAL DECREASED GLUCOSE; Start 12/20/16 at 20:30 Aztreonam 2 gm/ Dextrose 100 ml @ 100 mls/hr Q8 IVPB ; Start 12/21/16 at 22:00 Potassium Chloride (KCl 40 MEQ/250 ML NS) 250 ml @ 62.5 mls/hr ONCE ONCE IVPB ; Start 12/21/16 at 13:00; Stop 12/21/16 at 16:59 ANAYA ONTIVEROS Dec 21, 2016 13:14
[2016-12-21] MEDS ORDERED: MAGNESIUM SULFATE 1 GM/D5W 100 ML IVPB ONE (13:30)
--- NOTE | 2016-12-21 17:24 | PN ---
DATE: 12/21/2016 INFECTIOUS DISEASE PROGRESS NOTE SUBJECTIVE: Patient is awake, looks comfortable, on Levophed drip. No fevers overnight. VITAL SIGNS: Temperature 98.8, pulse 63, respirations 10, blood pressure 114/60, saturation 97% on room air. LABORATORY: WBC 6.7, H and H 11.6 and 36.8, platelets 367, no shift, no bands. BUN 15, creatinine 0.45. ALLERGY: PENICILLIN. MICROBIOLOGY: Urine culture growing gram-negative rods. Blood culture growing gram-positive cocci in pairs and clusters, 1 out of 2 sets. INDWELLINGS: The patient has a left upper extremity Port-A-Cath and Roberson catheter. DIAGNOSTICS: Chest x-ray revealed bilateral lower lung zone atelectasis. ANTIMICROBIALS: The patient is on aztreonam. PHYSICAL EXAMINATION: GENERAL: This is a well-nourished, chronically ill-appearing, middle-aged woman who is awake, in no distress. HEENT: Head atraumatic, normocephalic. Sclerae anicteric. Buccal mucosa dry. NECK: Supple. CHEST: Rise symmetrical. Breath sounds diminished to bases. HEART: S1, S2. ABDOMEN: Soft, bowel tones present. EXTREMITIES: Wasted, without cyanosis. SKIN: With unstageable sacral decubitus. ASSESSMENT: 1. Septic shock. 2. Gram-positive cocci bacteremia, rule out line sepsis. 3. Urinary tract infection. 4. Unstageable sacral decubitus, possible osteomyelitis. 5. Neurogenic bladder. 6. Advanced multiple sclerosis. PLAN: We are going to change aztreonam to meropenem. Start Zyvox. Repeat blood cultures from Port -A-Cath. Await for final cultures. Continue local wound care and consider surgical evaluation for possible debridement. Dictated By: KASIA TAPIA DOCUMENT MANAGER for VISHNU CHRISTIANSON MD NI/NTS Conf#: [id number] DID#: [id number] CC: VANDANA DA SILVA MD;*EndCC*
[2016-12-21] MEDS: morphine 2 MG INJ IV PRN (20:57)
[2016-12-21] MEDS: ZYVOX 600 MG TAB PO SCH (20:57)
[2016-12-21] MEDS: MEROPENEM 500MG/50 ML (PMX) 50 ML IVPB SCH (21:06)
[2016-12-21] MEDS ORDERED: AZTREONAM 2 GM in DEXTROSE 5% 100 ML IVPB SCH (22:00)
[2016-12-22] VITALS (47 sets, daily range): BP systolic 84–154; BP diastolic 32–109; PULSE 68–126; RESP 6–25
[2016-12-22] MEDS: ACCU-CHEK XX SCH (02:00)
[2016-12-22] MEDS: morphine 2 MG INJ IV PRN ×4 (03:50→19:01)
[2016-12-22 04:44] LABS: BASOPHILS % 0.3 % (0.0-2.0); EOSINOPHILS # 0.1 10^3/ul (0.0-0.5); EOSINOPHILS % 1.6 % (0.0-7.0); HEMATOCRIT 33.6 % (37.0-47.0); HEMOGLOBIN 10.7 g/dl (12.0-16.0); LYMPHOCYTES # 2.7 10^3/ul (0.8-2.9); LYMPHOCYTES % 37.6 % (15.0-51.0); MEAN CORPUSCULAR HEMOGLOBIN 27.6 pg (29.0-33.0); MEAN CORPUSCULAR HGB CONC 31.8 g/dl (32.0-37.0); MEAN CORPUSCULAR VOLUME 86.6 fl (82.0-101.0); MEAN PLATELET VOLUME 10.5 fl (7.4-10.4); MONOCYTE # 0.8 10^3/ul (0.3-0.9); MONOCYTES % 10.9 % (0.0-11.0); NEUTROPHIL # 3.5 10^3/ul (1.6-7.5); NEUTROPHILS % 49.3 % (39.0-77.0); PLATELET COUNT 333 10^3/UL (140-415); RED BLOOD COUNT 3.88 10^6/ul (4.20-5.40); RED CELL DISTRIBUTION WIDTH 14.8 % (11.5-14.5)
[2016-12-22 05:12] LABS: CALCIUM 8.5 mg/dl (8.4-10.2); CREATININE 0.37 mg/dl (0.44-1.00); POTASSIUM 4.3 mmol/L (3.5-5.1)
[2016-12-22] MEDS: PANTOPRAZOLE (EC) 40 MG TAB PO SCH (05:39)
[2016-12-22] MEDS: MEROPENEM 500MG/50 ML (PMX) 50 ML IVPB SCH ×3 (05:40→21:31)
[2016-12-22] MEDS: INSULIN ASPART [NOVOLOG] 3 ML PEN SC SCH ×4 (07:35→21:00)
[2016-12-22] MEDS: ZYVOX 600 MG TAB PO SCH ×2 (08:06→20:48)
[2016-12-22] MEDS: HEPARIN 5,000 UNIT/0.5 ML VIAL SC SCH ×2 (08:07→20:49)
[2016-12-22] MEDS: LEVETIRACETAM 500 MG (PMX) 100 ML IVPB SCH ×2 (08:16→20:48)
--- NOTE | 2016-12-22 09:44 | PN ---
Date/Time of Note Date/Time of Note DATE: 12/22/16 TIME: 09:42 Assessment/Plan VTE Prophylaxis VTE Prophylaxis Intervention: heparin Lines/Catheters IV [facility] Type [facility]from [facility] Nicole Cath Urinary Cath still in place: Yes Reason Cath still needed: urinary retention Assessment/Plan Chief Complaint/Hosp Course ASSESSMENT AND PLAN: 41-year-old female, who presents with cough and found with septic shock secondary to urinary tract infection. 1. Septic shock - secondary to the positive urinalysis and urinary tract infection. Off pressor support since yesterday. -For now continue broad spectrum antibiotics per ID recommendations, -Continue pain control medications consciously. 2. History of multiple sclerosis. Continue to monitor for now, will also obtain neurology consult as well 3. History of decubitus ulcer -stage IV, no signs of any leakage or draining from ulcer presently - wound care, if there are any abnormalities, including need for debridement , consider surgery consult then. 4. History of anxiety and depression. Continue to monitor for now. She is on Ativan p.r.n. 5. History of epilepsy -seizure activity. Continue Keppra for now, neurology consult pending 6. Deep vein thrombosis prophylaxis. Heparin subcutaneously. 7. Gastrointestinal prophylaxis. PPI. Critical care time spent on patient care today equals 40 minutes. Problems: Subjective 24 Hr Interval Summary Free Text/Dictation Off pressor support since last night, no acute events overnight. Seen by infectious disease team yesterday. Exam/Review of Systems Vital Signs Vitals Vital Signs Date Time Temp Pulse Resp B/P Pulse Ox O2 Delivery O2 Flow Rate FiO2 12/22/16 08:00 97 9 97/78 Room Air 12/22/16 07:30 98.4 100 12/20/16 17:53 3.0 12/20/16 02:49 21 Intake and Output 12/21/16 12/21/16 12/22/16 15:00 23:00 07:00 Intake Total 603.25 ml 353.125 ml 200 ml Output Total 365 ml 390 ml 470 ml Balance 238.25 ml -36.875 ml -270 ml Exam GENERAL: The patient is lying in bed, answering questions, no acute distress. HEENT: Pupils are equal, round, and reactive to light. NECK: Supple. No thyromegaly. LUNGS: Less distant breath sounds bilaterally. CARDIOVASCULAR: S1 and S2 heard. No murmurs, rubs, or gallops. ABDOMEN: Soft, nontender, nondistended. Normal bowel sounds. No rebound or guarding. MUSCULOSKELETAL: No lower extremity edema bilaterally. NEUROLOGIC: Significant weakness in bilateral upper lower extremities, likely secondary to MS. Results Result Diagram: 12/22/16 0350 12/22/16 0350 Results 24 hrs Laboratory Tests Test 12/21/16 12:19 12/21/16 17:08 12/21/16 21:07 12/22/16 03:50 Bedside Glucose 123 143 129 White Blood Count 7.0 Red Blood Count 3.88 L Hemoglobin 10.7 L Hematocrit 33.6 L Mean Corpuscular Volume 86.6 Mean Corpuscular Hemoglobin 27.6 L Mean Corpuscular Hemoglobin Concent 31.8 L Red Cell Distribution Width 14.8 H Platelet Count 333 # Mean Platelet Volume 10.5 H Neutrophils % 49.3 Lymphocytes % 37.6 Monocytes % 10.9 Eosinophils % 1.6 Basophils % 0.3 Nucleated Red Blood Cells % 0.0 Neutrophils # 3.5 Lymphocytes # 2.7 Monocytes # 0.8 Eosinophils # 0.1 Basophils # 0.0 Nucleated Red Blood Cells # 0.0 Sodium Level 143 Potassium Level 4.3 Chloride Level 109 Carbon Dioxide Level 28 Anion Gap 10 Blood Urea Nitrogen 9 Creatinine 0.37 L Glucose Level 101 Calcium Level 8.5 Test 12/22/16 08:05 Bedside Glucose 92 Medications Medications Current Medications Ondansetron HCl (Zofran Inj) 4 mg Q6H PRN IV NAUSEA AND/OR VOMITING; Start 11/26 at 11:30 Acetaminophen (Tylenol Tab) 650 mg Q6H PRN PO PAIN LEVEL 1-3 OR FEVER; Start 12/20/16 at 11:30 Acetaminophen/ Hydrocodone Bitart ([place] (5/325)) 1 tab Q6H PRN PO MODERATE PAIN LEVEL 4-6; Start 12/20/16 at 11:30 Morphine Sulfate (morphine) 2 mg Q4H PRN IV SEVERE PAIN LEVEL 7-10 Last administered on 12/22/16t 08:06; Admin Dose 2 MG; Start 12/20/16 at 11:30 Docusate Sodium (Colace) 100 mg Q12H PRN PO CONSTIPATION; Start 12/20/16 at 11 :30 Magnesium Hydroxide (Milk Of Mag) 30 ml DAILY PRN PO CONSTIPATION; Start 12/20 at 11:30 Sodium Biphosphate/ Sodium Phosphate (Fleet Enema) 133 ml DAILY PRN [place] CONSTIPATION; Start 12/20/16 at 11:30 Heparin Sodium (Porcine) (Heparin (5000 Units/0.5 ml)) 5,000 unit Q12 SC Last administered on 12/22/16 08:07; Admin Dose 5,000 UNIT; Start 12/20/16 at 21: 00 Lorazepam (Ativan) 0.5 mg Q6H PRN IV ANXIETY; Start 12/20/16 at 11:30 Nitroglycerin 1 tab 1 tab Q5M PRN SL ANGINA; Start 12/20/16 at 11:30 Norepinephrine 32 mg/Dextrose 500 ml @ 0.93 mls/hr TITRATE IV ; Start at 11:30 Levetiracetam (Keppra 500 Mg/ 100ml (Pmx)) 100 ml @ 400 mls/hr Q12 IVPB Last administered on 12/22/16 08:16; Admin Dose 400 MLS/HR; Start 12/20/16 at 21: 00 Diagnostic Test (Pha) (Accu-Chek) 1 ea 02 XX Last administered on 12/21/16 01 :05; Admin Dose 1 EA; Start 12/21/16 at 02:00 Miscellaneous Information 1 ea NOTE XX ; Start 12/20/16 at 20:30 Glucose (Glutose) 15 gm Q15M PRN PO DECREASED GLUCOSE; Start 12/20/16 at 20:30 Glucose (Glutose) 22.5 gm Q15M PRN PO DECREASED GLUCOSE; Start 12/20/16 at 20: 30 Dextrose (D50w Syringe) 25 ml Q15M PRN IV DECREASED GLUCOSE; Start 12/20/16 at 20:30 Dextrose (D50w Syringe) 50 ml Q15M PRN IV DECREASED GLUCOSE; Start 12/20/16 at 20:30 Glucagon (Glucagen) 1 mg Q15M PRN IM DECREASED GLUCOSE; Start 12/20/16 at 20: 30 Glucose 15 gm 15 gm Q15M PRN BUCCAL DECREASED GLUCOSE; Start 12/20/16 at 20:30 Meropenem/Sodium Chloride (Merrem 500mg/50 ml(Pmx)) 50 ml @ 200 mls/hr Q8 IVPB Last administered on 12/22/16 05:40; Admin Dose 200 MLS/HR; Start 12/21/16 at 22:00 Linezolid (Zyvox) 600 mg BID PO Last administered on 12/22/16 08:06; Admin Dose 600 MG; Start 12/21/16 at 21:00 Pantoprazole (Protonix Tab) 40 mg DAILY@06 PO Last administered on 12/22/16 05:39; Admin Dose 40 MG; Start 12/22/16 at 06:00 ANAYA ONTIVEROS Dec 22, 2016 09:44
--- NOTE | 2016-12-22 16:37 | CONS ---
Date/Time of Note Date/Time of Note DATE: 12/22/16 TIME: 16:34 Consult Date/Type/Reason Admit Date/Time Dec 20, 2016 at 09:13 Initial Consult Date Type of Consultation: id Objective Vital Signs Date Time Temp Pulse Resp B/P Pulse Ox O2 Delivery O2 Flow Rate FiO2 12/22/16 16:00 99.0 99 16 93/53 98 Room Air 12/20/16 17:53 3.0 12/20/16 02:49 21 Intake and Output 12/21/16 12/21/16 12/22/16 15:00 23:00 07:00 Intake Total 603.25 ml 353.125 ml 200 ml Output Total 365 ml 390 ml 470 ml Balance 238.25 ml -36.875 ml -270 ml Results/Medications Result Diagram: 12/22/16 0350 12/22/16 0350 Results 24 hrs Laboratory Tests Test 12/21/16 17:08 12/21/16 21:07 12/22/16 03:50 12/22/16 08:05 Bedside Glucose 143 129 92 White Blood Count 7.0 Red Blood Count 3.88 L Hemoglobin 10.7 L Hematocrit 33.6 L Mean Corpuscular Volume 86.6 Mean Corpuscular Hemoglobin 27.6 L Mean Corpuscular Hemoglobin Concent 31.8 L Red Cell Distribution Width 14.8 H Platelet Count 333 # Mean Platelet Volume 10.5 H Neutrophils % 49.3 Lymphocytes % 37.6 Monocytes % 10.9 Eosinophils % 1.6 Basophils % 0.3 Nucleated Red Blood Cells % 0.0 Neutrophils # 3.5 Lymphocytes # 2.7 Monocytes # 0.8 Eosinophils # 0.1 Basophils # 0.0 Nucleated Red Blood Cells # 0.0 Sodium Level 143 Potassium Level 4.3 Chloride Level 109 Carbon Dioxide Level 28 Anion Gap 10 Blood Urea Nitrogen 9 Creatinine 0.37 L Glucose Level 101 Calcium Level 8.5 Test 12/22/16 11:10 Bedside Glucose 126 Medications Current Medications Ondansetron HCl (Zofran Inj) 4 mg Q6H PRN IV NAUSEA AND/OR VOMITING; Start 11/26 at 11:30 Acetaminophen (Tylenol Tab) 650 mg Q6H PRN PO PAIN LEVEL 1-3 OR FEVER; Start 12/20/16 at 11:30 Acetaminophen/ Hydrocodone Bitart ([place] (5/325)) 1 tab Q6H PRN PO MODERATE PAIN LEVEL 4-6; Start 12/20/16 at 11:30 Morphine Sulfate (morphine) 2 mg Q4H PRN IV SEVERE PAIN LEVEL 7-10 Last administered on 12/22/16 13:26; Admin Dose 2 MG; Start 12/20/16 at 11:30 Docusate Sodium (Colace) 100 mg Q12H PRN PO CONSTIPATION; Start 12/20/16 at 11 :30 Magnesium Hydroxide (Milk Of Mag) 30 ml DAILY PRN PO CONSTIPATION; Start 12/20 at 11:30 Sodium Biphosphate/ Sodium Phosphate (Fleet Enema) 133 ml DAILY PRN [place] CONSTIPATION; Start 12/20/16 at 11:30 Heparin Sodium (Porcine) (Heparin (5000 Units/0.5 ml)) 5,000 unit Q12 SC Last administered on 12/22/16 08:07; Admin Dose 5,000 UNIT; Start 12/20/16 at 21: 00 Lorazepam (Ativan) 0.5 mg Q6H PRN IV ANXIETY; Start 12/20/16 at 11:30 Nitroglycerin 1 tab 1 tab Q5M PRN SL ANGINA; Start 12/20/16 at 11:30 Norepinephrine 32 mg/Dextrose 500 ml @ 0.93 mls/hr TITRATE IV ; Start at 11:30 Levetiracetam (Keppra 500 Mg/ 100ml (Pmx)) 100 ml @ 400 mls/hr Q12 IVPB Last administered on 12/22/16 08:16; Admin Dose 400 MLS/HR; Start 12/20/16 at 21: 00 Diagnostic Test (Pha) (Accu-Chek) 1 ea 02 XX Last administered on 12/21/16 01 :05; Admin Dose 1 EA; Start 12/21/16 at 02:00 Miscellaneous Information 1 ea NOTE XX ; Start 12/20/16 at 20:30 Glucose (Glutose) 15 gm Q15M PRN PO DECREASED GLUCOSE; Start 12/20/16 at 20:30 Glucose (Glutose) 22.5 gm Q15M PRN PO DECREASED GLUCOSE; Start 12/20/16 at 20: 30 Dextrose (D50w Syringe) 25 ml Q15M PRN IV DECREASED GLUCOSE; Start 12/20/16 at 20:30 Dextrose (D50w Syringe) 50 ml Q15M PRN IV DECREASED GLUCOSE; Start 12/20/16 at 20:30 Glucagon (Glucagen) 1 mg Q15M PRN IM DECREASED GLUCOSE; Start 12/20/16 at 20: 30 Glucose 15 gm 15 gm Q15M PRN BUCCAL DECREASED GLUCOSE; Start 12/20/16 at 20:30 Meropenem/Sodium Chloride (Merrem 500mg/50 ml(Pmx)) 50 ml @ 200 mls/hr Q8 IVPB Last administered on 12/22/16 13:19; Admin Dose 200 MLS/HR; Start 12/21/16 at 22:00 Linezolid (Zyvox) 600 mg BID PO Last administered on 12/22/16 08:06; Admin Dose 600 MG; Start 12/21/16 at 21:00 Pantoprazole (Protonix Tab) 40 mg DAILY@06 PO Last administered on 12/22/16 05:39; Admin Dose 40 MG; Start 12/22/16 at 06:00 Assessment/Plan Chief Complaint/Hosp Course SUBJECTIVE: Patient is awake, looks comfortable, off Levophed gtt. No fevers overnight. ALLERGY: PENICILLIN. MICROBIOLOGY: Urine culture growing E coli. Blood culture growing gram- positive cocci in pairs and clusters, 1 out of 2 sets. INDWELLINGS: The patient has a left upper extremity Port-A-Cath and Roberson catheter. DIAGNOSTICS: Chest x-ray revealed bilateral lower lung zone atelectasis. ANTIMICROBIALS: The patient is o Zyvox and Merrem PHYSICAL EXAMINATION: GENERAL: This is a well-nourished, chronically ill-appearing, middle-aged woman who is awake, in no distress. HEENT: Head atraumatic, normocephalic. Sclerae anicteric. Buccal mucosa dry. NECK: Supple. CHEST: Rise symmetrical. Breath sounds diminished to bases. HEART: S1, S2. ABDOMEN: Soft, bowel tones present. EXTREMITIES: Wasted, without cyanosis. SKIN: With unstageable sacral decubitus. ASSESSMENT: 1. Septic shock. 2. Gram-positive cocci bacteremia, rule out line sepsis. 3. Urinary tract infection. 4. Unstageable sacral decubitus, possible osteomyelitis, previous wound cx grew VRE. 5. Neurogenic bladder. 6. Advanced multiple sclerosis. PLAN: Stable off pressors, continue abx, f/u final cx, local wound care DW staff Problems: KASIA TAPIA NP Dec 22, 2016 16:37
--- NOTE | 2016-12-22 16:45 | CONS ---
DATE OF ADMISSION: 12/20/2016 DATE OF CONSULTATION: NEUROLOGICAL CONSULTATION Thank you, Dr. Ontiveros, for your kind referral for reason of septic shock, encephalopathy and multiple sclerosis. HISTORY OF PRESENT ILLNESS: The patient is a 41-year-old lady who gives a history of multiple sclerosis since age 15. Her primary doctor is Dr. Rhoades, who prescribes her medication for multiple sclerosis. She states that she used to take avonex and Betaseron, but for a number of recent years has been using Copaxone, though she ran out approximately 1 month ago. Patient also gives history of seizures for the last several years, stating that the last episode occurred about a few months ago. She has no definite aura preceding the seizures. She has no recollection, claims to have generalized episodes. Patient presented with about a week or 10 days of decreased appetite, cough, chest congestion. She came with elevated white count and systolic blood pressure in the 70 to 80 range. Currently she is in ICU. PAST MEDICAL HISTORY: As above, also COPD. ALLERGIES 1. PENICILLIN. 2. LATEX. HOME MEDICATIONS: 1. Ventolin 2. Xanax. 3. Depakote 500 twice daily. 4. Cymbalta 60 daily. 5. [place]. 6. Hydroxyzine. 7. Keppra 500 b.i.d. 8. OxyContin. 9. Reglan. 10. Ditropan. FAMILY HISTORY: Noncontributory. SOCIAL HISTORY: Marijuana smoker. REVIEW OF SYSTEMS: The patient stated that she has been essentially bedridden for approximately a year. Her boyfriend takes care of her. She developed and had some worsening of the tremulousness in upper extremities about 1 month ago. MEDICATIONS: Currently she is on: 1. Pantoprazole. 2. Meropenem. 3. Zyvox. 4. Heparin DVT prevention. 5. Keppra 1000 twice daily. 6. Different p.r.n.'s. 7. Norepinephrine. LABORATORY DATA: Shows on admission was 13.8 WBC count, now 7; hemoglobin 10; hematocrit 33 and normal platelets. Chemistry on admission, sodium 145, BUN 24 , creatinine 0.6. Most recent today's one essentially normal basic metabolic panel, PT 15, PTT 32. Urinalysis: 2+ leukocyte esterase, WBC count 90, positive nitrites. PHYSICAL EXAMINATION: VITAL SIGNS: Today, 98.3 temperature, 101 pulse, 12 respirations, 99/53 blood pressure. GENERAL: Not in acute distress, lying in bed. HEENT: Normocephalic, atraumatic head. NECK: No carotid bruits. No thyromegaly. LUNGS: Clear to auscultation bilaterally. CARDIAC: Normal cardiac rhythm and sounds. ABDOMEN: Soft. EXTREMITIES: No cyanosis, clubbing or edema. NEUROLOGIC: She is awake, alert, and oriented x2. She was telling me a story that some "black person" stole SSI checks from her parents here in the hospital. Other than this, she seems to be more or less lucid, though at times she may derail, starts changing topics. Again, fluent speech. Cranial nerve examination shows intact visual solano bilaterally. Pupils reactive sluggishly from 3 to 2 mm. Extraocular movements intact without nystagmus. Somewhat jerk- like pursuit noticed, mild facial asymmetry, right nasolabial fold slightly lower, but normal strength when she is grimacing or smiling. Preserved sensory examination on the face. Tongue is in midline. Palate elevates symmetrically. Motor strength examination shows mild weakness about 3+ to 4-/5 in the left upper extremity, normal in the right upper extremity, no movements in bilateral lower extremities, at times trace 1/5 noticed. Sensory examination seems to be preserved to light touch and pain. No sensory level. Coordination examination shows intention tremor and dysmetria in bilateral upper extremities. IMPRESSION: 1. A 30+ year history of multiple sclerosis. Used to be on Copaxone for disease modifying treatment but ran out 1 month ago. Patient presented with sepsis, has urosepsis and also possibly pneumonia. ID service is on case. Patient is on antibiotics, hydration and pressors. Per report, she also has a decubitus. Continue current treatment for her infection. No new MS exacerbations. No need for steroid treatments. Copaxone could be restarted on an outpatient basis. 2. History of seizures, last one a few months ago. Continue Keppra and Depakote. We will check Depakote level. Thank you very much for this interesting consultation. Dictated By: LUDIN ROTHMAN/JOSELIN Conf#: [id number] DID#: [id number] CC: ANAYA ONTIVEROS;*EndCC* MTDD
[2016-12-22] MEDS: HYDROCODONE/APAP (5/325) TAB PO PRN (20:58)
[2016-12-22] MEDS: LORAZEPAM 2 MG INJ IV PRN (22:39)
[2016-12-23] VITALS (15 sets, daily range): BP systolic 104–151; BP diastolic 58–116; PULSE 94–116; RESP 13–25
[2016-12-23] MEDS: ACCU-CHEK XX SCH (00:21)
[2016-12-23] MEDS: morphine 2 MG INJ IV PRN ×5 (00:26→21:00)
[2016-12-23] MEDS: HYDROCODONE/APAP (5/325) TAB PO PRN ×3 (03:30→18:53)
[2016-12-23 05:34] LABS: BASOPHILS % 0.5 % (0.0-2.0); EOSINOPHILS # 0.1 10^3/ul (0.0-0.5); EOSINOPHILS % 0.8 % (0.0-7.0); HEMATOCRIT 32.9 % (37.0-47.0); HEMOGLOBIN 10.4 g/dl (12.0-16.0); LYMPHOCYTES # 3.4 10^3/ul (0.8-2.9); MEAN CORPUSCULAR HEMOGLOBIN 27.7 pg (29.0-33.0); MEAN CORPUSCULAR HGB CONC 31.6 g/dl (32.0-37.0); MEAN CORPUSCULAR VOLUME 87.7 fl (82.0-101.0); MEAN PLATELET VOLUME 10.4 fl (7.4-10.4); MONOCYTES % 13.5 % (0.0-11.0); NEUTROPHIL # 3.2 10^3/ul (1.6-7.5); NEUTROPHILS % 41.1 % (39.0-77.0); PLATELET COUNT 354 10^3/UL (140-415); RED BLOOD COUNT 3.75 10^6/ul (4.20-5.40); RED CELL DISTRIBUTION WIDTH 14.9 % (11.5-14.5); WHITE BLOOD COUNT 7.7 10^3/ul (4.8-10.8)
[2016-12-23] MEDS: PANTOPRAZOLE (EC) 40 MG TAB PO SCH (05:36)
[2016-12-23] MEDS: MEROPENEM 500MG/50 ML (PMX) 50 ML IVPB SCH (05:36)
[2016-12-23] MEDS: LORAZEPAM 2 MG INJ IV PRN ×2 (05:46→13:54)
[2016-12-23 05:54] LABS: CALCIUM 8.2 mg/dl (8.4-10.2); CREATININE 0.42 mg/dl (0.44-1.00); POTASSIUM 3.4 mmol/L (3.5-5.1)
[2016-12-23] MEDS: INSULIN ASPART [NOVOLOG] 3 ML PEN SC SCH ×4 (07:55→21:00)
[2016-12-23] MEDS: ZYVOX 600 MG TAB PO SCH (08:49)
[2016-12-23] MEDS: HEPARIN 5,000 UNIT/0.5 ML VIAL SC SCH ×2 (09:00→21:02)
--- NOTE | 2016-12-23 13:19 | CONS ---
Date/Time of Note Date/Time of Note DATE: 12/23/16 TIME: : Consult Date/Type/Reason Admit Date/Time Dec 20, 2016 at 09:13 Type of Consultation: id Objective Vital Signs Date Time Temp Pulse Resp B/P Pulse Ox O2 Delivery O2 Flow Rate FiO2 12/23/16 12:08 104 12/23/16 11:57 98.0 17 128/59 94 12/23/16 06:32 Room Air 12/20/16 17:53 3.0 12/20/16 02:49 21 Intake and Output 12/22/16 12/22/16 12/23/16 14:59 22:59 06:59 Intake Total 580 ml 840 ml 550 ml Output Total 430 ml 340 ml 450 ml Balance 150 ml 500 ml 100 ml Results/Medications Result Diagram: 12/23/16 0340 12/23/16 0340 Results 24 hrs Laboratory Tests Test 12/22/16 17:13 12/22/16 20:59 12/23/16 03:40 12/23/16 07:48 Bedside Glucose 98 114 92 White Blood Count 7.7 Red Blood Count 3.75 L Hemoglobin 10.4 L Hematocrit 32.9 L Mean Corpuscular Volume 87.7 Mean Corpuscular Hemoglobin 27.7 L Mean Corpuscular Hemoglobin Concent 31.6 L Red Cell Distribution Width 14.9 H Platelet Count 354 Mean Platelet Volume 10.4 Neutrophils % 41.1 Lymphocytes % 44.0 Monocytes % 13.5 H Eosinophils % 0.8 Basophils % 0.5 Nucleated Red Blood Cells % 0.0 Neutrophils # 3.2 Lymphocytes # 3.4 H Monocytes # 1.0 H Eosinophils # 0.1 Basophils # 0.0 Nucleated Red Blood Cells # 0.0 Sodium Level 144 Potassium Level 3.4 L Chloride Level 108 Carbon Dioxide Level 28 Anion Gap 11 Blood Urea Nitrogen 6 L Creatinine 0.42 L Glucose Level 82 Calcium Level 8.2 L Valproic Acid (Depakene) Level < 10 L Test 12/23/16 11:52 Bedside Glucose 115 Medications Current Medications Ondansetron HCl (Zofran Inj) 4 mg Q6H PRN IV NAUSEA AND/OR VOMITING; Start 11/26 at 11:30 Acetaminophen (Tylenol Tab) 650 mg Q6H PRN PO PAIN LEVEL 1-3 OR FEVER; Start 12/20/16 at 11:30 Acetaminophen/ Hydrocodone Bitart ([place] (5/325)) 1 tab Q6H PRN PO MODERATE PAIN LEVEL 4-6 Last administered on 12/23/16 09:56; Admin Dose 1 TAB; Start 12/20/16 at 11:30 Docusate Sodium (Colace) 100 mg Q12H PRN PO CONSTIPATION; Start 12/20/16 at 11 :30 Magnesium Hydroxide (Milk Of Mag) 30 ml DAILY PRN PO CONSTIPATION; Start 12/20 at 11:30 Sodium Biphosphate/ Sodium Phosphate (Fleet Enema) 133 ml DAILY PRN [place] CONSTIPATION; Start 12/20/16 at 11:30 Heparin Sodium (Porcine) (Heparin (5000 Units/0.5 ml)) 5,000 unit Q12 SC Last administered on 12/22/16 20:49; Admin Dose 5,000 UNIT; Start 12/20/16 at 21: 00 Lorazepam (Ativan) 0.5 mg Q6H PRN IV ANXIETY Last administered on 12/23/16 05 :46; Admin Dose 0.5 MG; Start 12/20/16 at 11:30 Nitroglycerin (Nitroglycerin (Sl Tab) 0.4 Mg) 1 tab Q5M PRN SL ANGINA; Start 12/20/16 at 11:30 Diagnostic Test (Pha) (Accu-Chek) 1 ea 02 XX Last administered on 12/21/16 01 :05; Admin Dose 1 EA; Start 12/21/16 at 02:00 Miscellaneous Information 1 ea NOTE XX ; Start 12/20/16 at 20:30 Glucose (Glutose) 15 gm Q15M PRN PO DECREASED GLUCOSE; Start 12/20/16 at 20:30 Glucose (Glutose) 22.5 gm Q15M PRN PO DECREASED GLUCOSE; Start 12/20/16 at 20: 30 Dextrose (D50w Syringe) 25 ml Q15M PRN IV DECREASED GLUCOSE; Start 12/20/16 at 20:30 Dextrose (D50w Syringe) 50 ml Q15M PRN IV DECREASED GLUCOSE; Start 12/20/16 at 20:30 Glucagon (Glucagen) 1 mg Q15M PRN IM DECREASED GLUCOSE; Start 12/20/16 at 20: 30 Glucose (Glutose) 15 gm Q15M PRN BUCCAL DECREASED GLUCOSE; Start 12/20/16 at 20:30 Pantoprazole 40 mg 40 mg DAILY@06 PO Last administered on 12/23/16 05:36; Admin Dose 40 MG; Start 12/22/16 at 06:00 Cefotaxime Sodium/ Dextrose ([place] 2gm/50 ml (Pmx)) 50 ml @ 100 mls/hr Q8 IVPB ; Start 12/23/16 at 14:00 Levetiracetam (Keppra) 500 mg BID PO ; Start 12/23/16 at 21:00 Morphine Sulfate (morphine) 3 mg Q4H PRN IV SEVERE PAIN LEVEL 7-10 Last administered on 12/23/16 11:54; Admin Dose 3 MG; Start 12/23/16 at 11:30 Assessment/Plan Chief Complaint/Hosp Course SUBJECTIVE: Patient is awake, looks comfortable. No fevers overnight. ALLERGY: PENICILLIN. MICROBIOLOGY: Urine culture growing E coli. Blood culture growing staph sp, 1 out of 2 sets. INDWELLINGS: The patient has a left upper extremity Port-A-Cath and Roberson catheter. DIAGNOSTICS: Chest x-ray revealed bilateral lower lung zone atelectasis. ANTIMICROBIALS: Cefotaxime, s/p Zyvox and Merrem PHYSICAL EXAMINATION: GENERAL: This is a well-nourished, chronically ill-appearing, middle-aged woman who is awake, in no distress. HEENT: Head atraumatic, normocephalic. Sclerae anicteric. Buccal mucosa dry. NECK: Supple. CHEST: Rise symmetrical. Breath sounds diminished to bases. HEART: S1, S2. ABDOMEN: Soft, bowel tones present. EXTREMITIES: Wasted, without cyanosis. SKIN: With unstageable sacral decubitus. ASSESSMENT: 1. Septic shock. 2. Gram-positive cocci bacteremia cw contaminant 3. Urinary tract infection. 4. Unstageable sacral decubitus, possible osteomyelitis, previous wound cx grew VRE. 5. Neurogenic bladder. 6. Advanced multiple sclerosis. 7. Hx SZ PLAN: Remains stable, continue abx, local wound care, neuro rec-s noted DW staff Problems: KASIA TAPIA NP Dec 23, 2016 13:18
[2016-12-23] MEDS: CEFOTAXIME 2 GM/50 ML (PMX) 50 ML IVPB SCH ×2 (14:15→23:43)
--- NOTE | 2016-12-23 14:34 | PN ---
Date/Time of Note Date/Time of Note DATE: 12/23/16 TIME: 14:29 Assessment/Plan VTE Prophylaxis VTE Prophylaxis Intervention: SCD's Lines/Catheters IV Catheter Type (from Nrsg): port a cath Urinary Cath still in place: Yes Reason Cath still needed: other (indicate) (neurogenic bladder?) Assessment/Plan Assessment/Plan 41 yo with neurogenic bladder from [place] admitted for septic shock from CAUTI with EColi #septic shock from EColi CAUTI -cont pathogen directed abx for 7-14 days #MS, seizure d/o: neuro on consult, cont home meds #anxiety: cont home Xanax. This regimen clearly is suboptimal with risk of dependence/addiction. will advise pt to discuss other options (SSRI, CBT) with prescriber at discharge #decub: wound care consult, CM consult for more help at home Subjective 24 Hr Interval Summary Free Text/Dictation states her boyfriend is main caregiver Exam/Review of Systems Vital Signs Vitals Vital Signs Date Time Temp Pulse Resp B/P Pulse Ox O2 Delivery O2 Flow Rate FiO2 12/23/16 12:08 104 12/23/16 11:57 98.0 17 128/59 94 12/23/16 06:32 Room Air 12/20/16 17:53 3.0 12/20/16 02:49 21 Intake and Output 12/22/16 12/22/16 12/23/16 15:00 23:00 07:00 Intake Total 580 ml 890 ml 500 ml Output Total 400 ml 410 ml 350 ml Balance 180 ml 480 ml 150 ml Exam nad no mrg lungs clear abd soft loja in place Results Result Diagram: 12/23/16 0340 12/23/16 0340 Results 24 hrs Laboratory Tests Test 12/22/16 17:13 12/22/16 20:59 12/23/16 03:40 12/23/16 07:48 Bedside Glucose 98 114 92 White Blood Count 7.7 Red Blood Count 3.75 L Hemoglobin 10.4 L Hematocrit 32.9 L Mean Corpuscular Volume 87.7 Mean Corpuscular Hemoglobin 27.7 L Mean Corpuscular Hemoglobin Concent 31.6 L Red Cell Distribution Width 14.9 H Platelet Count 354 Mean Platelet Volume 10.4 Neutrophils % 41.1 Lymphocytes % 44.0 Monocytes % 13.5 H Eosinophils % 0.8 Basophils % 0.5 Nucleated Red Blood Cells % 0.0 Neutrophils # 3.2 Lymphocytes # 3.4 H Monocytes # 1.0 H Eosinophils # 0.1 Basophils # 0.0 Nucleated Red Blood Cells # 0.0 Sodium Level 144 Potassium Level 3.4 L Chloride Level 108 Carbon Dioxide Level 28 Anion Gap 11 Blood Urea Nitrogen 6 L Creatinine 0.42 L Glucose Level 82 Calcium Level 8.2 L Valproic Acid (Depakene) Level < 10 L Test 12/23/16 11:52 Bedside Glucose 115 Medications Medications Current Medications Ondansetron HCl (Zofran Inj) 4 mg Q6H PRN IV NAUSEA AND/OR VOMITING; Start 11/26 at 11:30 Acetaminophen (Tylenol Tab) 650 mg Q6H PRN PO PAIN LEVEL 1-3 OR FEVER; Start 12/20/16 at 11:30 Acetaminophen/ Hydrocodone Bitart ([place] (5/325)) 1 tab Q6H PRN PO MODERATE PAIN LEVEL 4-6 Last administered on 12/23/16 09:56; Admin Dose 1 TAB; Start 12/20/16 at 11:30 Docusate Sodium (Colace) 100 mg Q12H PRN PO CONSTIPATION; Start 12/20/16 at 11 :30 Magnesium Hydroxide (Milk Of Mag) 30 ml DAILY PRN PO CONSTIPATION; Start 12/20 at 11:30 Sodium Biphosphate/ Sodium Phosphate (Fleet Enema) 133 ml DAILY PRN [place] CONSTIPATION; Start 12/20/16 at 11:30 Heparin Sodium (Porcine) (Heparin (5000 Units/0.5 ml)) 5,000 unit Q12 SC Last administered on 12/22/16 20:49; Admin Dose 5,000 UNIT; Start 12/20/16 at 21: 00 Lorazepam (Ativan) 0.5 mg Q6H PRN IV ANXIETY Last administered on 12/23/16 13 :54; Admin Dose 0.5 MG; Start 12/20/16 at 11:30 Nitroglycerin (Nitroglycerin (Sl Tab) 0.4 Mg) 1 tab Q5M PRN SL ANGINA; Start 12/20/16 at 11:30 Diagnostic Test (Pha) (Accu-Chek) 1 ea 02 XX Last administered on 12/21/16 01 :05; Admin Dose 1 EA; Start 12/21/16 at 02:00 Miscellaneous Information 1 ea NOTE XX ; Start 12/20/16 at 20:30 Glucose (Glutose) 15 gm Q15M PRN PO DECREASED GLUCOSE; Start 12/20/16 at 20:30 Glucose (Glutose) 22.5 gm Q15M PRN PO DECREASED GLUCOSE; Start 12/20/16 at 20: 30 Dextrose (D50w Syringe) 25 ml Q15M PRN IV DECREASED GLUCOSE; Start 12/20/16 at 20:30 Dextrose (D50w Syringe) 50 ml Q15M PRN IV DECREASED GLUCOSE; Start 12/20/16 at 20:30 Glucagon (Glucagen) 1 mg Q15M PRN IM DECREASED GLUCOSE; Start 12/20/16 at 20: 30 Glucose (Glutose) 15 gm Q15M PRN BUCCAL DECREASED GLUCOSE; Start 12/20/16 at 20:30 Pantoprazole 40 mg 40 mg DAILY@06 PO Last administered on 12/23/16 05:36; Admin Dose 40 MG; Start 12/22/16 at 06:00 Cefotaxime Sodium/ Dextrose (Claforan 2gm/50 ml (Pmx)) 50 ml @ 100 mls/hr Q8 IVPB Last administered on 12/23/16 14:15; Admin Dose 100 MLS/HR; Start 12/23 at 14:00 Levetiracetam (Keppra) 500 mg BID PO ; Start 12/23/16 at 21:00 Morphine Sulfate (morphine) 3 mg Q4H PRN IV SEVERE PAIN LEVEL 7-10 Last administered on 12/23/16 11:54; Admin Dose 3 MG; Start 12/23/16 at 11:30 Influenza Virus Vaccine (Fluzone) 0.5 ml ONCE ONCE IM* ; Start 12/25/16 at 09: 00; Stop 12/25/16 at 09:01 VERONICA ZELAYA MD Dec 23, 2016 14:34
[2016-12-23] MEDS ORDERED: POTASSIUM CHLORIDE (SR) 20 MEQ TAB PO STA (14:49)
[2016-12-23] MEDS: LEVETIRACETAM 500 MG TAB PO SCH (21:00)
[2016-12-23] MEDS: ALPRAZOLAM 1 MG TAB PO PRN (21:56)
[2016-12-24] MEDS: ACCU-CHEK XX SCH (02:00)
[2016-12-24 02:11] VITALS: BP 150/94; RESP 18
[2016-12-24 05:18] LABS: BASOPHIL # 0.1 10^3/ul (0.0-0.1); BASOPHILS % 0.5 % (0.0-2.0); EOSINOPHILS # 0.3 10^3/ul (0.0-0.5); EOSINOPHILS % 3.3 % (0.0-7.0); HEMATOCRIT 34.4 % (37.0-47.0); HEMOGLOBIN 10.9 g/dl (12.0-16.0); LYMPHOCYTES % 50.5 % (15.0-51.0); MEAN CORPUSCULAR HEMOGLOBIN 27.7 pg (29.0-33.0); MEAN CORPUSCULAR HGB CONC 31.7 g/dl (32.0-37.0); MEAN CORPUSCULAR VOLUME 87.5 fl (82.0-101.0); MEAN PLATELET VOLUME 9.6 fl (7.4-10.4); MONOCYTE # 1.2 10^3/ul (0.3-0.9); MONOCYTES % 11.8 % (0.0-11.0); NEUTROPHIL # 3.3 10^3/ul (1.6-7.5); NEUTROPHILS % 33.6 % (39.0-77.0); PLATELET COUNT 373 10^3/UL (140-415); RED BLOOD COUNT 3.93 10^6/ul (4.20-5.40); RED CELL DISTRIBUTION WIDTH 15.2 % (11.5-14.5); WHITE BLOOD COUNT 9.8 10^3/ul (4.8-10.8)
[2016-12-24 05:37] LABS: CALCIUM 8.7 mg/dl (8.4-10.2); CREATININE 0.43 mg/dl (0.44-1.00); POTASSIUM 3.9 mmol/L (3.5-5.1)
[2016-12-24] MEDS: CEFOTAXIME 2 GM/50 ML (PMX) 50 ML IVPB SCH ×3 (05:42→21:22)
[2016-12-24] MEDS: INSULIN ASPART [NOVOLOG] 3 ML PEN SC SCH ×4 (07:50→20:17)
[2016-12-24] MEDS: LEVETIRACETAM 500 MG TAB PO SCH ×2 (09:00→20:11)
[2016-12-24] MEDS: HEPARIN 5,000 UNIT/0.5 ML VIAL SC SCH ×2 (09:08→20:14)
[2016-12-24 12:20] VITALS: BP 107/72; RESP 18
--- NOTE | 2016-12-24 12:56 | CONS ---
Date/Time of Note Date/Time of Note DATE: 12/24/16 TIME: 12:54 Consult Date/Type/Reason Admit Date/Time Dec 20, 2016 at 09:13 Type of Consultation: id Objective Vital Signs Date Time Temp Pulse Resp B/P Pulse Ox O2 Delivery O2 Flow Rate FiO2 12/24/16 12:20 99.2 94 18 107/72 96 12/23/16 06:32 Room Air 12/20/16 17:53 3.0 Intake and Output 12/23/16 12/23/16 12/24/16 15:00 23:00 07:00 Intake Total 500 ml Output Total 1100 ml Balance -600 ml Results/Medications Result Diagram: 12/24/16 0449 12/24/16 0449 Results 24 hrs Laboratory Tests Test 12/23/16 17:36 12/23/16 20:59 12/24/16 04:49 12/24/16 08:59 Bedside Glucose 92 128 135 White Blood Count 9.8 # Red Blood Count 3.93 L Hemoglobin 10.9 L Hematocrit 34.4 L Mean Corpuscular Volume 87.5 Mean Corpuscular Hemoglobin 27.7 L Mean Corpuscular Hemoglobin Concent 31.7 L Red Cell Distribution Width 15.2 H Platelet Count 373 Mean Platelet Volume 9.6 Neutrophils % 33.6 L Lymphocytes % 50.5 Monocytes % 11.8 H Eosinophils % 3.3 Basophils % 0.5 Nucleated Red Blood Cells % 0.0 Neutrophils # 3.3 Lymphocytes # 5.0 H Monocytes # 1.2 H Eosinophils # 0.3 Basophils # 0.1 Nucleated Red Blood Cells # 0.0 Sodium Level 144 Potassium Level 3.9 Chloride Level 108 Carbon Dioxide Level 30 Anion Gap 10 Blood Urea Nitrogen 7 Creatinine 0.43 L Glucose Level 98 Calcium Level 8.7 Test 12/24/16 12:31 Bedside Glucose 99 Medications Current Medications Ondansetron HCl (Zofran Inj) 4 mg Q6H PRN IV NAUSEA AND/OR VOMITING; Start 11/26 at 11:30 Acetaminophen (Tylenol Tab) 650 mg Q6H PRN PO PAIN LEVEL 1-3 OR FEVER; Start 12/20/16 at 11:30 Acetaminophen/ Hydrocodone Bitart ([place] (5/325)) 1 tab Q6H PRN PO MODERATE PAIN LEVEL 4-6 Last administered on 12/23/16t 18:53; Admin Dose 1 TAB; Start 12/20/16 at 11:30 Docusate Sodium (Colace) 100 mg Q12H PRN PO CONSTIPATION; Start 12/20/16 at 11 :30 Magnesium Hydroxide (Milk Of Mag) 30 ml DAILY PRN PO CONSTIPATION; Start 12/20 at 11:30 Sodium Biphosphate/ Sodium Phosphate (Fleet Enema) 133 ml DAILY PRN [place] CONSTIPATION; Start 12/20/16 at 11:30 Heparin Sodium (Porcine) (Heparin (5000 Units/0.5 ml)) 5,000 unit Q12 SC Last administered on 12/24/16 09:08; Admin Dose 5,000 UNIT; Start 12/20/16 at 21: 00 Nitroglycerin (Nitroglycerin (Sl Tab) 0.4 Mg) 1 tab Q5M PRN SL ANGINA; Start 12/20/16 at 11:30 Diagnostic Test (Pha) (Accu-Chek) 1 ea 02 XX Last administered on 12/21/16 01 :05; Admin Dose 1 EA; Start 12/21/16 at 02:00 Miscellaneous Information 1 ea NOTE XX ; Start 12/20/16 at 20:30 Glucose (Glutose) 15 gm Q15M PRN PO DECREASED GLUCOSE; Start 12/20/16 at 20:30 Glucose (Glutose) 22.5 gm Q15M PRN PO DECREASED GLUCOSE; Start 12/20/16 at 20: 30 Dextrose (D50w Syringe) 25 ml Q15M PRN IV DECREASED GLUCOSE; Start 12/20/16 at 20:30 Dextrose (D50w Syringe) 50 ml Q15M PRN IV DECREASED GLUCOSE; Start 12/20/16 at 20:30 Glucagon (Glucagen) 1 mg Q15M PRN IM DECREASED GLUCOSE; Start 12/20/16 at 20: 30 Glucose 15 gm 15 gm Q15M PRN BUCCAL DECREASED GLUCOSE; Start 12/20/16 at 20:30 Cefotaxime Sodium/ Dextrose (Claforan 2gm/50 ml (Pmx)) 50 ml @ 100 mls/hr Q8 IVPB Last administered on 12/24/16 05:42; Admin Dose 100 MLS/HR; Start 12/23 at 14:00 Levetiracetam (Keppra) 500 mg BID PO Last administered on 12/24/16 09:00; Admin Dose 500 MG; Start 12/23/16 at 21:00 Morphine Sulfate (morphine) 3 mg Q4H PRN IV SEVERE PAIN LEVEL 7-10 Last administered on 12/23/16 21:00; Admin Dose 3 MG; Start 12/23/16 at 11:30 Influenza Virus Vaccine (Fluzone) 0.5 ml ONCE ONCE IM* ; Start 12/25/16 at 09: 00; Stop 12/25/16 at 09:01 Alprazolam (Xanax) 2 mg Q8H PRN PO ANXIETY Last administered on 12/23/16 21: 56; Admin Dose 2 MG; Start 12/23/16 at 15:00 Assessment/Plan Chief Complaint/Hosp Course SUBJECTIVE: Looks comfortable. No fevers. ALLERGY: PENICILLIN. MICROBIOLOGY: Urine culture growing E coli. Blood culture growing staph sp, 1 out of 2 sets. INDWELLINGS: The patient has a left upper extremity Port-A-Cath and Roberson catheter. ANTIMICROBIALS: Cefotaxime, s/p Zyvox and Merrem PHYSICAL EXAMINATION: GENERAL: This is a well-nourished, chronically ill-appearing, middle-aged woman who is awake, in no distress. HEENT: Head atraumatic, normocephalic. Sclerae anicteric. Buccal mucosa dry. NECK: Supple. CHEST: Rise symmetrical. Breath sounds diminished to bases. HEART: S1, S2. ABDOMEN: Soft, bowel tones present. EXTREMITIES: Wasted, without cyanosis. SKIN: Unstageable sacral decubitus. ASSESSMENT: 1. Septic shock. 2. Gram-positive cocci bacteremia cw contaminant 3. Urinary tract infection. 4. Unstageable sacral decubitus, possible osteomyelitis, previous wound cx grew VRE. 5. Neurogenic bladder. 6. Advanced multiple sclerosis. 7. Hx SZ PLAN: Remains unchanged, continue abx, aspiration precautions, local wound care DW staff Problems: KASIA TAPIA NP Dec 24, 2016 12:56
--- NOTE | 2016-12-24 14:27 | RADRPT ---
PROCEDURE: XR Chest. CLINICAL INDICATION: Cough. Evaluate for pneumonia. TECHNIQUE: PA and Lateral views of the chest were obtained. COMPARISON: Chest radiograph dated April 25, 2016. FINDINGS: Left-sided PICC tip overlying the superior cavoatrial junction. The heart is normal in size. The lungs are clear with no focal consolidations, pleural effusion, or pneumothorax. The osseous structures are unremarkable. IMPRESSION: 1. No acute cardiopulmonary disease. RPTAT:AAJJ Physician Ally Date Time Electronically viewed and signed by Physician Ally on 12/24/2016 14:27 QL/
--- NOTE | 2016-12-24 15:45 | PN ---
Date/Time of Note Date/Time of Note DATE: 12/24/16 TIME: 15:44 Assessment/Plan VTE Prophylaxis VTE Prophylaxis Intervention: SCD's Lines/Catheters IV Catheter Type (from Nrsg): port a cath Urinary Cath still in place: Yes Reason Cath still needed: urinary retention (neurogenic bladder) Assessment/Plan Assessment/Plan 41 yo with neurogenic bladder from [place] admitted for septic shock from CAUTI with EColi #septic shock from EColi CAUTI -cont pathogen directed abx for 7-14 days. Given CAUTI, nitrofurantoin likely not a great choice. Unclear length of therapy advised by ID. If more than another day or 2 would be reasonable to consider PICC placement to facilitate discharge #MS, seizure d/o: neuro on consult, cont home meds #anxiety: cont home Xanax. This regimen clearly is suboptimal with risk of dependence/addiction. will advise pt to discuss other options (SSRI, CBT) with prescriber at discharge #decub: wound care consult, CM consult for more help at home at this time pt medically stable for transfer to SNF pending final ID recs Subjective 24 Hr Interval Summary Free Text/Dictation sleeping, has towel over head Exam/Review of Systems Vital Signs Vitals Vital Signs Date Time Temp Pulse Resp B/P Pulse Ox O2 Delivery O2 Flow Rate FiO2 12/24/16 12:20 99.2 94 18 107/72 96 12/23/16 06:32 Room Air 12/20/16 17:53 3.0 Intake and Output 12/23/16 12/23/16 12/24/16 15:00 23:00 07:00 Intake Total 500 ml Output Total 1100 ml Balance -600 ml Exam nad no mrg lungs clear abd soft no rashes Results Result Diagram: 12/24/16 0449 12/24/16 0449 Results 24 hrs Laboratory Tests Test 12/23/16 17:36 12/23/16 20:59 12/24/16 04:49 12/24/16 08:59 Bedside Glucose 92 128 135 White Blood Count 9.8 # Red Blood Count 3.93 L Hemoglobin 10.9 L Hematocrit 34.4 L Mean Corpuscular Volume 87.5 Mean Corpuscular Hemoglobin 27.7 L Mean Corpuscular Hemoglobin Concent 31.7 L Red Cell Distribution Width 15.2 H Platelet Count 373 Mean Platelet Volume 9.6 Neutrophils % 33.6 L Lymphocytes % 50.5 Monocytes % 11.8 H Eosinophils % 3.3 Basophils % 0.5 Nucleated Red Blood Cells % 0.0 Neutrophils # 3.3 Lymphocytes # 5.0 H Monocytes # 1.2 H Eosinophils # 0.3 Basophils # 0.1 Nucleated Red Blood Cells # 0.0 Sodium Level 144 Potassium Level 3.9 Chloride Level 108 Carbon Dioxide Level 30 Anion Gap 10 Blood Urea Nitrogen 7 Creatinine 0.43 L Glucose Level 98 Calcium Level 8.7 Test 12/24/16 12:31 Bedside Glucose 99 Medications Medications Current Medications Ondansetron HCl (Zofran Inj) 4 mg Q6H PRN IV NAUSEA AND/OR VOMITING; Start 11/26 at 11:30 Acetaminophen (Tylenol Tab) 650 mg Q6H PRN PO PAIN LEVEL 1-3 OR FEVER; Start 12/20/16 at 11:30 Acetaminophen/ Hydrocodone Bitart ([place] (5/325)) 1 tab Q6H PRN PO MODERATE PAIN LEVEL 4-6 Last administered on 12/23/16 18:53; Admin Dose 1 TAB; Start 12/20/16 at 11:30 Docusate Sodium (Colace) 100 mg Q12H PRN PO CONSTIPATION; Start 12/20/16 at 11 :30 Magnesium Hydroxide (Milk Of Mag) 30 ml DAILY PRN PO CONSTIPATION; Start 12/20 at 11:30 Sodium Biphosphate/ Sodium Phosphate (Fleet Enema) 133 ml DAILY PRN [place] CONSTIPATION; Start 12/20/16 at 11:30 Heparin Sodium (Porcine) (Heparin (5000 Units/0.5 ml)) 5,000 unit Q12 SC Last administered on 12/24/16 09:08; Admin Dose 5,000 UNIT; Start 12/20/16 at 21: 00 Nitroglycerin (Nitroglycerin (Sl Tab) 0.4 Mg) 1 tab Q5M PRN SL ANGINA; Start 12/20/16 at 11:30 Diagnostic Test (Pha) (Accu-Chek) 1 ea 02 XX Last administered on 12/21/16 01 :05; Admin Dose 1 EA; Start 12/21/16 at 02:00 Miscellaneous Information 1 ea NOTE XX ; Start 12/20/16 at 20:30 Glucose (Glutose) 15 gm Q15M PRN PO DECREASED GLUCOSE; Start 12/20/16 at 20:30 Glucose (Glutose) 22.5 gm Q15M PRN PO DECREASED GLUCOSE; Start 12/20/16 at 20: 30 Dextrose (D50w Syringe) 25 ml Q15M PRN IV DECREASED GLUCOSE; Start 12/20/16 at 20:30 Dextrose (D50w Syringe) 50 ml Q15M PRN IV DECREASED GLUCOSE; Start 12/20/16 at 20:30 Glucagon (Glucagen) 1 mg Q15M PRN IM DECREASED GLUCOSE; Start 12/20/16 at 20: 30 Glucose 15 gm 15 gm Q15M PRN BUCCAL DECREASED GLUCOSE; Start 12/20/16 at 20:30 Cefotaxime Sodium/ Dextrose (Claforan 2gm/50 ml (Pmx)) 50 ml @ 100 mls/hr Q8 IVPB Last administered on 12/24/16 13:37; Admin Dose 100 MLS/HR; Start 12/23 at 14:00 Levetiracetam (Keppra) 500 mg BID PO Last administered on 12/24/16 09:00; Admin Dose 500 MG; Start 12/23/16 at 21:00 Morphine Sulfate (morphine) 3 mg Q4H PRN IV SEVERE PAIN LEVEL 7-10 Last administered on 12/23/16 21:00; Admin Dose 3 MG; Start 12/23/16 at 11:30 Influenza Virus Vaccine (Fluzone) 0.5 ml ONCE ONCE IM* ; Start 12/25/16 at 09: 00; Stop 12/25/16 at 09:01 Alprazolam (Xanax) 2 mg Q8H PRN PO ANXIETY Last administered on 12/23/16 21: 56; Admin Dose 2 MG; Start 12/23/16 at 15:00 VERONICA ZELAYA MD Dec 24, 2016 15:45
[2016-12-24] MEDS: HYDROCODONE/APAP (5/325) TAB PO PRN (19:24)
[2016-12-24 20:00] VITALS: BP 129/59; RESP 20
[2016-12-24] MEDS ORDERED: BISMUTH SUBSALICYLATE 120 ML BTL PO PRN (23:00)
[2016-12-25] MEDS: ACCU-CHEK XX SCH (02:00)
[2016-12-25 02:10] VITALS: BP 120/75; RESP 19
[2016-12-25] MEDS: CEFOTAXIME 2 GM/50 ML (PMX) 50 ML IVPB SCH ×3 (05:21→21:41)
[2016-12-25 05:51] LABS: BASOPHIL # 0.1 10^3/ul (0.0-0.1); BASOPHILS % 0.6 % (0.0-2.0); EOSINOPHILS # 0.3 10^3/ul (0.0-0.5); EOSINOPHILS % 3.2 % (0.0-7.0); HEMATOCRIT 36.8 % (37.0-47.0); LYMPHOCYTES # 3.7 10^3/ul (0.8-2.9); LYMPHOCYTES % 40.8 % (15.0-51.0); MEAN CORPUSCULAR HEMOGLOBIN 28.1 pg (29.0-33.0); MEAN CORPUSCULAR HGB CONC 32.6 g/dl (32.0-37.0); MEAN CORPUSCULAR VOLUME 86.2 fl (82.0-101.0); MEAN PLATELET VOLUME 9.4 fl (7.4-10.4); MONOCYTES % 11.1 % (0.0-11.0); PLATELET COUNT 407 10^3/UL (140-415); RED BLOOD COUNT 4.27 10^6/ul (4.20-5.40); WHITE BLOOD COUNT 9.1 10^3/ul (4.8-10.8)
[2016-12-25 06:27] LABS: CREATININE 0.5 mg/dl (0.44-1.00); POTASSIUM 3.9 mmol/L (3.5-5.1)
[2016-12-25] MEDS: INSULIN ASPART [NOVOLOG] 3 ML PEN SC SCH ×4 (07:50→20:21)
[2016-12-25 08:25] VITALS: BP 103/59; RESP 18
[2016-12-25] MEDS: LEVETIRACETAM 500 MG TAB PO SCH ×2 (08:40→20:11)
[2016-12-25] MEDS: HEPARIN 5,000 UNIT/0.5 ML VIAL SC SCH ×2 (08:49→20:21)
[2016-12-25] MEDS ORDERED: INFLUENZA VIRUS VACCINE 0.5 ML (DISPENSING) IM* ONE (09:00)
[2016-12-25] MEDS: HYDROCODONE/APAP (5/325) TAB PO PRN (09:28)
--- NOTE | 2016-12-25 11:56 | CONS ---
Date/Time of Note Date/Time of Note DATE: 12/25/16 TIME: 11:54 Consult Date/Type/Reason Admit Date/Time Dec 20, 2016 at 09:13 Type of Consultation: id Objective Vital Signs Date Time Temp Pulse Resp B/P Pulse Ox O2 Delivery O2 Flow Rate FiO2 12/25/16 08:25 98.7 88 18 103/59 96 12/23/16 06:32 Room Air Intake and Output 12/24/16 12/24/16 12/25/16 15:00 23:00 07:00 Intake Total 50 ml 770 ml 650 ml Output Total 950 ml 800 ml Balance 50 ml -180 ml -150 ml Results/Medications Result Diagram: 12/25/16 0454 12/25/16 0454 Results 24 hrs Laboratory Tests Test 12/24/16 12:31 12/24/16 17:31 12/24/16 20:16 12/25/16 04:54 Bedside Glucose 99 110 123 White Blood Count 9.1 Red Blood Count 4.27 Hemoglobin 12.0 Hematocrit 36.8 L Mean Corpuscular Volume 86.2 Mean Corpuscular Hemoglobin 28.1 L Mean Corpuscular Hemoglobin Concent 32.6 Red Cell Distribution Width 15.0 H Platelet Count 407 Mean Platelet Volume 9.4 Neutrophils % 44.0 Lymphocytes % 40.8 Monocytes % 11.1 H Eosinophils % 3.2 Basophils % 0.6 Nucleated Red Blood Cells % 0.0 Neutrophils # 4.0 Lymphocytes # 3.7 H Monocytes # 1.0 H Eosinophils # 0.3 Basophils # 0.1 Nucleated Red Blood Cells # 0.0 Sodium Level 144 Potassium Level 3.9 Chloride Level 106 Carbon Dioxide Level 29 Anion Gap 13 Blood Urea Nitrogen 9 Creatinine 0.50 Glucose Level 94 Calcium Level 9.0 Test 12/25/16 08:39 Bedside Glucose 94 Medications Current Medications Ondansetron HCl (Zofran Inj) 4 mg Q6H PRN IV NAUSEA AND/OR VOMITING; Start 11/26 at 11:30 Acetaminophen (Tylenol Tab) 650 mg Q6H PRN PO PAIN LEVEL 1-3 OR FEVER; Start 12/20/16 at 11:30 Acetaminophen/ Hydrocodone Bitart ([place] (5/325)) 1 tab Q6H PRN PO MODERATE PAIN LEVEL 4-6 Last administered on 12/25/16t 09:28; Admin Dose 1 TAB; Start 12/20/16 at 11:30 Docusate Sodium (Colace) 100 mg Q12H PRN PO CONSTIPATION; Start 12/20/16 at 11 :30 Magnesium Hydroxide (Milk Of Mag) 30 ml DAILY PRN PO CONSTIPATION; Start 12/20 at 11:30 Sodium Biphosphate/ Sodium Phosphate (Fleet Enema) 133 ml DAILY PRN [place] CONSTIPATION; Start 12/20/16 at 11:30 Heparin Sodium (Porcine) (Heparin (5000 Units/0.5 ml)) 5,000 unit Q12 SC Last administered on 12/25/16 08:49; Admin Dose 5,000 UNIT; Start 12/20/16 at 21: 00 Nitroglycerin (Nitroglycerin (Sl Tab) 0.4 Mg) 1 tab Q5M PRN SL ANGINA; Start 12/20/16 at 11:30 Diagnostic Test (Pha) (Accu-Chek) 1 ea 02 XX Last administered on 12/21/16 01 :05; Admin Dose 1 EA; Start 12/21/16 at 02:00 Miscellaneous Information 1 ea NOTE XX ; Start 12/20/16 at 20:30 Glucose (Glutose) 15 gm Q15M PRN PO DECREASED GLUCOSE; Start 12/20/16 at 20:30 Glucose (Glutose) 22.5 gm Q15M PRN PO DECREASED GLUCOSE; Start 12/20/16 at 20: 30 Dextrose (D50w Syringe) 25 ml Q15M PRN IV DECREASED GLUCOSE; Start 12/20/16 at 20:30 Dextrose (D50w Syringe) 50 ml Q15M PRN IV DECREASED GLUCOSE; Start 12/20/16 at 20:30 Glucagon (Glucagen) 1 mg Q15M PRN IM DECREASED GLUCOSE; Start 12/20/16 at 20: 30 Glucose 15 gm 15 gm Q15M PRN BUCCAL DECREASED GLUCOSE; Start 12/20/16 at 20:30 Cefotaxime Sodium/ Dextrose (Claforan 2gm/50 ml (Pmx)) 50 ml @ 100 mls/hr Q8 IVPB Last administered on 12/25/16 05:21; Admin Dose 100 MLS/HR; Start 12/23 at 14:00 Levetiracetam (Keppra) 500 mg BID PO Last administered on 12/25/16 08:40; Admin Dose 500 MG; Start 12/23/16 at 21:00 Morphine Sulfate (morphine) 3 mg Q4H PRN IV SEVERE PAIN LEVEL 7-10 Last administered on 12/23/16 21:00; Admin Dose 3 MG; Start 12/23/16 at 11:30 Alprazolam (Xanax) 2 mg Q8H PRN PO ANXIETY Last administered on 12/23/16 21: 56; Admin Dose 2 MG; Start 12/23/16 at 15:00 Bismuth Subsalicylate (Pepto-Bismol) 30 ml Q6H PRN PO GASTROINTESTINAL UPSET; Start 12/24/16 at 23:00 Assessment/Plan Chief Complaint/Hosp Course SUBJECTIVE: Alert, looks comfortable. No fevers. ALLERGY: PENICILLIN. MICROBIOLOGY: Urine culture growing E coli. Blood culture growing staph sp, 1 out of 2 sets. INDWELLINGS: The patient has a left upper extremity Port-A-Cath and Roberson catheter. ANTIMICROBIALS: Cefotaxime, s/p Zyvox and Merrem PHYSICAL EXAMINATION: GENERAL: This is a well-nourished, chronically ill-appearing, middle-aged woman who is awake, in no distress. HEENT: Head atraumatic, normocephalic. Sclerae anicteric. Buccal mucosa dry. NECK: Supple. CHEST: Rise symmetrical. Breath sounds diminished to bases. HEART: S1, S2. ABDOMEN: Soft, bowel tones present. EXTREMITIES: Wasted, without cyanosis. SKIN: Unstageable sacral decubitus. ASSESSMENT: 1. Septic shock. 2. Gram-positive cocci bacteremia cw contaminant 3. Urinary tract infection. 4. Unstageable sacral decubitus, possible osteomyelitis, previous wound cx grew VRE. 5. Neurogenic bladder. 6. Advanced multiple sclerosis. 7. Hx SZ PLAN: Remains stable, wound cx was ordered on admission not in computer, will order today, continue abx, aspiration precautions, consider surgical eval DW staff Problems: KASIA TAPIA NP Dec 25, 2016 11:56
--- NOTE | 2016-12-25 12:29 | PN ---
Date/Time of Note Date/Time of Note DATE: 12/25/16 TIME: 12:26 Assessment/Plan VTE Prophylaxis VTE Prophylaxis Intervention: SCD's Lines/Catheters IV Catheter Type (from Nrsg): pac Urinary Cath still in place: Yes Reason Cath still needed: urinary retention Assessment/Plan Assessment/Plan 41 yo [place] neurogenic bladder from [place] admitted for septic shock from CAUTI with EColi #septic shock from EColi CAUTI -cont pathogen directed abx for CAUTI. 10 days total therapy advised by ID -pt apparently already has a PICC line #sacral wound: ID advising gen surg eval #MS, seizure d/o: neuro on consult, cont home meds #anxiety: cont home Xanax. This regimen clearly is suboptimal with risk of dependence/addiction. will advise pt to discuss other options (SSRI, CBT) with prescriber at discharge #decub: wound care consult, CM consult for more help at home Dispo: CM consult for SNF v home health for abx Exam/Review of Systems Vital Signs Vitals Vital Signs Date Time Temp Pulse Resp B/P Pulse Ox O2 Delivery O2 Flow Rate FiO2 12/25/16 08:25 98.7 88 18 103/59 96 12/23/16 06:32 Room Air Intake and Output 12/24/16 12/24/16 12/25/16 15:00 23:00 07:00 Intake Total 50 ml 770 ml 650 ml Output Total 950 ml 800 ml Balance 50 ml -180 ml -150 ml Results Result Diagram: 12/25/16 0454 12/25/16 0454 Results 24 hrs Laboratory Tests Test 12/24/16 12:31 12/24/16 17:31 12/24/16 20:16 12/25/16 04:54 Bedside Glucose 99 110 123 White Blood Count 9.1 Red Blood Count 4.27 Hemoglobin 12.0 Hematocrit 36.8 L Mean Corpuscular Volume 86.2 Mean Corpuscular Hemoglobin 28.1 L Mean Corpuscular Hemoglobin Concent 32.6 Red Cell Distribution Width 15.0 H Platelet Count 407 Mean Platelet Volume 9.4 Neutrophils % 44.0 Lymphocytes % 40.8 Monocytes % 11.1 H Eosinophils % 3.2 Basophils % 0.6 Nucleated Red Blood Cells % 0.0 Neutrophils # 4.0 Lymphocytes # 3.7 H Monocytes # 1.0 H Eosinophils # 0.3 Basophils # 0.1 Nucleated Red Blood Cells # 0.0 Sodium Level 144 Potassium Level 3.9 Chloride Level 106 Carbon Dioxide Level 29 Anion Gap 13 Blood Urea Nitrogen 9 Creatinine 0.50 Glucose Level 94 Calcium Level 9.0 Test 12/25/16 08:39 Bedside Glucose 94 Medications Medications Current Medications Ondansetron HCl (Zofran Inj) 4 mg Q6H PRN IV NAUSEA AND/OR VOMITING; Start 11/26 at 11:30 Acetaminophen (Tylenol Tab) 650 mg Q6H PRN PO PAIN LEVEL 1-3 OR FEVER; Start 12/20/16 at 11:30 Acetaminophen/ Hydrocodone Bitart ([place] (5/325)) 1 tab Q6H PRN PO MODERATE PAIN LEVEL 4-6 Last administered on 12/25/16 09:28; Admin Dose 1 TAB; Start 12/20/16 at 11:30 Docusate Sodium (Colace) 100 mg Q12H PRN PO CONSTIPATION; Start 12/20/16 at 11 :30 Magnesium Hydroxide (Milk Of Mag) 30 ml DAILY PRN PO CONSTIPATION; Start 12/20 at 11:30 Sodium Biphosphate/ Sodium Phosphate (Fleet Enema) 133 ml DAILY PRN [place] CONSTIPATION; Start 12/20/16 at 11:30 Heparin Sodium (Porcine) (Heparin (5000 Units/0.5 ml)) 5,000 unit Q12 SC Last administered on 12/25/16 08:49; Admin Dose 5,000 UNIT; Start 12/20/16 at 21: 00 Nitroglycerin (Nitroglycerin (Sl Tab) 0.4 Mg) 1 tab Q5M PRN SL ANGINA; Start 12/20/16 at 11:30 Diagnostic Test (Pha) (Accu-Chek) 1 ea 02 XX Last administered on 12/21/16 01 :05; Admin Dose 1 EA; Start 12/21/16 at 02:00 Miscellaneous Information 1 ea NOTE XX ; Start 12/20/16 at 20:30 Glucose (Glutose) 15 gm Q15M PRN PO DECREASED GLUCOSE; Start 12/20/16 at 20:30 Glucose (Glutose) 22.5 gm Q15M PRN PO DECREASED GLUCOSE; Start 12/20/16 at 20: 30 Dextrose (D50w Syringe) 25 ml Q15M PRN IV DECREASED GLUCOSE; Start 12/20/16 at 20:30 Dextrose (D50w Syringe) 50 ml Q15M PRN IV DECREASED GLUCOSE; Start 12/20/16 at 20:30 Glucagon (Glucagen) 1 mg Q15M PRN IM DECREASED GLUCOSE; Start 12/20/16 at 20: 30 Glucose 15 gm 15 gm Q15M PRN BUCCAL DECREASED GLUCOSE; Start 12/20/16 at 20:30 Cefotaxime Sodium/ Dextrose (Claforan 2gm/50 ml (Pmx)) 50 ml @ 100 mls/hr Q8 IVPB Last administered on 12/25/16 05:21; Admin Dose 100 MLS/HR; Start 12/23 at 14:00 Levetiracetam (Keppra) 500 mg BID PO Last administered on 12/25/16 08:40; Admin Dose 500 MG; Start 12/23/16 at 21:00 Morphine Sulfate (morphine) 3 mg Q4H PRN IV SEVERE PAIN LEVEL 7-10 Last administered on 12/23/16 21:00; Admin Dose 3 MG; Start 12/23/16 at 11:30 Alprazolam (Xanax) 2 mg Q8H PRN PO ANXIETY Last administered on 12/23/16 21: 56; Admin Dose 2 MG; Start 12/23/16 at 15:00 Bismuth Subsalicylate (Pepto-Bismol) 30 ml Q6H PRN PO GASTROINTESTINAL UPSET; Start 12/24/16 at 23:00 VERONICA ZELAYA MD Dec 25, 2016 12:29
[2016-12-25 14:09] VITALS: BP 103/54; RESP 18
[2016-12-25] MEDS: ONDANSETRON 4 MG INJ IV PRN (17:20)
[2016-12-25 20:06] VITALS: BP 104/64; RESP 20
[2016-12-25] MEDS: ACETAMINOPHEN 325 MG TAB PO PRN (21:42)
[2016-12-26] MEDS: ACCU-CHEK XX SCH (01:36)
[2016-12-26 02:20] VITALS: BP 105/63; RESP 18
[2016-12-26 05:16] LABS: BASOPHIL # 0.1 10^3/ul (0.0-0.1); BASOPHILS % 0.5 % (0.0-2.0); EOSINOPHILS # 0.4 10^3/ul (0.0-0.5); EOSINOPHILS % 3.3 % (0.0-7.0); HEMATOCRIT 34.7 % (37.0-47.0); HEMOGLOBIN 11.1 g/dl (12.0-16.0); LYMPHOCYTES # 4.3 10^3/ul (0.8-2.9); LYMPHOCYTES % 40.5 % (15.0-51.0); MEAN CORPUSCULAR VOLUME 87.6 fl (82.0-101.0); MEAN PLATELET VOLUME 9.6 fl (7.4-10.4); MONOCYTES % 9.6 % (0.0-11.0); NEUTROPHIL # 4.8 10^3/ul (1.6-7.5); NEUTROPHILS % 45.7 % (39.0-77.0); PLATELET COUNT 406 10^3/UL (140-415); RED BLOOD COUNT 3.96 10^6/ul (4.20-5.40); RED CELL DISTRIBUTION WIDTH 15.3 % (11.5-14.5); WHITE BLOOD COUNT 10.5 10^3/ul (4.8-10.8)
[2016-12-26 05:44] LABS: CALCIUM 8.5 mg/dl (8.4-10.2); CREATININE 0.41 mg/dl (0.44-1.00); POTASSIUM 3.7 mmol/L (3.5-5.1)
[2016-12-26] MEDS: CEFOTAXIME 2 GM/50 ML (PMX) 50 ML IVPB SCH ×3 (06:30→22:22)
[2016-12-26] MEDS: SODIUM HYPOCHLORITE 0.125% 473 ML BTL IRR SCH ×2 (06:35→20:38)
[2016-12-26 07:28] VITALS: BP 114/89; PULSE 76; RESP 18
[2016-12-26] MEDS: INSULIN ASPART [NOVOLOG] 3 ML PEN SC SCH ×4 (07:50→20:36)
[2016-12-26] MEDS: LEVETIRACETAM 500 MG TAB PO SCH ×2 (08:44→20:31)
[2016-12-26] MEDS: HEPARIN 5,000 UNIT/0.5 ML VIAL SC SCH ×2 (08:52→20:30)
[2016-12-26] MEDS: HYDROCODONE/APAP (5/325) TAB PO PRN (09:30)
[2016-12-26] MEDS: NYSTATIN 30 GM POWDER BTL TOP SCH ×2 (12:08→20:38)
[2016-12-26] MEDS: ACETAMINOPHEN 325 MG TAB PO PRN ×2 (12:08→20:31)
--- NOTE | 2016-12-26 12:18 | CONS ---
Date/Time of Note Date/Time of Note DATE: 12/26/16 TIME: 11:59 Assessment/Plan Assessment/Plan Chief Complaint/Hosp Course 1. 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 UTI: -abx per sensitivity -frequent bladder emptying/cath care 3. Multiple sclerosis -medical management 4. Obesity: bmi 30 -diet and exercise optimization -encourage weight loss 5. Anxiety: -medical management -supportive Thank you. Patient seen and examined in collaboration with Dr. Jaden Lopez. Problems: Consultation Date/Type/Reason Admit Date/Time Dec 20, 2016 at 09:13 Date of Consultation: Dec 26, 2016 Type of Consultation: surgical Reason for Consultation wound Referring Provider: KASIA TAPIA NP Hx of Present Illness Carito Gutierrez is a 41-year-old woman with multiple comorbidities who presented to [facility] with cough. She has had the cough x 1 month. Associated symptoms include decreased appetite. No reports of vomiting and nausea, abdominal pain, chest pain, shortness of breath, hemoptysis, hematemesis , hematochezia. Upon further workup, she was noted to have a UTI. She was also noted to be in septic shock which has since resolved. She also has a sacral decubitus second to immobility, for which she is being seen in an outpatient wound care clinic. She reports getting regular debridements and wound care. General surgery was asked to evaluate. Subjective hx not possible: pt non-verbal Constitutional: improved, No febrile Eyes: No discharge, No pain, No visual change ENT: No bleeding, No congestion Respiratory: cough (improved ), No shortness of breath Cardiovascular: No chest pain, No lightheadedness, No orthopenea, No palpitations Gastrointestinal: No constipation, No diarrhea, No flatus, No vomiting Genitourinary: No dysuria, No hematuria Musculoskeletal: restricted range of motion, No back pain Skin: No erythema Neurologic: No confusion, No focal-weakness, No headache Psychological: No anxiety Past Medical History COPD seizure history multiple sclerosis encephalopathy COPD self cath Past Surgical History regular debridement of sacral wound Family History Significant Family History: no pertinent family hx Social History Alcohol Use: none Smoking Status: Unknown if ever smoked Drug Use: marijuana Exam/Review of Systems Vital Signs Vitals Vital Signs Date Time Temp Pulse Resp B/P Pulse Ox O2 Delivery O2 Flow Rate FiO2 12/26/16 07:28 98.5 76 18 114/89 98 Room Air Intake and Output 12/25/16 12/25/16 12/26/16 14:59 22:59 06:59 Intake Total 50 ml 50 ml 240 ml Output Total 600 ml Balance 50 ml 50 ml -360 ml Exam Constitutional: alert, oriented Psych: nl mood/affect Head: atraumatic, normocephalic Eyes: nl lids, nl sclera ENMT: mucosa pink and moist, nl nasal mucosa & septum Neck: non-tender, supple Respiratory: normal air movement, No labored breathing Cardiovascular: nl pulses, regular rate and rhythm Gastrointestinal: non-tender, soft, No distended Genitourinary - Female: nl adnexae, nl external genitalia Musculoskeletal: muscle tone, muscle weakness Extremities: normal pulses Neurological: nl speech, No focal weakness, No nl strength (gen weakness) Skin: nl turgor, other (sacral wound with min odor, min/mod drainage, scant slough; no periwound erythema, bone noted) Results Result Diagram: 12/26/16 04212/26/16 0421 Results 24 hrs Laboratory Tests Test 12/25/16 12:50 12/25/16 17:28 12/25/16 20:18 12/26/16 04:21 Bedside Glucose 97 103 141 White Blood Count 10.5 Red Blood Count 3.96 L Hemoglobin 11.1 L Hematocrit 34.7 L Mean Corpuscular Volume 87.6 Mean Corpuscular Hemoglobin 28.0 L Mean Corpuscular Hemoglobin Concent 32.0 Red Cell Distribution Width 15.3 H Platelet Count 406 Mean Platelet Volume 9.6 Neutrophils % 45.7 Lymphocytes % 40.5 Monocytes % 9.6 Eosinophils % 3.3 Basophils % 0.5 Nucleated Red Blood Cells % 0.0 Neutrophils # 4.8 Lymphocytes # 4.3 H Monocytes # 1.0 H Eosinophils # 0.4 Basophils # 0.1 Nucleated Red Blood Cells # 0.0 Sodium Level 143 Potassium Level 3.7 Chloride Level 108 Carbon Dioxide Level 28 Anion Gap 11 Blood Urea Nitrogen 11 Creatinine 0.41 L Glucose Level 93 Calcium Level 8.5 Test 12/26/16 08:34 Bedside Glucose 92 Medications Medications Current Medications Ondansetron HCl (Zofran Inj) 4 mg Q6H PRN IV NAUSEA AND/OR VOMITING Last administered on 12/25/16 17:20; Admin Dose 4 MG; Start 12/20/16 at 11:30 Acetaminophen (Tylenol Tab) 650 mg Q6H PRN PO PAIN LEVEL 1-3 OR FEVER Last administered on 12/25/16 21:42; Admin Dose 650 MG; Start 12/20/16 at 11:30 Acetaminophen/ Hydrocodone Bitart ([place] (5/325)) 1 tab Q6H PRN PO MODERATE PAIN LEVEL 4-6 Last administered on 12/26/16 09:30; Admin Dose 1 TAB; Start 12/20/16 at 11:30 Docusate Sodium (Colace) 100 mg Q12H PRN PO CONSTIPATION; Start 12/20/16 at 11 :30 Magnesium Hydroxide (Milk Of Mag) 30 ml DAILY PRN PO CONSTIPATION; Start 12/20 at 11:30 Sodium Biphosphate/ Sodium Phosphate (Fleet Enema) 133 ml DAILY PRN [place] CONSTIPATION; Start 12/20/16 at 11:30 Heparin Sodium (Porcine) (Heparin (5000 Units/0.5 ml)) 5,000 unit Q12 SC Last administered on 12/26/16 08:52; Admin Dose 5,000 UNIT; Start 12/20/16 at 21: 00 Nitroglycerin (Nitroglycerin (Sl Tab) 0.4 Mg) 1 tab Q5M PRN SL ANGINA; Start 12/20/16 at 11:30 Diagnostic Test (Pha) (Accu-Chek) 1 ea 02 XX Last administered on 12/21/16 01 :05; Admin Dose 1 EA; Start 12/21/16 at 02:00 Miscellaneous Information 1 ea NOTE XX ; Start 12/20/16 at 20:30 Glucose (Glutose) 15 gm Q15M PRN PO DECREASED GLUCOSE; Start 12/20/16 at 20:30 Glucose (Glutose) 22.5 gm Q15M PRN PO DECREASED GLUCOSE; Start 12/20/16 at 20: 30 Dextrose (D50w Syringe) 25 ml Q15M PRN IV DECREASED GLUCOSE; Start 12/20/16 at 20:30 Dextrose (D50w Syringe) 50 ml Q15M PRN IV DECREASED GLUCOSE; Start 12/20/16 at 20:30 Glucagon (Glucagen) 1 mg Q15M PRN IM DECREASED GLUCOSE; Start 12/20/16 at 20: 30 Glucose 15 gm 15 gm Q15M PRN BUCCAL DECREASED GLUCOSE; Start 12/20/16 at 20:30 Cefotaxime Sodium/ Dextrose (Claforan 2gm/50 ml (Pmx)) 50 ml @ 100 mls/hr Q8 IVPB Last administered on 12/26/16 06:30; Admin Dose 100 MLS/HR; Start 12/23 at 14:00 Levetiracetam (Keppra) 500 mg BID PO Last administered on 12/26/16 08:44; Admin Dose 500 MG; Start 12/23/16 at 21:00 Morphine Sulfate (morphine) 3 mg Q4H PRN IV SEVERE PAIN LEVEL 7-10 Last administered on 12/23/16 21:00; Admin Dose 3 MG; Start 12/23/16 at 11:30 Alprazolam (Xanax) 2 mg Q8H PRN PO ANXIETY Last administered on 12/23/16 21: 56; Admin Dose 2 MG; Start 12/23/16 at 15:00 Bismuth Subsalicylate (Pepto-Bismol) 30 ml Q6H PRN PO GASTROINTESTINAL UPSET; Start 12/24/16 at 23:00 Sodium Hypochlorite (Dakin'S (1/4 Strength)) 1 applic BID IRR Last administered on 12/26/16 06:35; Admin Dose 1 APPLIC; Start 12/26/16 at 09:00 Nystatin (Nystatin Powder) 1 applic BID TOP ; Start 12/26/16 at 09:00 ANGEL SHOEMAKER NP Dec 26, 2016 12:15
--- NOTE | 2016-12-26 12:43 | PDOCDIS ---
Discharge Instructions CONDITION Patient Condition: Stable HOME CARE INSTRUCTIONS: Special Diet: CARB CONTROLLED FOLLOW UP/APPOINTMENTS Follow-up Plan You'll need to continue the IV antibiotics until 11.20 for your bladder infection. Please follow up with your regular physician within 14 days. VERONICA ZELAYA MD Dec 26, 2016 12:43
--- NOTE | 2016-12-26 12:54 | DS ---
Date/Time of Note Date/Time of Note DATE: 12/26/16 TIME: 12:43 Discharge Summary Admission/Discharge Info Admit Date/Time Dec 20, 2016 at 09:13 Discharge Date/Time Discharge Diagnosis Septic shock from EColi CAUTI/catheter associated UTI, chronic sacral wound Patient Condition: Stable Consults Infectious disease, general surgery Procedures 11.10 urine culture Microbiology URINE CULTURE Final Organism 1 ESCHERICHIA COLI COLONY COUNT >100,000 CFU/ml E COLI M.I.C. RX --------- --- AMPICILLIN >=32 R CEFAZOLIN I CEFOTAXIME S CIPROFLOXACIN >=4 R GENTAMICIN <=1 S LEVOFLOXACIN >=8 R NITROFURANTOIN <=16 S TOBRAMYCIN <=1 S TRIMETHOPRIM/SULFAMETHOXAZOLE >=320 R Hx of Present Illness The patient is a 41-year-old female with a past medical history based on records of urinary issues, COPD, seizure history, multiple sclerosis, encephalopathy, COPD, who presents with cough. The symptoms have been going on for about 1 and a half weeks. She has also had decreased appetite. Most of the information was obtained from the ER documentation. The patient is unable to provide a full HPI at this time. She did deny vomiting and nausea, no abdominal pain, no chest pain, no shortness of breath. Apparently she has a history of an indwelling Roberson catheter, which came out on the way to the ER. She does smoke marijuana. When she came in she was found with white blood cell count elevation of 13.8. She was afebrile, she had signs of a positive UA, and her blood pressure was actually low systolic in the 70 to 80 range and had to be started on pressor support in the ER. Hospital Course 41 yo with neurogenic bladder from [place] admitted for septic shock from CAUTI with EColi. Pt initially required pressor support in the ICU. Abx were narrowed based on culture results. ID advising total of 10 days of therapy. Pt came in with PICC line and CM arranged antibiotics. Pt also with chronic unstagable sacral wound.Evaluated by general surgery, no debridement advised. Of note, pt on chronic TID Xanax for anxiety. This is a suboptimal choice and can precipitate dependence. Pt advised to dw prescriber. Home Meds Active Scripts Albuterol Sulfate* (Proair HFA*) 8.5 Gm Hfa.aer.ad, 2 PUFF INH Q4, #1 INHALER Prov:RADHA CENTENO MD 12/20/16 Levofloxacin* (Levaquin*) 750 Mg Tablet, 750 MG PO DAILY for 5 Days, TAB Prov:RADHA CENTENO MD 12/20/16 Levofloxacin* (Levaquin*) 750 Mg Tablet, 750 MG PO DAILY for 5 Days, TAB 0 Refills Prov:ED SULLIVAN MD 10/12/16 Hydrocodone/Acetaminophen (Hydrocodon-Acetaminoph 7.5-325) 1 Each Tablet, 1 TAB PO Q4H Y for Pain, #30 TAB Prov:CRISTO GERARDO 04/10/16 Albuterol Sulfate* (Ventolin HFA*) 18 Gm Hfa.aer.ad, 4 PUFF INH Q2H RESP THERAPY Y for SHORTNESS OF BREATH, #1 INHALER Prov:CRISTO GERARDO 04/10/16 Levetiracetam* (Keppra*) 500 Mg/5 Ml Solution, 500 MG GTB BID for 30 Days Prov:CRISTO GERARDO 04/10/16 Divalproex Sodium* (Depakote* Sprinkle) 125 Mg Cap.sprink, 500 MG PO BID for 30 Days, CAP Prov:CRISTO GERARDO 04/10/16 Reported Medications Alprazolam* (Xanax*) 2 Mg Tablet, 2 MG PO Q8H Y for ANXIETY, TAB 04/01/16 Hydroxyzine Hcl* (Hydroxyzine Hcl*) 10 Mg Tablet, 10 MG PO Q6H Y for ITCHING, # 30 TAB 12/21/15 Metoclopramide* (Reglan*) 5 Mg Tablet, 5 MG PO AC MEALS, TAB 12/21/15 Oxycodone Hcl* (Oxycontin*) 40 Mg Tab.er.12h, 40 MG PO Q12, TAB 12/21/15 Duloxetine Hcl* (Cymbalta*) 60 Mg Capsule.dr, 60 MG PO DAILY, CAP 12/21/15 Oxybutynin Chloride* (Ditropan* XL) 15 Mg/Bottle Tab.osm.24, 15 MG PO BID 06/23/10 Follow-up Plan You'll need to continue the IV antibiotics until 11.20 for your bladder infection. Please follow up with your regular physician within 14 days. Primary Care Provider Not On Staff Doctor Time spent on discharge: > 30 minutes Pending Labs Laboratory Tests Test 12/25/16 12:50 12/25/16 17:28 12/25/16 20:18 12/26/16 04:21 Bedside Glucose 97mg/dL (70-220) 103mg/dL (70-220) 141mg/dL (70-220) White Blood Count 10.510^3/ul (4.8-10.8) Red Blood Count 3.9610^6/ul (4.20-5.40) Hemoglobin 11.1g/dl (12.0-16.0) Hematocrit 34.7% (37.0-47.0) Mean Corpuscular Volume 87.6fl (82.0-101.0) Mean Corpuscular Hemoglobin 28.0pg (29.0-33.0) Mean Corpuscular Hemoglobin Concent 32.0g/dl (32.0-37.0) Red Cell Distribution Width 15.3% (11.5-14.5) Platelet Count 61732^3/UL (140-415) Mean Platelet Volume 9.6fl (7.4-10.4) Neutrophils % 45.7% (39.0-77.0) Lymphocytes % 40.5% (15.0-51.0) Monocytes % 9.6% (0.0-11.0) Eosinophils % 3.3% (0.0-7.0) Basophils % 0.5% (0.0-2.0) Nucleated Red Blood Cells % 0.0/100WBC (0.0-0.0) Neutrophils # 4.810^3/ul (1.6-7.5) Lymphocytes # 4.310^3/ul (0.8-2.9) Monocytes # 1.010^3/ul (0.3-0.9) Eosinophils # 0.410^3/ul (0.0-0.5) Basophils # 0.110^3/ul (0.0-0.1) Nucleated Red Blood Cells # 0.010^3/ul (0.0-0.0) Sodium Level 143mmol/L (135-144) Potassium Level 3.7mmol/L (3.5-5.1) Chloride Level 108mmol/L (97-110) Carbon Dioxide Level 28mmol/L (21-31) Anion Gap 11 (8-16) Blood Urea Nitrogen 11mg/dl (7-20) Creatinine 0.41mg/dl (0.44-1.00) Glucose Level 93mg/dl (70-220) Calcium Level 8.5mg/dl (8.4-10.2) Test 12/26/16 08:34 Bedside Glucose 92mg/dL (70-220) VERONICA ZELAYA MD Dec 26, 2016 12:54
--- NOTE | 2016-12-26 14:15 | PN ---
DATE: 12/26/2016 SUBJECTIVE: The patient is alert, feels good, wants to go home. No fevers. WBC 10.5, platelets 406, no shift, no bands. BUN 11, creatinine 0.41. INDWELLINGS: Left upper extremity Port-A-Cath and Roberson catheter. ANTIMICROBIALS: The patient is on cefotaxime. Total antibiotic day #6. PHYSICAL EXAMINATION: GENERAL: Chronically ill-appearing, middle-aged woman who is awake, in no distress. HEENT: Head atraumatic, normocephalic. Sclerae anicteric. Buccal mucosa dry. NECK: Supple. CHEST: Rise symmetrical. Breath sounds clear. HEART: S1, S2. ABDOMEN: Soft. Bowel sounds present. EXTREMITIES: Without cyanosis. ASSESSMENT: 1. Status post sepsis with shock. 2. Recurrent urinary tract infection. 3. Advanced multiple sclerosis. 4. Neurogenic bladder. 5. Functional quadriplegia. 6. History of seizures. 7. Unstageable sacral decubitus. PLAN: The patient remains stable, overall doing much better, completing antibiotics. Continue loca l wound care. Dictated By: KASIA TAPIA RN [employer]ATIONAL for VISHNU CHRISTIANSON MD NI/NTS Conf#: [id number] DID#: [id number] CC: VANDANA DA SILVA MD;*EndCC*
[2016-12-26] MEDS: morphine 2 MG INJ IV PRN ×2 (14:23→20:37)
[2016-12-26 14:42] VITALS: BP 99/58; RESP 20
[2016-12-26 19:20] VITALS: BP 108/57; RESP 18
[2016-12-26] MEDS: ALPRAZOLAM 1 MG TAB PO PRN (22:13)
[2016-12-27] VITALS: BP 104/51; RESP 18
[2016-12-27] MEDS: ACCU-CHEK XX SCH (02:00)
[2016-12-27 05:33] LABS: BASOPHILS % 0.4 % (0.0-2.0); EOSINOPHILS # 0.4 10^3/ul (0.0-0.5); EOSINOPHILS % 3.8 % (0.0-7.0); HEMOGLOBIN 10.9 g/dl (12.0-16.0); LYMPHOCYTES # 4.9 10^3/ul (0.8-2.9); LYMPHOCYTES % 50.6 % (15.0-51.0); MEAN CORPUSCULAR HEMOGLOBIN 28.5 pg (29.0-33.0); MEAN CORPUSCULAR HGB CONC 32.1 g/dl (32.0-37.0); MEAN CORPUSCULAR VOLUME 88.8 fl (82.0-101.0); MEAN PLATELET VOLUME 9.7 fl (7.4-10.4); MONOCYTE # 0.9 10^3/ul (0.3-0.9); MONOCYTES % 8.8 % (0.0-11.0); NEUTROPHIL # 3.5 10^3/ul (1.6-7.5); PLATELET COUNT 425 10^3/UL (140-415); RED BLOOD COUNT 3.83 10^6/ul (4.20-5.40); RED CELL DISTRIBUTION WIDTH 15.8 % (11.5-14.5); WHITE BLOOD COUNT 9.7 10^3/ul (4.8-10.8)
[2016-12-27] MEDS: CEFOTAXIME 2 GM/50 ML (PMX) 50 ML IVPB SCH (06:01)
[2016-12-27 06:04] LABS: CALCIUM 8.6 mg/dl (8.4-10.2); CREATININE 0.41 mg/dl (0.44-1.00); POTASSIUM 3.7 mmol/L (3.5-5.1)
[2016-12-27] MEDS: morphine 2 MG INJ IV PRN ×2 (06:16→14:58)
[2016-12-27 07:38] VITALS: BP 88/52; PULSE 66; RESP 12
[2016-12-27] MEDS: INSULIN ASPART [NOVOLOG] 3 ML PEN SC SCH ×2 (07:50→11:40)
[2016-12-27] MEDS: LEVETIRACETAM 500 MG TAB PO SCH (09:09)
[2016-12-27] MEDS: SODIUM HYPOCHLORITE 0.125% 473 ML BTL IRR SCH (09:09)
[2016-12-27] MEDS: NYSTATIN 30 GM POWDER BTL TOP SCH (09:09)
[2016-12-27] MEDS: HEPARIN 5,000 UNIT/0.5 ML VIAL SC SCH (09:14)
[2016-12-27] MEDS: ONDANSETRON 4 MG INJ IV PRN (09:15)
[2016-12-27] MEDS ORDERED: CARBAMIDE PEROXIDE 6.5% 15ML OTIC RIGHT EAR SCH (10:00)
[2016-12-27 10:30] VITALS: BP 96/59; PULSE 87
[2016-12-27] MEDS: HYDROCODONE/APAP (5/325) TAB PO PRN (10:43)
[2016-12-27] MEDS ORDERED: CEFT1VIA13 IV (12:41)
--- NOTE | 2016-12-27 12:58 | QN ---
Documentation Comment 11.17 Pt did not leave 11.16 as she c/o ear pain and [employer] would not cover the antibiotic she was getting abx dw ID, changed to ceftriaxone 1 g IV daily R ear assessed, cerumen obscuring TM. will start debrox drops and pt advised to f/u with PCP if ear pain persists VERONICA ZELAYA MD Dec 27, 2016 12:58
[2016-12-27 13:38] VITALS: BP 93/54; PULSE 81; RESP 16
--- NOTE | 2016-12-27 13:47 | CONS ---
Date/Time of Note Date/Time of Note DATE: 12/27/16 TIME: 13:45 Consult Date/Type/Reason Admit Date/Time Dec 20, 2016 at 09:13 Type of Consultation: ID Ordering Provider: KASIA TAPIA NP Objective Vital Signs Date Time Temp Pulse Resp B/P Pulse Ox O2 Delivery O2 Flow Rate FiO2 12/27/16 13:38 98.1 81 16 93/54 95 Room Air Intake and Output 12/26/16 12/26/16 12/27/16 15:00 23:00 07:00 Intake Total 50 ml 900 ml 290 ml Output Total 760 ml 600 ml Balance 50 ml 140 ml -310 ml Results/Medications Result Diagram: 12/27/16 0427 12/27/16 0428 Results 24 hrs Laboratory Tests Test 12/26/16 17:39 12/26/16 20:36 12/27/16 04:27 12/27/16 04:28 Bedside Glucose 97 132 White Blood Count 9.7 Red Blood Count 3.83 L Hemoglobin 10.9 L Hematocrit 34.0 L Mean Corpuscular Volume 88.8 Mean Corpuscular Hemoglobin 28.5 L Mean Corpuscular Hemoglobin Concent 32.1 Red Cell Distribution Width 15.8 H Platelet Count 425 H Mean Platelet Volume 9.7 Neutrophils % 36.0 L Lymphocytes % 50.6 Monocytes % 8.8 Eosinophils % 3.8 Basophils % 0.4 Nucleated Red Blood Cells % 0.0 Neutrophils # 3.5 Lymphocytes # 4.9 H Monocytes # 0.9 Eosinophils # 0.4 Basophils # 0.0 Nucleated Red Blood Cells # 0.0 Sodium Level 144 Potassium Level 3.7 Chloride Level 109 Carbon Dioxide Level 28 Anion Gap 11 Blood Urea Nitrogen 12 Creatinine 0.41 L Glucose Level 103 Calcium Level 8.6 Test 12/27/16 08:43 12/27/16 12:35 Bedside Glucose 88 83 Medications Current Medications Ondansetron HCl (Zofran Inj) 4 mg Q6H PRN IV NAUSEA AND/OR VOMITING Last administered on 12/27/16 09:15; Admin Dose 4 MG; Start 12/20/16 at 11:30 Acetaminophen (Tylenol Tab) 650 mg Q6H PRN PO PAIN LEVEL 1-3 OR FEVER Last administered on 12/26/16 20:31; Admin Dose 650 MG; Start 12/20/16 at 11:30 Acetaminophen/ Hydrocodone Bitart ([place] (5/325)) 1 tab Q6H PRN PO MODERATE PAIN LEVEL 4-6 Last administered on 12/27/16 10:43; Admin Dose 1 TAB; Start 12/20/16 at 11:30 Docusate Sodium (Colace) 100 mg Q12H PRN PO CONSTIPATION; Start 12/20/16 at 11 :30 Magnesium Hydroxide (Milk Of Mag) 30 ml DAILY PRN PO CONSTIPATION; Start 12/20 at 11:30 Sodium Biphosphate/ Sodium Phosphate (Fleet Enema) [address] CONSTIPATION; Start 12/20/16 at 11:30 Heparin Sodium (Porcine) (Heparin (5000 Units/0.5 ml)) 5,000 unit Q12 SC Last administered on 12/27/16 09:14; Admin Dose 5,000 UNIT; Start 12/20/16 at 21: 00 Nitroglycerin (Nitroglycerin (Sl Tab) 0.4 Mg) 1 tab Q5M PRN SL ANGINA; Start 12/20/16 at 11:30 Diagnostic Test (Pha) (Accu-Chek) 1 ea 02 XX Last administered on 12/21/16 01 :05; Admin Dose 1 EA; Start 12/21/16 at 02:00 Miscellaneous Information 1 ea NOTE XX ; Start 12/20/16 at 20:30 Glucose (Glutose) 15 gm Q15M PRN PO DECREASED GLUCOSE; Start 12/20/16 at 20:30 Glucose (Glutose) 22.5 gm Q15M PRN PO DECREASED GLUCOSE; Start 12/20/16 at 20: 30 Dextrose (D50w Syringe) 25 ml Q15M PRN IV DECREASED GLUCOSE; Start 12/20/16 at 20:30 Dextrose (D50w Syringe) 50 ml Q15M PRN IV DECREASED GLUCOSE; Start 12/20/16 at 20:30 Glucagon (Glucagen) 1 mg Q15M PRN IM DECREASED GLUCOSE; Start 12/20/16 at 20: 30 Glucose 15 gm 15 gm Q15M PRN BUCCAL DECREASED GLUCOSE; Start 12/20/16 at 20:30 Cefotaxime Sodium/ Dextrose (Claforan 2gm/50 ml (Pmx)) 50 ml @ 100 mls/hr Q8 IVPB Last administered on 12/27/16 06:01; Admin Dose 100 MLS/HR; Start 12/23 at 14:00 Levetiracetam (Keppra) 500 mg BID PO Last administered on 12/27/16 09:09; Admin Dose 500 MG; Start 12/23/16 at 21:00 Morphine Sulfate (morphine) 3 mg Q4H PRN IV SEVERE PAIN LEVEL 7-10 Last administered on 12/27/16 06:16; Admin Dose 3 MG; Start 12/23/16 at 11:30 Alprazolam (Xanax) 2 mg Q8H PRN PO ANXIETY Last administered on 12/26/16 22: 13; Admin Dose 2 MG; Start 12/23/16 at 15:00 Bismuth Subsalicylate (Pepto-Bismol) 30 ml Q6H PRN PO GASTROINTESTINAL UPSET; Start 12/24/16 at 23:00 Sodium Hypochlorite (Dakin'S (1/4 Strength)) 1 applic BID IRR Last administered on 12/27/16 09:09; Admin Dose 1 APPLIC; Start 12/26/16 at 09:00 Nystatin (Nystatin Powder) 1 applic BID TOP Last administered on 12/27/16 09: 09; Admin Dose 1 APPLIC; Start 12/26/16 at 09:00 Carbamide Peroxide (Debrox Otic) 3 drop BID RIGHT EAR Last administered on 13:34; Admin Dose 3 DROP; Start 12/27/16 at 10:00 Assessment/Plan Chief Complaint/Hosp Course SUBJECTIVE: Alert, denies pain. No fevers. ALLERGY: PENICILLIN. MICROBIOLOGY: Urine culture growing E coli. Blood culture growing staph sp, 1 out of 2 sets. INDWELLINGS: The patient has a left upper extremity Port-A-Cath and Roberson catheter. ANTIMICROBIALS: Cefotaxime, s/p Zyvox and Merrem PHYSICAL EXAMINATION: GENERAL: This is a well-nourished, chronically ill-appearing, middle-aged woman who is awake, in no distress. HEENT: Head atraumatic, normocephalic. Sclerae anicteric. Buccal mucosa dry. NECK: Supple. CHEST: Rise symmetrical. Breath sounds diminished to bases. HEART: S1, S2. ABDOMEN: Soft, bowel tones present. EXTREMITIES: Wasted, without cyanosis. SKIN: Unstageable sacral decubitus. ASSESSMENT: 1. Septic shock. 2. Gram-positive cocci bacteremia cw contaminant 3. Urinary tract infection. 4. Unstageable sacral decubitus, possible osteomyelitis, previous wound cx grew VRE. 5. Neurogenic bladder. 6. Advanced multiple sclerosis. 7. Hx SZ PLAN: Remains stable, continue abx, f/u wound cx results, surgical rec-s noted== > outpatient treatment for sacral wound DW staff Problems: KASIA TAPIA NP Dec 27, 2016 13:46
[2016-12-27] MEDS ORDERED: CEFTRIAXONE 1 GM INJ IM ONE (14:00)
[2016-12-27 15:00] VITALS: BP 103/51; PULSE 82; RESP 16
[2016-12-27] MEDS ORDERED: CEFTRIAXONE 1 GM/50 ML (PMX) 50 ML IVPB SCH (15:00)
== END 2016-12-27 17:05 | disposition home health service (06) | DRG 698 ==
LOC: E/R 01:34 → ICU 09:13 → TEL 12-23 06:53 → MS1 12-23 17:10
PROVIDERS: ADMIT Internal Medicine; ATTEND Internal Medicine
DX: T83.511A Infection and inflammatory reaction due to indwelling urethral catheter, initial encounter (principal); A41.51 Sepsis due to Escherichia coli [E. coli]; R65.21 Severe sepsis with septic shock; G93.40 Encephalopathy, unspecified; L89.154 Pressure ulcer of sacral region, stage 4; J18.9 Pneumonia, unspecified organism; J44.0 Chronic obstructive pulmonary disease with (acute) lower respiratory infection; N39.0 Urinary tract infection, site not specified; G35 Multiple sclerosis; G40.909 Epilepsy, unspecified, not intractable, without status epilepticus; F12.90 Cannabis use, unspecified, uncomplicated; E86.0 Dehydration; F41.9 Anxiety disorder, unspecified; F32.9 Major depressive disorder, single episode, unspecified; R33.9 Retention of urine, unspecified; N31.9 Neuromuscular dysfunction of bladder, unspecified; D63.8 Anemia in other chronic diseases classified elsewhere; H61.21 Impacted cerumen, right ear; Z88.0 Allergy status to penicillin; Y84.6 Urinary catheterization as the cause of abnormal reaction of the patient, or of later complication, without mention of misadventure at the time of the procedure
CPT/HCPCS: 36415; 71010; 80048; 80061; 80164; 81001; 81003; 82962; 83036; 83605; 83735; 84100; 84439; 84443; 85025; 85610; 85730; 87040; 87070; 87081; 87086; 90686; 94664; 96374; 96375; C9113; J0696; J0698; J1644; J1815; J1953; J1956; J2060; J2185; J2270; J2405; J3370; J3475; J3480; J7030; J7040

== ENCOUNTER 2017-03-17 14:26 | Inpatient (IN) | END 2017-03-25 22:24 | disposition home health service (06) | DRG 871 ==

== ENCOUNTER 2017-11-02 14:57 | Inpatient (IN) | END 2017-11-08 14:27 | disposition home or self-care (01) | DRG 871 ==

== ENCOUNTER 2017-11-08 19:38 | Inpatient (IN) | END 2017-11-11 21:16 | disposition home or self-care (01) | DRG 871 ==

== ENCOUNTER 2017-11-26 14:26 | Inpatient (IN) | END 2017-11-29 13:20 | disposition home health service (06) | DRG 871 ==

== ENCOUNTER 2018-01-11 03:48 | Inpatient (IN) | END 2018-01-17 17:52 | disposition home health service (06) | DRG 698 ==

== ENCOUNTER 2018-02-15 03:03 | Inpatient (IN) | payer MEDICARE, OTHER ==
[~2018-02-15] VITALS: Ht 162.6 cm; Wt 84.7 kg
[2018-02-15] VITALS (14 sets, daily range): BP systolic 95–117; BP diastolic 41–61; PULSE 104–112; RESP 13–34; BMI 21.0
[~2018-02-15 03:03] MED LIST changes: -ALBU18HF INH; -ALPR2TAB PO; +BACL20TA PO; +CLON2TAB12 PO; +DIVA-48 PO; -DIVA125C11 PO; +DULO60CA59 PO; -DULO60CA6 PO; +GABA300C16 PO; -HYDR-3010 PO; -HYDR-3605 PO; +LEVE100018 PO; -LEVE500S8 GTB; -LEVO750T25 PO; -METO5TAB58 PO; -OXYB15TA4 PO; -OXYC40TA26 PO; +TEMA30CA PO
[2018-02-15] MEDS ORDERED: AZTREONAM 1 GM/NS (PMX) 50 ML IVPB STA (03:05)
[2018-02-15] MEDS ORDERED: ACETAMINOPHEN 650 MG SUPP PR STA (03:05)
[2018-02-15] MEDS ORDERED: SODIUM CHLORIDE 0.9% 1L BAG IV* STA (03:12)
[2018-02-15] MEDS ORDERED: VANCOMYCIN 1 GM (PMX) 250 ML IVPB ONE (03:30)
[2018-02-15] MEDS ORDERED: LEVALBUTEROL (NEB) 1.25 MG/0.5 ML AMP HHN ONE (03:30)
[2018-02-15] MEDS ORDERED: IPRATROPIUM (NEB) 0.5 MG/2.5 ML AMP HHN ONE (03:30)
[2018-02-15] MEDS ORDERED: ACETAMINOPHEN 325 MG TAB PO PRN ×2 (04:30→05:00)
[2018-02-15] MEDS ORDERED: ONDANSETRON 4 MG INJ IV PRN (04:30)
--- NOTE | 2018-02-15 04:35 | ERD ---
ER Documentation Chief Complaint Chief Complaint SOB/ ALOC X'S 1 DAY HPI Patient is a 43-year-old female with a history of multiple sclerosis and previous pneumonia who presents with altered mental status. Please note the history and physical exam is limited secondary to the patient's mental status. The patient was brought in by ambulance. She has had a cough with white sputum. She was put on a nonrebreather by paramedics. Upon review of old medical records the patient has multiple visits with admissions. It is difficult to obtain history otherwise. ROS All systems reviewed and are negative except as per history of present illness. Medications Home Meds Reported Medications Gabapentin* (Gabapentin*) 300 Mg Capsule, 300 MG PO TID, #90 CAP 11/02/17 Baclofen* (Baclofen*) 20 Mg Tablet, 20 MG PO BID, TAB 11/02/17 Duloxetine Hcl* (Duloxetine Hcl*) 60 Mg Capsule.dr, 60 MG PO DAILY, #30 CAP 03/17/17 Divalproex Sodium* (Depakote*) 500 Mg Tablet.dr, 500 MG PO BID, #120 TAB 03/17/17 Clonazepam* (Clonazepam*) 2 Mg Tablet, 2 MG PO BID, TAB 03/17/17 Temazepam* (Temazepam*) 30 Mg Capsule, 30 MG PO HS PRN for INSOMNIA, CAP 03/17/17 Levetiracetam* (Keppra*) 1,000 Mg Tablet, 1000 MG PO BID, TAB 03/17/17 Allergies Allergies: Coded Allergies: Penicillins (Verified Allergy, Unknown, 11/26/17) labetalol (Verified Allergy, Unknown, 11/26/17) latex (Verified Allergy, Unknown, 11/26/17) PMhx/Soc History of Surgery: Yes (colostomy) Anesthesia Reaction: No Hx Neurological Disorder: No Hx Respiratory Disorders: Yes (pneumonia) Hx Cardiac Disorders: Yes (HTN) Hx Psychiatric Problems: Yes Hx Miscellaneous Medical Probl: Yes (seizure, urosepsis, neurogenic bladder) Hx Alcohol Use: No (occasional) Hx Substance Use: Yes Hx Tobacco Use: No Smoking Status: Never smoker FmHx Unable to obtain Physical Exam Vitals Vital Signs Date Temp Pulse Resp B/P (MAP) Pulse Ox O2 O2 Flow FiO2 Time Delivery Rate 02/15/18 103.5 03:39 02/15/18 100 15.0 100 03:25 1/6/19 146 36 100 Non 100 03:23 Rebreathe r Mask 02/15/18 103.5 156 20 132/63 100 03:06 (86) 02/15/18 Non 15 03:05 Rebreathe r 02/15/18 103.5 156 20 140/98 96 Mask 15.0 03:05 (112) Non Rebreathe r Physical Exam Const: Moderate distress Head: Atraumatic Eyes: Normal Conjunctiva ENT: Normal External Ears, Nose and Mouth. Neck: Full range of motion. No meningismus. Resp: Rhonchorous breath sounds diffusely with white sputum Cardio: Tachycardic rate without murmur Abd: Soft, non tender, non distended. Normal bowel sounds Skin: No petechiae or rashes Back: No midline or flank tenderness Ext: No cyanosis, or edema Neur: Awake confused Result Diagram: 02/15/18 0325 02/15/18 0325 Results 24 hrs Laboratory Tests Test 02/15/18 03:25 02/15/18 03:27 02/15/18 03:36 White Blood Count 17.1 10^3/ul Red Blood Count 4.59 10^6/ul Hemoglobin 12.8 g/dl Hematocrit 40.4 % Mean Corpuscular Volume 88.0 fl Mean Corpuscular Hemoglobin 27.9 pg Mean Corpuscular 31.7 g/dl Hemoglobin Concent Red Cell Distribution Width 16.0 % Platelet Count 494 10^3/UL Mean Platelet Volume 9.7 fl Immature Granulocytes % 0.400 % Neutrophils % 71.6 % Lymphocytes % 15.6 % Monocytes % 12.0 % Eosinophils % 0.1 % Basophils % 0.3 % Nucleated Red Blood Cells % 0.0 /100WBC Immature Granulocytes # 0.070 10^3/ul Neutrophils # 12.3 10^3/ul Lymphocytes # 2.7 10^3/ul Monocytes # 2.1 10^3/ul Eosinophils # 0.0 10^3/ul Basophils # 0.1 10^3/ul Nucleated Red Blood Cells # 0.0 10^3/ul Prothrombin Time 13.8 Sec Prothrombin Time Ratio 1.1 INR International 1.05 Normalized Ratio Activated 36.2 Sec Partial Thromboplast Time Sodium Level 140 mmol/L Potassium Level 4.5 mmol/L Chloride Level 104 mmol/L Carbon Dioxide Level 27 mmol/L Anion Gap 9 Blood Urea Nitrogen 13 mg/dl Creatinine 0.52 mg/dl Est Glomerular Filtrat > 60 mL/min Rate mL/min Glucose Level 210 mg/dl Calcium Level 9.2 mg/dl Total Bilirubin 0.0 mg/dl Direct Bilirubin 0.00 mg/dl Indirect Bilirubin 0.0 mg/dl Aspartate Amino 19 IU/L Transf (AST/SGOT) Alanine < 6 IU/L Aminotransferase (ALT/SGPT) Alkaline Phosphatase 74 IU/L Troponin I < 0.012 ng/ml Total Protein 8.6 g/dl Albumin 3.8 g/dl Globulin 4.80 g/dl Albumin/Globulin Ratio 0.79 POC Venous Lactate 1.4 mmol/L Blood Gas Specimen Source Blood arterial Arterial Blood Date Drawn 02/15/2018 3:38:19 AM Arterial Blood pH 7.451 (Temp corrected) Arterial Blood pCO2 40.6 mmhg (Temp correct) Arterial Blood pO2 86.1 mmHG (Temp corrected) Arterial Blood HCO3 27.6 mmol/L Arterial Blood Base Excess 3.4 mmol/L Arterial Blood 96.8 mmHG Oxygen Saturation Talon Test ACCEPTAB Arterial Blood Gas Right Radial Puncture Site Arterial 0.7 % Blood Carboxyhemoglobin Arterial Blood Methemoglobin 0.4 % Blood Gas A-a O2 Differential 586.3 mmHg Oxyhemoglobin Percent 95.7 % Blood Gas Temperature 37.0 C Blood Gas Modality MASK - NRB FiO2 100.0 % Blood Gas Notified Whom KM Blood Gas Notified Time 02/15/2018 3:48:58 AM Current Medications Medications Dose Sig/Stacey Start Time Status Last (Trade) Ordered Route PRN Stop Time Admin Dose Reason Admin 650 mg ONCE STAT 02/15/18 DC 02/15/18 Acetaminophen MO 03:05 02/15/18 03:39 (Tylenol 03:06 Supp) Vancomycin 250 ml @ ONCE ONCE 02/15/18 02/15/18 HCl 125 mls/hr IVPB 03:30 02/15/18 04:20 05:29 Aztreonam 50 ml @ ONCE STAT 02/15/18 DC 02/15/18 100 mls/hr IVPB 03:05 02/15/18 03:39 03:34 1.25 mg ONCE ONCE 02/15/18 DC 02/15/18 Levalbuterol HHN 03:30 02/15/18 03:23 (Xopenex 03:31 Neb) Ipratropium 0.5 mg ONCE ONCE 02/15/18 DC 02/15/18 [place] HHN 03:30 02/15/18 03:23 (Atrovent 03:31 0.02% (Neb)) Sodium 1,640 ml BOLUS OVER 2 02/15/18 DC 02/15/18 Chloride HOURS STAT 03:12 02/15/18 03:37 (NS) IV* 03:13 Ondansetron 4 mg ER BRIDGE 02/15/18 HCl (Zofran PRN IV 04:30 02/16/18 Inj) NAUSEA AND/OR 04:29 VOMITING 650 mg ER BRIDGE 02/15/18 Acetaminophen PRN PO MILD 04:30 02/16/18 (Tylenol PAIN(1-3)OR 04:29 Tab) ELEVATED TEMP Procedures/MDM EKG read by me: Rate/Rhythm: Sinus tachycardia Intervals: Normal Impression: Tachycardia without ischemia Chest X-ray 1V Interpreted by me: Soft Tissue: No acute abnormalities Bones: No acute abnormalities Mediastinum/Cardiac Silhouette/Lungs: Pneumonia Sepsis Documentation: Patient's infectious symptoms have not stabilized and the patient is at risk of rapid decompensation. The patient will be admitted for careful hydration, antibiotic therapy, and infectious source control. SEVERE SEPSIS CRITERIA: Infectious source: Pneumonia End organ damage indicated by: Altered mental status SEPSIS MANAGEMENT Time of recognition of sepsis: 3:25 AM. Time of recognition of severe sepsis: 3:25 AM. Time of recognition of septic shock: No septic shock at this time. 3 HOUR BUNDLE Blood cultures x 2 before broad-spectrum antibiotics: Yes 30 ml/kg NS bolus completed and please note this was ideal body weight fluid bolus as the patient has a BMI of greater than 30 Initial lactate 1. 4 Repeat lactate pending SEPTIC SHOCK ASSESSMENT: No lactic acid > 4.0 No persistent hypotension (SBP < 90 or 40 mmHg drop, MAP < 65) despite 30 mL/kg IV fluid bolus VOLUME REASSESSMENT FOR SEPTIC SHOCK: No septic shock at this time PERSISTENT HYPOTENSION TREATMENT: Comfort care no Central line not Required Vasopressor started not required I considered further perfusion assessment with CVP measurement, SCVO2, bedside ultrasound volume assessment, passive leg raise, trial of further fluid bolus. And proceeded with 30 ml/kg fluid bolus of NSS, broad spectrum antibiotics, and admission. The patient was admitted to the care of Dr. Laguerre to a telemetry bed given the tachycardia. Mental status has improved with fluids, antibiotics, oxygen, and Tylenol. CRITICAL CARE Critical care time 35 minutes Emergent fluid management while maintaining close respiratory support. Provision of immediate and broad-spectrum antibiotic therapy. Simultaneous assessment for possible sources in order to direct targeted therapy. Consideration for invasive and chemical support to prevent cardiopulmonary collapse. Critical care time is independent of procedures performed. Departure Diagnosis: Primary Impression: Pneumonia Pneumonia type: due to unspecified organism Laterality: unspecified laterality Lung location: unspecified part of lung Qualified Codes: J18.9 - Pneumonia, unspecified organism Additional Impression: Severe sepsis Condition: Serious ANGIE BENAVIDEZ MD Feb 15, 2018 04:35
[2018-02-15] MEDS ORDERED: ALBUTEROL/IPRATROPIUM (NEB) 3 ML AMP HHN PRN (05:00)
[2018-02-15] MEDS ORDERED: NACL 0.9% 3 ML SYG IV SCH (05:00)
[2018-02-15] MEDS ORDERED: HYDROCODONE/APAP (5/325) TAB PO PRN (05:00)
[2018-02-15] MEDS ORDERED: VANCOMYCIN IV PER PHARMACY XX SCH (05:00)
[2018-02-15] MEDS: SOD CHLORIDE 0.9% 1,000 ML IV SCH ×3 (06:32→22:43)
--- NOTE | 2018-02-15 07:11 | HP ---
Date/Time of Note Date/Time of Note DATE: 02/15/18 TIME: 07:07 Assessment/Plan VTE Prophylaxis Pharmacological prophylaxis: heparin Lines/Catheters IV Catheter Type (from Nrsg): Saline Lock Urinary Cath still in place: Yes Reason Cath still needed: other (indicate) Assessment/Plan Assessment/Plan 43-year-old female with a history of severe multiple sclerosis, seizure, hypertension, neurogenic bladder with indwelling Roberson, left-sided colostomy who was brought to the ER for altered mentation and found to be septic secondary to UTI and possibly left lower lung pneumonia. PLAN -Admit to ICU -Keep n.p.o. -Sepsis is most likely secondary to UTI, however given recent hospitalization and chest x-ray finding, will broaden IV antibiotic and will also treat for healthcare associated pneumonia. Note however that patient is allergic to penicillin. -Consider chest CT -IV fluid -Follow-up urine and blood culture results -Replace Roberson -Patient also appears to be in A-fib according to what I saw on the monitor. Will order 12-lead EKG, 2D echo. Will give dose of digoxin now Result Diagram: 02/15/18 0325 02/15/18 0325 Results 24hrs Laboratory Tests Test 02/15/18 03:25 02/15/18 03:27 02/15/18 03:36 02/15/18 04:51 White Blood 17.1 #H Count Red Blood Count 4.59 Hemoglobin 12.8 Hematocrit 40.4 Mean Corpuscular 88.0 Volume Mean Corpuscular 27.9 L Hemoglobin Mean Corpuscular 31.7 L Hemoglobin Jessica nt Red Cell 16.0 H Distribution Width Platelet Count 494 #H Mean Platelet 9.7 Volume Immature 0.400 Granulocytes % Neutrophils % 71.6 Lymphocytes % 15.6 Monocytes % 12.0 H Eosinophils % 0.1 Basophils % 0.3 Nucleated Red 0.0 Blood Cells % Immature 0.070 H Granulocytes # Neutrophils # 12.3 H Lymphocytes # 2.7 Monocytes # 2.1 H Eosinophils # 0.0 Basophils # 0.1 Nucleated Red 0.0 Blood Cells # Prothrombin Time 13.8 Prothrombin Time 1.1 Ratio INR 1.05 International Normalized Ratio Activated 36.2 H Partial Thrombop last Time Sodium Level 140 Potassium Level 4.5 Chloride Level 104 Carbon Dioxide 27 Level Anion Gap 9 Blood Urea 13 Nitrogen Creatinine 0.52 Est Glomerular > 60 Filtrat Rate mL/min Glucose Level 210 Calcium Level 9.2 Total Bilirubin 0.0 L Direct Bilirubin 0.00 Indirect 0.0 Bilirubin Aspartate Amino 19 Transf (AST/SGOT ) Alanine < 6 L Aminotransferase (ALT/SGPT) Alkaline 74 Phosphatase Troponin I < 0.012 Total Protein 8.6 H Albumin 3.8 Globulin 4.80 H Albumin/Globulin 0.79 Ratio POC Venous 1.4 Lactate Blood Gas Blood arterial Specimen Source Arterial Blood 02/15/2018 3:38:19 Date Drawn AM Arterial Blood 7.451 H pH (Temp corrected) Arterial Blood 40.6 pCO2 (Temp correct) Arterial Blood 86.1 pO2 (Temp corrected) Arterial Blood 27.6 H HCO3 Arterial Blood 3.4 H Base Excess Arterial Blood 96.8 Oxygen Saturatio n Talon Test ACCEPTAB Arterial Blood Right Radial Gas Puncture Site Arterial 0.7 Blood Carboxyhem oglobin Arterial Blood 0.4 Methemoglobin Blood Gas A-a O2 586.3 H Differential Oxyhemoglobin 95.7 Percent Blood Gas 37.0 Temperature Blood Gas MASK - NRB Modality FiO2 100.0 Blood Gas Notified Whom Blood Gas 02/15/2018 3:48:58 Notified Time AM Urine Color YELLOW Urine Clarity SLIGHTLY CLOUDY A Urine pH 5.0 Urine Specific 1.013 [place] Urine Ketones NEGATIVE Urine Nitrite NEGATIVE Urine Bilirubin NEGATIVE Urine NEGATIVE Urobilinogen Urine Leukocyte 3+ H Esterase Urine 2 Microscopic RBC Urine 85 H Microscopic WBC Urine Squamous FEW Epithelial Cells Urine Hemoglobin 1+ H Urine Glucose NEGATIVE Urine Total 2+ H Protein Test 02/15/18 05:50 POC Venous 1.6 Lactate HPI/ROS Admit Date/Time Admit Date/Time Hx of Present Illness This is a 43-year-old female with a history of severe multiple sclerosis, seizure, hypertension, neurogenic bladder with indwelling Roberson, colostomy was brought to the ER for altered mentation. Patient was recently admitted here about a month ago for sepsis secondary to UTI. Patient is currently altered/lethargic so information gathered from chart review and from the ER physician. When she presented to ER, she was febrile with a temperature of 103.5, tachycardic with a heart rate of 156. WBC 17,000. UA consistent with UTI. Chest x-ray shows possible left lower lobe infiltrate PMH/Family/Social Past Medical History Medications Current Medications Ondansetron HCl (Zofran Inj) 4 mg ER BRIDGE PRN IV NAUSEA AND/OR VOMITING; Start 02/15/18 at 04:30; Stop 02/16/18 at 04:29 Acetaminophen (Tylenol Tab) 650 mg ER BRIDGE PRN PO MILD PAIN(1-3)OR ELEVATED TEMP; Start 02/15/18 at 04:30; Stop 02/16/18 at 04:29 Sodium Chloride 1,000 ml @ 100 mls/hr Q10H IV Last administered on 02/15/18at 06:32; Admin Dose 100 MLS/HR; Start 02/15/18 at 04:38; Stop 02/16/18 at 08:00 IV Flush (NS 3 ml) 3 ml PER PROTOCOL IV ; Start 02/15/18 at 05:00 Ondansetron HCl (Zofran Inj) 4 mg Q6H PRN IV NAUSEA AND/OR VOMITING; Start 02/15/18 at 05:00 Acetaminophen (Tylenol Tab) 650 mg Q6H PRN PO PAIN LEVEL 1-3 OR FEVER; Start 02/15/18 at 05:00 Acetaminophen/ Hydrocodone Bitart ([place] (5/325)) 1 tab Q6H PRN PO PAIN LEVEL 4-6; Start 02/15/18 at 05:00 Acetaminophen/ Hydrocodone Bitart ([place] (5/325)) 2 tab Q6H PRN PO PAIN LEVEL 7-10; Start 02/15/18 at 05:00 Heparin Sodium (Porcine) (Heparin (5000 Units/1ml)) 5,000 unit Q12 SC ; Start 02/15/18 at 09:00 Albuterol/ Ipratropium (Duoneb) 3 ml Q2H RESP THERAPY PRN HHN SHORTNESS OF BREATH; Start 02/15/18 at 05:00 Baclofen (Lioresal) 20 mg BID PO ; Start 02/15/18 at 09:00 Clonazepam (Klonopin) 2 mg BID PO ; Start 02/15/18 at 09:00 Divalproex Sodium (Depakote) 500 mg BID PO ; Start 02/15/18 at 09:00 Duloxetine HCl (Cymbalta) 60 mg DAILY PO ; Start 02/15/18 at 09:00 Gabapentin (Neurontin) 300 mg TID PO ; Start 02/15/18 at 09:00 Levetiracetam (Keppra) 1,000 mg BID PO ; Start 02/15/18 at 09:00 Miscellaneous Information 30 mg HS PRN PO INSOMNIA; Start 02/15/18 at 05:00; Status UNV Vancomycin HCl (Vanco Iv Per Pharmacy) VANCOMYCIN PER PHARMACY PER PROTOCOL XX ; Start 02/15/18 at 05:00 Levofloxacin/ Dextrose 100 ml @ 100 mls/hr ONCE ONCE IVPB ; Start 02/15/18 at 09:00; Stop 02/15/18 at 09:59 Aztreonam 50 ml @ 100 mls/hr Q12 IVPB ; Start 02/15/18 at 13:00 Vancomycin HCl 1.25 gm/Sodium Chloride 250 ml @ 83.333 mls/ hr Q12H IVPB ; Start 02/15/18 at 15:00 Coded Allergies: Penicillins (Verified Allergy, Unknown, 11/26/17) labetalol (Verified Allergy, Unknown, 11/26/17) latex (Verified Allergy, Unknown, 11/26/17) Past Surgical History Past Surgical Hx: other Family History Significant Family History: no pertinent family hx Social History Smoking Status: Never smoker Exam/Review of Systems Vital Signs Vitals Vital Signs Date Temp Pulse Resp B/P (MAP) Pulse Ox O2 O2 Flow FiO2 Time Delivery Rate 02/15/18 101.1 145 24 125/66 99 Non 15.0 06:30 (85) Rebreathe r 02/15/18 100 03:25 Intake and Output 02/14/18 02/14/18 02/15/18 1515:00 23:00 07:00 IntakeIntake Total 1940 ml BalanceBalance 1940 ml Exam Exam Constitutional: other (no acute distress) Head: normocephalic Respiratory: other (slight decreased at bases) Cardiovascular: regular rate and rhythm Gastrointestinal: soft Extremities: normal pulses PMH/Family/Social Past Medical History Medical History: other (see hpi) Coded Allergies: No Known Drug Allergy (Verified Allergy, Unknown, 09/28/15) Past Surgical History Past Surgical Hx: other (see hpi) Family History Significant Family History: no pertinent family hx Social History Alcohol Use: other Smoking Status: Unknown if ever smoked Drug Use: other KATELYN BOLANOS MD Feb 15, 2018 07:11
[2018-02-15] MEDS ORDERED: SOD CHLORIDE 0.9% 1,000 ML IV ONE ×3 (07:30→15:30)
[2018-02-15] MEDS ORDERED: SOD CHLORIDE 0.9% 500 ML IV ONE (08:00)
[2018-02-15] MEDS ORDERED: ACETAMINOPHEN 1000MG/100ML IV 100 ML IVPB ONE (08:00)
[2018-02-15] MEDS: DIVALPROEX (EC) 500 MG TAB PO SCH ×2 (09:00→22:43)
[2018-02-15] MEDS ORDERED: DIGOXIN 500 MCG INJ IV ONE (09:00)
[2018-02-15] MEDS ORDERED: LEVOFLOXACIN 500MG/D5W (PMX) 100 ML IVPB ONE (09:00)
[2018-02-15] MEDS: GABAPENTIN 300 MG CAP PO SCH ×3 (09:00→22:42)
[2018-02-15] MEDS: LEVETIRACETAM 500 MG TAB PO SCH ×2 (09:00→22:42)
[2018-02-15] MEDS: DULOXETINE 30 MG CAP DR PO SCH (09:00)
[2018-02-15] MEDS: BACLOFEN 10 MG TAB PO SCH ×2 (09:00→22:42)
[2018-02-15] MEDS: clonAZEPAM 0.5 MG TAB PO SCH ×2 (09:00→22:56)
[2018-02-15] MEDS: HEPARIN 5,000 UNIT/1 ML VIAL SC SCH ×2 (09:58→22:44)
[2018-02-15] MEDS ORDERED: LIDOCAINE 1% (MPF) 5 ML VIAL SC ONE (12:00)
[2018-02-15] MEDS: AZTREONAM 1 GM/NS (PMX) 50 ML IVPB SCH ×2 (13:18→21:00)
[2018-02-15] MEDS: VANCOMYCIN 1.25 GM in SOD CHLORIDE 0.9% 250 ML IVPB SCH (17:18)
--- NOTE | 2018-02-15 18:12 | PN ---
Date/Time of Note Date/Time of Note DATE: 02/15/18 TIME: 18:03 Assessment/Plan VTE Prophylaxis Pharmacological prophylaxis: heparin Lines/Catheters [facility] Assessment/Plan Hospital Course 1. Acute encephalopathy secondary to severe sepsis from UTI from indwelling Roberson catheter and/or pneumonia Continue vancomycin and aztreonam Follow-up on cultures IV fluid 2. Bilateral pulmonary consolidations CT chest shows bilateral areas of consolidation with opacities in the right lung and left lower lobe Continue IV antibiotics Pulmonary consultation obtained 3. History of multiple sclerosis No acute issues 4. Neurogenic bladder with chronic Roberson catheter Replace Robreson catheter 5. History of left-sided colostomy No acute issues 6. History of seizures Continue Keppra and Depakote Prophylaxis: Heparin Result Diagram: 02/15/18 0325 02/15/18 0325 Results 24hrs Laboratory Tests Test 02/15/18 03:25 02/15/18 03:27 02/15/18 03:36 02/15/18 04:51 White Blood 17.1 #H Count Red Blood Count 4.59 Hemoglobin 12.8 Hematocrit 40.4 Mean Corpuscular 88.0 Volume Mean Corpuscular 27.9 L Hemoglobin Mean Corpuscular 31.7 L Hemoglobin Jessica nt Red Cell 16.0 H Distribution Width Platelet Count 494 #H Mean Platelet 9.7 Volume Immature 0.400 Granulocytes % Neutrophils % 71.6 Lymphocytes % 15.6 Monocytes % 12.0 H Eosinophils % 0.1 Basophils % 0.3 Nucleated Red 0.0 Blood Cells % Immature 0.070 H Granulocytes # Neutrophils # 12.3 H Lymphocytes # 2.7 Monocytes # 2.1 H Eosinophils # 0.0 Basophils # 0.1 Nucleated Red 0.0 Blood Cells # Prothrombin Time 13.8 Prothrombin Time 1.1 Ratio INR 1.05 International Normalized Ratio Activated 36.2 H Partial Thrombop last Time Sodium Level 140 Potassium Level 4.5 Chloride Level 104 Carbon Dioxide 27 Level Anion Gap 9 Blood Urea 13 Nitrogen Creatinine 0.52 Est Glomerular > 60 Filtrat Rate mL/min Glucose Level 210 Calcium Level 9.2 Total Bilirubin 0.0 L Direct Bilirubin 0.00 Indirect 0.0 Bilirubin Aspartate Amino 19 Transf (AST/SGOT ) Alanine < 6 L Aminotransferase (ALT/SGPT) Alkaline 74 Phosphatase Troponin I < 0.012 Total Protein 8.6 H Albumin 3.8 Globulin 4.80 H Albumin/Globulin 0.79 Ratio POC Venous 1.4 Lactate Blood Gas Blood arterial Specimen Source Arterial Blood 02/15/2018 3:38:19 Date Drawn AM Arterial Blood 7.451 H pH (Temp corrected) Arterial Blood 40.6 pCO2 (Temp correct) Arterial Blood 86.1 pO2 (Temp corrected) Arterial Blood 27.6 H HCO3 Arterial Blood 3.4 H Base Excess Arterial Blood 96.8 Oxygen Saturatio n Talon Test ACCEPTAB Arterial Blood Right Radial Gas Puncture Site Arterial 0.7 Blood Carboxyhem oglobin Arterial Blood 0.4 Methemoglobin Blood Gas A-a O2 586.3 H Differential Oxyhemoglobin 95.7 Percent Blood Gas 37.0 Temperature Blood Gas MASK - NRB Modality FiO2 100.0 Blood Gas Notified Whom Blood Gas 02/15/2018 3:48:58 Notified Time AM Urine Color YELLOW Urine Clarity SLIGHTLY CLOUDY A Urine pH 5.0 Urine Specific 1.013 [place] Urine Ketones NEGATIVE Urine Nitrite NEGATIVE Urine Bilirubin NEGATIVE Urine NEGATIVE Urobilinogen Urine Leukocyte 3+ H Esterase Urine 2 Microscopic RBC Urine 85 H Microscopic WBC Urine Squamous FEW Epithelial Cells Urine Hemoglobin 1+ H Urine Glucose NEGATIVE Urine Total 2+ H Protein Test 02/15/18 05:50 02/15/18 08:08 POC Venous 1.6 Lactate Lactic Acid 3.2 *H Level Subjective 24 Hr Interval Summary Constitutional: disoriented Exam/Review of Systems Vital Signs Vitals Vital Signs Date Temp Pulse Resp B/P (MAP) Pulse Ox O2 O2 Flow FiO2 Time Delivery Rate 02/15/18 99.2 101 16 92/65 (74) 100 Non 17:00 Rebreather 02/15/18 15.0 16:00 02/15/18 100 10:50 Intake and Output 02/14/18 02/14/18 02/15/18 1515:00 23:00 07:00 IntakeIntake Total 1940 ml BalanceBalance 1940 ml Exam Psych: confusion Respiratory: clear to auscultation Cardiovascular: regular rate and rhythm Gastrointestinal: soft; No distended Musculoskeletal: nl extremities to inspection Medications Medications Current Medications Ondansetron HCl (Zofran Inj) 4 mg ER BRIDGE PRN IV NAUSEA AND/OR VOMITING; Start 02/15/18 at 04:30; Stop 02/16/18 at 04:29 Acetaminophen (Tylenol Tab) 650 mg ER BRIDGE PRN PO MILD PAIN(1-3)OR ELEVATED TEMP; Start 02/15/18 at 04:30; Stop 02/16/18 at 04:29 Sodium Chloride 1,000 ml @ 100 mls/hr Q10H IV Last administered on 02/15/18at 14:38; Admin Dose 100 MLS/HR; Start 02/15/18 at 04:38; Stop 02/16/18 at 08:00 IV Flush (NS 3 ml) 3 ml PER PROTOCOL IV ; Start 02/15/18 at 05:00 Ondansetron HCl (Zofran Inj) 4 mg Q6H PRN IV NAUSEA AND/OR VOMITING; Start 02/15/18 at 05:00 Acetaminophen (Tylenol Tab) 650 mg Q6H PRN PO PAIN LEVEL 1-3 OR FEVER; Start 02/15/18 at 05:00 Acetaminophen/ Hydrocodone Bitart ([place] (5/325)) 1 tab Q6H PRN PO PAIN LEVEL 4-6; Start 02/15/18 at 05:00 Acetaminophen/ Hydrocodone Bitart ([place] (5/325)) 2 tab Q6H PRN PO PAIN LEVEL 7-10; Start 02/15/18 at 05:00 Heparin Sodium (Porcine) (Heparin (5000 Units/1ml)) 5,000 unit Q12 SC Last administered on 02/15/18at 09:58; Admin Dose 5,000 UNIT; Start 02/15/18 at 09:00 Albuterol/ Ipratropium (Duoneb) 3 ml Q2H RESP THERAPY PRN HHN SHORTNESS OF BREATH; Start 02/15/18 at 05:00 Baclofen (Lioresal) 20 mg BID PO ; Start 02/15/18 at 09:00 Clonazepam (Klonopin) 2 mg BID PO ; Start 02/15/18 at 09:00 Divalproex Sodium (Depakote) 500 mg BID PO ; Start 02/15/18 at 09:00 Duloxetine HCl (Cymbalta) 60 mg DAILY PO ; Start 02/15/18 at 09:00 Gabapentin (Neurontin) 300 mg TID PO ; Start 02/15/18 at 09:00 Levetiracetam (Keppra) 1,000 mg BID PO ; Start 02/15/18 at 09:00 Zolpidem Tartrate (Ambien) 5 mg HS PRN PO INSOMNIA; Start 02/15/18 at 21:00 Vancomycin HCl (Vanco Iv Per Pharmacy) VANCOMYCIN PER PHARMACY PER PROTOCOL XX ; Start 02/15/18 at 05:00 Aztreonam 50 ml @ 100 mls/hr Q12 IVPB Last administered on 02/15/18at 13:18; Admin Dose 100 MLS/HR; Start 02/15/18 at 13:00 Vancomycin HCl 1.25 gm/Sodium Chloride 250 ml @ 83.333 mls/ hr Q12H IVPB Last administered on 02/15/18at 17:18; Admin Dose 83.333 MLS/HR; Start 02/15/18 at 15:00 VANDANA DA SILVA Feb 15, 2018 18:12
[2018-02-15] MEDS ORDERED: ZOLPIDEM 5 MG TAB PO PRN (21:00)
[2018-02-16] VITALS (81 sets, daily range): BP systolic 60–132; BP diastolic 35–114; PULSE 70–105; RESP 12–43
[2018-02-16] MEDS ORDERED: SOD CHLORIDE 0.9% 500 ML IV ONE ×2 (01:00→04:00)
[2018-02-16] MEDS: VANCOMYCIN 1.25 GM in SOD CHLORIDE 0.9% 250 ML IVPB SCH ×2 (03:00→16:20)
[2018-02-16] MEDS ORDERED: NORepinephrine 8MG/250 ML (PMX 250 ML ONE (06:08)
[2018-02-16] MEDS ORDERED: NORepinephrine 8MG/250 ML (PMX 250 ML IV SCH (06:30)
[2018-02-16] MEDS: clonAZEPAM 0.5 MG TAB PO SCH ×2 (09:00→21:15)
[2018-02-16] MEDS: HEPARIN 5,000 UNIT/1 ML VIAL SC SCH ×2 (09:03→21:18)
--- NOTE | 2018-02-16 09:28 | CONS ---
Date/Time of Note Date/Time of Note DATE: 02/16/18 TIME: 09:24 Assessment/Plan Assessment/Plan Assessment/Plan Assessment and recommendations; 1. Patient with history of multiple sclerosis and apparent dementia admitted for sepsis due to pneumonia and UTI. Clinically improving. 2. Other comorbidities include stable seizure disorder, neuropathy, muscle spasms, and history of colostomy. 3. Gram-positive bacteremia. 4. Chronic indwelling Roberson catheter. 5. Improving mental status. Encephalopathy likely toxic/metabolic in etiology. 6. Persistent mild hypotension, on low-dose Levophed. Continue current supportive care. Patient responding well to current treatment regimen. Wean down Levophed as tolerated. Result Diagram: 02/16/18 0430 02/16/18 0430 Results 24hrs Laboratory Tests Test 02/16/18 04:30 02/16/18 05:10 02/16/18 06:31 White Blood Count 14.3 H Red Blood Count 3.33 #L Hemoglobin 9.3 #L Hematocrit 30.3 #L Mean Corpuscular Volume 91.0 Mean Corpuscular Hemoglobin 27.9 L Mean Corpuscular 30.7 L Hemoglobin Concent Red Cell Distribution Width 15.8 H Platelet Count 289 # Mean Platelet Volume 9.6 Immature Granulocytes % 0.400 Neutrophils % 74.2 Lymphocytes % 17.2 Monocytes % 7.5 Eosinophils % 0.5 Basophils % 0.2 Nucleated Red Blood Cells % 0.0 Immature Granulocytes # 0.060 H Neutrophils # 10.6 H Lymphocytes # 2.5 Monocytes # 1.1 H Eosinophils # 0.1 Basophils # 0.0 Nucleated Red Blood Cells # 0.0 Sodium Level 145 H Potassium Level 3.5 Chloride Level 114 H Carbon Dioxide Level 26 Anion Gap 5 Blood Urea Nitrogen 10 Creatinine 0.41 L Est Glomerular Filtrat > 60 Rate mL/min Glucose Level 92 # Calcium Level 7.8 L Magnesium Level 2.0 Total Bilirubin 0.0 L Direct Bilirubin 0.00 Indirect Bilirubin 0.0 Aspartate Amino 31 Transf (AST/SGOT) Alanine 12 L Aminotransferase (ALT/SGPT) Alkaline Phosphatase 56 Total Protein 6.4 # Albumin 2.7 #L Globulin 3.70 H Albumin/Globulin Ratio 0.72 Blood Gas Specimen Source Blood arterial Arterial Blood Date Drawn 02/16/2018 5:20:57 AM Arterial Blood pH 7.395 (Temp corrected) Arterial Blood pCO2 42.2 (Temp correct) Arterial Blood pO2 110.7 H (Temp corrected) Arterial Blood HCO3 25.3 Arterial Blood Base Excess 0.3 Arterial Blood 98.1 H Oxygen Saturation Talon Test N/A Arterial Blood Gas Right Radial Puncture Site Arterial 0.3 Blood Carboxyhemoglobin Arterial Blood Methemoglobin 0.1 Blood Gas A-a O2 Differential 97.0 H Oxyhemoglobin Percent 97.7 Blood Gas Temperature 37.0 Blood Gas Modality NASAL CANNULA FiO2 36.0 Blood Gas Notified Whom [facility] Blood Gas Notified Time 02/16/2018 5:37:11 AM Lactic Acid Level 1.2 Consultation Date/Type/Reason Admit Date/Time Date of Consultation: Feb 16, 2018 Type of Consult Pulmonary/critical care History of presenting illness; Patient is a 42-year-old lady with history of multiple sclerosis admitted b ecause of shortness of breath and hypoxemia. Patient be diagnosed with bilateral pneumonia as well as UTI. Patient is now showing improving mental status to the point where she is more responsive and follows simple commands. Patient is a poor historian and history was obtained from medical records. However upon examination patient did not appear to be in any distress whatsoever. Past medical history; 1. History of multiple sclerosis. 2. Patient apparently is bedbound. 3. History of colostomy. 4. Neuropathy. 5. History of muscle spasms. 6. History of seizure disorder. Medications; reviewed. Allergies; as outlined above. Social history; patient is a non-smoker. Family history; not available. Occupational history; patient is on disability. Review of system; not able to be obtained. Patient however remains awake and follows simple commands like mouth opening etc. General exam; young female, awake, currently in no distress. Past Medical History Medications Current Medications IV Flush (NS 3 ml) 3 ml PER PROTOCOL IV ; Start 02/15/18 at 05:00 Ondansetron HCl (Zofran Inj) 4 mg Q6H PRN IV NAUSEA AND/OR VOMITING; Start 02/15 at 05:00 Acetaminophen (Tylenol Tab) 650 mg Q6H PRN PO PAIN LEVEL 1-3 OR FEVER; Start 02/15/18 at 05:00 Acetaminophen/ Hydrocodone Bitart ([place] (5/325)) 1 tab Q6H PRN PO PAIN LEVEL 4-6; Start 02/15/18 at 05:00 Acetaminophen/ Hydrocodone Bitart ([place] (5/325)) 2 tab Q6H PRN PO PAIN LEVEL 7-10; Start 02/15/18 at 05:00 Heparin Sodium (Porcine) (Heparin (5000 Units/1ml)) 5,000 unit Q12 SC Last administered on 02/16/18 09:03; Admin Dose 5,000 UNIT; Start 02/15/18 at 09:00 Albuterol/ Ipratropium (Duoneb) 3 ml Q2H RESP THERAPY PRN HHN SHORTNESS OF BREATH Last administered on 02/15/18at 21:29; Admin Dose 3 ML; Start 02/15/18 at 05:00 Baclofen (Lioresal) 20 mg BID PO Last administered on 02/15/18at 22:42; Admin Dose 20 MG; Start 02/15/18 at 09:00 Clonazepam (Klonopin) 2 mg BID PO Last administered on 02/15/18at 22:56; Admin Dose 2 MG; Start 02/15/18 at 09:00 Divalproex Sodium (Depakote) 500 mg BID PO Last administered on 02/15/18at 22:43; Admin Dose 500 MG; Start 02/15/18 at 09:00 Duloxetine HCl (Cymbalta) 60 mg DAILY PO ; Start 02/15/18 at 09:00 Gabapentin (Neurontin) 300 mg TID PO Last administered on 02/15/18at 22:42; Admin Dose 300 MG; Start 02/15/18 at 09:00 Levetiracetam (Keppra) 1,000 mg BID PO Last administered on 02/15/18at 22:42; Admin Dose 1,000 MG; Start 02/15/18 at 09:00 Zolpidem Tartrate (Ambien) 5 mg HS PRN PO INSOMNIA; Start 02/15/18 at 21:00 Vancomycin HCl (Vanco Iv Per Pharmacy) VANCOMYCIN PER PHARMACY PER PROTOCOL XX ; Start 02/15/18 at 05:00 Aztreonam 50 ml @ 100 mls/hr Q12 IVPB Last administered on 02/15/18at 21:00; Admin Dose 100 MLS/HR; Start 02/15/18 at 13:00 Vancomycin HCl 1.25 gm/Sodium Chloride 250 ml @ 83.333 mls/ hr Q12H IVPB Last administered on 02/16/18at 03:00; Admin Dose 83.333 MLS/HR; Start 02/15/18 at 15:00 Norepinephrine 250 ml @ 1.875 mls/ hr TITRATE IV Last administered on 02/16/18at 06:23; Admin Dose 1.875 MLS/HR; Start 02/16/18 at 06:30 Allergies: Coded Allergies: Penicillins (Verified Allergy, Unknown, 11/26/17) labetalol (Verified Allergy, Unknown, 11/26/17) latex (Verified Allergy, Unknown, 11/26/17) Past Surgical History Past Surgical Hx: other Social History Smoking Status: Unknown if ever smoked Exam/Review of Systems Vital Signs Vitals Vital Signs Date Temp Pulse Resp B/P (MAP) Pulse Ox O2 O2 Flow FiO2 Time Delivery Rate 02/16/18 83 08:00 02/16/18 14 60/45 (50) 06:15 02/16/18 98.2 100 Nasal 3.0 06:00 Cannula 02/15/18 100 21:16 Intake and Output 02/15/18 02/15/18 02/16/18 1515:00 23:00 07:00 IntakeIntake Total 1050 ml 1950 ml OutputOutput Total 700 ml BalanceBalance 1050 ml 1250 ml Exam H EENT exam; supple neck, no JVD. No lymphadenopathy. Midline trachea. No thyromegaly. Patient has fair dentition. No neck masses. Pupils are small bilaterally. Chest exam; diminished but clear breath sounds. S1-S2 audible, no murmurs. Regular rhythm. Abdomen exam; soft, nondistended. No organomegaly. Nontender. Colostomy in place. Bowel sounds audible. Extremity exam; no peripheral edema. 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 Medications Medications Current Medications IV Flush (NS 3 ml) 3 ml PER PROTOCOL IV ; Start 02/15/18 at 05:00 Ondansetron HCl (Zofran Inj) 4 mg Q6H PRN IV NAUSEA AND/OR VOMITING; Start 02/15/18 at 05:00 Acetaminophen (Tylenol Tab) 650 mg Q6H PRN PO PAIN LEVEL 1-3 OR FEVER; Start 02/15/18 at 05:00 Acetaminophen/ Hydrocodone Bitart ([place] (5/325)) 1 tab Q6H PRN PO PAIN LEVEL 4-6; Start 02/15/18 at 05:00 Acetaminophen/ Hydrocodone Bitart ([place] (5/325)) 2 tab Q6H PRN PO PAIN LEVEL 7-10; Start 02/15/18 at 05:00 Heparin Sodium (Porcine) (Heparin (5000 Units/1ml)) 5,000 unit Q12 SC Last administered on 02/16/18at 09:03; Admin Dose 5,000 UNIT; Start 02/15/18 at 09:00 Albuterol/ Ipratropium (Duoneb) 3 ml Q2H RESP THERAPY PRN HHN SHORTNESS OF BREATH Last administered on 02/15/18at 21:29; Admin Dose 3 ML; Start 02/15/18 at 05:00 Baclofen (Lioresal) 20 mg BID PO Last administered on 02/15/18at 22:42; Admin Dose 20 MG; Start 02/15/18 at 09:00 Clonazepam (Klonopin) 2 mg BID PO Last administered on 02/15/18at 22:56; Admin Dose 2 MG; Start 02/15/18 at 09:00 Divalproex Sodium (Depakote) 500 mg BID PO Last administered on 02/15/18at 22:43; Admin Dose 500 MG; Start 02/15/18 at 09:00 Duloxetine HCl (Cymbalta) 60 mg DAILY PO ; Start 02/15/18 at 09:00 Gabapentin (Neurontin) 300 mg TID PO Last administered on 02/15/18at 22:42; Admin Dose 300 MG; Start 02/15/18 at 09:00 Levetiracetam (Keppra) 1,000 mg BID PO Last administered on 02/15/18at 22:42; Admin Dose 1,000 MG; Start 02/15/18 at 09:00 Zolpidem Tartrate (Ambien) 5 mg HS PRN PO INSOMNIA; Start 02/15/18 at 21:00 Vancomycin HCl (Vanco Iv Per Pharmacy) VANCOMYCIN PER PHARMACY PER PROTOCOL XX ; Start 02/15/18 at 05:00 Aztreonam 50 ml @ 100 mls/hr Q12 IVPB Last administered on 02/15/18at 21:00; Admin Dose 100 MLS/HR; Start 02/15/18 at 13:00 Vancomycin HCl 1.25 gm/Sodium Chloride 250 ml @ 83.333 mls/ hr Q12H IVPB Last administered on 02/16/18at 03:00; Admin Dose 83.333 MLS/HR; Start 02/15/18 at 15:00 Norepinephrine 250 ml @ 1.875 mls/ hr TITRATE IV Last administered on 02/16/18at 06:23; Admin Dose 1.875 MLS/HR; Start 02/16/18 at 06:30 HALIMA DRUMMOND Feb 16, 2018 09:28
[2018-02-16] MEDS: LEVETIRACETAM 500 MG TAB PO SCH ×2 (09:55→21:15)
[2018-02-16] MEDS: DIVALPROEX (EC) 500 MG TAB PO SCH ×2 (09:56→21:15)
[2018-02-16] MEDS: GABAPENTIN 300 MG CAP PO SCH ×3 (09:57→21:15)
[2018-02-16] MEDS: DULOXETINE 30 MG CAP DR PO SCH (09:57)
[2018-02-16] MEDS: BACLOFEN 10 MG TAB PO SCH ×2 (09:57→21:14)
[2018-02-16] MEDS ORDERED: LACTATED RINGER'S 500 ML IV ONE (10:30)
[2018-02-16] MEDS: AZTREONAM 1 GM/NS (PMX) 50 ML IVPB SCH ×2 (11:49→21:15)
[2018-02-16] MEDS: SOD CHLORIDE 0.9% 1,000 ML IV SCH ×2 (12:30→16:22)
--- NOTE | 2018-02-16 13:29 | PN ---
Date/Time of Note Date/Time of Note DATE: 02/16/18 TIME: 13:28 Assessment/Plan VTE Prophylaxis Risk score (from Ns)>0 risk: 4 SCD applied (from Ns): Yes Pharmacological prophylaxis: heparin Lines/Catheters IV Catheter Type (from [facility] Mid Line Urinary Cath still in place: Yes Reason Cath still needed: urinary retention Assessment/Plan Hospital Course 43 yo female with MS and chronic encephelophathy with septic shock from pneumonia - Abx - Wean pressors as able Result Diagram: 02/16/18 0430 02/16/18 0430 Results 24hrs Laboratory Tests Test 02/16/18 04:30 02/16/18 05:10 02/16/18 06:31 White Blood Count 14.3 H Red Blood Count 3.33 #L Hemoglobin 9.3 #L Hematocrit 30.3 #L Mean Corpuscular Volume 91.0 Mean Corpuscular Hemoglobin 27.9 L Mean Corpuscular 30.7 L Hemoglobin Concent Red Cell Distribution Width 15.8 H Platelet Count 289 # Mean Platelet Volume 9.6 Immature Granulocytes % 0.400 Neutrophils % 74.2 Lymphocytes % 17.2 Monocytes % 7.5 Eosinophils % 0.5 Basophils % 0.2 Nucleated Red Blood Cells % 0.0 Immature Granulocytes # 0.060 H Neutrophils # 10.6 H Lymphocytes # 2.5 Monocytes # 1.1 H Eosinophils # 0.1 Basophils # 0.0 Nucleated Red Blood Cells # 0.0 Sodium Level 145 H Potassium Level 3.5 Chloride Level 114 H Carbon Dioxide Level 26 Anion Gap 5 Blood Urea Nitrogen 10 Creatinine 0.41 L Est Glomerular Filtrat > 60 Rate mL/min Glucose Level 92 # Hemoglobin A1c 5.6 Calcium Level 7.8 L Magnesium Level 2.0 Total Bilirubin 0.0 L Direct Bilirubin 0.00 Indirect Bilirubin 0.0 Aspartate Amino 31 Transf (AST/SGOT) Alanine 12 L Aminotransferase (ALT/SGPT) Alkaline Phosphatase 56 Total Protein 6.4 # Albumin 2.7 #L Globulin 3.70 H Albumin/Globulin Ratio 0.72 Blood Gas Specimen Source Blood arterial Arterial Blood Date Drawn 02/16/2018 5:20:57 AM Arterial Blood pH 7.395 (Temp corrected) Arterial Blood pCO2 42.2 (Temp correct) Arterial Blood pO2 110.7 H (Temp corrected) Arterial Blood HCO3 25.3 Arterial Blood Base Excess 0.3 Arterial Blood 98.1 H Oxygen Saturation Talon Test N/A Arterial Blood Gas Right Radial Puncture Site Arterial 0.3 Blood Carboxyhemoglobin Arterial Blood Methemoglobin 0.1 Blood Gas A-a O2 Differential 97.0 H Oxyhemoglobin Percent 97.7 Blood Gas Temperature 37.0 Blood Gas Modality NASAL CANNULA FiO2 36.0 Blood Gas Notified Whom [facility] Blood Gas Notified Time 02/16/2018 5:37:11 AM Lactic Acid Level 1.2 Subjective 24 Hr Interval Summary Free Text/Dictation Still requiring levophed Breathing comfortably on RA Exam/Review of Systems Vital Signs Vitals Vital Signs Date Temp Pulse Resp B/P (MAP) Pulse Ox O2 O2 Flow FiO2 Time Delivery Rate 02/16/18 98.7 78 13 100/48 100 Nasal 3.0 12:00 (65) Cannula 02/15/18 100 21:16 Intake and Output 02/15/18 02/15/18 02/16/18 1515:00 23:00 07:00 IntakeIntake Total 1050 ml 1951 ml OutputOutput Total 760 ml BalanceBalance 1050 ml 1191 ml Medications Medications Current Medications IV Flush (NS 3 ml) 3 ml PER PROTOCOL IV ; Start 02/15/18 at 05:00 Ondansetron HCl (Zofran Inj) 4 mg Q6H PRN IV NAUSEA AND/OR VOMITING; Start 02/15/18 at 05:00 Acetaminophen (Tylenol Tab) 650 mg Q6H PRN PO PAIN LEVEL 1-3 OR FEVER; Start 02/15/18 at 05:00 Acetaminophen/ Hydrocodone Bitart ([place] (5/325)) 1 tab Q6H PRN PO PAIN LEVEL 4-6; Start 02/15/18 at 05:00 Acetaminophen/ Hydrocodone Bitart ([place] (5/325)) 2 tab Q6H PRN PO PAIN LEVEL 7-10; Start 02/15/18 at 05:00 Heparin Sodium (Porcine) (Heparin (5000 Units/1ml)) 5,000 unit Q12 SC Last administered on 02/16/18at 09:03; Admin Dose 5,000 UNIT; Start 02/15/18 at 09:00 Albuterol/ Ipratropium (Duoneb) 3 ml Q2H RESP THERAPY PRN HHN SHORTNESS OF BREATH Last administered on 1/6/19at 21:29; Admin Dose 3 ML; Start 02/15/18 at 05:00 Baclofen (Lioresal) 20 mg BID PO Last administered on 02/16/18 09:57; Admin Dose 20 MG; Start 02/15/18 at 09:00 Clonazepam (Klonopin) 2 mg BID PO Last administered on 02/15/18 22:56; Admin Dose 2 MG; Start 02/15/18 at 09:00 Divalproex Sodium (Depakote) 500 mg BID PO Last administered on 02/16/18 09:56; Admin Dose 500 MG; Start 02/15/18 at 09:00 Duloxetine HCl (Cymbalta) 60 mg DAILY PO Last administered on 02/16/18 09:57; Admin Dose 60 MG; Start 02/15/18 at 09:00 Gabapentin (Neurontin) 300 mg TID PO Last administered on 02/16/18 09:57; Admin Dose 300 MG; Start 02/15/18 at 09:00 Levetiracetam (Keppra) 1,000 mg BID PO Last administered on 02/16/18 09:55; Admin Dose 1,000 MG; Start 02/15/18 at 09:00 Zolpidem Tartrate (Ambien) 5 mg HS PRN PO INSOMNIA; Start 02/15/18 at 21:00 Vancomycin HCl (Vanco Iv Per Pharmacy) VANCOMYCIN PER PHARMACY PER PROTOCOL XX ; Start 02/15/18 at 05:00 Aztreonam 50 ml @ 100 mls/hr Q12 IVPB Last administered on 02/16/18 11:49; Admin Dose 100 MLS/HR; Start 02/15/18 at 13:00 Vancomycin HCl 1.25 gm/Sodium Chloride 250 ml @ 83.333 mls/ hr Q12H IVPB Last administered on 02/16/18 03:00; Admin Dose 83.333 MLS/HR; Start 02/15/18 at 15:00 Norepinephrine 250 ml @ 1.875 mls/ hr TITRATE IV Last administered on 02/16/18 06:23; Admin Dose 1.875 MLS/HR; Start 02/16/18 at 06:30 Miscellaneous Information (*Rx Drug Level Order Reminder*) VANCO TR 02/16 AT 1400 ONCE ONCE XX ; Start 02/16/18 at 14:00; Stop 02/16/18 at 14:01 Sodium Chloride 1,000 ml @ 100 mls/hr Q10H IV ; Start 02/16/18 at 12:30 TAYLER PATEL MD Feb 16, 2018 13:29
--- NOTE | 2018-02-16 14:51 | CONS ---
DATE OF ADMISSION: 02/15/2018 DATE OF CONSULTATION: 02/16/2018 TYPE OF CONSULTATION: Infectious disease. REASON FOR CONSULTATION: Antibiotic management. HISTORY OF PRESENT ILLNESS: Carito Gutierrez is a 43-year-old female admitted on 02/15/2018 with shor tness of breath and altered level of consciousness x1 day. The patient has a history of: 1. Multiple sclerosis. 2. History of pneumonia in the past. She presents with altered mental status. Patient brought in b y ambulance; cough with white sputum, placed on a nonbreather mask by paramedics. Other problems inc lude: 3. Hypertension. 4. Colostomy. 5. Seizure disorder. 6. History of urosepsis with neurogenic bladder. PAST MEDICAL HISTORY: Operations: Status post colostomy. FAMILY HISTORY: Noncontributory. SOCIAL HISTORY: She does smoke. She does abuse drugs. She is an occasional drinker. ALLERGIES: 1. PENICILLIN. 2. LABETALOL. 3. LATEX. MEDICATIONS: Per chart. REVIEW OF SYSTEMS: Noncontributory. On presentation to the Emergency Room, the temperature was 103. 5. White count was 17.1, H and H of 12.8 and 40.4, platelet count 494,000. BUN and creatinine 13/0. 52. A blood pressure was okay 140/98. She had 17.1, white count was 72% polys. Patient was started on vancomycin and Aztreonam. IMAGING STUDIES: Her chest x-ray showed left upper extremity PICC line, elevated left hemidiaphragm with left lower lobe compressive atelectasis and/or infiltrates. A CT scan of the chest showed patch y areas of consolidation and ground glass opacification in the right upper lobe and left lower lobe w ith more confluent areas of consolidation in the right middle lobe and right lower lobe. Findings ar e suspicious for infectious etiology, given the dense consolidation in the right lower lobe and right middle lobe, somewhat similar appearance of the right lower lobe consolidation compared to 8. CT angiogram: Follow up imaging after treatment is recommended to exclude underlying neoplasm. IMPRESSION AND PLAN: The patient was transferred to the intensive care unit, seen by Dr. Rodriguez. Tomel ay, her white count is 14.3. Dr. Rodriguez notes history of multiple sclerosis and apparent dementia, ad mitted for sepsis due to pneumonia and urinary tract infection. Other comorbidities include seizure disorder, neuropathy, muscle spasms, and history of colostomy. Her blood cultures are now growing gr am-positive cocci in pairs and chains. Urine is growing gram-negative rods, but less than 10,000 col sandra-forming units per mL. She has an IV catheter in place midline and a Roberson catheter. PHYSICAL EXAMINATION: GENERAL: She is a well-developed, well-nourished female who is in acute or moderate distress. VITAL SIGNS: T-max 103.5. SKIN: Without generalized rash. HEENT: Within normal limits. NECK: Supple. LYMPH NODES: None palpable. CHEST: Decreased breath sounds at the bases with scattered rhonchi. HEART: Without murmur or gallop, tachycardic. ABDOMEN: Soft, nontender, without organosplenomegaly or masses. EXTREMITIES: Without cyanosis, clubbing, or edema. RECTAL AND GENITAL: Deferred. NEUROLOGIC: No focal neurological abnormality. IMPRESSION AND PLAN: The patient comes in now with probable aspiration pneumonia. She has right low er lobe and right middle lobe consolidation. She is on vancomycin and Aztreonam. If necessary, I wi ll switch her from Aztreonam to meropenem, but at the present time, I think she has gram-positive shaista teremia and the vancomycin should be adequate. She is also on norepinephrine to titrate her blood pr essure. I will dictate my findings to the hospitalist and to Dr. Rodriguez. Dictated By: VISHNU CHRISTIANSON MD, JD/NTS Conf#: [id number] [facility]#: [id number] CC: KATELYN BOLANOS MD;*End*
--- NOTE | 2018-02-16 16:00 | RADRPT ---
Echocardiogram Report Patient Name: JEYSON CARTER J Gender: Female Date: 1975 Study Date: 16-Feb-2018 Milk Handler: Estephanie Winston RDCS Location: 103 Ref. Physician: KATELYN BOLANOS Quality: Adequate Procedures: Transthoracic echocardiogram with complete 2D, M-Mode, and doppler examination. Indications: Shortness of breath. 2D/M Mode Doppler Measurement Value Normal Ranges Measurement Value Normal Ranges LVIDd 2D 4.2 3.5 - 5.6 cm AV Peak Dada 1.5 m/sec LVPWd 2D 1.9 0.6 - 1.1 cm AV Peak PG 9.0 mmHg IVSd 2D 0.9 0.6 - 1.1 cm LVOT Peak Dada 1.2 m/sec AoR Diam 2D 2.4 2.0 - 3.7 cm LVOT Peak PG 6.0 mmHg LA/Ao 2D 1 0 - 1 Lat E` Dada 0.1 m/sec LA Dimen 2D 3.0 2.3 - 4.0 cm TR Peak Dada 2.3 m/sec TR Peak PG 20.0 mmHg RVSP 23.0 mmHg RA Pressure 3.0 Findings Left Ventricle: Normal left ventricular systolic function. Normal left ventricular cavity size. Normal left ventricular wall thickness. Ejection fraction is visually estimated at 55 %. Tissue Doppler/Mitral Doppler indices are consistent with impaired relaxation (Stage I diastolic dysfunction). Right Ventricle: Normal right ventricular size. Normal right ventricular systolic function. Left Atrium: The left atrium is normal in size. Right Atrium: The right atrium is normal in size. Mitral Valve: Normal appearance and function of the mitral valve with trace physiologic regurgitation. Aortic Valve: Normal appearance of the aortic valve. No significant aortic stenosis or insufficiency. Tricuspid Valve: Normal appearance and function of the tricuspid valve with trace physiologic regurgitation. Estimated peak PA systolic pressure 23 mmHg. Pulmonic Valve: Normal pulmonic valve appearance. Pericardium: Normal pericardium with no significant pericardial effusion. Aorta: Normal aortic root. IVC: Normal size and normal respiratory collapse consistent with normal right atrial pressure. Conclusions Normal left ventricular systolic function. Normal left ventricular cavity size. Normal left ventricular wall thickness. Ejection fraction is visually estimated at 55 %. Tissue Doppler/Mitral Doppler indices are consistent with impaired relaxation (Stage I diastolic dysfunction). Normal right ventricular size. Normal right ventricular systolic function. The left atrium is normal in size. The right atrium is normal in size. No significant valvular stenosis or regurgitation seen. Normal pericardium with no significant pericardial effusion. Electronically Signed By: hRett Scott 16-Feb-2018 15:59:56 -0800 Patient Name: JEYSON CARTER J Study Date: 16-Feb-2018 [id number]
[2018-02-17] VITALS (80 sets, daily range): BP systolic 62–135; BP diastolic 44–101; PULSE 53–91; RESP 13–31; Ht 162.6 cm; Wt 84.7 kg
[2018-02-17] MEDS: VANCOMYCIN 1.25 GM in SOD CHLORIDE 0.9% 250 ML IVPB SCH (02:54)
[2018-02-17] MEDS: LEVETIRACETAM 500 MG TAB PO SCH ×2 (08:19→21:20)
[2018-02-17] MEDS: clonAZEPAM 0.5 MG TAB PO SCH (08:19)
[2018-02-17] MEDS: DIVALPROEX (EC) 500 MG TAB PO SCH ×2 (08:20→21:19)
[2018-02-17] MEDS: DULOXETINE 30 MG CAP DR PO SCH (08:20)
[2018-02-17] MEDS: GABAPENTIN 300 MG CAP PO SCH ×2 (08:20→12:23)
[2018-02-17] MEDS: BACLOFEN 10 MG TAB PO SCH (08:20)
[2018-02-17] MEDS: HEPARIN 5,000 UNIT/1 ML VIAL SC SCH ×2 (08:23→21:21)
[2018-02-17] MEDS: AZTREONAM 1 GM/NS (PMX) 50 ML IVPB SCH ×2 (09:17→21:53)
--- NOTE | 2018-02-17 09:19 | CONS ---
Date/Time of Note Date/Time of Note DATE: 02/17/18 TIME: 09:15 Assessment/Plan Assessment/Plan Assessment/Plan Assessment and recommendations; 1. Patient with history of multiple sclerosis admitted with sepsis due to UTI and pneumonia involving right lung with significant clinical improvement. 2. Mild persistent hypotension, on tapering dose of Levophed. 3. History of prior colostomy. 4. History of chronic indwelling Roberson catheter. 5. Stable seizure disorder. Continue current supportive care. Wean down Levophed as tolerated. Patient responding well to current treatment regimen. Result Diagram: 02/16/18 0430 02/16/18 0430 Results 24hrs Laboratory Tests Test 02/16/18 13:50 Vancomycin Level Trough 14.1 Consultation Date/Type/Reason Admit Date/Time Feb 15, 2018 at 04:23 Initial Consult Date 02/16/18 Type of Consult Pulmonary/critical care History of presenting illness; Patient is a 42-year-old lady with history of multiple sclerosis admitted because of shortness of breath and hypoxemia. Patient be diagnosed with bilateral pneumonia as well as UTI. Patient is now showing improving mental status to the point where she is more responsive and follows simple commands. Patient is a poor historian and history was obtained from medical records. However upon examination patient did not appear to be in any distress whatsoever. Past medical history; 1. History of multiple sclerosis. 2. Patient apparently is bedbound. 3. History of colostomy. 4. Neuropathy. 5. History of muscle spasms. 6. History of seizure disorder. Medications; reviewed. Allergies; as outlined above. Social history; patient is a non-smoker. Family history; not available. Occupational history; patient is on disability. Review of system; not able to be obtained. Patient however remains awake and follows simple commands like mouth opening etc. General exam; young female, awake, currently in no distress. 24 HR Interval Summary Free Text/Dictation Patient's condition is markedly improved. Mental status is also significantly improved to the point where the patient is now awake and alert and communicative appropriately. Denies any shortness of breath, chest pain, abdominal pain, nausea vomiting or fever. General exam; young female, awake alert, currently in no distress. Exam/Review of Systems Vital Signs Vitals Vital Signs Date Temp Pulse Resp B/P (MAP) Pulse Ox O2 O2 Flow FiO2 Time Delivery Rate 02/17/18 71 08:00 1/8/19 14 96/55 (69) 95 06:15 02/17/18 Nasal 3.0 06:00 Cannula 02/17/18 98.7 04:00 02/15/18 100 21:16 Intake and Output 02/16/18 02/16/18 02/17/18 1515:00 23:00 07:00 IntakeIntake Total 1228.500 ml 1008.326 ml 976.25 ml OutputOutput Total 455 ml 490 ml 420 ml BalanceBalance 773.500 ml 518.326 ml 556.25 ml Exam H EENT exam; supple neck, no lymphadenopathy. Patient has good dentition. JVD difficult to see because of short neck. No neck masses. Chest exam; diminished but clear breath sounds. S1-S2 audible, no murmurs. Regular rhythm. Abdomen exam; soft, protuberant. Nontender. Bowel sounds audible. Colostomy in place. Extremity exam; no edema or clubbing. 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 Medications Medications Current Medications IV Flush (NS 3 ml) 3 ml PER PROTOCOL IV ; Start 02/15/18 at 05:00 Ondansetron HCl (Zofran Inj) 4 mg Q6H PRN IV NAUSEA AND/OR VOMITING; Start 02/15/18 at 05:00 Acetaminophen (Tylenol Tab) 650 mg Q6H PRN PO PAIN LEVEL 1-3 OR FEVER; Start 02/15/18 at 05:00 Acetaminophen/ Hydrocodone Bitart ([place] (5/325)) 1 tab Q6H PRN PO PAIN LEVEL 4-6; Start 02/15/18 at 05:00 Acetaminophen/ Hydrocodone Bitart ([place] (5/325)) 2 tab Q6H PRN PO PAIN LEVEL 7-10; Start 02/15/18 at 05:00 Heparin Sodium (Porcine) (Heparin (5000 Units/1ml)) 5,000 unit Q12 SC Last administered on 02/17/18at 08:23; Admin Dose 5,000 UNIT; Start 02/15/18 at 09:00 Albuterol/ Ipratropium (Duoneb) 3 ml Q2H RESP THERAPY PRN HHN SHORTNESS OF BREATH Last administered on 02/15/18at 21:29; Admin Dose 3 ML; Start 02/15/18 at 05:00 Baclofen (Lioresal) 20 mg BID PO Last administered on 02/17/18 08:20; Admin Dose 20 MG; Start 02/15/18 at 09:00 Clonazepam (Klonopin) 2 mg BID PO Last administered on 02/17/18 08:19; Admin Dose 2 MG; Start 02/15/18 at 09:00 Divalproex Sodium (Depakote) 500 mg BID PO Last administered on 02/17/18 08:20; Admin Dose 500 MG; Start 02/15/18 at 09:00 Duloxetine HCl (Cymbalta) 60 mg DAILY PO Last administered on 02/17/18 08:20; Admin Dose 60 MG; Start 02/15/18 at 09:00 Gabapentin (Neurontin) 300 mg TID PO Last administered on 02/17/18 08:20; Admin Dose 300 MG; Start 02/15/18 at 09:00 Levetiracetam (Keppra) 1,000 mg BID PO Last administered on 02/17/18 08:19; Admin Dose 1,000 MG; Start 02/15/18 at 09:00 Zolpidem Tartrate (Ambien) 5 mg HS PRN PO INSOMNIA; Start 02/15/18 at 21:00 Vancomycin HCl (Vanco Iv Per Pharmacy) VANCOMYCIN PER PHARMACY PER PROTOCOL XX ; Start 02/15/18 at 05:00 Aztreonam 50 ml @ 100 mls/hr Q12 IVPB Last administered on 02/16/18at 21:15; Admin Dose 100 MLS/HR; Start 02/15/18 at 13:00 Vancomycin HCl 1.25 gm/Sodium Chloride 250 ml @ 83.333 mls/ hr Q12H IVPB Last administered on 02/17/18 02:54; Admin Dose 83.333 MLS/HR; Start 02/15/18 at 15:00 Norepinephrine 250 ml @ 1.875 mls/ hr TITRATE IV Last administered on 02/16/18 06:23; Admin Dose 1.875 MLS/HR; Start 02/16/18 at 06:30 Sodium Chloride 1,000 ml @ 100 mls/hr Q10H IV Last administered on 02/16/18 16:22; Admin Dose 100 MLS/HR; Start 1/7/19 at 12:30 HALIMA DRUMMOND Feb 17, 2018 09:19
--- NOTE | 2018-02-17 12:08 | CONS ---
Date/Time of Note Date/Time of Note DATE: 02/17/18 TIME: 12:08 Assessment/Plan Assessment/Plan Hospital Course Patient is lying comfortably in bed she is on levo fed drip no events overnight no labs this morning Microbiology: Blood cultures since admission grew staph species urine culture growing pseudomonas aeruginosa susceptible to Fortaz amikacin tobramycin Antimicrobials: Vancomycin, aztreonam Allergy: Penicillin Indwelling: Roberson, left upper extremity midline, left forearm Port-A-Cath Physical examination: This is a chronically ill-appearing middle-aged woman who is in no distress the patient is sleeping she is arousable. Head atraumatic normocephalic neck is supple chest rise symmetrical breath sounds diminished bases. Heart: S1-S2. Abdomen soft, bowel sounds present. Extremities wasted without cyanosis. Skin patient has an unstageable sacral wound which is very deep Assessment: 1. Severe sepsis with shock, present on admission 2. Bacteremia, cannot rule out line sepsis 3. Multidrug-resistant urinary tract infection 4. Pneumonia possibly aspirated 4. Unstageable sacral decub 5. Advanced multiple sclerosis 6. Neurogenic bladder 7. Seizure disorder Plan: Repeat blood cultures from Port-A-Cath, DC vancomycin, start Zyvox and tobramycin, consider surgical evaluation of sacral wound Result Diagram: 02/16/18 0430 02/16/18 0430 Results 24hrs Laboratory Tests Test 02/16/18 13:50 Vancomycin Level Trough 14.1 Consultation Date/Type/Reason Admit Date/Time Feb 15, 2018 at 04:23 Initial Consult Date 02/16/18 Type of Consult ID Requesting Provider: TAYLER PATEL MD Exam/Review of Systems Vital Signs Vitals Vital Signs Date Temp Pulse Resp B/P (MAP) Pulse Ox O2 O2 Flow FiO2 Time Delivery Rate 02/17/18 71 08:00 02/17/18 14 96/55 (69) 95 06:15 02/17/18 Nasal 3.0 06:00 Cannula 02/17/18 98.7 04:00 02/15/18 100 21:16 Intake and Output 02/16/18 02/16/18 02/17/18 1414:59 22:59 06:59 IntakeIntake Total 1129.500 ml 1004.576 ml 1080.00 ml OutputOutput Total 470 ml 475 ml 480 ml BalanceBalance 659.500 ml 529.576 ml 600.00 ml Medications Medications Current Medications IV Flush (NS 3 ml) 3 ml PER PROTOCOL IV ; Start 02/15/18 at 05:00 Ondansetron HCl (Zofran Inj) 4 mg Q6H PRN IV NAUSEA AND/OR VOMITING; Start 02/15/18 at 05:00 Acetaminophen (Tylenol Tab) 650 mg Q6H PRN PO PAIN LEVEL 1-3 OR FEVER; Start 02/15/18 at 05:00 Acetaminophen/ Hydrocodone Bitart ([place] (5/325)) 1 tab Q6H PRN PO PAIN LEVEL 4-6; Start 02/15/18 at 05:00 Acetaminophen/ Hydrocodone Bitart ([place] (5/325)) 2 tab Q6H PRN PO PAIN LEVEL 7-10; Start 02/15/18 at 05:00 Heparin Sodium (Porcine) (Heparin (5000 Units/1ml)) 5,000 unit Q12 SC Last administered on 02/17/18 08:23; Admin Dose 5,000 UNIT; Start 02/15/18 at 09:00 Albuterol/ Ipratropium (Duoneb) 3 ml Q2H RESP THERAPY PRN HHN SHORTNESS OF BREATH Last administered on 02/15/18 21:29; Admin Dose 3 ML; Start 02/15/18 at 05:00 Baclofen (Lioresal) 20 mg BID PO Last administered on 02/17/18 08:20; Admin Dose 20 MG; Start 02/15/18 at 09:00 Clonazepam (Klonopin) 2 mg BID PO Last administered on 02/17/18 08:19; Admin Dose 2 MG; Start 02/15/18 at 09:00 Divalproex Sodium (Depakote) 500 mg BID PO Last administered on 02/17/18 08:20; Admin Dose 500 MG; Start 02/15/18 at 09:00 Duloxetine HCl (Cymbalta) 60 mg DAILY PO Last administered on 02/17/18 08:20; Admin Dose 60 MG; Start 02/15/18 at 09:00 Gabapentin (Neurontin) 300 mg TID PO Last administered on 02/17/18 08:20; Admin Dose 300 MG; Start 02/15/18 at 09:00 Levetiracetam (Keppra) 1,000 mg BID PO Last administered on 02/17/18at 08:19; Admin Dose 1,000 MG; Start 02/15/18 at 09:00 Zolpidem Tartrate (Ambien) 5 mg HS PRN PO INSOMNIA; Start 02/15/18 at 21:00 Vancomycin HCl (Vanco Iv Per Pharmacy) VANCOMYCIN PER PHARMACY PER PROTOCOL XX ; Start 02/15/18 at 05:00 Aztreonam 50 ml @ 100 mls/hr Q12 IVPB Last administered on 02/17/18at 09:17; Admin Dose 100 MLS/HR; Start 02/15/18 at 13:00 Vancomycin HCl 1.25 gm/Sodium Chloride 250 ml @ 83.333 mls/ hr Q12H IVPB Last administered on 02/17/18at 02:54; Admin Dose 83.333 MLS/HR; Start 02/15/18 at 15:00 Norepinephrine 250 ml @ 1.875 mls/ hr TITRATE IV Last administered on 02/16/18at 06:23; Admin Dose 1.875 MLS/HR; Start 02/16/18 at 06:30 Sodium Chloride 1,000 ml @ 100 mls/hr Q10H IV Last administered on 02/16/18at 16:22; Admin Dose 100 MLS/HR; Start 02/16/18 at 12:30 KASIA TAPIA NP Feb 17, 2018 12:08
[2018-02-17] MEDS: SOD CHLORIDE 0.9% 1,000 ML IV SCH (12:23)
[2018-02-17] MEDS ORDERED: TOBRAMYCIN IV PER PHARMACY XX SCH (12:30)
--- NOTE | 2018-02-17 13:28 | PN ---
Date/Time of Note Date/Time of Note DATE: 02/17/18 TIME: 13:24 Assessment/Plan VTE Prophylaxis Risk score (from Nsg)>0 risk: 12 SCD applied (from Ns): Yes Pharmacological prophylaxis: heparin Lines/Catheters IV Catheter Type (from Nrsg): Passport Urinary Cath still in place: Yes Reason Cath still needed: urinary retention Assessment/Plan Hospital Course 43 yo female with MS and chronic encephelophathy with septic shock from pneumonia Bacteremia with pneumonia - Abx per ID Shock: - Wean pressors as able MS: - Stable Seizures: - Continue keppra and depakote Dc plan pending Result Diagram: 02/16/18 0430 02/16/18 0430 Results 24hrs Laboratory Tests Test 02/16/18 13:50 Vancomycin Level Trough 14.1 Subjective 24 Hr Interval Summary Free Text/Dictation More alert today Denies complaints Asking when she can go home Exam/Review of Systems Vital Signs Vitals Vital Signs Date Temp Pulse Resp B/P (MAP) Pulse Ox O2 O2 Flow FiO2 Time Delivery Rate 02/17/18 54 12:00 02/17/18 16 119/60 11:30 (79) 02/17/18 Nasal 11:00 Cannula 02/17/18 100 09:45 02/17/18 98.0 08:00 02/17/18 3.0 06:00 02/15/18 100 21:16 Intake and Output 02/16/18 02/16/18 02/17/18 1515:00 23:00 07:00 IntakeIntake Total 1228.500 ml 1008.326 ml 1080.00 ml OutputOutput Total 455 ml 490 ml 420 ml BalanceBalance 773.500 ml 518.326 ml 660.00 ml Medications Medications Current Medications IV Flush (NS 3 ml) 3 ml PER PROTOCOL IV ; Start 02/15/18 at 05:00 Ondansetron HCl (Zofran Inj) 4 mg Q6H PRN IV NAUSEA AND/OR VOMITING; Start 02/15/18 at 05:00 Acetaminophen (Tylenol Tab) 650 mg Q6H PRN PO PAIN LEVEL 1-3 OR FEVER; Start 02/15/18 at 05:00 Acetaminophen/ Hydrocodone Bitart ([place] (5/325)) 1 tab Q6H PRN PO PAIN LEVEL 4-6; Start 02/15/18 at 05:00 Acetaminophen/ Hydrocodone Bitart ([place] (5/325)) 2 tab Q6H PRN PO PAIN LEVEL 7-10; Start 02/15/18 at 05:00 Heparin Sodium (Porcine) (Heparin (5000 Units/1ml)) 5,000 unit Q12 SC Last administered on 02/17/18 08:23; Admin Dose 5,000 UNIT; Start 02/15/18 at 09:00 Albuterol/ Ipratropium (Duoneb) 3 ml Q2H RESP THERAPY PRN HHN SHORTNESS OF BREATH Last administered on 02/15/18 21:29; Admin Dose 3 ML; Start 02/15/18 at 05:00 Clonazepam (Klonopin) 2 mg BID PO Last administered on 02/17/18 08:19; Admin Dose 2 MG; Start 02/15/18 at 09:00 Divalproex Sodium (Depakote) 500 mg BID PO Last administered on 02/17/18 08:20; Admin Dose 500 MG; Start 02/15/18 at 09:00 Duloxetine HCl (Cymbalta) 60 mg DAILY PO Last administered on 02/17/18 08:20; Admin Dose 60 MG; Start 02/15/18 at 09:00 Levetiracetam (Keppra) 1,000 mg BID PO Last administered on 02/17/18 08:19; A dmin Dose 1,000 MG; Start 02/15/18 at 09:00 Zolpidem Tartrate (Ambien) 5 mg HS PRN PO INSOMNIA; Start 02/15/18 at 21:00 Aztreonam 50 ml @ 100 mls/hr Q12 IVPB Last administered on 02/17/18 09:17; Admin Dose 100 MLS/HR; Start 02/15/18 at 13:00 Norepinephrine 250 ml @ 1.875 mls/ hr TITRATE IV Last administered on 02/16/18 06:23; Admin Dose 1.875 MLS/HR; Start 02/16/18 at 06:30 Linezolid (Zyvox) 600 mg BID PO ; Start 02/17/18 at 21:00 Tobramycin (Tobramycin Iv Per Pharmacy) TOBRAMYCIN PER PHARMACY NOTE XX ; Start 02/17/18 at 12:30 Tobramycin 330 mg/ Dextrose 108.25 ml @ 103.75 mls/hr Q24H IVPB ; Start 02/17/18 at 15:00 TAYLER PATEL MD Feb 17, 2018 13:28
[2018-02-17] MEDS ORDERED: clonAZEPAM 0.5 MG TAB PO PRN (13:30)
[2018-02-17] MEDS: TOBRAMYCIN IVPB SCH (15:55)
[2018-02-17] MEDS: DEXTROSE 5% IVPB SCH (15:55)
[2018-02-17] MEDS: NORepinephrine 8MG/250 ML (PMX 250 ML IV SCH ×2 (18:47→21:24)
[2018-02-17] MEDS: NYSTATIN 30 GM POWDER BTL TOP SCH (21:19)
[2018-02-17] MEDS: BALSAM PERU/CASTOR OIL 60 GM TUBE TOP SCH (21:20)
[2018-02-17] MEDS: ZYVOX 600 MG TAB PO SCH (21:20)
[2018-02-18] VITALS (20 sets, daily range): BP systolic 94–154; BP diastolic 55–81; PULSE 62–88; RESP 11–29
[2018-02-18] MEDS: DULOXETINE 30 MG CAP DR PO SCH (08:54)
[2018-02-18] MEDS: DIVALPROEX (EC) 500 MG TAB PO SCH ×2 (08:54→21:33)
[2018-02-18] MEDS: ZYVOX 600 MG TAB PO SCH ×2 (08:54→21:33)
[2018-02-18] MEDS: BALSAM PERU/CASTOR OIL 60 GM TUBE TOP SCH ×2 (08:54→21:43)
[2018-02-18] MEDS: NYSTATIN 30 GM POWDER BTL TOP SCH ×2 (08:55→21:43)
[2018-02-18] MEDS ORDERED: COLLAGENASE 5 GM (UD JAR) TOP SCH (09:00)
[2018-02-18] MEDS: HEPARIN 5,000 UNIT/1 ML VIAL SC SCH ×2 (09:00→21:33)
[2018-02-18] MEDS: LEVETIRACETAM 500 MG TAB PO SCH ×2 (09:06→21:36)
--- NOTE | 2018-02-18 09:22 | CONS ---
Date/Time of Note Date/Time of Note DATE: 02/18/18 TIME: 09:21 Assessment/Plan Assessment/Plan Assessment/Plan Assessment recommendations; 1. Patient admitted for sepsis due to UTI with significant clinical improvement. 2. Gram-positive bacteremia with most recent blood cultures been negative. 3. History of multiple sclerosis. 4. Prior history of colostomy. 5. Chronic indwelling Roberson catheter. 6. Marked improvement in encephalopathy. Continue with supportive care. Transfer to medical floor. Result Diagram: 02/16/1842902/16/18429 Consultation Date/Type/Reason Admit Date/Time Feb 15, 2018 at 04:23 Initial Consult Date 02/16/18 Type of Consult Pulmonary/critical care History of presenting illness; Patient is a 42-year-old lady with history of multiple sclerosis admitted because of shortness of breath and hypoxemia. Patient be diagnosed with bilateral pneumonia as well as UTI. Patient is now showing improving mental status to the point where she is more responsive and follows simple commands. Patient is a poor historian and history was obtained from medical records. However upon examination patient did not appear to be in any distress whatsoever. Past medical history; 1. History of multiple sclerosis. 2. Patient apparently is bedbound. 3. History of colostomy. 4. Neuropathy. 5. History of muscle spasms. 6. History of seizure disorder. Medications; reviewed. Allergies; as outlined above. Social history; patient is a non-smoker. Family history; not available. Occupational history; patient is on disability. Review of system; not able to be obtained. Patient however remains awake and follows simple commands like mouth opening etc. General exam; young female, awake, currently in no distress. Requesting Provider: TAYLER PATEL MD 24 HR Interval Summary Free Text/Dictation Patient's condition is stable. Remains completely awake and alert. Patient is off pressor support. General exam; young female, awake alert, currently no distress. Having breakfast. Exam/Review of Systems Vital Signs Vitals Vital Signs Date Temp Pulse Resp B/P (MAP) Pulse Ox O2 O2 Flow FiO2 Time Delivery Rate 02/18/18 63 16 118/66 93 Room Air 06:00 (83) 02/18/18 98.8 04:00 02/17/18 2.0 23:03 02/15/18 100 21:16 Intake and Output 02/17/18 02/17/18 02/18/18 1515:00 23:00 07:00 IntakeIntake Total 1426.253 ml 585.750 ml OutputOutput Total 735 ml 825 ml 950 ml BalanceBalance 691.253 ml -239.250 ml -950 ml Exam H HEENT exam; supple neck, no JVD. No lymphadenopathy. Midline trachea. No thyromegaly. Patient has fair dentition. Chest exam; clear to auscultation. S1-S2 audible, no murmurs. Regular rhythm. Abdomen exam; soft, no organomegaly. Bowel sounds audible. Protuberant. Colostomy in place. Extremity exam; no peripheral edema. 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 Medications Medications Current Medications IV Flush (NS 3 ml) 3 ml PER PROTOCOL IV ; Start 02/15/18 at 05:00 Ondansetron HCl (Zofran Inj) 4 mg Q6H PRN IV NAUSEA AND/OR VOMITING; Start 02/15/18 at 05:00 Acetaminophen (Tylenol Tab) 650 mg Q6H PRN PO PAIN LEVEL 1-3 OR FEVER; Start 02/15/18 at 05:00 Acetaminophen/ Hydrocodone Bitart ([place] (5/325)) 1 tab Q6H PRN PO PAIN LEVEL 4-6; Start 02/15/18 at 05:00 Acetaminophen/ Hydrocodone Bitart ([place] (5/325)) 2 tab Q6H PRN PO PAIN LEVEL 7-10; Start 02/15/18 at 05:00 Heparin Sodium (Porcine) (Heparin (5000 Units/1ml)) 5,000 unit Q12 SC Last administered on 02/18/18at 09:00; Admin Dose 5,000 UNIT; Start 02/15/18 at 09:00 Albuterol/ Ipratropium (Duoneb) 3 ml Q2H RESP THERAPY PRN HHN SHORTNESS OF BREATH Last administered on 02/15/18at 21:29; Admin Dose 3 ML; Start 02/15/18 at 05:00 Divalproex Sodium (Depakote) 500 mg BID PO Last administered on 02/18/18 08:54; Admin Dose 500 MG; Start 02/15/18 at 09:00 Duloxetine HCl (Cymbalta) 60 mg DAILY PO Last administered on 02/18/18 08:54; Admin Dose 60 MG; Start 02/15/18 at 09:00 Levetiracetam (Keppra) 1,000 mg BID PO Last administered on 02/18/18 09:06; Admin Dose 1,000 MG; Start 02/15/18 at 09:00 Zolpidem Tartrate (Ambien) 5 mg HS PRN PO INSOMNIA; Start 02/15/18 at 21:00 Aztreonam 50 ml @ 100 mls/hr Q12 IVPB Last administered on 02/17/18 21:53; Admin Dose 100 MLS/HR; Start 02/15/18 at 13:00 Linezolid (Zyvox) 600 mg BID PO Last administered on 02/18/18 08:54; Admin Dose 600 MG; Start 02/17/18 at 21:00 Tobramycin (Tobramycin Iv Per Pharmacy) TOBRAMYCIN PER PHARMACY NOTE XX ; Start 02/17/18 at 12:30 Tobramycin 330 mg/ Dextrose 108.25 ml @ 103.75 mls/hr Q24H IVPB Last administered on 02/17/18 15:55; Admin Dose 103.75 MLS/HR; Start 02/17/18 at 15:00 Clonazepam (Klonopin) 2 mg BID PRN PO AGITATION; Start 02/17/18 at 13:30 Collagenase (Santyl) 1 applic DAILY TOP Last administered on 02/18/18 08:54; Admin Dose 1 APPLIC; Start 02/18/18 at 09:00 Nystatin (Nystatin Powder) 1 applic BID TOP Last administered on 02/18/18 08:55; Admin Dose 1 APPLIC; Start 02/17/18 at 21:00 Norepinephrine 250 ml @ 1.875 mls/ hr TITRATE IV Last administered on 02/17/18 21:24; Admin Dose 1.875 MLS/HR; Start 02/17/18 at 18:30 HALIMA DRUMMOND Feb 18, 2018 09:22
--- NOTE | 2018-02-18 10:07 | CONS ---
Date/Time of Note Date/Time of Note DATE: 02/18/18 TIME: 09:58 Assessment/Plan Assessment/Plan Assessment/Plan 1. Sacral wound: Noted green drainage (? Pseudomonas) -debridement as needed -local care> Dakin's -frequent turning and off-loading -low air loss mattress -vitamin c -short term zinc -optimize nutrition -Wound cultures if not sent 2.Shock: Lactic acidosis improved status post pressors -Supportive 3. UTI: + Pseudomonas -abx per sensitivity -frequent bladder emptying/cath care 4. Leukocytosis: Improved -As above Thank you. Patient seen and examined in collaboration with Dr. Jaden Lopez. Result Diagram: 02/16/1842902/16/18429 Consultation Date/Type/Reason Admit Date/Time Feb 15, 2018 at 04:23 Date of Consultation: Feb 18, 2018 Type of Consult Surgical Reason for Consultation Sacral wound Requesting Provider: KASIA TAPIA NP Hx of Present Illness Carito Gutierrez is a 43-year-old woman with past medical history of multiple sclerosis, seizures, hypertension, neurogenic bladder with indwelling Roberson catheter, colostomy who was brought to the ER for reports of altered mental status. Associated symptoms include fevers and tachycardia. No reports of labored breathing, congested cough, vomiting, diarrhea, seizure, rash, skin changes. On workup, her initial WBC was noted to be 17,000 and her UA revealed UTI. She was admitted in ICU care for pressor support. Currently she is off pressor support. While in-house she was noted to have a sacral wound. General surgery was asked to evaluate and treat. 12 point review of systems was reviewed and is negative except for stated in HPI Past Medical History As above Medications Current Medications IV Flush (NS 3 ml) 3 ml PER PROTOCOL IV ; Start 02/15/18 at 05:00 Ondansetron HCl (Zofran Inj) 4 mg Q6H PRN IV NAUSEA AND/OR VOMITING; Start 02/15/18 at 05:00 Acetaminophen (Tylenol Tab) 650 mg Q6H PRN PO PAIN LEVEL 1-3 OR FEVER; Start 02/15/18 at 05:00 Acetaminophen/ Hydrocodone Bitart ([place] (5/325)) 1 tab Q6H PRN PO PAIN LEVEL 4-6; Start 02/15/18 at 05:00 Acetaminophen/ Hydrocodone Bitart ([place] (5/325)) 2 tab Q6H PRN PO PAIN LEVEL 7-10; Start 02/15/18 at 05:00 Heparin Sodium (Porcine) (Heparin (5000 Units/1ml)) 5,000 unit Q12 SC Last administered on 02/18/18 09:00; Admin Dose 5,000 UNIT; Start 02/15/18 at 09:00 Albuterol/ Ipratropium (Duoneb) 3 ml Q2H RESP THERAPY PRN HHN SHORTNESS OF BREATH Last administered on 02/15/18 21:29; Admin Dose 3 ML; Start 02/15/18 at 05:00 Divalproex Sodium (Depakote) 500 mg BID PO Last administered on 02/18/18 08:54; Admin Dose 500 MG; Start 02/15/18 at 09:00 Duloxetine HCl (Cymbalta) 60 mg DAILY PO Last administered on 02/18/18 08:54; Admin Dose 60 MG; Start 02/15/18 at 09:00 Levetiracetam (Keppra) 1,000 mg BID PO Last administered on 02/18/18 09:06; Admin Dose 1,000 MG; Start 02/15/18 at 09:00 Zolpidem Tartrate (Ambien) 5 mg HS PRN PO INSOMNIA; Start 02/15/18 at 21:00 Aztreonam 50 ml @ 100 mls/hr Q12 IVPB Last administered on 02/17/18 21:53; Admin Dose 100 MLS/HR; Start 02/15/18 at 13:00 Linezolid (Zyvox) 600 mg BID PO Last administered on 02/18/18 08:54; Admin Dose 600 MG; Start 02/17/18 at 21:00 Tobramycin (Tobramycin Iv Per Pharmacy) TOBRAMYCIN PER PHARMACY NOTE XX ; Start 02/17/18 at 12:30 Tobramycin 330 mg/ Dextrose 108.25 ml @ 103.75 mls/hr Q24H IVPB Last administ ered on 02/17/18at 15:55; Admin Dose 103.75 MLS/HR; Start 02/17/18 at 15:00 Clonazepam (Klonopin) 2 mg BID PRN PO AGITATION; Start 02/17/18 at 13:30 Collagenase (Santyl) 1 applic DAILY TOP Last administered on 02/18/18at 08:54; Admin Dose 1 APPLIC; Start 02/18/18 at 09:00 Nystatin (Nystatin Powder) 1 applic BID TOP Last administered on 02/18/18at 08:55; Admin Dose 1 APPLIC; Start 02/17/18 at 21:00 Norepinephrine 250 ml @ 1.875 mls/ hr TITRATE IV Last administered on 02/17/18at 21:24; Admin Dose 1.875 MLS/HR; Start 02/17/18 at 18:30 Allergies: Coded Allergies: Penicillins (Verified Allergy, Unknown, 11/26/17) labetalol (Verified Allergy, Unknown, 11/26/17) latex (Verified Allergy, Unknown, 11/26/17) Past Surgical History As above Past Surgical Hx: other Family History Significant Family History: no pertinent family hx Social History Alcohol Use: none Smoking Status: Unknown if ever smoked Drug Use: none Exam/Review of Systems Vital Signs Vitals Vital Signs Date Temp Pulse Resp B/P (MAP) Pulse Ox O2 O2 Flow FiO2 Time Delivery Rate 02/18/18 72 08:00 02/18/18 16 118/66 93 Room Air 06:00 (83) 02/18/18 98.8 04:00 02/17/18 2.0 23:03 02/15/18 100 21:16 Intake and Output 02/17/18 02/17/18 02/18/18 1515:00 23:00 07:00 IntakeIntake Total 1426.253 ml 585.750 ml OutputOutput Total 735 ml 825 ml 950 ml BalanceBalance 691.253 ml -239.250 ml -950 ml Exam Constitutional: alert, oriented; No distress Psych: nl mood/affect Head: normocephalic, atraumatic Eyes: nl conjunctiva, EOMI, nl lids, nl sclera ENMT: nl external ears & nose, nl lips & teeth, mucosa pink and moist Neck: supple, non-tender; No jvd, No nuchal rigidity Respiratory: normal air movement; No congested cough, No labored breathing Cardiovascular: regular rate and rhythm, nl pulses; No edema Gastrointestinal: soft, non-tender, other (Left colostomy (productive)) Genitourinary - Female: nl external genitalia Musculoskeletal: nl extremities to inspection, nl gait and stance Extremities: normal pulses Neurological: nl mental status, nl speech, nl strength Skin: nl turgor, other (Sacral: Stage IV (clean, no periwound erythema, no odor, green drainage); groin and abdominal folds: Erythema); No rash or lesions Medications Medications Current Medications IV Flush (NS 3 ml) 3 ml PER PROTOCOL IV ; Start 02/15/18 at 05:00 Ondansetron HCl (Zofran Inj) 4 mg Q6H PRN IV NAUSEA AND/OR VOMITING; Start 02/15/18 at 05:00 Acetaminophen (Tylenol Tab) 650 mg Q6H PRN PO PAIN LEVEL 1-3 OR FEVER; Start 02/15/18 at 05:00 Acetaminophen/ Hydrocodone Bitart ([place] (5/325)) 1 tab Q6H PRN PO PAIN LEVEL 4-6; Start 02/15/18 at 05:00 Acetaminophen/ Hydrocodone Bitart ([place] (5/325)) 2 tab Q6H PRN PO PAIN LEVEL 7-10; Start 02/15/18 at 05:00 Heparin Sodium (Porcine) (Heparin (5000 Units/1ml)) 5,000 unit Q12 SC Last administered on 02/18/18at 09:00; Admin Dose 5,000 UNIT; Start 02/15/18 at 09:00 Albuterol/ Ipratropium (Duoneb) 3 ml Q2H RESP THERAPY PRN HHN SHORTNESS OF BREATH Last administered on 02/15/18at 21:29; Admin Dose 3 ML; Start 02/15/18 at 05:00 Divalproex Sodium (Depakote) 500 mg BID PO Last administered on 02/18/18at 08:54; Admin Dose 500 MG; Start 02/15/18 at 09:00 Duloxetine HCl (Cymbalta) 60 mg DAILY PO Last administered on 02/18/18 08:54; Admin Dose 60 MG; Start 02/15/18 at 09:00 Levetiracetam (Keppra) 1,000 mg BID PO Last administered on 02/18/18at 09:06; Admin Dose 1,000 MG; Start 02/15/18 at 09:00 Zolpidem Tartrate (Ambien) 5 mg HS PRN PO INSOMNIA; Start 02/15/18 at 21:00 Aztreonam 50 ml @ 100 mls/hr Q12 IVPB Last administered on 02/17/18 21:53; Admin Dose 100 MLS/HR; Start 02/15/18 at 13:00 Linezolid (Zyvox) 600 mg BID PO Last administered on 02/18/18 08:54; Admin Dose 600 MG; Start 02/17/18 at 21:00 Tobramycin (Tobramycin Iv Per Pharmacy) TOBRAMYCIN PER PHARMACY NOTE XX ; Start 02/17/18 at 12:30 Tobramycin 330 mg/ Dextrose 108.25 ml @ 103.75 mls/hr Q24H IVPB Last administered on 02/17/18 15:55; Admin Dose 103.75 MLS/HR; Start 02/17/18 at 15:00 Clonazepam (Klonopin) 2 mg BID PRN PO AGITATION; Start 02/17/18 at 13:30 Collagenase (Santyl) 1 applic DAILY TOP Last administered on 02/18/18 08:54; Admin Dose 1 APPLIC; Start 02/18/18 at 09:00 Nystatin (Nystatin Powder) 1 applic BID TOP Last administered on 02/18/18 08:55; Admin Dose 1 APPLIC; Start 02/17/18 at 21:00 Norepinephrine 250 ml @ 1.875 mls/ hr TITRATE IV Last administered on 02/17/18 21:24; Admin Dose 1.875 MLS/HR; Start 02/17/18 at 18:30 ANGEL SHOEMAKER NP Feb 18, 2018 10:07
[2018-02-18] MEDS: AZTREONAM 1 GM/NS (PMX) 50 ML IVPB SCH ×2 (10:12→21:33)
--- NOTE | 2018-02-18 11:55 | RADRPT ---
Vent Rate: 86 bpm RR Interval: 0 msec [place] Interval: 150 msec QRS Duration: 76 msec QT Interval: 384 msec QTC Interval: 459 msec P-R-T [place]: 38 - 50 - 51 degrees Normal sinus rhythm Low voltage QRS Borderline ECG Electronically Signed By: Dudley Mann [id number]
--- NOTE | 2018-02-18 15:02 | PN ---
Date/Time of Note Date/Time of Note DATE: 02/18/18 TIME: 15:02 Assessment/Plan VTE Prophylaxis Risk score (from Nsg)>0 risk: 11 SCD applied (from Nsg): Yes Pharmacological prophylaxis: heparin Lines/Catheters IV Catheter Type (from Nrsg): pass port Urinary Cath still in place: Yes Reason Cath still needed: urinary retention Assessment/Plan Hospital Course 43 yo female with MS and chronic encephelophathy with septic shock from pneumonia Bacteremia with pneumonia - Abx per ID MS: - Stable Seizures: - Continue keppra and depakote Dc plan pending Result Diagram: 02/16/18 04302/16/18 043 Subjective 24 Hr Interval Summary Free Text/Dictation A bit nauseous today she says Breathign comfortably off of pressors Exam/Review of Systems Vital Signs Vitals Vital Signs Date Temp Pulse Resp B/P (MAP) Pulse Ox O2 O2 Flow FiO2 Time Delivery Rate 02/18/18 88 12:00 02/18/18 16 131/70 94 Room Air 11:00 (90) 02/18/18 98.6 08:00 02/17/18 2.0 23:03 02/15/18 100 21:16 Intake and Output 02/17/18 02/17/18 02/18/18 1515:00 23:00 07:00 IntakeIntake Total 1426.253 ml 585.750 ml OutputOutput Total 735 ml 825 ml 1025 ml BalanceBalance 691.253 ml -239.250 ml -1025 ml Medications Medications Current Medications IV Flush (NS 3 ml) 3 ml PER PROTOCOL IV ; Start 02/15/18 at 05:00 Ondansetron HCl (Zofran Inj) 4 mg Q6H PRN IV NAUSEA AND/OR VOMITING; Start 02/15/18 at 05:00 Acetaminophen (Tylenol Tab) 650 mg Q6H PRN PO PAIN LEVEL 1-3 OR FEVER; Start 02/15/18 at 05:00 Acetaminophen/ Hydrocodone Bitart ([place] (5/325)) 1 tab Q6H PRN PO PAIN LEVEL 4-6; Start 02/15/18 at 05:00 Acetaminophen/ Hydrocodone Bitart ([place] (5/325)) 2 tab Q6H PRN PO PAIN LEVEL 7-10; Start 02/15/18 at 05:00 Heparin Sodium (Porcine) (Heparin (5000 Units/1ml)) 5,000 unit Q12 SC Last administered on 02/18/18 09:00; Admin Dose 5,000 UNIT; Start 02/15/18 at 09:00 Albuterol/ Ipratropium (Duoneb) 3 ml Q2H RESP THERAPY PRN HHN SHORTNESS OF BREATH Last administered on 02/15/18 21:29; Admin Dose 3 ML; Start 02/15/18 at 05:00 Divalproex Sodium (Depakote) 500 mg BID PO Last administered on 02/18/18 08:54; Admin Dose 500 MG; Start 02/15/18 at 09:00 Duloxetine HCl (Cymbalta) 60 mg DAILY PO Last administered on 02/18/18 08:54; Admin Dose 60 MG; Start 02/15/18 at 09:00 Levetiracetam (Keppra) 1,000 mg BID PO Last administered on 02/18/18 09:06; Admin Dose 1,000 MG; Start 02/15/18 at 09:00 Zolpidem Tartrate (Ambien) 5 mg HS PRN PO INSOMNIA; Start 02/15/18 at 21:00 Aztreonam 50 ml @ 100 mls/hr Q12 IVPB Last administered on 02/18/18at 10:12; Admin Dose 100 MLS/HR; Start 02/15/18 at 13:00 Linezolid (Zyvox) 600 mg BID PO Last administered on 02/18/18 08:54; Admin Dose 600 MG; Start 02/17/18 at 21:00 Tobramycin (Tobramycin Iv Per Pharmacy) TOBRAMYCIN PER PHARMACY NOTE XX ; Start 02/17/18 at 12:30 Tobramycin 330 mg/ Dextrose 108.25 ml @ 103.75 mls/hr Q24H IVPB Last administ ered on 02/17/18 15:55; Admin Dose 103.75 MLS/HR; Start 02/17/18 at 15:00 Clonazepam (Klonopin) 2 mg BID PRN PO AGITATION; Start 02/17/18 at 13:30 Nystatin (Nystatin Powder) 1 applic BID TOP Last administered on 02/18/18 08:55; Admin Dose 1 APPLIC; Start 02/17/18 at 21:00 Sodium Hypochlorite ([place]akin'S (Dilute )) 1 applic DAILY IRR ; Start 02/18/18 at 10:30 Miscellaneous Information (*Rx Drug Level Order Reminder*) TOBRAMYCIN TROUGH @ 1,400 ONCE ONCE XX ; Start 02/19/18 at 14:00; Stop 02/19/18 at 14:01 TAYLER PATEL MD Feb 18, 2018 15:02
--- NOTE | 2018-02-18 15:38 | CONS ---
Date/Time of Note Date/Time of Note DATE: 02/18/18 TIME: 15:36 Assessment/Plan Assessment/Plan Hospital Course Awake and looks comfortable no fevers overnight no labs this morning Microbiology: Blood culture on admission grew coag negative staph species, repeat blood cultures negative, sacral wound culture growing staph aureus preliminary, urine culture grew multidrug-resistant Pseudomonas Antimicrobials: Azactam, Zyvox, tobramycin Allergy: Penicillin Indwelling: Roberson, left upper extremity midline, left forearm Port-A-Cath Physical examination: This is a chronically ill-appearing middle-aged woman who is in no distress the patient is sleeping she is arousable. Head atraumatic normocephalic neck is supple chest rise symmetrical breath sounds diminished bases. Heart: S1-S2. Abdomen soft, bowel sounds present. Extremities wasted without cyanosis. Skin patient has an unstageable sacral wound which is very deep Assessment: 1. Severe sepsis with shock,, improving 2. Bacteremia, cannot rule out line sepsis 3. Multidrug-resistant urinary tract infection 4. Pneumonia possibly aspirated 4. Unstageable sacral decub 5. Advanced multiple sclerosis 6. Neurogenic bladder 7. Seizure disorder Plan: Hemodynamically stable, continue antibiotics, follow wound cultures, wound care per surgical recommendations Result Diagram: 02/16/18 0430 02/16/18 0430 Consultation Date/Type/Reason Admit Date/Time Feb 15, 2018 at 04:23 Initial Consult Date 02/16/18 Type of Consult ID Requesting Provider: KASIA TAPIA INSTALLATION & MAINTENANCE EXECUTIVE Exam/Review of Systems Vital Signs Vitals Vital Signs Date Temp Pulse Resp B/P (MAP) Pulse Ox O2 O2 Flow FiO2 Time Delivery Rate 02/18/18 73 25 144/77 98 Room Air 15:00 (99) 02/18/18 98.6 12:00 02/17/18 2.0 23:03 02/15/18 100 21:16 Intake and Output 02/17/18 02/17/18 02/18/18 1515:00 23:00 07:00 IntakeIntake Total 1426.253 ml 585.750 ml OutputOutput Total 735 ml 825 ml 1025 ml BalanceBalance 691.253 ml -239.250 ml -1025 ml Medications Medications Current Medications IV Flush (NS 3 ml) 3 ml PER PROTOCOL IV ; Start 02/15/18 at 05:00 Ondansetron HCl (Zofran Inj) 4 mg Q6H PRN IV NAUSEA AND/OR VOMITING; Start 02/15/18 at 05:00 Acetaminophen (Tylenol Tab) 650 mg Q6H PRN PO PAIN LEVEL 1-3 OR FEVER; Start 02/15/18 at 05:00 Acetaminophen/ Hydrocodone Bitart ([place] (5/325)) 1 tab Q6H PRN PO PAIN LEVEL 4-6; Start 02/15/18 at 05:00 Acetaminophen/ Hydrocodone Bitart ([place] (5/325)) 2 tab Q6H PRN PO PAIN LEVEL 7-10; Start 02/15/18 at 05:00 Heparin Sodium (Porcine) (Heparin (5000 Units/1ml)) 5,000 unit Q12 SC Last administered on 02/18/18 09:00; Admin Dose 5,000 UNIT; Start 02/15/18 at 09:00 Albuterol/ Ipratropium (Duoneb) 3 ml Q2H RESP THERAPY PRN HHN SHORTNESS OF BREATH Last administered on 02/15/18 21:29; Admin Dose 3 ML; Start 02/15/18 at 05:00 Divalproex Sodium (Depakote) 500 mg BID PO Last administered on 02/18/18 08:54; Admin Dose 500 MG; Start 02/15/18 at 09:00 Duloxetine HCl (Cymbalta) 60 mg DAILY PO Last administered on 02/18/18 08:54; Admin Dose 60 MG; Start 02/15/18 at 09:00 Levetiracetam (Keppra) 1,000 mg BID PO Last administered on 02/18/18 09:06; Admin Dose 1,000 MG; Start 02/15/18 at 09:00 Zolpidem Tartrate (Ambien) 5 mg HS PRN PO INSOMNIA; Start 02/15/18 at 21:00 Aztreonam 50 ml @ 100 mls/hr Q12 IVPB Last administered on 02/18/18at 10:12; Admin Dose 100 MLS/HR; Start 02/15/18 at 13:00 Linezolid (Zyvox) 600 mg BID PO Last administered on 02/18/18 08:54; Admin Dose 600 MG; Start 02/17/18 at 21:00 Tobramycin (Tobramycin Iv Per Pharmacy) TOBRAMYCIN PER PHARMACY NOTE XX ; Start 02/17/18 at 12:30 Tobramycin 330 mg/ Dextrose 108.25 ml @ 103.75 mls/hr Q24H IVPB Last administered on 02/17/18at 15:55; Admin Dose 103.75 MLS/HR; Start 02/17/18 at 15:00 Clonazepam (Klonopin) 2 mg BID PRN PO AGITATION; Start 02/17/18 at 13:30 Nystatin (Nystatin Powder) 1 applic BID TOP Last administered on 02/18/18at 08:55; Admin Dose 1 APPLIC; Start 02/17/18 at 21:00 Sodium Hypochlorite (Dakin'S (Dilute )) 1 applic DAILY IRR ; Start 02/18/18 at 10:30 Miscellaneous Information (*Rx Drug Level Order Reminder*) TOBRAMYCIN TROUGH @ 1,400 ONCE ONCE XX ; Start 02/19/18 at 14:00; Stop 02/19/18 at 14:01 KASIA TAPIA NP Feb 18, 2018 15:38
[2018-02-18] MEDS: TOBRAMYCIN IVPB SCH (16:24)
[2018-02-18] MEDS: DEXTROSE 5% IVPB SCH (16:24)
[2018-02-18] MEDS: SODIUM HYPOCHLORITE (1/40) 1 APPLIC BTL IRR SCH (16:25)
--- NOTE | 2018-02-18 18:13 | PSY ---
Date/Time of Note Date/Time of Note DATE: 02/18/18 TIME: 18:07 Psychiatric Subjective Eval Consent Pt consented to telemedicine: No Subjective Evaluation Patient location: inpatient Chief Complaint: SOB/ ALOC X'S 1 DAY History of present illness Patient is a 43-year-old female with a history of colostomy, severe multiple sclerosis, seizure, hypertension, neurogenic bladder, admitted for left lower lung pneumonia. On a [id number] evaluation, patient reports depression and hopelessness, but states the symptoms have been there and controlled with current medication Cymbalta. She denies any suicidal ideation and contracted for safety. Patient is also somewhat delusional because she has a ring in her finger which the caregiver had given her a patient is stating she has been engaged and ready to get . DeclineD antipsychotic medication Past psychiatric history Long history of depression Hospitalization: no Medical history Problems Medical Problems: (1) Abdominal pain Status: Acute (2) Altered mental status Status: Acute (3) Anemia Status: Acute (4) Aspiration pneumonia Status: Acute (5) Blister Status: Acute (6) Coarse tremors Status: Acute (7) Complicated UTI (urinary tract infection) Status: Acute (8) Complication of catheter Status: Acute (9) Complication of Roberson catheter Status: Acute (10) Complication of vascular access for dialysis Status: Acute (11) COPD (chronic obstructive pulmonary disease) Status: Acute (12) Cystitis Status: Acute (13) Cystitis Status: Acute (14) Dehydration Status: Acute (15) Dehydration Status: Acute (16) Encounter for urinary catheter Status: Acute (17) Genitourinary symptoms Status: Acute (18) Leukocytosis Status: Acute (19) Multiple sclerosis Status: Acute (20) Multiple sclerosis Status: Acute (21) PICC (peripherally inserted central catheter) flush Status: Acute (22) Pneumonia Status: Acute (23) Pneumonia Status: Acute (24) Pneumonia Status: Acute (25) Pneumonia Status: Acute (26) Respiratory distress Status: Acute (27) Respiratory failure Status: Acute (28) Seizure disorder Status: Acute (29) Sepsis Status: Acute (30) Sepsis Status: Acute (31) Sepsis Status: Acute (32) Septic shock Status: Acute (33) Septic shock Status: Acute (34) Severe sepsis Status: Acute (35) Urinary tract infection Status: Acute (36) UTI (urinary tract infection) Status: Acute (37) UTI (urinary tract infection) Status: Acute (38) UTI (urinary tract infection) Status: Acute Allergies: Coded Allergies: Penicillins (Verified Allergy, Unknown, 11/26/17) labetalol (Verified Allergy, Unknown, 11/26/17) latex (Verified Allergy, Unknown, 11/26/17) Substance Abuse Substance abuse history: No Prior substance abuse treatmen: No Social History Marital status: single DPA/Conservatorship: No Psychiatric Objective Eval Physical Examination: Physical Examination: Not Applicable Appetite: Decreased Energy: Decreased Interest: Decreased Mental Status Examination: Appearance: Groomed Eye Contact: Fair Behavior: Cooperative Speech: Clear AFFECT: Flat Mood: Depressed Orientation: x3 Cognition: Alert Insight: Intact Assessment and Plan Assessment/Diagnosis Diagnosis 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
[2018-02-18] MEDS: HYDROCODONE/APAP (5/325) TAB PO PRN (20:07)
[2018-02-19 01:52] VITALS: BP 117/58; PULSE 77; RESP 20
[2018-02-19 08:12] VITALS: BP 126/59; PULSE 71; RESP 16
[2018-02-19] MEDS: NYSTATIN 30 GM POWDER BTL TOP SCH ×2 (08:29→21:37)
[2018-02-19] MEDS: BALSAM PERU/CASTOR OIL 60 GM TUBE TOP SCH ×2 (08:29→21:40)
[2018-02-19] MEDS: ZYVOX 600 MG TAB PO SCH ×2 (08:29→21:34)
[2018-02-19] MEDS: DIVALPROEX (EC) 500 MG TAB PO SCH ×2 (08:30→21:34)
[2018-02-19] MEDS: AZTREONAM 1 GM/NS (PMX) 50 ML IVPB SCH ×2 (08:30→20:35)
[2018-02-19] MEDS: LEVETIRACETAM 500 MG TAB PO SCH ×2 (08:30→20:35)
[2018-02-19] MEDS: HEPARIN 5,000 UNIT/1 ML VIAL SC SCH ×2 (08:32→20:43)
[2018-02-19] MEDS: SODIUM HYPOCHLORITE (1/40) 1 APPLIC BTL IRR SCH (08:38)
[2018-02-19] MEDS: DULOXETINE 30 MG CAP DR PO SCH (09:41)
--- NOTE | 2018-02-19 11:38 | CONS ---
Date/Time of Note Date/Time of Note DATE: 02/19/18 TIME: 11:38 Assessment/Plan Assessment/Plan Hospital Course Patient was transferred to [facility] she is afebrile in no distress, no labs this morning Microbiology: Blood culture on admission grew coag negative staph species, repeat blood cultures negative, sacral wound culture growing staph aureus preliminary, urine culture grew multidrug-resistant Pseudomonas Antimicrobials: Azactam, Zyvox, tobramycin Allergy: Penicillin Indwelling: Roberson, left upper extremity midline, left forearm Port-A-Cath Physical examination: This is a chronically ill-appearing middle-aged woman who is in no distress the patient is sleeping she is arousable. Head atraumatic normocephalic neck is supple chest rise symmetrical breath sounds diminished bases. Heart: S1-S2. Abdomen soft, bowel sounds present. Extremities wasted without cyanosis. Skin patient has an unstageable sacral wound which is very deep Assessment: 1. Severe sepsis s/p shock 2. Bacteremia, cannot rule out line sepsis 3. Multidrug-resistant urinary tract infection 4. Pneumonia possibly aspirated 4. Unstageable sacral decub 5. Advanced multiple sclerosis 6. Neurogenic bladder 7. Seizure disorder Plan: Doing better, stable, continue antibiotics, follow wound cultures, wound care per surgical recommendations Result Diagram: 02/16/18 0430 02/16/18 0430 Consultation Date/Type/Reason Admit Date/Time Feb 15, 2018 at 04:23 Initial Consult Date 02/16/18 Type of Consult ID Requesting Provider: KASIA TAPIA DIRECTOR OF GLOBAL TALENT Exam/Review of Systems Vital Signs Vitals Vital Signs Date Temp Pulse Resp B/P (MAP) Pulse Ox O2 O2 Flow FiO2 Time Delivery Rate 02/19/18 98.6 71 16 126/59 96 08:12 (81) 02/18/18 Room Air 18:00 02/17/18 2.0 23:03 02/15/18 100 21:16 Intake and Output 02/18/18 02/18/18 02/19/18 1515:00 23:00 07:00 IntakeIntake Total 100 ml 108.25 ml 50 ml OutputOutput Total 360 ml 200 ml BalanceBalance -260 ml -91.75 ml 50 ml Medications Medications Current Medications IV Flush (NS 3 ml) 3 ml PER PROTOCOL IV ; Start 02/15/18 at 05:00 Ondansetron HCl (Zofran Inj) 4 mg Q6H PRN IV NAUSEA AND/OR VOMITING; Start 02/15/18 at 05:00 Acetaminophen (Tylenol Tab) 650 mg Q6H PRN PO PAIN LEVEL 1-3 OR FEVER; Start 02/15/18 at 05:00 Acetaminophen/ Hydrocodone Bitart ([place] (5/325)) 1 tab Q6H PRN PO PAIN LEVEL 4-6; Start 02/15/18 at 05:00 Acetaminophen/ Hydrocodone Bitart ([place] (5/325)) 2 tab Q6H PRN PO PAIN LEVEL 7-10 Last administered on 02/18/18 20:07; Admin Dose 2 TAB; Start 02/15/18 at 05:00 Heparin Sodium (Porcine) (Heparin (5000 Units/1ml)) 5,000 unit Q12 SC Last administered on 02/19/18 08:32; Admin Dose 5,000 UNIT; Start 02/15/18 at 09:00 Albuterol/ Ipratropium (Duoneb) 3 ml Q2H RESP THERAPY PRN HHN SHORTNESS OF MAXIMUS TH Last administered on 02/15/18 21:29; Admin Dose 3 ML; Start 02/15/18 at 05:00 Divalproex Sodium (Depakote) 500 mg BID PO Last administered on 02/19/18 08:30; Admin Dose 500 MG; Start 02/15/18 at 09:00 Duloxetine HCl (Cymbalta) 60 mg DAILY PO Last administered on 02/19/18 09:41; Admin Dose 60 MG; Start 02/15/18 at 09:00 Levetiracetam (Keppra) 1,000 mg BID PO Last administered on 02/19/18 08:30; Admin Dose 1,000 MG; Start 02/15/18 at 09:00 Zolpidem Tartrate (Ambien) 5 mg HS PRN PO INSOMNIA; Start 02/15/18 at 21:00 Aztreonam 50 ml @ 100 mls/hr Q12 IVPB Last administered on 02/19/18 08:30; Admin Dose 100 MLS/HR; Start 02/15/18 at 13:00 Linezolid (Zyvox) 600 mg BID PO Last administered on 1/10/19at 08:29; Admin Dose 600 MG; Start 02/17/18 at 21:00 Tobramycin (Tobramycin Iv Per Pharmacy) TOBRAMYCIN PER PHARMACY NOTE XX ; Start 02/17/18 at 12:30 Tobramycin 330 mg/ Dextrose 108.25 ml @ 103.75 mls/hr Q24H IVPB Last administered on 02/18/18at 16:24; Admin Dose 103.75 MLS/HR; Start 02/17/18 at 15:00 Clonazepam (Klonopin) 2 mg BID PRN PO AGITATION; Start 02/17/18 at 13:30 Nystatin (Nystatin Powder) 1 applic BID TOP Last administered on 02/19/18at 08:29; Admin Dose 1 APPLIC; Start 02/17/18 at 21:00 Sodium Hypochlorite (Dakin'S (Dilute )) 1 applic DAILY IRR Last administered on 02/19/18at 08:38; Admin Dose 1 APPLIC; Start 02/18/18 at 10:30 Miscellaneous Information (*Rx Drug Level Order Reminder*) TOBRAMYCIN TROUGH @ 1,400 ONCE ONCE XX ; Start 02/19/18 at 14:00; Stop 02/19/18 at 14:01 KASIA TAPIA NP Feb 19, 2018 11:38
--- NOTE | 2018-02-19 12:12 | PN ---
Date/Time of Note Date/Time of Note DATE: 02/19/18 TIME: 12:05 Assessment/Plan Lines/Catheters IV Catheter Type (from [facility]): pass port Rob[place] in Place (from [facility]): Yes Assessment/Plan Chief Complaint/Hosp Course 1. Sacral wound: Noted green drainage (? Pseudomonas) -debridement as needed -local care> Dakin's -frequent turning and off-loading -low air loss mattress -vitamin c -short term zinc -optimize nutrition -Wound cultures > pending 2.Shock: Lactic acidosis improved status post pressors -Supportive 3. UTI: + Pseudomonas -abx per sensitivity -frequent bladder emptying/cath care 4. Leukocytosis: Improved -As above 5. Depression with psychosis: -psych optimization, currently on cymbalta Thank you. Patient seen and examined in collaboration with Dr. Jaden Lopez. Subjective 24 Hr Interval Summary Feels well. No fevers, chills, sob, congested cough, cp, palpitations, aguilar, dizziness, n/v/d/dysuria, excessive wound drainage or odor. Exam/Review of Systems Vital Signs Vitals Vital Signs Date Temp Pulse Resp B/P (MAP) Pulse Ox O2 O2 Flow FiO2 Time Delivery Rate 02/19/18 98.6 71 16 126/59 96 08:12 (81) 02/18/18 Room Air 18:00 02/17/18 2.0 23:03 02/15/18 100 21:16 Intake and Output 02/18/18 02/18/18 02/19/18 1515:00 23:00 07:00 IntakeIntake Total 100 ml 108.25 ml 50 ml OutputOutput Total 360 ml 200 ml BalanceBalance -260 ml -91.75 ml 50 ml Exam Free Text/Dictation Constitutional: alert, oriented; No distress Psych: nl mood/affect Head: normocephalic, atraumatic Eyes: nl conjunctiva, EOMI, nl lids, nl sclera ENMT: nl external ears & nose, nl lips & teeth, mucosa pink and moist Neck: supple, non-tender; No jvd, No nuchal rigidity Respiratory: normal air movement; No congested cough, No labored breathing Cardiovascular: regular rate and rhythm, nl pulses; No edema Gastrointestinal: soft, non-tender, other (Left colostomy (productive)) Genitourinary - Female: nl external genitalia Musculoskeletal: nl extremities to inspection, nl gait and stance Extremities: normal pulses Neurological: nl mental status, nl speech, nl strength Skin: nl turgor, other (Sacral: Stage IV (clean, no periwound erythema, no odor, green drainage-mod); groin and abdominal folds: Erythema); No rash or lesions Results Result Diagram: 02/16/1842902/16/18429 ANGEL SHOEMAKER NP Feb 19, 2018 12:12
[2018-02-19] MEDS: DEXTROSE 5% IVPB SCH (14:13)
[2018-02-19] MEDS: TOBRAMYCIN IVPB SCH (14:13)
[2018-02-19 14:43] VITALS: BP 125/65; PULSE 104; RESP 17
--- NOTE | 2018-02-19 15:08 | PN ---
Date/Time of Note Date/Time of Note DATE: 02/19/18 TIME: 15:07 Assessment/Plan VTE Prophylaxis Risk score (from Nsg)>0 risk: 11 SCD applied (from Nsg): Yes Pharmacological prophylaxis: heparin Lines/Catheters IV Catheter Type (from Nrsg): pass port Urinary Cath still in place: Yes Reason Cath still needed: urinary retention Assessment/Plan Hospital Course 43 yo female with MS presented with septic shock from pneumonia Bacteremia with pneumonia - Abx per ID MS: - Stable Seizures: - Continue keppra and depakote Dc plan pending Result Diagram: 02/19/18 1402 02/19/18 1402 Results 24hrs Laboratory Tests Test 02/19/18 14:02 White Blood Count 9.1 # Red Blood Count 4.14 #L Hemoglobin 11.3 #L Hematocrit 36.2 L Mean Corpuscular Volume 87.4 Mean Corpuscular Hemoglobin 27.3 L Mean Corpuscular Hemoglobin Concent 31.2 L Red Cell Distribution Width 14.8 H Platelet Count 469 #H Mean Platelet Volume 9.2 Immature Granulocytes % 0.900 H Neutrophils % 61.2 Lymphocytes % 33.3 Monocytes % 3.9 Eosinophils % 0.3 Basophils % 0.4 Nucleated Red Blood Cells % 0.0 Immature Granulocytes # 0.080 H Neutrophils # 5.6 Lymphocytes # 3.0 H Monocytes # 0.4 Eosinophils # 0.0 Basophils # 0.0 Nucleated Red Blood Cells # 0.0 Sodium Level 144 Potassium Level 4.0 Chloride Level 104 Carbon Dioxide Level 33 H Anion Gap 7 Blood Urea Nitrogen 6 L Creatinine 0.41 L Est Glomerular Filtrat Rate mL/min > 60 Glucose Level 132 Calcium Level 9.1 Tobramycin Level Trough 0.7 L Subjective 24 Hr Interval Summary Free Text/Dictation Doing well HD stable Complains of chornic nausea, says she normally takes Marijuana for htis Exam/Review of Systems Vital Signs Vitals Vital Signs Date Temp Pulse Resp B/P (MAP) Pulse Ox O2 O2 Flow FiO2 Time Delivery Rate 02/19/18 98.8 104 17 125/65 95 14:43 (85) 02/18/18 Room Air 18:00 02/17/18 2.0 23:03 02/15/18 100 21:16 Intake and Output 02/18/18 02/18/18 02/19/18 1515:00 23:00 07:00 IntakeIntake Total 100 ml 108.25 ml 50 ml OutputOutput Total 360 ml 200 ml BalanceBalance -260 ml -91.75 ml 50 ml Medications Medications Current Medications IV Flush (NS 3 ml) 3 ml PER PROTOCOL IV ; Start 02/15/18 at 05:00 Ondansetron HCl (Zofran Inj) 4 mg Q6H PRN IV NAUSEA AND/OR VOMITING; Start 02/15/18 at 05:00 Acetaminophen (Tylenol Tab) 650 mg Q6H PRN PO PAIN LEVEL 1-3 OR FEVER; Start 02/15/18 at 05:00 Acetaminophen/ Hydrocodone Bitart ([place] (5/325)) 1 tab Q6H PRN PO PAIN LEVEL 4-6; Start 02/15/18 at 05:00 Acetaminophen/ Hydrocodone Bitart ([place] (5/325)) 2 tab Q6H PRN PO PAIN LEVEL 7-10 Last administered on 02/18/18at 20:07; Admin Dose 2 TAB; Start 02/15/18 at 05:00 Heparin Sodium (Porcine) (Heparin (5000 Units/1ml)) 5,000 unit Q12 SC Last administered on 02/19/18 08:32; Admin Dose 5,000 UNIT; Start 02/15/18 at 09:00 Albuterol/ Ipratropium (Duoneb) 3 ml Q2H RESP THERAPY PRN HHN SHORTNESS OF BREATH Last administered on 02/15/18at 21:29; Admin Dose 3 ML; Start 02/15/18 at 05:00 Divalproex Sodium (Depakote) 500 mg BID PO Last administered on 02/19/18 08 :30; Admin Dose 500 MG; Start 02/15/18 at 09:00 Duloxetine HCl (Cymbalta) 60 mg DAILY PO Last administered on 02/19/18 09:41; Admin Dose 60 MG; Start 02/15/18 at 09:00 Levetiracetam (Keppra) 1,000 mg BID PO Last administered on 02/19/18 08:30; Admin Dose 1,000 MG; Start 02/15/18 at 09:00 Zolpidem Tartrate (Ambien) 5 mg HS PRN PO INSOMNIA; Start 02/15/18 at 21:00 Aztreonam 50 ml @ 100 mls/hr Q12 IVPB Last administered on 02/19/18at 08:30; Admin Dose 100 MLS/HR; Start 02/15/18 at 13:00 Linezolid (Zyvox) 600 mg BID PO Last administered on 02/19/18at 08:29; Admin Dose 600 MG; Start 02/17/18 at 21:00 Tobramycin (Tobramycin Iv Per Pharmacy) TOBRAMYCIN PER PHARMACY NOTE XX ; Start 02/17/18 at 12:30 Tobramycin 330 mg/ Dextrose 108.25 ml @ 103.75 mls/hr Q24H IVPB Last administered on 02/19/18at 14:13; Admin Dose 103.75 MLS/HR; Start 02/17/18 at 15:00 Clonazepam (Klonopin) 2 mg BID PRN PO AGITATION; Start 02/17/18 at 13:30 Nystatin (Nystatin Powder) 1 applic BID TOP Last administered on 02/19/18at 08:29; Admin Dose 1 APPLIC; Start 02/17/18 at 21:00 Sodium Hypochlorite (Dakin'S (Dilute 40)) 1 applic DAILY IRR Last administered on 02/19/18at 08:38; Admin Dose 1 APPLIC; Start 02/18/18 at 10:30 TAYLER PATEL MD Feb 19, 2018 15:08
[2018-02-19] MEDS: HYDROCODONE/APAP (5/325) TAB PO PRN (15:30)
[2018-02-19] MEDS: ONDANSETRON 4 MG INJ IV PRN ×2 (15:36→19:22)
[2018-02-19 20:03] VITALS: BP 106/72; PULSE 106; RESP 22
[2018-02-20 02:27] VITALS: BP 125/60; PULSE 88; RESP 18
[2018-02-20 08:00] VITALS: BP 120/66; PULSE 81; RESP 19
[2018-02-20] MEDS: AZTREONAM 1 GM/NS (PMX) 50 ML IVPB SCH ×2 (10:01→20:48)
[2018-02-20] MEDS: SODIUM HYPOCHLORITE (1/40) 1 APPLIC BTL IRR SCH (10:02)
[2018-02-20] MEDS: DULOXETINE 20 MG CAP DR PO SCH (10:02)
[2018-02-20] MEDS: DIVALPROEX (EC) 500 MG TAB PO SCH ×2 (10:03→20:48)
[2018-02-20] MEDS: LEVETIRACETAM 500 MG TAB PO SCH ×2 (10:03→20:48)
[2018-02-20] MEDS: NYSTATIN 30 GM POWDER BTL TOP SCH ×2 (10:03→20:49)
[2018-02-20] MEDS: ZYVOX 600 MG TAB PO SCH ×2 (10:03→20:48)
[2018-02-20] MEDS: HEPARIN 5,000 UNIT/1 ML VIAL SC SCH ×2 (10:07→20:50)
[2018-02-20] MEDS: BALSAM PERU/CASTOR OIL 60 GM TUBE TOP SCH ×2 (10:08→20:49)
--- NOTE | 2018-02-20 10:09 | PN ---
Date/Time of Note Date/Time of Note DATE: 02/20/18 TIME: 10:07 Assessment/Plan Lines/Catheters IV Catheter Type (from Nrs): Mid Line Rob[place] in Place (from Nrs): Yes Assessment/Plan Chief Complaint/Hosp Course 1. Sacral wound: + Wound cultures; intermittently refusing treatment -debridement as needed -Continue local care> Dakin's -frequent turning and off-loading -low air loss mattress -vitamin c -short term zinc -optimize nutrition -Wound cultures > pending 2.Shock: Lactic acidosis improved status post pressors; resolved 3. UTI: + Pseudomonas -abx per sensitivity -frequent bladder emptying/cath care 4. Leukocytosis: Resolved 5. Depression with psychosis: -psych optimization, currently on cymbalta Thank you. Patient seen and examined in collaboration with Dr. Jaden Lopez. Subjective 24 Hr Interval Summary No fevers, chills, sob, congested cough, cp, palpitations, aguilar, dizziness, n/v/d/dysuria. +bowel function. Wound cultures noted. Exam/Review of Systems Vital Signs Vitals Vital Signs Date Temp Pulse Resp B/P (MAP) Pulse Ox O2 O2 Flow FiO2 Time Delivery Rate 02/20/18 99.3 81 19 120/66 95 Room Air 08:00 (84) 02/17/18 2.0 23:03 Intake and Output 02/19/18 02/19/18 02/20/18 1515:00 23:00 07:00 IntakeIntake Total 158.25 ml 120 ml OutputOutput Total 1500 ml 400 ml BalanceBalance 158.25 ml -1380 ml -400 ml Exam Free Text/Dictation Constitutional: alert, oriented; No distress Psych: nl mood/affect Head: normocephalic, atraumatic Eyes: nl conjunctiva, EOMI, nl lids, nl sclera ENMT: nl external ears & nose, nl lips & teeth, mucosa pink and moist Neck: supple, non-tender; No jvd, No nuchal rigidity Respiratory: normal air movement; No congested cough, No labored breathing Cardiovascular: regular rate and rhythm, nl pulses; No edema Gastrointestinal: soft, non-tender, other (Left colostomy (productive)) Genitourinary - Female: nl external genitalia Musculoskeletal: nl extremities to inspection, nl gait and stance Extremities: normal pulses Neurological: nl mental status, nl speech, nl strength Skin: nl turgor, other (Sacral: Stage IV (clean, no periwound erythema, no odor, mod drainage); groin and abdominal folds: Erythema); No rash or lesions Results Result Diagram: 02/19/18140102/19/181401 ANGEL SHOEMAKER NP Feb 20, 2018 10:09
[2018-02-20 14:00] VITALS: BP 110/86; PULSE 87; RESP 20
--- NOTE | 2018-02-20 14:18 | PN ---
Date/Time of Note Date/Time of Note DATE: 02/20/18 TIME: 14:11 Assessment/Plan VTE Prophylaxis Risk score (from Nsg)>0 risk: 7 SCD applied (from Nsg): Yes Pharmacological prophylaxis: heparin Lines/Catheters IV Catheter Type (from Nrsg): Mid Line Urinary Cath still in place: Yes Reason Cath still needed: urinary retention Assessment/Plan Hospital Course 43 yo female with MS presented with septic shock from pneumonia, now resolved and stable. Ready for discharge home Bacteremia with pneumonia - Abx per ID MS: - Stable Seizures: - Continue keppra and depakote Ready for discharge. Caregiver will come to pick her up tomorrow at 11 PM Result Diagram: 02/19/18 1402 02/19/18 1402 Subjective 24 Hr Interval Summary Free Text/Dictation Stable No complaints Ready for discharge I spoke to caregiver who says he can't take her home today. Can come to get her at 11 PM tomorrow he says Exam/Review of Systems Vital Signs Vitals Vital Signs Date Temp Pulse Resp B/P (MAP) Pulse Ox O2 O2 Flow FiO2 Time Delivery Rate 02/20/18 99.3 81 19 120/66 95 Room Air 08:00 (84) 02/17/18 2.0 23:03 Intake and Output 02/19/18 02/19/18 02/20/18 1414:59 22:59 06:59 IntakeIntake Total 158.25 ml 120 ml OutputOutput Total 1500 ml 400 ml BalanceBalance 158.25 ml -1380 ml -400 ml Medications Medications Current Medications IV Flush (NS 3 ml) 3 ml PER PROTOCOL IV ; Start 02/15/18 at 05:00 Ondansetron HCl (Zofran Inj) 4 mg Q6H PRN IV NAUSEA AND/OR VOMITING Last admini stered on 02/19/18at 19:22; Admin Dose 4 MG; Start 02/15/18 at 05:00 Acetaminophen (Tylenol Tab) 650 mg Q6H PRN PO PAIN LEVEL 1-3 OR FEVER; Start 02/15/18 at 05:00 Acetaminophen/ Hydrocodone Bitart ([place] (5/325)) 1 tab Q6H PRN PO PAIN LEVEL 4-6; Start 02/15/18 at 05:00 Acetaminophen/ Hydrocodone Bitart ([place] (5/325)) 2 tab Q6H PRN PO PAIN LEVEL 7-10 Last administered on 02/19/18 15:30; Admin Dose 2 TAB; Start 02/15/18 at 05:00 Heparin Sodium (Porcine) (Heparin (5000 Units/1ml)) 5,000 unit Q12 SC Last administered on 02/20/18 10:07; Admin Dose 5,000 UNIT; Start 02/15/18 at 09:00 Albuterol/ Ipratropium (Duoneb) 3 ml Q2H RESP THERAPY PRN HHN SHORTNESS OF BREATH Last administered on 02/15/18 21:29; Admin Dose 3 ML; Start 02/15/18 at 05:00 Divalproex Sodium (Depakote) 500 mg BID PO Last administered on 02/20/18 10:03; Admin Dose 500 MG; Start 02/15/18 at 09:00 Levetiracetam (Keppra) 1,000 mg BID PO Last administered on 02/20/18 10:03; Admin Dose 1,000 MG; Start 02/15/18 at 09:00 Zolpidem Tartrate (Ambien) 5 mg HS PRN PO INSOMNIA; Start 02/15/18 at 21:00 Aztreonam 50 ml @ 100 mls/hr Q12 IVPB Last administered on 02/20/18 10:01; Admin Dose 100 MLS/HR; Start 02/15/18 at 13:00 Linezolid (Zyvox) 600 mg BID PO Last administered on 02/20/18 10:03; Admin Dose 600 MG; Start 02/17/18 at 21:00 Tobramycin (Tobramycin Iv Per Pharmacy) TOBRAMYCIN PER PHARMACY NOTE XX ; Start 02/17/18 at 12:30 Tobramycin 330 mg/ Dextrose 108.25 ml @ 103.75 mls/hr Q24H IVPB Last administered on 02/19/18 14:13; Admin Dose 103.75 MLS/HR; Start 02/17/18 at 15:00 Clonazepam (Klonopin) 2 mg BID PRN PO AGITATION; Start 02/17/18 at 13:30 Nystatin (Nystatin Powder) 1 applic BID TOP Last administered on 02/20/18 10:03; Admin Dose 1 APPLIC; Start 1/8/19 at 21:00 Sodium Hypochlorite (Dakin'S (Dilute )) 1 applic DAILY IRR Last administered on 02/20/18at 10:02; Admin Dose 1 APPLIC; Start 02/18/18 at 10:30 Duloxetine HCl (Cymbalta) 60 mg DAILY PO Last administered on 02/20/18at 10:02; Admin Dose 60 MG; Start 02/20/18 at 10:00 TAYLER PATEL MD Feb 20, 2018 14:18
--- NOTE | 2018-02-20 15:02 | CONS ---
Date/Time of Note Date/Time of Note DATE: 02/20/18 TIME: 15:00 Assessment/Plan Assessment/Plan Hospital Course No acute events overnight patient is sleeping looks comfortable no fevers no labs this morning Microbiology: Sacral wound grew VRE, MRSA and Pseudomonas. Blood culture on admission grew coag negative staph species. Urine culture grew Pseudomonas. Repeat blood cultures negative Antimicrobials: Azactam, Zyvox, tobramycin Allergy: Penicillin Indwelling: Roberson, left upper extremity midline, left forearm Port-A-Cath Physical examination: This is a chronically ill-appearing middle-aged woman who is in no distress the patient is sleeping she is arousable. Head atraumatic normocephalic neck is supple chest rise symmetrical breath sounds diminished bases. Heart: S1-S2. Abdomen soft, bowel sounds present. Extremities wasted without cyanosis. Skin patient has an unstageable sacral wound which is very deep Assessment: 1. Resolving sepsis s/p shock 2. Staph bacteremia with repeat blood cultures negative 3. Multidrug-resistant urinary tract infection 4. Pneumonia possibly aspirated 4. Unstageable sacral decub 5. Advanced multiple sclerosis 6. Neurogenic bladder 7. Seizure disorder Plan: Improving, continue antibiotics, wound care per surgical recommendations, dc Azacyam in am, f/u labs Result Diagram: 02/19/18 1402 02/19/18 1402 Consultation Date/Type/Reason Admit Date/Time Feb 15, 2018 at 04:23 Initial Consult Date 02/16/18 Type of Consult ID Requesting Provider: KASIA TAPIA SPINNING LATHE OPERATOR Exam/Review of Systems Vital Signs Vitals Vital Signs Date Temp Pulse Resp B/P (MAP) Pulse Ox O2 O2 Flow FiO2 Time Delivery Rate 02/20/18 99.3 81 19 120/66 95 Room Air 08:00 (84) 02/17/18 2.0 23:03 Intake and Output 02/19/18 02/19/18 02/20/18 1515:00 23:00 07:00 IntakeIntake Total 158.25 ml 120 ml OutputOutput Total 1500 ml 400 ml BalanceBalance 158.25 ml -1380 ml -400 ml Medications Medications Current Medications IV Flush (NS 3 ml) 3 ml PER PROTOCOL IV ; Start 02/15/18 at 05:00 Ondansetron HCl (Zofran Inj) 4 mg Q6H PRN IV NAUSEA AND/OR VOMITING Last administered on 02/19/18 19:22; Admin Dose 4 MG; Start 02/15/18 at 05:00 Acetaminophen (Tylenol Tab) 650 mg Q6H PRN PO PAIN LEVEL 1-3 OR FEVER; Start 02/15/18 at 05:00 Acetaminophen/ Hydrocodone Bitart ([place] (5/325)) 1 tab Q6H PRN PO PAIN LEVEL 4-6; Start 02/15/18 at 05:00 Acetaminophen/ Hydrocodone Bitart ([place] (5/325)) 2 tab Q6H PRN PO PAIN LEVEL 7-10 Last administered on 02/19/18 15:30; Admin Dose 2 TAB; Start 02/15/18 at 05:00 Heparin Sodium (Porcine) (Heparin (5000 Units/1ml)) 5,000 unit Q12 SC Last administered on 02/20/18 10:07; Admin Dose 5,000 UNIT; Start 02/15/18 at 09:00 Albuterol/ Ipratropium (Duoneb) 3 ml Q2H RESP THERAPY PRN HHN SHORTNESS OF BREATH Last administered on 02/15/18 21:29; Admin Dose 3 ML; Start 02/15/18 at 05:00 Divalproex Sodium (Depakote) 500 mg BID PO Last administered on 02/20/18 10:03; Admin Dose 500 MG; Start 02/15/18 at 09:00 Levetiracetam (Keppra) 1,000 mg BID PO Last administered on 02/20/18 10:03; Admin Dose 1,000 MG; Start 02/15/18 at 09:00 Zolpidem Tartrate (Ambien) 5 mg HS PRN PO INSOMNIA; Start 02/15/18 at 21:00 Aztreonam 50 ml @ 100 mls/hr Q12 IVPB Last administered on 02/20/18 10:01; Admin Dose 100 MLS/HR; Start 02/15/18 at 13:00 Linezolid (Zyvox) 600 mg BID PO Last administered on 02/20/18 10:03; Admin Dose 600 MG; Start 02/17/18 at 21:00 Tobramycin (Tobramycin Iv Per Pharmacy) TOBRAMYCIN PER PHARMACY NOTE XX ; Start 02/17/18 at 12:30 Tobramycin 330 mg/ Dextrose 108.25 ml @ 103.75 mls/hr Q24H IVPB Last administered on 02/19/18at 14:13; Admin Dose 103.75 MLS/HR; Start 02/17/18 at 15:00 Clonazepam (Klonopin) 2 mg BID PRN PO AGITATION; Start 02/17/18 at 13:30 Nystatin (Nystatin Powder) 1 applic BID TOP Last administered on 02/20/18at 10:03; Admin Dose 1 APPLIC; Start 02/17/18 at 21:00 Sodium Hypochlorite (Dakin'S (Dilute )) 1 applic DAILY IRR Last administered on 02/20/18at 10:02; Admin Dose 1 APPLIC; Start 02/18/18 at 10:30 Duloxetine HCl (Cymbalta) 60 mg DAILY PO Last administered on 02/20/18at 10:02; Admin Dose 60 MG; Start 02/20/18 at 10:00 KASIA TAPIA NP Feb 20, 2018 15:02
[2018-02-20] MEDS: ONDANSETRON 4 MG INJ IV PRN (15:08)
[2018-02-20] MEDS: DEXTROSE 5% IVPB SCH (16:34)
[2018-02-20] MEDS: TOBRAMYCIN IVPB SCH (16:34)
[2018-02-20 19:53] VITALS: BP 90/53; PULSE 94; RESP 20
[2018-02-21 02:25] VITALS: BP 131/66; PULSE 91; RESP 17
[2018-02-21 07:58] VITALS: BP 129/68; PULSE 71; RESP 18
[2018-02-21] MEDS: AZTREONAM 1 GM/NS (PMX) 50 ML IVPB SCH (09:09)
[2018-02-21] MEDS: ZYVOX 600 MG TAB PO SCH ×2 (09:10→21:04)
[2018-02-21] MEDS: DIVALPROEX (EC) 500 MG TAB PO SCH ×2 (09:10→21:03)
[2018-02-21] MEDS: HYDROCODONE/APAP (5/325) TAB PO PRN ×2 (09:11→18:46)
[2018-02-21] MEDS: ONDANSETRON 4 MG INJ IV PRN ×2 (09:11→15:40)
[2018-02-21] MEDS: LEVETIRACETAM 500 MG TAB PO SCH ×2 (09:11→21:04)
[2018-02-21] MEDS: SODIUM HYPOCHLORITE (1/40) 1 APPLIC BTL IRR SCH (09:12)
[2018-02-21] MEDS: BALSAM PERU/CASTOR OIL 60 GM TUBE TOP SCH ×2 (09:12→21:17)
[2018-02-21] MEDS: NYSTATIN 30 GM POWDER BTL TOP SCH ×2 (09:12→21:17)
[2018-02-21] MEDS: DULOXETINE 20 MG CAP DR PO SCH (09:12)
[2018-02-21] MEDS: HEPARIN 5,000 UNIT/1 ML VIAL SC SCH ×2 (09:17→21:07)
[2018-02-21 14:00] VITALS: BP 109/69; PULSE 99; RESP 20
--- NOTE | 2018-02-21 14:15 | CONS ---
Date/Time of Note Date/Time of Note DATE: 02/21/18 TIME: 14:11 Assessment/Plan Assessment/Plan Result Diagram: 02/21/18 1016 02/21/18 1016 Results 24hrs Laboratory Tests Test 02/21/18 06:11 02/21/18 10:16 Blood Urea Nitrogen 8 8 Creatinine 0.40 L 0.41 L White Blood Count 10.3 Red Blood Count 4.24 Hemoglobin 11.6 L Hematocrit 36.5 L Mean Corpuscular Volume 86.1 Mean Corpuscular Hemoglobin 27.4 L Mean Corpuscular Hemoglobin Concent 31.8 L Red Cell Distribution Width 15.7 H Platelet Count 489 H Mean Platelet Volume 9.2 Immature Granulocytes % 0.900 H Neutrophils % 51.5 Lymphocytes % 38.8 Monocytes % 7.9 Eosinophils % 0.5 Basophils % 0.4 Nucleated Red Blood Cells % 0.0 Immature Granulocytes # 0.090 H Neutrophils # 5.3 Lymphocytes # 4.0 H Monocytes # 0.8 Eosinophils # 0.1 Basophils # 0.0 Nucleated Red Blood Cells # 0.0 Sodium Level 142 Potassium Level 3.7 Chloride Level 102 Carbon Dioxide Level 30 Anion Gap 10 Est Glomerular Filtrat Rate mL/min > 60 Glucose Level 93 Calcium Level 9.0 Consultation Date/Type/Reason Admit Date/Time Feb 15, 2018 at 04:23 Initial Consult Date SUBJECTIVE: Pt is sleepy, comfortable, afebrile. VS: stable. T: 98.1 LABS: reviewed. WBC- 10.3 Microbiology: Sacral wound grew VRE, MRSA and Pseudomonas. Blood culture on admission grew coag negative staph species. Urine culture grew Pseudomonas. Repeat blood cultures negative SACRAL WOUND CULTURE: GRAM STAIN Final POLYMORPH. LEUKOCYTE NONE SEEN GRAM POS COCCI IN PAIRS RARE WOUND CULTURE Final Organism 1 PSEUDOMONAS AERUGINOSA QUANTITY SCANT GROWTH Organism 2 METHICILLIN RESISTANT S.AUREUS QUANTITY SCANT GROWTH . MULTI DRUG RESISTANT ORGANISM Organism 3 VANCO RESISTANT ENTEROCOCCUS QUANTITY SCANT GROWTH . MULTI DRUG RESISTANT ORGANISM Pseudomonas aeruginosa: Meropenem FENG >32 Resistant. Multi drug resistant organism MRSA, VRE Pseudomonas aeruginosa: PREVIOUSLY REPORTED MDRO. MRSA, VRE: Susceptibilities previously reported, see prior culture report of same specimen site. Antimicrobials: Zyvox, tobramycin Allergy: Penicillin Indwelling: Roberson, left upper extremity midline, left forearm Port-A-Cath Physical examination: GEN: This is a chronically ill-appearing middle-aged woman who is in no distress the patient is sleeping she is arousable. HENT: Head atraumatic normocephalic, neck is supple PULM: chest rise symmetrical, breath sounds diminished bases. Heart: S1-S2. Abdomen soft, bowel sounds present. Extremities wasted without cyanosis. Skin patient has an unstageable sacral wound which is very deep Assessment: 1. Resolving sepsis s/p shock 2. Staph bacteremia with repeat blood cultures negative 3. Multidrug-resistant urinary tract infection 4. Pneumonia possibly aspirated 4. Unstageable sacral decub 5. Advanced multiple sclerosis 6. Neurogenic bladder 7. Seizure disorder Plan: Pt is gradually improving. Will continue current antibiotics. Daily wound care per surgical recommendations. [place] [facility] today. Requesting Provider: KASIA TAPIA NP Exam/Review of Systems Vital Signs Vitals Vital Signs Date Temp Pulse Resp B/P (MAP) Pulse Ox O2 O2 Flow FiO2 Time Delivery Rate 02/21/18 98.1 71 18 129/68 94 Room Air 07:58 (88) 02/17/18 2.0 23:03 Intake and Output 02/20/18 02/20/18 02/21/18 1515:00 23:00 07:00 IntakeIntake Total 208.25 ml 50 ml OutputOutput Total 1050 ml 600 ml BalanceBalance -841.75 ml -550 ml Medications Medications Current Medications IV Flush (NS 3 ml) 3 ml PER PROTOCOL IV ; Start 02/15/18 at 05:00 Ondansetron HCl (Zofran Inj) 4 mg Q6H PRN IV NAUSEA AND/OR VOMITING Last administered on 02/21/18at 09:11; Admin Dose 4 MG; Start 02/15/18 at 05:00 Acetaminophen (Tylenol Tab) 650 mg Q6H PRN PO PAIN LEVEL 1-3 OR FEVER; Start 02/15/18 at 05:00 Acetaminophen/ Hydrocodone Bitart ([place] (5/325)) 1 tab Q6H PRN PO PAIN LEVEL 4-6; Start 02/15/18 at 05:00 Acetaminophen/ Hydrocodone Bitart ([place] (5/325)) 2 tab Q6H PRN PO PAIN LEVEL 7-10 Last administered on 02/21/18at 09:11; Admin Dose 2 TAB; Start 02/15/18 at 05:00 Heparin Sodium (Porcine) (Heparin (5000 Units/1ml)) 5,000 unit Q12 SC Last administered on 02/21/18 09:17; Admin Dose 5,000 UNIT; Start 02/15/18 at 09:00 Albuterol/ Ipratropium (Duoneb) 3 ml Q2H RESP THERAPY PRN HHN SHORTNESS OF BREATH Last administered on 02/15/18 21:29; Admin Dose 3 ML; Start 02/15/18 at 05:00 Divalproex Sodium (Depakote) 500 mg BID PO Last administered on 02/21/18 09:10; Admin Dose 500 MG; Start 02/15/18 at 09:00 Levetiracetam (Keppra) 1,000 mg BID PO Last administered on 02/21/18 09:11; Admin Dose 1,000 MG; Start 02/15/18 at 09:00 Zolpidem Tartrate (Ambien) 5 mg HS PRN PO INSOMNIA; Start 02/15/18 at 21:00 Linezolid (Zyvox) 600 mg BID PO Last administered on 02/21/18 09:10; Admin Dose 600 MG; Start 02/17/18 at 21:00 Tobramycin (Tobramycin Iv Per Pharmacy) TOBRAMYCIN PER PHARMACY NOTE XX ; Start 02/17/18 at 12:30 Tobramycin 330 mg/ Dextrose 108.25 ml @ 103.75 mls/hr Q24H IVPB Last administered on 02/20/18 16:34; Admin Dose 103.75 MLS/HR; Start 02/17/18 at 15:00 Clonazepam (Klonopin) 2 mg BID PRN PO AGITATION; Start 02/17/18 at 13:30 Nystatin (Nystatin Powder) 1 applic BID TOP Last administered on 02/21/18 09:12; Admin Dose 1 APPLIC; Start 02/17/18 at 21:00 Sodium Hypochlorite (Dakin'S (Dilute 40)) 1 applic DAILY IRR Last administered on 02/21/18 09:12; Admin Dose 1 APPLIC; Start 02/18/18 at 10:30 Duloxetine HCl (Cymbalta) 60 mg DAILY PO Last administered on 02/21/18 09:12; Admin Dose 60 MG; Start 02/20/18 at 10:00 SEE SANON Feb 21, 2018 14:15
[2018-02-21] MEDS: TOBRAMYCIN IVPB SCH (14:36)
[2018-02-21] MEDS: DEXTROSE 5% IVPB SCH (14:36)
--- NOTE | 2018-02-21 15:08 | PN ---
Date/Time of Note Date/Time of Note DATE: 02/21/18 TIME: 15:06 Assessment/Plan Lines/Catheters IV Catheter Type (from [facility]): portacath Roberson in Place (from Nrs): Yes Assessment/Plan Chief Complaint/Hosp Course 1. Sacral wound: + Wound cultures; intermittently refusing treatment -debridement as needed -Continue local care> Dakin's; can continue with same wound care at home when discharged -frequent turning and off-loading -low air loss mattress -vitamin c -short term zinc -optimize nutrition 2.Shock: Lactic acidosis improved status post pressors; resolved 3. UTI: + Pseudomonas -abx per sensitivity -frequent bladder emptying/cath care 4. Leukocytosis: Resolved 5. Depression with psychosis: -psych optimization, currently on cymbalta Thank you. Patient seen and examined in collaboration with Dr. Jaden Lopez. Subjective 24 Hr Interval Summary Feels well. + Bowel function per ostomy. Min temp. No chills, sob, congested cough, cp, palpitations, aguilar, dizziness, nausea, vomiting, diarrhea, dysuria. Exam/Review of Systems Vital Signs Vitals Vital Signs Date Temp Pulse Resp B/P (MAP) Pulse Ox O2 O2 Flow FiO2 Time Delivery Rate 02/21/18 99.1 99 20 109/69 95 14:00 (82) 02/21/18 Room Air 07:58 02/17/18 2.0 23:03 Intake and Output 02/20/18 02/20/18 02/21/18 1515:00 23:00 07:00 IntakeIntake Total 208.25 ml 50 ml OutputOutput Total 1050 ml 600 ml BalanceBalance -841.75 ml -550 ml Exam Free Text/Dictation Constitutional: alert, oriented; No distress Psych: nl mood/affect Head: normocephalic, atraumatic Eyes: nl conjunctiva, EOMI, nl lids, nl sclera ENMT: nl external ears & nose, nl lips & teeth, mucosa pink and moist Neck: supple, non-tender; No jvd, No nuchal rigidity Respiratory: normal air movement; No congested cough, No labored breathing Cardiovascular: regular rate and rhythm, nl pulses; No edema Gastrointestinal: soft, non-tender, other (Left colostomy (productive)) Genitourinary - Female: nl external genitalia Musculoskeletal: nl extremities to inspection, nl gait and stance Extremities: normal pulses Neurological: nl mental status, nl speech, nl strength Skin: nl turgor, other (Sacral: Stage IV (clean, no periwound erythema, no odor, mod drainage); groin and abdominal folds: Erythema-much improved); No rash or lesions Results Result Diagram: 02/21/18 1016 02/21/18 1016 ANGEL SHOEMAKER NP Feb 21, 2018 15:08
--- NOTE | 2018-02-21 16:43 | DS ---
Date/Time of Note Date/Time of Note DATE: 02/21/18 TIME: 16:43 Discharge Summary Admission/Discharge Info Admit Date/Time Feb 15, 2018 at 04:23 Discharge Date/Time Discharge Diagnosis Pneumoina Patient Condition: Stable Hospital Course 43 yo female with MS presented with septic shock from pneumonia. She was given vasopressors for hypotension, fluids and antibiotics. Symptoms resolved. Home Meds Reported Medications Gabapentin* (Gabapentin*) 300 Mg Capsule, 300 MG PO TID, #90 CAP 11/02/17 Baclofen* (Baclofen*) 20 Mg Tablet, 20 MG PO BID, TAB 11/02/17 Duloxetine Hcl* (Duloxetine Hcl*) 60 Mg Capsule.dr, 60 MG PO DAILY, #30 CAP 03/17/17 Divalproex Sodium* (Depakote*) 500 Mg Tablet.dr, 500 MG PO BID, #120 TAB 03/17/17 Clonazepam* (Clonazepam*) 2 Mg Tablet, 2 MG PO BID, TAB 03/17/17 Temazepam* (Temazepam*) 30 Mg Capsule, 30 MG PO HS PRN for INSOMNIA, CAP 03/17/17 Levetiracetam* (Keppra*) 1,000 Mg Tablet, 1000 MG PO BID, TAB 03/17/17 Primary Care Provider Not On Staff Doctor Pending Labs Laboratory Tests Test 02/21/18 06:11 02/21/18 10:16 Blood Urea Nitrogen 8 mg/dl (7-20) 8 mg/dl (7-20) Creatinine 0.40 mg/dl (0.44-1.00) 0.41 mg/dl (0.44-1.00) White Blood Count 10.3 10^3/ul (4.8-10.8) Red Blood Count 4.24 10^6/ul (4.20-5.40) Hemoglobin 11.6 g/dl (12.0-16.0) Hematocrit 36.5 % (37.0-47.0) Mean Corpuscular Volume 86.1 fl (82.0-101.0) Mean Corpuscular Hemoglobin 27.4 pg (29.0-33.0) Mean Corpuscular 31.8 g/dl (32.0-37.0) Hemoglobin Concent Red Cell Distribution Width 15.7 % (11.5-14.5) Platelet Count 489 10^3/UL (140-415) Mean Platelet Volume 9.2 fl (7.4-10.4) Immature Granulocytes % 0.900 % (0.001-0.429) Neutrophils % 51.5 % (39.0-77.0) Lymphocytes % 38.8 % (15.0-51.0) Monocytes % 7.9 % (0.0-11.0) Eosinophils % 0.5 % (0.0-7.0) Basophils % 0.4 % (0.0-2.0) Nucleated Red Blood Cells % 0.0 /100WBC (0.0-0.0) Immature Granulocytes # 0.090 10^3/ul (0.0-0.031) Neutrophils # 5.3 10^3/ul (1.6-7.5) Lymphocytes # 4.0 10^3/ul (0.8-2.9) Monocytes # 0.8 10^3/ul (0.3-0.9) Eosinophils # 0.1 10^3/ul (0.0-0.5) Basophils # 0.0 10^3/ul (0.0-0.1) Nucleated Red Blood Cells # 0.0 10^3/ul (0.0-0.0) Sodium Level 142 mmol/L (135-144) Potassium Level 3.7 mmol/L (3.5-5.1) Chloride Level 102 mmol/L (97-110) Carbon Dioxide Level 30 mmol/L (21-31) Anion Gap 10 (5-13) Est Glomerular Filtrat > 60 mL/min (>60) Rate mL/min Glucose Level 93 mg/dl (70-220) Calcium Level 9.0 mg/dl (8.4-10.2) TAYLER PATEL MD Feb 21, 2018 16:43
[2018-02-21 20:00] VITALS: BP 131/73; PULSE 90; RESP 18
[2018-02-22 02:00] VITALS: BP 111/70; PULSE 86; RESP 18
[2018-02-22] MEDS: HYDROCODONE/APAP (5/325) TAB PO PRN (04:59)
[2018-02-22] MEDS: ONDANSETRON 4 MG INJ IV PRN ×2 (04:59→09:39)
[2018-02-22 08:00] VITALS: BP 132/71; PULSE 82; RESP 18
[2018-02-22] MEDS: DIVALPROEX (EC) 500 MG TAB PO SCH (08:33)
[2018-02-22] MEDS: DULOXETINE 20 MG CAP DR PO SCH (08:33)
[2018-02-22] MEDS: LEVETIRACETAM 500 MG TAB PO SCH (08:33)
[2018-02-22] MEDS: ZYVOX 600 MG TAB PO SCH (08:33)
[2018-02-22] MEDS: BALSAM PERU/CASTOR OIL 60 GM TUBE TOP SCH (08:34)
[2018-02-22] MEDS: SODIUM HYPOCHLORITE (1/40) 1 APPLIC BTL IRR SCH (08:34)
[2018-02-22] MEDS: NYSTATIN 30 GM POWDER BTL TOP SCH (08:34)
[2018-02-22] MEDS: HEPARIN 5,000 UNIT/1 ML VIAL SC SCH (08:35)
[2018-02-22] MEDS ORDERED: HEPARIN (100 UNITS/ML) 5 ML SYG CATHETER ONE (12:30)
--- NOTE | 2018-02-22 13:05 | CONS ---
Date/Time of Note Date/Time of Note DATE: 02/22/18 TIME: 13:04 Assessment/Plan Assessment/Plan Result Diagram: 02/21/18 1016 02/21/18 1016 Consultation Date/Type/Reason Admit Date/Time Feb 15, 2018 at 04:23 Initial Consult Date SUBJECTIVE: Pt is awake, alert, comfortable, afebrile. VS: stable. T: 99.0 LABS: reviewed. Microbiology: Sacral wound grew VRE, MRSA and Pseudomonas. Blood culture on admission grew coag negative staph species. Urine culture grew Pseudomonas. Repeat blood cultures negative SACRAL WOUND CULTURE: GRAM STAIN Final POLYMORPH. LEUKOCYTE NONE SEEN GRAM POS COCCI IN PAIRS RARE WOUND CULTURE Final Organism 1 PSEUDOMONAS AERUGINOSA QUANTITY SCANT GROWTH Organism 2 METHICILLIN RESISTANT S.AUREUS QUANTITY SCANT GROWTH . MULTI DRUG RESISTANT ORGANISM Organism 3 VANCO RESISTANT ENTEROCOCCUS QUANTITY SCANT GROWTH . MULTI DRUG RESISTANT ORGANISM Pseudomonas aeruginosa: Meropenem FENG >32 Resistant. Multi drug resistant organism MRSA, VRE Pseudomonas aeruginosa: PREVIOUSLY REPORTED MDRO. MRSA, VRE: Susceptibilities previously reported, see prior culture report of same specimen site. Antimicrobials: Zyvox, tobramycin Allergy: Penicillin Indwelling: Roberson, left upper extremity midline, left forearm Port-A-Cath Physical examination: GEN: This is a chronically ill-appearing middle-aged woman who is in no distress the patient is sleeping she is arousable. HENT: Head atraumatic normocephalic, neck is supple PULM: chest rise symmetrical, breath sounds diminished bases. Heart: S1-S2. Abdomen soft, bowel sounds present. Extremities wasted without cyanosis. Skin patient has an unstageable sacral wound which is very deep Assessment: 1. Resolving sepsis s/p shock 2. Staph bacteremia with repeat blood cultures negative 3. Multidrug-resistant urinary tract infection 4. Pneumonia possibly aspirated 4. Unstageable sacral decub 5. Advanced multiple sclerosis 6. Neurogenic bladder 7. Seizure disorder Plan: Pt is gradually improving. Will continue current antibiotics. Daily wound care per surgical recommendations. Requesting Provider: KASIA TAPIA NP Exam/Review of Systems Vital Signs Vitals Vital Signs Date Temp Pulse Resp B/P (MAP) Pulse Ox O2 O2 Flow FiO2 Time Delivery Rate 02/22/18 99.0 82 18 132/71 98 Room Air 08:00 (91) Intake and Output 02/21/18 02/21/18 02/22/18 1515:00 23:00 07:00 IntakeIntake Total 360 ml 108.25 ml 200 ml OutputOutput Total 400 ml 300 ml 875 ml BalanceBalance -40 ml -191.75 ml -675 ml Medications Medications Current Medications IV Flush (NS 3 ml) 3 ml PER PROTOCOL IV ; Start 02/15/18 at 05:00 Ondansetron HCl (Zofran Inj) 4 mg Q6H PRN IV NAUSEA AND/OR VOMITING Last administered on 02/22/18at 09:39; Admin Dose 4 MG; Start 02/15/18 at 05:00 Acetaminophen (Tylenol Tab) 650 mg Q6H PRN PO PAIN LEVEL 1-3 OR FEVER; Start 02/15/18 at 05:00 Acetaminophen/ Hydrocodone Bitart (Springer (5/325)) 1 tab Q6H PRN PO PAIN LEVEL 4-6; Start 02/15/18 at 05:00 Acetaminophen/ Hydrocodone Bitart (Springer (5/325)) 2 tab Q6H PRN PO PAIN LEVEL 7-10 Last administered on 02/22/18at 04:59; Admin Dose 2 TAB; Start 02/15/18 at 05:00 Heparin Sodium (Porcine) (Heparin (5000 Units/1ml)) 5,000 unit Q12 SC Last administered on 02/22/18at 08:35; Admin Dose 5,000 UNIT; Start 02/15/18 at 09:00 Albuterol/ Ipratropium (Duoneb) 3 ml Q2H RESP THERAPY PRN HHN SHORTNESS OF BREATH Last administered on 02/15/18at 21:29; Admin Dose 3 ML; Start 02/15/18 at 05:00 Divalproex Sodium (Depakote) 500 mg BID PO Last administered on 02/22/18at 08:33; Admin Dose 500 MG; Start 02/15/18 at 09:00 Levetiracetam (Keppra) 1,000 mg BID PO Last administered on 02/22/18at 08:33; Admin Dose 1,000 MG; Start 02/15/18 at 09:00 Zolpidem Tartrate (Ambien) 5 mg HS PRN PO INSOMNIA; Start 02/15/18 at 21:00 Linezolid (Zyvox) 600 mg BID PO Last administered on 02/22/18 08:33; Admin Dose 600 MG; Start 02/17/18 at 21:00 Tobramycin (Tobramycin Iv Per Pharmacy) TOBRAMYCIN PER PHARMACY NOTE XX ; Start 02/17/18 at 12:30 Tobramycin 330 mg/ Dextrose 108.25 ml @ 103.75 mls/hr Q24H IVPB Last administered on 02/21/18 14:36; Admin Dose 103.75 MLS/HR; Start 02/17/18 at 15:00 Clonazepam (Klonopin) 2 mg BID PRN PO AGITATION Last administered on 02/21/18 15:31; Admin Dose 2 MG; Start 02/17/18 at 13:30 Nystatin (Nystatin Powder) 1 applic BID TOP Last administered on 02/22/18 08:34; Admin Dose 1 APPLIC; Start 02/17/18 at 21:00 Sodium Hypochlorite (Dakin'S (Dilute 40)) 1 applic DAILY IRR Last administered on 02/22/18 08:34; Admin Dose 1 APPLIC; Start 02/18/18 at 10:30 Duloxetine HCl (Cymbalta) 60 mg DAILY PO Last administered on 02/22/18 08:33; Admin Dose 60 MG; Start 02/20/18 at 10:00 SEE SANON Feb 22, 2018 13:05
[2018-02-22 14:00] VITALS: BP 131/65; PULSE 80; RESP 18
--- NOTE | 2018-02-22 14:40 | PN ---
Date/Time of Note Date/Time of Note DATE: 02/22/18 TIME: 14:37 Assessment/Plan Lines/Catheters IV C[facility] Type (from [facility]): portacath Roberson in Place (from Nrs): Yes Assessment/Plan Chief Complaint/Hosp Course 1. Sacral wound: + Wound cultures; intermittently refusing treatment -debridement as needed -Continue local care> Dakin's; can continue with same wound care at home when discharged -frequent turning and off-loading -low air loss mattress -vitamin c -short term zinc -optimize nutrition 2.Shock: Lactic acidosis improved status post pressors; resolved 3. UTI: + Pseudomonas -abx per sensitivity -frequent bladder emptying/cath care 4. Leukocytosis: Resolved 5. Depression with psychosis: -psych optimization, currently on cymbalta Thank you. Patient seen and examined in collaboration with Dr. Jaden Lopez. Subjective 24 Hr Interval Summary Feels well. dc pending. No fevers, chills, sob, congested cough, cp, palp itations, aguilar, dizziness, n/v/d/dysuria. Exam/Review of Systems Vital Signs Vitals Vital Signs Date Temp Pulse Resp B/P (MAP) Pulse Ox O2 O2 Flow FiO2 Time Delivery Rate 02/22/18 98.6 80 18 131/65 92 Room Air 14:00 (87) Intake and Output 02/21/18 02/21/18 02/22/18 1515:00 23:00 07:00 IntakeIntake Total 360 ml 108.25 ml 200 ml OutputOutput Total 400 ml 300 ml 875 ml BalanceBalance -40 ml -191.75 ml -675 ml Exam Free Text/Dictation Constitutional: alert, oriented; No distress Psych: nl mood/affect Head: normocephalic, atraumatic Eyes: nl conjunctiva, EOMI, nl lids, nl sclera ENMT: nl external ears & nose, nl lips & teeth, mucosa pink and moist Neck: supple, non-tender; No jvd, No nuchal rigidity Respiratory: normal air movement; No congested cough, No labored breathing Cardiovascular: regular rate and rhythm, nl pulses; No edema Gastrointestinal: soft, non-tender, other (Left colostomy (productive)) Genitourinary - Female: nl external genitalia Musculoskeletal: nl extremities to inspection, nl gait and stance Extremities: normal pulses Neurological: nl mental status, nl speech, nl strength Skin: nl turgor, other (Sacral: Stage IV (clean, no periwound erythema, no odor, mod drainage); groin and abdominal folds: Erythema-much improved); No rash or lesions Results Result Diagram: 02/21/18 1016 02/21/18 1016 ANGEL SHOEMAKER NP Feb 22, 2018 14:40
--- NOTE | 2018-02-22 15:40 | PN ---
Date/Time of Note Date/Time of Note DATE: 02/22/18 TIME: 15:40 Assessment/Plan VTE Prophylaxis Risk score (from Ns)>0 risk: 8 SCD applied (from Ns): Yes Pharmacological prophylaxis: heparin Lines/Catheters IV Catheter Type (from Nrsg): portacath Urinary Cath still in place: Yes Reason Cath still needed: urinary retention Assessment/Plan Hospital Course 43 yo female with MS presented with septic shock from pneumonia. She was given vasopressors for hypotension, fluids and antibiotics. Symptoms resolved. Result Diagram: 02/21/18 1016 02/21/18 1016 Subjective 24 Hr Interval Summary Free Text/Dictation Patient stayed overnight as caregiver didn't come to get her Ambulance arranged for today Exam/Review of Systems Vital Signs Vitals Vital Signs Date Temp Pulse Resp B/P (MAP) Pulse Ox O2 O2 Flow FiO2 Time Delivery Rate 02/22/18 98.6 80 18 131/65 92 Room Air 14:00 (87) Intake and Output 02/21/18 02/21/18 02/22/18 1515:00 23:00 07:00 IntakeIntake Total 360 ml 108.25 ml 200 ml OutputOutput Total 400 ml 300 ml 875 ml BalanceBalance -40 ml -191.75 ml -675 ml TAYLER PATEL MD Feb 22, 2018 15:40
[2018-03-19] MEDS ORDERED: ALBU18HF INHALATION (04:47)
[2018-03-19] MEDS ORDERED: GABA300C16 PO (04:47)
[2018-03-23] MEDS ORDERED: PHEN-717 PO (14:47)
== END 2018-02-22 15:10 | disposition home or self-care (01) | DRG 871 ==
LOC: FTE 03:03 → ICU 04:23 → CANRESERV 07:17 → EDBEDREQSVC 08:39 → EDBEDREQ 08:39 → 5EC 02-18 19:43
PROVIDERS: ADMIT Internal Medicine; ATTEND Internal Medicine
DX: A41.9 Sepsis, unspecified organism (principal); L89.154 Pressure ulcer of sacral region, stage 4; R65.21 Severe sepsis with septic shock; J18.9 Pneumonia, unspecified organism; G93.49 Other encephalopathy; N39.0 Urinary tract infection, site not specified; F33.3 Major depressive disorder, recurrent, severe with psychotic symptoms; G35 Multiple sclerosis; N31.9 Neuromuscular dysfunction of bladder, unspecified; G62.9 Polyneuropathy, unspecified; I10 Essential (primary) hypertension; G40.909 Epilepsy, unspecified, not intractable, without status epilepticus; Z93.3 Colostomy status; Z88.0 Allergy status to penicillin; Z88.8 Allergy status to other drugs, medicaments and biological substances; Z91.040 Latex allergy status; Z74.01 Bed confinement status; B96.5 Pseudomonas (aeruginosa) (mallei) (pseudomallei) as the cause of diseases classified elsewhere; Z16.24 Resistance to multiple antibiotics
CPT/HCPCS: 36415; 36600; 71045; 71250; 80048; 80053; 80200; 80202; 81001; 82565; 82803; 83036; 83605; 83735; 84484; 84520; 85025; 85610; 85730; 87040; 87070; 87081; 87086; 90686; 92526; 92610; 93005; 93306; 94664; 96365; 96375; J0131; J1642; J1644; J1956; J2405; J3260; J3370; J7030; J7040; J7050; J7120

== ENCOUNTER 2018-03-30 18:31 | Inpatient (IN) | payer MEDICARE, OTHER ==
[~2018-03-30] VITALS: Ht 157.5 cm; Wt 81.1 kg
[~2018-03-30 18:31] MED LIST changes: +ALBU18HF INHALATION; -BACL20TA PO; -CLON2TAB12 PO; +PHEN-717 PO
[2018-03-30] MEDS ORDERED: SODIUM CHLORIDE 0.9% 1L BAG IV* STA (23:03)
--- NOTE | 2018-03-31 01:27 | ERD ---
ER Documentation Chief Complaint Chief Complaint sent by pmd for back cellulitis/wound infection HPI This is a 43-year-old female sent by her PMD for a cellulitis and wound infection of her sacral area. Patient has had this chronically but has apparently had increased drainage and purulent drainage. She denies any fevers or chills. Denies any nausea vomiting. She was recently admitted for urinary tract infection. MRI was reviewed. ROS All systems reviewed and are negative except as per history of present illness. Medications Home Meds Active Scripts Phenazopyridine Hcl* (Phenazopyridine Hcl*) 200 Mg Tablet, 200 MG PO TID for 30 Days, #90 TAB Prov:VANDANA DA SILVA 03/23/18 Reported Medications Albuterol Sulfate* (Ventolin HFA*) 18 Gm Hfa.aer.ad, 2 PUFF INHALATION Q4H, #1 INHALER 03/19/18 Gabapentin* (Gabapentin*) 300 Mg Capsule, 300 MG PO TID, #90 CAP 03/19/18 Duloxetine Hcl* (Duloxetine Hcl*) 60 Mg Capsule.dr, 60 MG PO DAILY, #30 CAP 03/17/17 Divalproex Sodium* (Depakote*) 500 Mg Tablet.dr, 500 MG PO BID, #120 TAB 03/17/17 Temazepam* (Temazepam*) 30 Mg Capsule, 30 MG PO HS PRN for INSOMNIA, CAP 03/17/17 Levetiracetam* (Keppra*) 1,000 Mg Tablet, 1000 MG PO BID, TAB 03/17/17 Allergies Allergies: Coded Allergies: Penicillins (Verified Allergy, Unknown, 03/19/18) labetalol (Verified Allergy, Unknown, 03/19/18) latex (Verified Allergy, Unknown, 03/19/18) PMhx/Soc History of Surgery: Yes (colostomy) Anesthesia Reaction: No Hx Neurological Disorder: Yes (multiple sclerosis) Hx Respiratory Disorders: Yes (asthma) Hx Cardiac Disorders: No Hx Psychiatric Problems: Yes (depression) Hx Miscellaneous Medical Probl: Yes (MS, seizure, HTN, neurogenic bladder, colonostomy, decub, ) Hx Alcohol Use: No Hx Substance Use: No Hx Tobacco Use: No Physical Exam Vitals Vital Signs Date Temp Pulse Resp B/P (MAP) Pulse Ox O2 O2 Flow FiO2 Time Delivery Rate 03/30/18 97.6 125 20 116/55 97 18:41 (75) Physical Exam Const: No acute distress Head: Atraumatic Eyes: Normal Conjunctiva ENT: Normal External Ears, Nose and Mouth. Neck: Full range of motion. No meningismus. Resp: Clear to auscultation bilaterally Cardio: Regular rate and rhythm, no murmurs Abd: Soft, non tender, non distended. Normal bowel sounds Skin: No petechiae or rashes Back: No midline or flank tenderness Ext: No cyanosis, or edema Neur: Awake and alert Psych: Normal Mood and Affect Result Diagram: 03/31/18 0010 03/31/18 001 Results 24 hrs Laboratory Tests Test 03/31/18 00:10 03/31/18 00:45 White Blood Count 11.2 10^3/ul Red Blood Count 4.48 10^6/ul Hemoglobin 12.6 g/dl Hematocrit 39.8 % Mean Corpuscular Volume 88.8 fl Mean Corpuscular Hemoglobin 28.1 pg Mean Corpuscular Hemoglobin Concent 31.7 g/dl Red Cell Distribution Width 16.3 % Platelet Count 435 10^3/UL Mean Platelet Volume 9.1 fl Immature Granulocytes % 0.400 % Neutrophils % 57.0 % Lymphocytes % 35.2 % Monocytes % 5.4 % Eosinophils % 1.6 % Basophils % 0.4 % Nucleated Red Blood Cells % 0.0 /100WBC Immature Granulocytes # 0.050 10^3/ul Neutrophils # 6.4 10^3/ul Lymphocytes # 4.0 10^3/ul Monocytes # 0.6 10^3/ul Eosinophils # 0.2 10^3/ul Basophils # 0.1 10^3/ul Nucleated Red Blood Cells # 0.0 10^3/ul Prothrombin Time 11.6 Sec Prothrombin Time Ratio 0.9 INR International Normalized Ratio 0.84 Activated Partial Thromboplast Time 24.3 Sec Sodium Level 142 mmol/L Potassium Level 4.6 mmol/L Chloride Level 103 mmol/L Carbon Dioxide Level 26 mmol/L Anion Gap 13 Blood Urea Nitrogen 24 mg/dl Creatinine 0.46 mg/dl Est Glomerular Filtrat Rate mL/min > 60 mL/min Glucose Level 110 mg/dl Lactic Acid Level 1.3 mmol/L Calcium Level 9.5 mg/dl Total Bilirubin 0.0 mg/dl Direct Bilirubin 0.00 mg/dl Indirect Bilirubin 0.0 mg/dl Aspartate Amino Transf (AST/SGOT) 17 IU/L Alanine Aminotransferase (ALT/SGPT) < 6 IU/L Alkaline Phosphatase 57 IU/L Troponin I < 0.012 ng/ml Total Protein 8.4 g/dl Albumin 4.0 g/dl Globulin 4.40 g/dl Albumin/Globulin Ratio 0.90 Urine Color YELLOW Urine Clarity CLOUDY Urine pH 6.0 Urine Specific [place] 1.027 Urine Ketones TRACE mg/dL Urine Nitrite NEGATIVE mg/dL Urine Bilirubin NEGATIVE mg/dL Urine Urobilinogen NEGATIVE mg/dL Urine Leukocyte Esterase 2+ [place]/ul Urine Microscopic RBC 180 /HPF Urine Microscopic WBC > 182 /HPF Urine Squamous Epithelial Cells FEW /HPF Urine Transitional Epithelial Cells FEW /HPF Urine Bacteria MODERATE /HPF Urine Mucus FEW /HPF Urine Hemoglobin 1+ mg/dL Urine Glucose NEGATIVE mg/dL Urine Total Protein 1+ mg/dl Current Medications Medications Dose Sig/Stacey Start Time Status Last (Trade) Ordered Route PRN Stop Time Admin Dose Reason Admin Sodium 2,450 ml BOLUS OVER 2 03/30/18 DC Chloride HOURS STAT 23:03 (NS) IV* 03/30/18 23:04 Procedures/MDM EKG: Rate/Rhythm: [Normal Sinus Rhythm] QRS, ST, T-waves: [No changes consistent w/ acute ischemia] Impression: [No evidence of ischemia or arrhythmia] Chest X-ray 1V Interpreted by me: Soft Tissue: No acute abnormalities Bones: No acute abnormalities Mediastinum/Cardiac Silhouette/Lungs: [No acute abnormalities] Medical decision makin-year-old female with infected sacral area. Culture sent. Patient will be admitted to Dr. Vasquez of the hospitalist team. Departure Diagnosis: Primary Impression: Encounter for wound re-check Condition: KATELYN Danielson Mar 31, 2018 01:27
[2018-03-31] MEDS ORDERED: ALBUTEROL 0.083% (NEB) 2.5 MG/3 ML AMP HHN PRN (02:30)
[2018-03-31] MEDS ORDERED: VANCOMYCIN IV PER PHARMACY XX SCH (02:30)
[2018-03-31] MEDS ORDERED: NACL 0.9% 3 ML SYG IV SCH (02:30)
--- NOTE | 2018-03-31 02:41 | HP ---
Date/Time of Note Date/Time of Note DATE: 03/31/18 TIME: 02:13 Assessment/Plan VTE Prophylaxis SCD applied (from Nsg): Yes Pharmacological prophylaxis: LMWH Assessment/Plan Assessment/Plan 1. SIRS secondary to unstageable sacral decub - patient with known decub but increase in discharge - will order wound consult and determine if need for debridement - started on Vancomycin 2. Advanced multiple sclerosis - stable 3. h/o seizures - continue home medications 4. chronic decub - pain control - Pelvis MRI performed 01/2018 was negative for osteomyelitis 5. Disposition - Admit to med/surg for evaluation and treatment of sacral decub Result Diagram: 03/31/18 0010 03/31/18 0010 Results 24hrs Laboratory Tests Test 03/31/18 00:10 03/31/18 00:45 White Blood Count 11.2 #H Red Blood Count 4.48 Hemoglobin 12.6 Hematocrit 39.8 Mean Corpuscular Volume 88.8 Mean Corpuscular Hemoglobin 28.1 L Mean Corpuscular Hemoglobin Concent 31.7 L Red Cell Distribution Width 16.3 H Platelet Count 435 #H Mean Platelet Volume 9.1 Immature Granulocytes % 0.400 Neutrophils % 57.0 Lymphocytes % 35.2 Monocytes % 5.4 Eosinophils % 1.6 Basophils % 0.4 Nucleated Red Blood Cells % 0.0 Immature Granulocytes # 0.050 H Neutrophils # 6.4 Lymphocytes # 4.0 H Monocytes # 0.6 Eosinophils # 0.2 Basophils # 0.1 Nucleated Red Blood Cells # 0.0 Prothrombin Time 11.6 L Prothrombin Time Ratio 0.9 INR International Normalized Ratio 0.84 Activated Partial Thromboplast Time 24.3 Sodium Level 142 Potassium Level 4.6 Chloride Level 103 Carbon Dioxide Level 26 Anion Gap 13 Blood Urea Nitrogen 24 H Creatinine 0.46 Est Glomerular Filtrat Rate mL/min > 60 Glucose Level 110 Lactic Acid Level 1.3 Calcium Level 9.5 Total Bilirubin 0.0 L Direct Bilirubin 0.00 Indirect Bilirubin 0.0 Aspartate Amino Transf (AST/SGOT) 17 Alanine Aminotransferase (ALT/SGPT) < 6 L Alkaline Phosphatase 57 Troponin I < 0.012 Total Protein 8.4 H Albumin 4.0 Globulin 4.40 H Albumin/Globulin Ratio 0.90 Urine Color YELLOW Urine Clarity CLOUDY A Urine pH 6.0 Urine Specific [place] 1.027 Urine Ketones TRACE A Urine Nitrite NEGATIVE Urine Bilirubin NEGATIVE Urine Urobilinogen NEGATIVE Urine Leukocyte Esterase 2+ H Urine Microscopic RBC 180 H Urine Microscopic WBC > 182 H Urine Squamous Epithelial Cells FEW Urine Transitional Epithelial Cells FEW A Urine Bacteria MODERATE Urine Mucus FEW A Urine Hemoglobin 1+ H Urine Glucose NEGATIVE Urine Total Protein 1+ H HPI/ROS Admit Date/Time Admit Date/Time Mar 31, 2018 at 01:01 Hx of Present Illness 43 yo F with H severe multiple sclerosis resulting in debility, chronic sacral decub, neurogenic bladder with chronic Roberson presented from [facility] due to worsening erythema and pain in sacral area. Patient has known chronic un stageable decub but has notice increase in discharge and discomfort. Patient was recently discharged from [facility] after admission for UTI. Patient denies any chest pain, shortness of breath, dizziness, nausea, vomiting, fevers, chills, or abdominal pain. Patient continues to ask for marijuana script to legally smoke at home. ROS All 12 systems reviewed and pertinent positives as per HPI. All others negative. Constitutional: No chills, No fatigue, No nausea Eyes: No discharge ENT: No congestion Respiratory: No cough, No shortness of breath, No sputum, No wheezing Cardiovascular: No chest pain, No lightheadedness, No palpitations Gastrointestinal: No pain, No constipation, No diarrhea, No nausea, No vomiting Genitourinary: No flank pain, No hematuria Musculoskeletal: other (sacral discomfort) Skin: erythema, rash, skin lesions Neurologic: No confusion, No focal-weakness, No syncope Endocrine: no complaints Lymphatic: no complaints Psychological: nl mood/affect Immunologic: no complaints PMH/Family/Social Past Medical History Medical History: other (MS, seizures, unstageable sacral decub, neurogenic bladder, ) Medications Current Medications Divalproex Sodium (Depakote) 500 mg BID PO ; Start 03/31/18 at 09:00; Status UNV Duloxetine HCl (Cymbalta) 60 mg DAILY PO ; Start 03/31/18 at 09:00; Status UNV Gabapentin (Neurontin) 300 mg TID PO ; Start 03/31/18 at 09:00; Status UNV Levetiracetam (Keppra) 1,000 mg BID PO ; Start 03/31/18 at 09:00; Status UNV Phenazopyridine HCl (Pyridium) 200 mg TID PO ; Start 03/31/18 at 09:00; Status UNV Albuterol (Proventil 0.083% (Neb)) 2.5 mg Q2H RESP THERAPY PRN HHN SHORTNESS OF BREATH; Start 03/31/18 at 02:30; Status UNV IV Flush (NS 3 ml) 3 ml PER PROTOCOL IV ; Start 03/31/18 at 02:30; Status UNV Ondansetron HCl (Zofran Inj) 4 mg Q6H PRN IV NAUSEA/VOMITING; Start 03/31/18 at 02:30; Status UNV Acetaminophen (Tylenol Tab) 650 mg Q6H PRN PO .PAIN 1-3 OR TEMP; Start 03/31/18 at 02:30; Status UNV Acetaminophen/ Hydrocodone Bitart ([place] (5/325)) 1 tab Q6H PRN PO .MOD PAIN 4- 6; Start 03/31/18 at 02:30; Status UNV Acetaminophen/ Hydrocodone Bitart ([place] (5/325)) 2 tab Q6H PRN PO .SEVERE PAIN 7-10; Start 03/31/18 at 02:30; Status UNV Morphine Sulfate (morphine) 2 mg Q4H PRN IV .SEVERE PAIN 7-10; Start 03/31/18 at 02:30; Status UNV Docusate Sodium (Colace) 100 mg Q12H PRN PO .CONSTIPATION; Start 03/31/18 at 02:30; Status UNV Magnesium Hydroxide (Milk Of Mag) 30 ml DAILY PRN PO .CONSTIPATION; Start 03/31/18 at 02:30; Status UNV Enoxaparin Sodium (Lovenox) 40 mg DAILY SC ; Start 03/31/18 at 09:00; Status UNV Vancomycin HCl (Vanco Iv Per Pharmacy) VANCOMYCIN PER PHARMACY PER PROTOCOL XX ; Start 03/31/18 at 02:30; Status UNV Coded Allergies: Penicillins (Verified Allergy, Unknown, 03/19/18) labetalol (Verified Allergy, Unknown, 03/19/18) latex (Verified Allergy, Unknown, 03/19/18) Past Surgical History Past Surgical Hx: other (colostomy) Family History Significant Family History: no pertinent family hx Social History Alcohol Use: none Smoking Status: Never smoker Drug Use: marijuana Exam/Review of Systems Vital Signs Vitals Vital Signs Date Temp Pulse Resp B/P (MAP) Pulse Ox O2 O2 Flow FiO2 Time Delivery Rate 03/31/18 97.6 101 20 128/58 97 Room Air 01:41 (81) Exam Exam General: Patient is a pleasant female, currently lying in bed in no acute distress HEENT: Atraumatic, normocephalic. The pupils are equal, round and reactive. Extraocular motor are intact Neck: Supple with full range of motion. No rigidity or meningismus Chest: Nontender Lungs: Clear to auscultation bilaterally no crackles rales or wheezing Heart: Normal S1-S2, Regular rhythm,tachycardia, no murmurs Abdomen: Soft , obese, nontender, nondistended , bowel sounds are present. No guarding no rebound tenderness , No masses or organomegaly. No costovertebral temporal angle mass Extremities: Normal to inspection, no edema no cyanosis Neurologic: Normal mental status, speech normal, cranial nerves II through XII are intact Additional Comments Home medications reviewed PROCEDURE: XR Chest. CLINICAL INDICATION: Possible sepsis. Infection. TECHNIQUE: AP Portable chest. COMPARISON: Chest x-ray 03/19/2018. FINDINGS: There is a left PICC line seen with its distal tip projecting in the right atrium, unchanged since the prior study. The heart size is normal. The lung volumes are diminished with atelectasis seen at the lung bases. No consolidation or pleural effusion is evident. Mild degenerative changes of the thoracic spine are noted. IMPRESSION: 1. Stable positioning of the left PICC line. 2. Low lung volumes with mild bibasilar atelectasis. RPTAT: HJAH .Ginger Viramontes MD, MD Date Time Electronically viewed and signed by .Ginger Viramontes MD, MD on 03/30/2018 23:58 CHESTER BARRIENTOS MD Mar 31, 2018 02:23
[2018-03-31 02:55] VITALS: Ht 157.5 cm; Wt 81.1 kg
[2018-03-31] MEDS ORDERED: VANCOMYCIN HCL 1.5 GM in SOD CHLORIDE 0.9% 250 ML IVPB SCH ×4 (05:30)
[2018-03-31] MEDS: SOD CHLORIDE 0.9% 1,000 ML IV SCH (05:43)
[2018-03-31] MEDS: HYDROCODONE/APAP (5/325) TAB PO PRN ×3 (06:16→21:27)
[2018-03-31 08:00] VITALS: BP 122/87; PULSE 102; RESP 18
[2018-03-31] MEDS ORDERED: INFLUENZA VIRUS VACCINE 0.5 ML (DISPENSING) IM* ONE (10:00)
[2018-03-31] MEDS: DULOXETINE 30 MG CAP DR PO SCH (11:25)
[2018-03-31] MEDS: morphine 2 MG INJ IV PRN ×2 (11:25→15:50)
[2018-03-31] MEDS: LEVETIRACETAM 500 MG TAB PO SCH ×2 (11:26→21:26)
[2018-03-31] MEDS: GABAPENTIN 300 MG CAP PO SCH ×3 (11:26→21:27)
[2018-03-31] MEDS: NYSTATIN 15 GM CR TOP SCH ×2 (11:26→21:40)
[2018-03-31] MEDS: PHENAZOPYRIDINE 200 MG TAB PO SCH ×3 (11:26→21:27)
[2018-03-31] MEDS: DIVALPROEX (EC) 500 MG TAB PO SCH ×2 (11:26→21:27)
[2018-03-31] MEDS: ENOXAPARIN 40 MG/0.4 ML SYG SC SCH (11:28)
--- NOTE | 2018-03-31 13:01 | CONS ---
Assessment/Plan Assessment/Plan Hospital Course (Demo Recall) 1. Sacral wound: -Wound cultures if not done -No emergent surgical debridement necessary at this time; debridement as needed -local care> Dakin's packing and yessica-wound care -frequent turning and off-loading -low air loss mattress -vitamin c -short term zinc -optimize nutrition 2. UTI: -abx per sensitivity -frequent bladder emptying/cath care 4. Leukocytosis: -As above 5. Depression with psychosis: -psych optimization, currently on cymbalta Thank you. Patient seen and examined in collaboration with Dr. Jaden Lopez. Consultation Date/Type/Reason Admit Date/Time Mar 31, 2018 at 01:01 Date of Consultation: Mar 31, 2018 Type of Consult surgical Reason for Consultation wound Requesting Provider: LESLY TERRY NP Date/Time of Note DATE: 03/31/18 TIME: 12:48 Hx of Present Illness Carito Gutierrez is a 43-year-old woman who is known to our service from previous admissions with past medical history of multiple sclerosis, seizures, hypertension, neurogenic bladder with indwelling Roberson catheter, colostomy, sacral wound, who was sent to the ED with reports of perineal skin irritation, pain and sacral area as well as an increase in drainage from the sacral wound. Recent MRI of pelvis (01/13/18) shows large 3 cm sacral decubitus ulcer without suggestion of osteomyelitis or fistulous tracts. Laboratory findings sig nificant for mildly increased WBC of 11.5 as well as thrombocytosis. She reports chills and subjective fevers. She denies congested cough, chest pain, palpitations, nausea, vomiting, diarrhea, dysuria, change in bowel or bladder habits, seizures, rash. General surgery was asked to evaluate. 12 point review of systems was performed and is negative except for stated in HPI. Past Medical History As above Medical History: other (MS, seizures, unstageable sacral decub, neurogenic bladder, ) Home Meds Active Scripts Phenazopyridine Hcl* (Phenazopyridine Hcl*) 200 Mg Tablet, 200 MG PO TID for 30 Days, #90 TAB Prov:VANDANA DA SILVA 03/23/18 Reported Medications Albuterol Sulfate* (Ventolin HFA*) 18 Gm Hfa.aer.ad, 2 PUFF INHALATION Q4H, #1 INHALER 03/19/18 Gabapentin* (Gabapentin*) 300 Mg Capsule, 300 MG PO TID, #90 CAP 03/19/18 Duloxetine Hcl* (Duloxetine Hcl*) 60 Mg Capsule.dr, 60 MG PO DAILY, #30 CAP 03/17/17 Divalproex Sodium* (Depakote*) 500 Mg Tablet.dr, 500 MG PO BID, #120 TAB 03/17/17 Temazepam* (Temazepam*) 30 Mg Capsule, 30 MG PO HS PRN for INSOMNIA, CAP 03/17/17 Levetiracetam* (Keppra*) 1,000 Mg Tablet, 1000 MG PO BID, TAB 03/17/17 Medications Current Medications Divalproex Sodium (Depakote) 500 mg BID PO Last administered on 03/31/18 11:26; Admin Dose 500 MG; Start 03/31/18 at 09:00 Duloxetine HCl (Cymbalta) 60 mg DAILY PO Last administered on 03/31/18 11:25; Admin Dose 60 MG; Start 03/31/18 at 09:00 Gabapentin (Neurontin) 300 mg TID PO Last administered on 03/31/18 11:26; Admin Dose 300 MG; Start 03/31/18 at 09:00 Levetiracetam (Keppra) 1,000 mg BID PO Last administered on 03/31/18 11:26; Admin Dose 1,000 MG; Start 03/31/18 at 09:00 Phenazopyridine HCl (Pyridium) 200 mg TID PO Last administered on 03/31/18 11:26; Admin Dose 200 MG; Start 03/31/18 at 09:00 Albuterol (Proventil 0.083% (Neb)) 2.5 mg Q2H RESP THERAPY PRN HHN SHORTNESS OF BREATH; Start 03/31/18 at 02:30 IV Flush (NS 3 ml) 3 ml PER PROTOCOL IV ; Start 03/31/18 at 02:30 Ondansetron HCl (Zofran Inj) 4 mg Q6H PRN IV NAUSEA/VOMITING; Start 03/31/18 at 02:30 Acetaminophen (Tylenol Tab) 650 mg Q6H PRN PO .PAIN 1-3 OR TEMP; Start 03/31/18 at 02:30 Acetaminophen/ Hydrocodone Bitart ([place] (5/325)) 1 tab Q6H PRN PO .MOD PAIN 4- 6 Last administered on 03/31/18 06:16; Admin Dose 1 TAB; Start 03/31/18 at 02:30 Acetaminophen/ Hydrocodone Bitart ([place] (5/325)) 2 tab Q6H PRN PO .SEVERE PAIN 7-10; Start 03/31/18 at 02:30 Morphine Sulfate (morphine) 2 mg Q4H PRN IV .SEVERE PAIN 7-10 Last administered on 03/31/18 11:25; Admin Dose 2 MG; Start 03/31/18 at 02:30 Docusate Sodium (Colace) 100 mg Q12H PRN PO .CONSTIPATION; Start 03/31/18 at 02:30 Magnesium Hydroxide (Milk Of Mag) 30 ml DAILY PRN PO .CONSTIPATION; Start 03/31/18 at 02:30 Enoxaparin Sodium (Lovenox) 40 mg DAILY SC Last administered on 03/31/18 11:28; Admin Dose 40 MG; Start 03/31/18 at 09:00 Vancomycin HCl (Vanco Iv Per Pharmacy) VANCOMYCIN PER PHARMACY PER PROTOCOL XX ; Start 03/31/18 at 02:30 Nystatin (Nystatin Cr) 1 applic BID TOP Last administered on 03/31/18at 11:26; Admin Dose 1 APPLIC; Start 03/31/18 at 09:00 Sodium Chloride 1,000 ml @ 50 mls/hr Q20H IV Last administered on 03/31/18 05:43; Admin Dose 50 MLS/HR; Start 03/31/18 at 05:00 Vancomycin HCl 250 ml @ 125 mls/hr Q12H IVPB ; Start 03/31/18 at 18:00 Allergies: Coded Allergies: Penicillins (Verified Allergy, Unknown, 03/19/18) labetalol (Verified Allergy, Unknown, 03/19/18) latex (Verified Allergy, Unknown, 03/19/18) Past Surgical History As above Social History Alcohol Use: none Smoking Status: Former smoker Drug Use: marijuana Exam/Review of Systems Exam Vitals Vital Signs Date Temp Pulse Resp B/P (MAP) Pulse Ox O2 O2 Flow FiO2 Time Delivery Rate 03/31/18 98.8 102 18 122/87 96 08:00 (99) 03/31/18 Room Air 01:41 Intake and Output 03/30/18 03/30/18 03/31/18 1515:00 23:00 07:00 OutputOutput Total 600 ml BalanceBalance -600 ml Exam Constitutional: alert, oriented; No distress Psych: nl mood/affect Head: normocephalic, atraumatic Eyes: nl conjunctiva, EOMI, nl lids, nl sclera ENMT: nl external ears & nose, nl lips & teeth, mucosa pink and moist Neck: supple, non-tender; No jvd, No nuchal rigidity Respiratory: normal air movement; No congested cough, No labored breathing Cardiovascular: regular rate and rhythm, nl pulses; No edema Gastrointestinal: soft, non-tender, other (Left colostomy (productive)) Genitourinary - Female: nl external genitalia Musculoskeletal: nl extremities to inspection, nl gait and stance Extremities: normal pulses Neurological: nl mental status, nl speech, nl strength Skin: nl turgor, other (Sacral: Stage IV (clean, periwound erythema, no odor, mod drainage); perineum, groin and abdominal folds: Erythema); No rash or lesions Results Result Diagram: 03/31/18 0437 03/31/18 0323 Results 24hrs Laboratory Tests Test 03/31/18 00:10 03/31/18 00:45 03/31/18 03:23 03/31/18 04:37 White Blood Count 11.2 #H 11.5 H Red Blood Count 4.48 4.31 Hemoglobin 12.6 12.2 Hematocrit 39.8 38.5 Mean Corpuscular 88.8 89.3 Volume Mean Corpuscular 28.1 L 28.3 L Hemoglobin Mean Corpuscular 31.7 L 31.7 L Hemoglobin Concent Red Cell 16.3 H 16.3 H Distribution Width Platelet Count 435 #H 434 H Mean Platelet Volume 9.1 9.6 Immature 0.400 0.500 H Granulocytes % Neutrophils % 57.0 56.2 Lymphocytes % 35.2 34.1 Monocytes % 5.4 6.5 Eosinophils % 1.6 2.3 Basophils % 0.4 0.4 Nucleated Red Blood 0.0 0.0 Cells % Immature 0.050 H 0.060 H Granulocytes # Neutrophils # 6.4 6.5 Lymphocytes # 4.0 H 3.9 H Monocytes # 0.6 0.8 Eosinophils # 0.2 0.3 Basophils # 0.1 0.1 Nucleated Red Blood 0.0 0.0 Cells # Prothrombin Time 11.6 L Prothrombin Time 0.9 Ratio INR International 0.84 Normalized Ratio Activated 24.3 Partial Thromboplast Time Sodium Level 142 143 Potassium Level 4.6 5.1 Chloride Level 103 104 Carbon Dioxide Level 26 25 Anion Gap 13 14 H Blood Urea Nitrogen 24 H 24 H Creatinine 0.46 0.42 L Est Glomerular > 60 > 60 Filtrat Rate mL/min Glucose Level 110 98 Lactic Acid Level 1.3 1.3 Calcium Level 9.5 9.7 Total Bilirubin 0.0 L Direct Bilirubin 0.00 Indirect Bilirubin 0.0 Aspartate Amino 17 Transf (AST/SGOT) Alanine < 6 L Aminotransferase (AL T/SGPT) Alkaline Phosphatase 57 Troponin I < 0.012 Total Protein 8.4 H Albumin 4.0 Globulin 4.40 H Albumin/Globulin 0.90 Ratio Urine Color YELLOW Urine Clarity CLOUDY A Urine pH 6.0 Urine Specific 1.027 [place] Urine Ketones TRACE A Urine Nitrite NEGATIVE Urine Bilirubin NEGATIVE Urine Urobilinogen NEGATIVE Urine Leukocyte 2+ H Esterase Urine Microscopic 180 H RBC Urine Microscopic > 182 H WBC Urine Squamous FEW Epithelial Cells Urine Transitional FEW A Epithelial Cells Urine Bacteria MODERATE Urine Mucus FEW A Urine Hemoglobin 1+ H Urine Glucose NEGATIVE Urine Total Protein 1+ H Phosphorus Level 3.7 Magnesium Level 2.2 Medications Medication Current Medications Divalproex Sodium (Depakote) 500 mg BID PO Last administered on 03/31/18 11:; Admin Dose 500 MG; Start 03/31/18 at 09:00 Duloxetine HCl (Cymbalta) 60 mg DAILY PO Last administered on 03/31/18 11:25; Admin Dose 60 MG; Start 03/31/18 at 09:00 Gabapentin (Neurontin) 300 mg TID PO Last administered on 03/31/18 11:26; Admin Dose 300 MG; Start 03/31/18 at 09:00 Levetiracetam (Keppra) 1,000 mg BID PO Last administered on 03/31/18 11:26; Admin Dose 1,000 MG; Start 03/31/18 at 09:00 Phenazopyridine HCl (Pyridium) 200 mg TID PO Last administered on 03/31/18 11:26; Admin Dose 200 MG; Start 03/31/18 at 09:00 Albuterol (Proventil 0.083% (Neb)) 2.5 mg Q2H RESP THERAPY PRN HHN SHORTNESS OF BREATH; Start 03/31/18 at 02:30 IV Flush (NS 3 ml) 3 ml PER PROTOCOL IV ; Start 03/31/18 at 02:30 Ondansetron HCl (Zofran Inj) 4 mg Q6H PRN IV NAUSEA/VOMITING; Start 03/31/18 at 02:30 Acetaminophen (Tylenol Tab) 650 mg Q6H PRN PO .PAIN 1-3 OR TEMP; Start 03/31/18 at 02:30 Acetaminophen/ Hydrocodone Bitart ([place] (5/325)) 1 tab Q6H PRN PO .MOD PAIN 4- 6 Last administered on 03/31/18at 06:16; Admin Dose 1 TAB; Start 03/31/18 at 02:30 Acetaminophen/ Hydrocodone Bitart ([place] (5/325)) 2 tab Q6H PRN PO .SEVERE PAIN 7-10; Start 03/31/18 at 02:30 Morphine Sulfate (morphine) 2 mg Q4H PRN IV .SEVERE PAIN 7-10 Last administered on 03/31/18 11:25; Admin Dose 2 MG; Start 03/31/18 at 02:30 Docusate Sodium (Colace) 100 mg Q12H PRN PO .CONSTIPATION; Start 03/31/18 at 02:30 Magnesium Hydroxide (Milk Of Mag) 30 ml DAILY PRN PO .CONSTIPATION; Start 03/31/18 at 02:30 Enoxaparin Sodium (Lovenox) 40 mg DAILY SC Last administered on 03/31/18 11:28; Admin Dose 40 MG; Start 03/31/18 at 09:00 Vancomycin HCl (Vanco Iv Per Pharmacy) VANCOMYCIN PER PHARMACY PER PROTOCOL XX ; Start 03/31/18 at 02:30 Nystatin (Nystatin Cr) 1 applic BID TOP Last administered on 03/31/18 11:26; Admin Dose 1 APPLIC; Start 03/31/18 at 09:00 Sodium Chloride 1,000 ml @ 50 mls/hr Q20H IV Last administered on 03/31/18 05:43; Admin Dose 50 MLS/HR; Start 03/31/18 at 05:00 Vancomycin HCl 250 ml @ 125 mls/hr Q12H IVPB ; Start 03/31/18 at 18:00 ANGEL SHOEMAKER NP Mar 31, 2018 12:59
--- NOTE | 2018-03-31 14:03 | QN ---
Documentation Comment 43-year-old female admitted with increasing drainage from her chronic unst ageable decubitus ulcer on the sacral area. Patient also was noted with mild leukocytosis. At my encounter with the patient, she kept asking for marijuana prescriptions. She seems also very upset and very abusive when I refused to do marijuana prescription. At this time, we recommend continue wound care. I will also request surgery consultation to see whether this wound needs any debridement at present. Otherwise, wait for culture reports and antibiotic continuation. 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 Case discussed with Dr.Abe TERRY,LESLY Gagnon NP Mar 31, 2018 14:03
[2018-03-31 14:59] VITALS: BP 96/56; PULSE 110; RESP 20
[2018-03-31] MEDS ORDERED: VANCOMYCIN HCL 1.25 GM in SOD CHLORIDE 0.9% 250 ML IVPB SCH (18:00)
[2018-03-31] MEDS: VANCOMYCIN 1 GM 250 ML IVPB SCH (18:09)
[2018-03-31] MEDS: SODIUM HYPOCHLORITE (1/40) 1 APPLIC BTL IRR SCH (18:23)
[2018-03-31 20:05] VITALS: BP 107/53; PULSE 128; RESP 18
[2018-03-31] MEDS: morphine LIQ (10 MG/5 ML) CUP PO PRN (23:38)
[2018-04-01] MEDS: SOD CHLORIDE 0.9% 1,000 ML IV SCH ×2 (01:00→12:28)
[2018-04-01 02:31] VITALS: BP 115/52; PULSE 86; RESP 18
[2018-04-01] MEDS: VANCOMYCIN 1 GM 250 ML IVPB SCH ×2 (06:16→17:28)
[2018-04-01] MEDS: morphine LIQ (10 MG/5 ML) CUP PO PRN ×4 (06:19→21:45)
[2018-04-01 07:15] VITALS: BP 115/58; PULSE 95; RESP 18
[2018-04-01] MEDS: PHENAZOPYRIDINE 200 MG TAB PO SCH ×3 (09:20→21:08)
[2018-04-01] MEDS: DULOXETINE 30 MG CAP DR PO SCH (09:20)
[2018-04-01] MEDS: DIVALPROEX (EC) 500 MG TAB PO SCH ×2 (09:20→21:08)
[2018-04-01] MEDS: LEVETIRACETAM 500 MG TAB PO SCH ×2 (09:20→21:08)
[2018-04-01] MEDS: GABAPENTIN 300 MG CAP PO SCH ×3 (09:20→21:08)
[2018-04-01] MEDS: NYSTATIN 15 GM CR TOP SCH ×2 (09:21→21:07)
[2018-04-01] MEDS: ENOXAPARIN 40 MG/0.4 ML SYG SC SCH (09:21)
[2018-04-01] MEDS: SODIUM HYPOCHLORITE (1/40) 1 APPLIC BTL IRR SCH ×2 (09:23→21:08)
--- NOTE | 2018-04-01 11:22 | PN ---
Date/Time of Note Date/Time of Note DATE: 04/01/18 TIME: 11:18 Assessment/Plan Lines/Catheters IV Catheter Type (from [facility]): Peripheral IV Roberson in Place (from [facility]): Yes Assessment/Plan Chief Complaint/Hosp Course 1. Sacral wound: -Wound cultures>pending -No emergent surgical debridement necessary at this time; debridement as needed -local care> Dakin's packing and yessica-wound care> May be discharged with same wound orders -frequent turning and off-loading -low air loss mattress -vitamin c -short term zinc -optimize nutrition 2. UTI: -abx per sensitivity -frequent bladder emptying/cath care 4. Leukocytosis: resolved -As above 5. Depression with psychosis: -psych optimization, currently on cymbalta Thank you. Patient seen and examined in collaboration with Dr. Jaden Lopez. Subjective 24 Hr Interval Summary Feels well. Mod drainage from wound. No fevers, chills, sob, congested cough, cp, palpitations, aguilar, dizziness, n/v/d/dysuria. WBC normalized Exam/Review of Systems Vital Signs Vitals Vital Signs Date Temp Pulse Resp B/P (MAP) Pulse Ox O2 O2 Flow FiO2 Time Delivery Rate 04/01/18 98.7 95 18 115/58 95 Room Air 07:15 (77) 03/31/18 21 22:11 Intake and Output 03/31/18 03/31/18 04/01/18 1515:00 23:00 07:00 IntakeIntake Total 1010 ml 1730 ml 200 ml OutputOutput Total 950 ml BalanceBalance 1010 ml 780 ml 200 ml Exam Free Text/Dictation Constitutional: alert, oriented; No distress Psych: nl mood/affect Head: normocephalic, atraumatic Eyes: nl conjunctiva, EOMI, nl lids, nl sclera ENMT: nl external ears & nose, nl lips & teeth, mucosa pink and moist Neck: supple, non-tender; No jvd, No nuchal rigidity Respiratory: normal air movement; No congested cough, No labored breathing Cardiovascular: regular rate and rhythm, nl pulses; No edema Gastrointestinal: soft, non-tender, other (Left colostomy (productive)) Genitourinary - Female: nl external genitalia Musculoskeletal: nl extremities to inspection, nl gait and stance Extremities: normal pulses Neurological: nl mental status, nl speech, nl strength Skin: nl turgor, other (Sacral: Stage IV (clean, periwound erythema, no odor, mod drainage); perineum, groin and abdominal folds: Erythema- improved); No rash or lesions Results Result Diagram: 04/01/18 0559 04/01/18 0559 ANGEL SHOEMAKER NP Apr 01, 2018 11:22
[2018-04-01 14:00] VITALS: BP 116/55; PULSE 104; RESP 16
[2018-04-01] MEDS: HYDROCODONE/APAP (5/325) TAB PO PRN (14:19)
--- NOTE | 2018-04-01 15:16 | PN ---
Date/Time of Note Date/Time of Note DATE: 04/01/18 TIME: 15:03 Assessment/Plan VTE Prophylaxis Risk score (from Nsg)>0 risk: 1 SCD applied (from Nsg): Yes Pharmacological prophylaxis: LMWH Lines/Catheters IV Catheter Type (from Nrsg): Peripheral IV Urinary Cath still in place: Yes Reason Cath still needed: other (indicate) Assessment/Plan Assessment/Plan 1. Sacral wound, no debridement needed at this time per surgery, wound care, frequent turning and off-loading, low air loss mattress, vitamin C and Zinc, on vanco and cefepime 2. UTI: cefepime, follow up with culture 3. Seizure disorder, on depakote and keppra 4. Depression with psychosis, on cymbalta 5. DVT prophylaxis: lovenox Result Diagram: 04/01/1859 04/01/1859 Results 24hrs Laboratory Tests Test 04/01/18 05:59 White Blood Count 6.4 # Red Blood Count 4.28 Hemoglobin 11.9 L Hematocrit 37.9 Mean Corpuscular Volume 88.6 Mean Corpuscular Hemoglobin 27.8 L Mean Corpuscular Hemoglobin Concent 31.4 L Red Cell Distribution Width 16.5 H Platelet Count 412 Mean Platelet Volume 9.1 Immature Granulocytes % 0.300 Neutrophils % 36.7 L Lymphocytes % 51.6 H Monocytes % 8.2 Eosinophils % 2.7 Basophils % 0.5 Nucleated Red Blood Cells % 0.0 Immature Granulocytes # 0.020 Neutrophils # 2.4 Lymphocytes # 3.3 H Monocytes # 0.5 Eosinophils # 0.2 Basophils # 0.0 Nucleated Red Blood Cells # 0.0 Sodium Level 141 Potassium Level 4.6 Chloride Level 108 Carbon Dioxide Level 30 Anion Gap 3 #L Blood Urea Nitrogen 11 # Creatinine 0.47 Est Glomerular Filtrat Rate mL/min > 60 Glucose Level 103 Calcium Level 9.2 Subjective 24 Hr Interval Summary Free Text/Dictation afebrile Exam/Review of Systems Exam Vitals Vital Signs Date Temp Pulse Resp B/P (MAP) Pulse Ox O2 O2 Flow FiO2 Time Delivery Rate 04/01/18 98.7 95 18 115/58 95 Room Air 07:15 (77) 03/31/18 21 22:11 Intake and Output 03/31/18 03/31/18 04/01/18 1515:00 23:00 07:00 IntakeIntake Total 1010 ml 1730 ml 200 ml OutputOutput Total 950 ml BalanceBalance 1010 ml 780 ml 200 ml Constitutional: alert, oriented, well developed Head: normocephalic, atraumatic Eyes: nl conjunctiva, EOMI, nl lids, PERRL ENMT: nl external ears & nose, nl lips & teeth, nl nasal mucosa & septum Neck: supple, non-tender Respiratory: clear to auscultation, normal air movement; No congested cough, No crackles/rales, No diminished breath sounds, No intercostal retraction, No labored breathing, No respirations, No tactile fremitus, No wheezing, No other Cardiovascular: regular rate and rhythm, nl pulses; No bruits, No diastolic murmur, No edema, No gallop, No irregular rhythm, No jugular venous distention (JVD), No murmurs/extra sounds, No rub, No systolic murmur, No S3, No S4, No other Gastrointestinal: soft, nl liver, spleen, non-tender Extremities: normal pulses Neurological: [employer] II-XII intact, nl mental status, nl speech, nl strength Skin: other (sacral wound with escar) Results Results 24hrs Laboratory Tests Test 04/01/18 05:59 White Blood Count 6.4 # Red Blood Count 4.28 Hemoglobin 11.9 L Hematocrit 37.9 Mean Corpuscular Volume 88.6 Mean Corpuscular Hemoglobin 27.8 L Mean Corpuscular Hemoglobin Concent 31.4 L Red Cell Distribution Width 16.5 H Platelet Count 412 Mean Platelet Volume 9.1 Immature Granulocytes % 0.300 Neutrophils % 36.7 L Lymphocytes % 51.6 H Monocytes % 8.2 Eosinophils % 2.7 Basophils % 0.5 Nucleated Red Blood Cells % 0.0 Immature Granulocytes # 0.020 Neutrophils # 2.4 Lymphocytes # 3.3 H Monocytes # 0.5 Eosinophils # 0.2 Basophils # 0.0 Nucleated Red Blood Cells # 0.0 Sodium Level 141 Potassium Level 4.6 Chloride Level 108 Carbon Dioxide Level 30 Anion Gap 3 #L Blood Urea Nitrogen 11 # Creatinine 0.47 Est Glomerular Filtrat Rate mL/min > 60 Glucose Level 103 Calcium Level 9.2 Medications Medication Current Medications Divalproex Sodium (Depakote) 500 mg BID PO Last administered on 2/20/19at 09:20; Admin Dose 500 MG; Start 03/31/18 at 09:00 Duloxetine HCl (Cymbalta) 60 mg DAILY PO Last administered on 04/01/18 09:20; Admin Dose 60 MG; Start 03/31/18 at 09:00 Gabapentin (Neurontin) 300 mg TID PO Last administered on 04/01/18 12:25; Admin Dose 300 MG; Start 03/31/18 at 09:00 Levetiracetam (Keppra) 1,000 mg BID PO Last administered on 04/01/18 09:20; Admin Dose 1,000 MG; Start 03/31/18 at 09:00 Phenazopyridine HCl (Pyridium) 200 mg TID PO Last administered on 04/01/18 12:25; Admin Dose 200 MG; Start 03/31/18 at 09:00 Albuterol (Proventil 0.083% (Neb)) 2.5 mg Q2H RESP THERAPY PRN HHN SHORTNESS OF BREATH Last administered on 03/31/18 22:10; Admin Dose 2.5 MG; Start 03/31/18 at 02:30 IV Flush (NS 3 ml) 3 ml PER PROTOCOL IV ; Start 03/31/18 at 02:30 Ondansetron HCl (Zofran Inj) 4 mg Q6H PRN IV NAUSEA/VOMITING; Start 03/31/18 at 02:30 Acetaminophen (Tylenol Tab) 650 mg Q6H PRN PO .PAIN 1-3 OR TEMP; Start 03/31/18 at 02:30 Acetaminophen/ Hydrocodone Bitart ([place] (5/325)) 1 tab Q6H PRN PO .MOD PAIN 4- 6 Last administered on 04/01/18 14:19; Admin Dose 1 TAB; Start 03/31/18 at 02:30 Acetaminophen/ Hydrocodone Bitart ([place] (5/325)) 2 tab Q6H PRN PO .SEVERE PAIN 7-10 Last administered on 03/31/18 21:27; Admin Dose 2 TAB; Start 03/31/18 at 02:30 Docusate Sodium (Colace) 100 mg Q12H PRN PO .CONSTIPATION; Start 03/31/18 at 02:30 Magnesium Hydroxide (Milk Of Mag) 30 ml DAILY PRN PO .CONSTIPATION; Start 03/31/18 at 02:30 Enoxaparin Sodium (Lovenox) 40 mg DAILY SC Last administered on 04/01/18 09:21; Admin Dose 40 MG; Start 03/31/18 at 09:00 Vancomycin HCl (Vanco Iv Per Pharmacy) VANCOMYCIN PER PHARMACY PER PROTOCOL XX ; Start 03/31/18 at 02:30 Nystatin (Nystatin Cr) 1 applic BID TOP Last administered on 04/01/18 09:21; Admin Dose 1 APPLIC; Start 03/31/18 at 09:00 Sodium Chloride 1,000 ml @ 50 mls/hr Q20H IV Last administered on 04/01/18 12:28; Admin Dose 50 MLS/HR; Start 03/31/18 at 05:00 Vancomycin HCl 250 ml @ 125 mls/hr Q12H IVPB Last administered on 04/01/18 06:16; Admin Dose 125 MLS/HR; Start 03/31/18 at 18:00 Sodium Hypochlorite (Dakin'S (Dilute 140)) 1 applic DAILY IRR Last administered on 04/01/18 09:23; Admin Dose 1 APPLIC; Start 03/31/18 at 18:00 Morphine Sulfate (morphine) 6 mg Q4H PRN PO SEVERE PAIN LEVEL 7-10 Last administered on 04/01/18at 12:25; Admin Dose 6 MG; Start 03/31/18 at 22:30 Zolpidem Tartrate (Ambien) 5 mg HS PRN PO INSOMNIA; Start 04/01/18 at 00:16 Mupirocin (Bactroban) 1 applic BID TOP ; Start 04/01/18 at 21:00; Stop 04/08/18 at 20:59 SHAR LUQUE MD Apr 01, 2018 15:15
[2018-04-01 15:38] VITALS: PULSE 98
[2018-04-01] MEDS: CEFEPIME 1GM/50 ML (PMX) 50 ML IVPB SCH ×2 (16:31→21:08)
--- NOTE | 2018-04-01 18:42 | PSY ---
Date/Time of Note Date/Time of Note DATE: 04/01/18 TIME: 18:40 Psychiatric Subjective Eval Consent Pt consented to telemedicine: No Subjective Evaluation Patient location: inpatient Chief Complaint: sent by pmd for back cellulitis/wound infection History of present illness Patient is a 43year old female with multiple sclerosis . Patient is increasingly delusional, preoccupied about getting to a man with blue eyes and blond hair patient states people here are jealous of her, because she has the most handsome man in the world, who has just recently given her a ring . She denies suicidal ideation and stated nobody will be suicidal when you have a man who is that handsome. Past psychiatric history Long history of mental illness Hospitalization: other Medical history Problems Medical Problems: (1) Abdominal pain Status: Acute (2) Altered mental status Status: Acute (3) Anemia Status: Acute (4) Aspiration pneumonia Status: Acute (5) Blister Status: Acute (6) Coarse tremors Status: Acute (7) Complicated UTI (urinary tract infection) Status: Acute (8) Complication of catheter Status: Acute (9) Complication of Roberson catheter Status: Acute (10) Complication of vascular access for dialysis Status: Acute (11) COPD (chronic obstructive pulmonary disease) Status: Acute (12) Cystitis Status: Acute (13) Cystitis Status: Acute (14) Dehydration Status: Acute (15) Dehydration Status: Acute (16) Encounter for urinary catheter Status: Acute (17) Encounter for wound re-check Status: Acute (18) Genitourinary symptoms Status: Acute (19) Leukocytosis Status: Acute (20) Multiple sclerosis Status: Acute (21) Multiple sclerosis Status: Acute (22) PICC (peripherally inserted central catheter) flush Status: Acute (23) Pneumonia Status: Acute (24) Pneumonia Status: Acute (25) Pneumonia Status: Acute (26) Pneumonia Status: Acute (27) Respiratory distress Status: Acute (28) Respiratory failure Status: Acute (29) Seizure disorder Status: Acute (30) Sepsis Status: Acute (31) Sepsis Status: Acute (32) Sepsis Status: Acute (33) Septic shock Status: Acute (34) Septic shock Status: Acute (35) Severe sepsis Status: Acute (36) Urinary tract infection Status: Acute (37) UTI (urinary tract infection) Status: Acute (38) UTI (urinary tract infection) Status: Acute (39) UTI (urinary tract infection) Status: Acute (40) UTI (urinary tract infection) Status: Acute Allergies: Coded Allergies: Penicillins (Verified Allergy, Unknown, 03/19/18) labetalol (Verified Allergy, Unknown, 03/19/18) latex (Verified Allergy, Unknown, 03/19/18) Substance Abuse Substance abuse history: No Prior substance abuse treatmen: No Social History Marital status: other DPA/Conservatorship: No Psychiatric Objective Eval Review of Systems: Review of Systems: Not Applicable Physical Examination: Physical Examination: Not Applicable Energy: Decreased Interest: Decreased Mental Status Examination: Eye Contact: Good Psychomotor Activity: Normal Behavior: Cooperative Speech: Clear AFFECT: Appropriate Mood: Appropriate/Full Thought Content: Normal Orientation: x4 Insight: Intact Attention Span: Distractible Laboratory Results Laboratory Tests Test 03/31/18 00:10 03/31/18 00:45 03/31/18 03:23 03/31/18 04:37 White Blood 11.2 10^3/ul 11.5 10^3/ul Count Red Blood Count 4.48 10^6/ul 4.31 10^6/ul Hemoglobin 12.6 g/dl 12.2 g/dl Hematocrit 39.8 % 38.5 % Mean Corpuscular 88.8 fl 89.3 fl Volume Mean Corpuscular 28.1 pg 28.3 pg Hemoglobin Mean Corpuscular 31.7 g/dl 31.7 g/dl Hemoglobin Jessica nt Red Cell 16.3 % 16.3 % Distribution Width Platelet Count 435 10^3/UL 434 10^3/UL Mean Platelet 9.1 fl 9.6 fl Volume Immature 0.400 % 0.500 % Granulocytes % Neutrophils % 57.0 % 56.2 % Lymphocytes % 35.2 % 34.1 % Monocytes % 5.4 % 6.5 % Eosinophils % 1.6 % 2.3 % Basophils % 0.4 % 0.4 % Nucleated Red 0.0 /100WBC 0.0 /100WBC Blood Cells % Immature 0.050 10^3/ul 0.060 10^3/ul Granulocytes # Neutrophils # 6.4 10^3/ul 6.5 10^3/ul Lymphocytes # 4.0 10^3/ul 3.9 10^3/ul Monocytes # 0.6 10^3/ul 0.8 10^3/ul Eosinophils # 0.2 10^3/ul 0.3 10^3/ul Basophils # 0.1 10^3/ul 0.1 10^3/ul Nucleated Red 0.0 10^3/ul 0.0 10^3/ul Blood Cells # Prothrombin Time 11.6 Sec Prothrombin Time 0.9 Ratio INR 0.84 International Normalized Ratio Activated 24.3 Sec Partial Thrombop last Time Sodium Level 142 mmol/L 143 mmol/L Potassium Level 4.6 mmol/L 5.1 mmol/L Chloride Level 103 mmol/L 104 mmol/L Carbon Dioxide 26 mmol/L 25 mmol/L Level Anion Gap 13 14 Blood Urea 24 mg/dl 24 mg/dl Nitrogen Creatinine 0.46 mg/dl 0.42 mg/dl Est Glomerular > 60 mL/min > 60 mL/min Filtrat Rate mL/min Glucose Level 110 mg/dl 98 mg/dl Lactic Acid 1.3 mmol/L 1.3 mmol/L Level Calcium Level 9.5 mg/dl 9.7 mg/dl Total Bilirubin 0.0 mg/dl Direct Bilirubin 0.00 mg/dl Indirect 0.0 mg/dl Bilirubin Aspartate Amino 17 IU/L Transf (AST/SGOT ) Alanine < 6 IU/L Aminotransferase (ALT/SGPT) Alkaline 57 IU/L Phosphatase Troponin I < 0.012 ng/ml Total Protein 8.4 g/dl Albumin 4.0 g/dl Globulin 4.40 g/dl Albumin/Globulin 0.90 Ratio Urine Color YELLOW Urine Clarity CLOUDY Urine pH 6.0 Urine Specific 1.027 Gregory Urine Ketones TRACE mg/dL Urine Nitrite NEGATIVE mg/dL Urine Bilirubin NEGATIVE mg/dL Urine NEGATIVE mg/dL Urobilinogen Urine Leukocyte 2+ Kole/ul Esterase Urine 180 /HPF Microscopic RBC Urine > 182 /HPF Microscopic WBC Urine Squamous FEW /HPF Epithelial Cells Urine FEW /HPF Transitional Epithelial Cells Urine Bacteria MODERATE /HPF Urine Mucus FEW /HPF Urine Hemoglobin 1+ mg/dL Urine Glucose NEGATIVE mg/dL Urine Total 1+ mg/dl Protein Phosphorus Level 3.7 mg/dl Magnesium Level 2.2 mg/dl Test 04/01/18 05:59 White Blood 6.4 10^3/ul Count Red Blood Count 4.28 10^6/ul Hemoglobin 11.9 g/dl Hematocrit 37.9 % Mean Corpuscular 88.6 fl Volume Mean Corpuscular 27.8 pg Hemoglobin Mean Corpuscular 31.4 g/dl Hemoglobin Jessica nt Red Cell 16.5 % Distribution Width Platelet Count 412 10^3/UL Mean Platelet 9.1 fl Volume Immature 0.300 % Granulocytes % Neutrophils % 36.7 % Lymphocytes % 51.6 % Monocytes % 8.2 % Eosinophils % 2.7 % Basophils % 0.5 % Nucleated Red 0.0 /100WBC Blood Cells % Immature 0.020 10^3/ul Granulocytes # Neutrophils # 2.4 10^3/ul Lymphocytes # 3.3 10^3/ul Monocytes # 0.5 10^3/ul Eosinophils # 0.2 10^3/ul Basophils # 0.0 10^3/ul Nucleated Red 0.0 10^3/ul Blood Cells # Sodium Level 141 mmol/L Potassium Level 4.6 mmol/L Chloride Level 108 mmol/L Carbon Dioxide 30 mmol/L Level Anion Gap 3 Blood Urea 11 mg/dl Nitrogen Creatinine 0.47 mg/dl Est Glomerular > 60 mL/min Filtrat Rate mL/min Glucose Level 103 mg/dl Calcium Level 9.2 mg/dl Assessment and Plan Assessment/Diagnosis Diagnosis 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
[2018-04-01 20:00] VITALS: BP 103/63; PULSE 105; RESP 20
[2018-04-01] MEDS: MUPIROCIN 2% 22 GM OINT TOP SCH (21:08)
[2018-04-01] MEDS: ZOLPIDEM 5 MG TAB PO PRN (22:45)
[2018-04-02] MEDS: HYDROCODONE/APAP (5/325) TAB PO PRN ×2 (00:02→14:56)
[2018-04-02 02:00] VITALS: BP 115/63; PULSE 106; RESP 18
[2018-04-02 07:15] VITALS: BP 125/61; PULSE 68; RESP 16
[2018-04-02] MEDS: ENOXAPARIN 40 MG/0.4 ML SYG SC SCH (08:20)
[2018-04-02] MEDS: VANCOMYCIN 1 GM 250 ML IVPB SCH ×2 (08:22→17:57)
[2018-04-02] MEDS: PHENAZOPYRIDINE 200 MG TAB PO SCH ×3 (08:22→20:40)
[2018-04-02] MEDS: DIVALPROEX (EC) 500 MG TAB PO SCH ×2 (08:23→20:39)
[2018-04-02] MEDS: LEVETIRACETAM 500 MG TAB PO SCH ×2 (08:23→20:40)
[2018-04-02] MEDS: GABAPENTIN 300 MG CAP PO SCH ×3 (08:23→20:40)
[2018-04-02] MEDS: DULOXETINE 30 MG CAP DR PO SCH (08:23)
[2018-04-02] MEDS: morphine LIQ (10 MG/5 ML) CUP PO PRN ×3 (08:28→20:47)
[2018-04-02] MEDS: MUPIROCIN 2% 22 GM OINT TOP SCH ×2 (08:28→20:41)
[2018-04-02] MEDS: SODIUM HYPOCHLORITE (1/40) 1 APPLIC BTL IRR SCH (09:00)
[2018-04-02] MEDS: NYSTATIN 15 GM CR TOP SCH ×2 (09:00→20:41)
--- NOTE | 2018-04-02 10:42 | PN ---
Date/Time of Note Date/Time of Note DATE: 04/02/18 TIME: 10:37 Assessment/Plan Lines/Catheters IV Catheter Type (from Nrs): Peripheral IV Roberson in Place (from Nrs): Yes Assessment/Plan Chief Complaint/Hosp Course 1. Sacral wound: Wound cultures noted -No emergent surgical debridement necessary at this time; debridement as needed -local care> Dakin's packing and yessica-wound care> May be discharged with same wound orders -frequent turning and off-loading -low air loss mattress -vitamin c -short term zinc -optimize nutrition -Recommend follow-up at a wound care clinic 2. UTI: -abx per sensitivity -frequent bladder emptying/cath care 4. Leukocytosis: resolved -As above 5. Depression with psychosis: -psych optimization, currently on cymbalta Thank you. Patient seen and examined in collaboration with Dr. Jaden Lopez. Subjective 24 Hr Interval Summary Feels well. No fevers, chills, sob, congested cough, cp, palpitations, aguilar, dizziness, n/v/d/dysuria, excessive wound drainage or odor Exam/Review of Systems Vital Signs Vitals Vital Signs Date Temp Pulse Resp B/P (MAP) Pulse Ox O2 O2 Flow FiO2 Time Delivery Rate 04/02/18 98.5 68 16 125/61 95 Room Air 07:15 (82) 03/31/18 21 22:11 Intake and Output 04/01/18 04/01/18 04/02/18 1515:00 23:00 07:00 IntakeIntake Total 1300 ml 750 ml OutputOutput Total 2800 ml 600 ml 900 ml BalanceBalance -1500 ml 150 ml -900 ml Exam Free Text/Dictation Constitutional: alert, oriented; No distress Psych: nl mood/affect Head: normocephalic, atraumatic Eyes: nl conjunctiva, EOMI, nl lids, nl sclera ENMT: nl external ears & nose, nl lips & teeth, mucosa pink and moist Neck: supple, non-tender; No jvd, No nuchal rigidity Respiratory: normal air movement; No congested cough, No labored breathing Cardiovascular: regular rate and rhythm, nl pulses; No edema Gastrointestinal: soft, non-tender, other (Left colostomy (productive)) Genitourinary - Female: nl external genitalia Musculoskeletal: nl extremities to inspection, nl gait and stance Extremities: normal pulses Neurological: nl mental status, nl speech, nl strength Skin: nl turgor, other (Sacral: Stage IV (clean, periwound erythema, no odor, minimal drainage); perineum, groin and abdominal folds: Erythema- improved); No rash or lesions Results Result Diagram: 04/02/1851904/02/18519 ANGEL SHOEMAKER NP Apr 02, 2018 10:42
[2018-04-02] MEDS: CEFEPIME 1GM/50 ML (PMX) 50 ML IVPB SCH (11:00)
[2018-04-02 14:00] VITALS: BP 125/83; PULSE 88; RESP 16
--- NOTE | 2018-04-02 14:22 | PN ---
Date/Time of Note Date/Time of Note DATE: 04/02/18 TIME: 14:19 Assessment/Plan VTE Prophylaxis Risk score (from Nsg)>0 risk: 5 SCD applied (from Nsg): Yes Pharmacological prophylaxis: LMWH Lines/Catheters IV Catheter Type (from Nrsg): Peripheral IV Urinary Cath still in place: Yes Reason Cath still needed: urinary retention Assessment/Plan Assessment/Plan 1. Sacral wound, no debridement needed at this time per surgery, wound care, frequent turning and off-loading, low air loss mattress, vitamin C and Zinc, on vanco for MRSA 2. UTI, culture positive with VRE and ESBL, start on meropenem and zyvox, talked to patient case manager for pre-auth 3. Seizure disorder, on depakote and keppra 4. Depression with psychosis, on cymbalta 5. DVT prophylaxis: lovenox Result Diagram: 04/02/18 0520 04/02/18 0520 Results 24hrs Laboratory Tests Test 04/02/18 05:20 White Blood Count 7.5 Red Blood Count 4.71 Hemoglobin 13.2 Hematocrit 42.1 Mean Corpuscular Volume 89.4 Mean Corpuscular Hemoglobin 28.0 L Mean Corpuscular Hemoglobin Concent 31.4 L Red Cell Distribution Width 16.3 H Platelet Count 396 Mean Platelet Volume 9.2 Immature Granulocytes % 0.300 Neutrophils % 52.3 Lymphocytes % 37.5 Monocytes % 5.5 Eosinophils % 4.0 Basophils % 0.4 Nucleated Red Blood Cells % 0.0 Immature Granulocytes # 0.020 Neutrophils # 3.9 Lymphocytes # 2.8 Monocytes # 0.4 Eosinophils # 0.3 Basophils # 0.0 Nucleated Red Blood Cells # 0.0 Sodium Level 143 Potassium Level 4.4 Chloride Level 103 Carbon Dioxide Level 33 H Anion Gap 7 Blood Urea Nitrogen 10 Creatinine 0.45 Est Glomerular Filtrat Rate mL/min > 60 Glucose Level 103 Calcium Level 9.8 Vancomycin Level Trough 15.8 Subjective 24 Hr Interval Summary Free Text/Dictation afebrile Exam/Review of Systems Exam Vitals Vital Signs Date Temp Pulse Resp B/P (MAP) Pulse Ox O2 O2 Flow FiO2 Time Delivery Rate 04/02/18 98.9 88 16 125/83 98 Room Air 14:00 (97) 03/31/18 21 22:11 Intake and Output 2/04/01/18 04/02/18 1515:00 23:00 07:00 IntakeIntake Total 1300 ml 750 ml OutputOutput Total 2800 ml 600 ml 900 ml BalanceBalance -1500 ml 150 ml -900 ml Constitutional: alert, oriented, well developed Psych: no complaints, nl mood/affect Head: normocephalic, atraumatic Eyes: nl conjunctiva, EOMI, nl lids, nl sclera, PERRL ENMT: nl external ears & nose, nl lips & teeth, nl nasal mucosa & septum Neck: supple, non-tender Respiratory: clear to auscultation, normal air movement; No congested cough, No crackles/rales, No diminished breath sounds, No intercostal retraction, No labored breathing, No respirations, No tactile fremitus, No wheezing, No other Cardiovascular: regular rate and rhythm, nl pulses Gastrointestinal: soft, nl liver, spleen, non-tender Neurological: [employer] II-XII intact, nl mental status, nl speech Results Results 24hrs Laboratory Tests Test 04/02/18 05:20 White Blood Count 7.5 Red Blood Count 4.71 Hemoglobin 13.2 Hematocrit 42.1 Mean Corpuscular Volume 89.4 Mean Corpuscular Hemoglobin 28.0 L Mean Corpuscular Hemoglobin Concent 31.4 L Red Cell Distribution Width 16.3 H Platelet Count 396 Mean Platelet Volume 9.2 Immature Granulocytes % 0.300 Neutrophils % 52.3 Lymphocytes % 37.5 Monocytes % 5.5 Eosinophils % 4.0 Basophils % 0.4 Nucleated Red Blood Cells % 0.0 Immature Granulocytes # 0.020 Neutrophils # 3.9 Lymphocytes # 2.8 Monocytes # 0.4 Eosinophils # 0.3 Basophils # 0.0 Nucleated Red Blood Cells # 0.0 Sodium Level 143 Potassium Level 4.4 Chloride Level 103 Carbon Dioxide Level 33 H Anion Gap 7 Blood Urea Nitrogen 10 Creatinine 0.45 Est Glomerular Filtrat Rate mL/min > 60 Glucose Level 103 Calcium Level 9.8 Vancomycin Level Trough 15.8 Medications Medication Current Medications Divalproex Sodium (Depakote) 500 mg BID PO Last administered on 04/02/18at 08:23; Admin Dose 500 MG; Start 03/31/18 at 09:00 Duloxetine HCl (Cymbalta) 60 mg DAILY PO Last administered on 04/02/18at 08:23; Admin Dose 60 MG; Start 03/31/18 at 09:00 Gabapentin (Neurontin) 300 mg TID PO Last administered on 04/02/18 13:36; Admin Dose 300 MG; Start 03/31/18 at 09:00 Levetiracetam (Keppra) 1,000 mg BID PO Last administered on 04/02/18 08:23; Admin Dose 1,000 MG; Start 03/31/18 at 09:00 Phenazopyridine HCl (Pyridium) 200 mg TID PO Last administered on 04/02/18 13:36; Admin Dose 200 MG; Start 03/31/18 at 09:00 Albuterol (Proventil 0.083% (Neb)) 2.5 mg Q2H RESP THERAPY PRN HHN SHORTNESS OF BREATH Last administered on 03/31/18 22:10; Admin Dose 2.5 MG; Start 03/31/18 at 02:30 IV Flush (NS 3 ml) 3 ml PER PROTOCOL IV ; Start 03/31/18 at 02:30 Ondansetron HCl (Zofran Inj) 4 mg Q6H PRN IV NAUSEA/VOMITING; Start 03/31/18 at 02:30 Acetaminophen (Tylenol Tab) 650 mg Q6H PRN PO .PAIN 1-3 OR TEMP; Start 03/31/18 at 02:30 Acetaminophen/ Hydrocodone Bitart ([place] (5/325)) 1 tab Q6H PRN PO .MOD PAIN 4- 6 Last administered on 04/02/18 00:02; Admin Dose 1 TAB; Start 03/31/18 at 02:30 Acetaminophen/ Hydrocodone Bitart ([place] (5/325)) 2 tab Q6H PRN PO .SEVERE PAIN 7-10 Last administered on 03/31/18 21:27; Admin Dose 2 TAB; Start 03/31/18 at 02:30 Docusate Sodium (Colace) 100 mg Q12H PRN PO .CONSTIPATION; Start 03/31/18 at 02:30 Magnesium Hydroxide (Milk Of Mag) 30 ml DAILY PRN PO .CONSTIPATION; Start 03/31/18 at 02:30 Enoxaparin Sodium (Lovenox) 40 mg DAILY SC Last administered on 04/02/18 08:20; Admin Dose 40 MG; Start 03/31/18 at 09:00 Vancomycin HCl (Vanco Iv Per Pharmacy) VANCOMYCIN PER PHARMACY PER PROTOCOL XX ; Start 03/31/18 at 02:30 Nystatin (Nystatin Cr) 1 applic BID TOP Last administered on 04/02/18 09:00; Admin Dose 1 APPLIC; Start 03/31/18 at 09:00 Sodium Chloride 1,000 ml @ 50 mls/hr Q20H IV Last administered on 04/01/18 12:28; Admin Dose 50 MLS/HR; Start 03/31/18 at 05:00 Vancomycin HCl 250 ml @ 125 mls/hr Q12H IVPB Last administered on 04/02/18 08:22; Admin Dose 125 MLS/HR; Start 03/31/18 at 18:00 Sodium Hypochlorite (Dakin'S (Dilute )) 1 applic DAILY IRR Last administered on 04/02/18 09:00; Admin Dose 1 APPLIC; Start 03/31/18 at 18:00 Morphine Sulfate (morphine) 6 mg Q4H PRN PO SEVERE PAIN LEVEL 7-10 Last administered on 04/02/18 13:37; Admin Dose 6 MG; Start 03/31/18 at 22:30 Zolpidem Tartrate (Ambien) 5 mg HS PRN PO INSOMNIA Last administered on 04/01/18 22:45; Admin Dose 5 MG; Start 04/01/18 at 00:16 Mupirocin (Bactroban) 1 applic BID TOP Last administered on 04/02/18 08:28; Admin Dose 1 APPLIC; Start 04/01/18 at 21:00; Stop 04/08/18 at 20:59 Linezolid (Zyvox) 600 mg BID PO ; Start 04/02/18 at 21:00; Status UNV Meropenem/Sodium Chloride 50 ml @ 100 mls/hr Q8 IVPB ; Start 04/02/18 at 14:00; Status UNV SHAR LUQUE MD Apr 02, 2018 14:22
[2018-04-02] MEDS: MEROPENEM 1 GM/50ML(PMX) 50 ML IVPB SCH ×2 (14:48→22:25)
[2018-04-02] MEDS: ONDANSETRON 4 MG INJ IV PRN (14:55)
--- NOTE | 2018-04-02 16:47 | CONS ---
DATE OF ADMISSION: 04/02/2018 DATE OF CONSULTATION: 04/02/2018 TYPE OF CONSULTATION: Infectious disease. REASON FOR CONSULTATION: Antibiotic management. HISTORY OF PRESENT ILLNESS: Carito Gutierrez is a 43-year-old female who is sent in by her PMD for ba ck cellulitis and wound infection. The patient has had wound infection in the sacral area chronicall y but it has apparently had increased drainage which was purulent. She denies any fever or chills. Denies nausea or vomiting. She was recently admitted for urinary tract infection. PAST SURGICAL HISTORY: Includes status post colostomy. PAST MEDICAL HISTORY: The patient has: 1. Multiple sclerosis. 2. Asthma. 3. Depression. 4. Seizures. 5. Hypertension. 6. Neurogenic bladder. 7. Colostomy. 8. Decubitus ulcers. FAMILY HISTORY: Noncontributory. SOCIAL HISTORY: She does not smoke, drink or abuse drugs. ALLERGIES: 1. PENICILLIN. 2. LABETALOL. 3. LATEX. MEDICATIONS: Per chart. REVIEW OF SYSTEMS: Noncontributory. ANCILLARY LABORATORY DATA: White count 11.2, H and H 12.6 and 39.8, platelet count 435,000. BUN and creatinine is 24/0.46, glucose of 110. HOSPITAL COURSE: The patient was seen by Bernarda Tse, nurse practitioner from Dr. Lopez who noted sacral wound. Wound culture is pending. No emergent surgical debridement necessary. Debr idement as needed. Local care with Dakin's packing and periwound care. Frequent turning and offload ing with low air loss mattress. Vitamin C, short term Zinc. She also noted UTI. The patient had 1 out of 2 blood cultures for coagulase negative staph. She had ESBL vancomycin-resistant Enterococcus and gram-negative rods in the urine and methicillin-resistant Staphylococcus in her sacrum. The ESB L was sensitive to meropenem, also sensitive to nitrofurantoin and to cefepime. The VRE was sensitiv e to ampicillin, to fosfomycin and of course to linezolid. It was also sensitive to nitrofurantoin. The patient is currently on linezolid and meropenem, also on vancomycin. Chest x-ray: Stable posit ioning of the left PICC line, low lung volumes with mild bibasilar atelectasis. PHYSICAL EXAMINATION: VITAL SIGNS: Stable. She is afebrile. SKIN: Without generalized rash. HEENT: Within normal limits. NECK: Supple. LYMPH NODES: None palpable. CHEST: Decreased breath sounds at the bases. HEART: Without murmur or gallop. ABDOMEN: Soft, nontender without organosplenomegaly or masses. EXTREMITIES: Without cyanosis, clubbing or edema. RECTAL AND GENITAL: Deferred. It should be noted the patient has a colostomy on the left side. She also has a stage IV decubitus ulcer. There is periwound erythema without odor or drainage. IMPRESSION AND PLAN: With regards to the antibiotics, she can be on vancomycin for her methicillin-r esistant Staphylococcus. She can be on one dose of fosfomycin. Cefepime would work too. We will co ntinue meropenem. I will dictate my findings to the hospitalist, to Dr. Uriostegui. Dictated By: VISHNU CHRISTIANSON MD, JD/JOSELIN Conf#: [id number] DID#: [id number] CC: ERIN GARCIA [employer]CH[employer]IC; CHESTER BARRIENTOS MD;*End*
[2018-04-02] MEDS: SOD CHLORIDE 0.9% 1,000 ML IV SCH (17:00)
[2018-04-02] MEDS ORDERED: FOSFOMYCIN 3 GM PACKET PO ONE (17:00)
[2018-04-02 20:09] VITALS: BP 120/79; PULSE 11; PULSE 111; PULSE 89; RESP 16
[2018-04-02] MEDS: ZOLPIDEM 5 MG TAB PO PRN (20:46)
[2018-04-02] MEDS ORDERED: ZYVOX 600 MG TAB PO SCH (21:00)
[2018-04-03 02:00] VITALS: BP 116/63; PULSE 101; RESP 18
[2018-04-03] MEDS: morphine LIQ (10 MG/5 ML) CUP PO PRN (02:11)
[2018-04-03] MEDS: SOD CHLORIDE 0.9% 1,000 ML IV SCH (02:13)
[2018-04-03] MEDS: MEROPENEM 1 GM/50ML(PMX) 50 ML IVPB SCH ×2 (05:26→13:17)
[2018-04-03] MEDS: VANCOMYCIN 1 GM 250 ML IVPB SCH (06:28)
[2018-04-03 08:00] VITALS: BP 138/89; PULSE 51; RESP 18
[2018-04-03] MEDS: GABAPENTIN 300 MG CAP PO SCH ×2 (08:10→13:20)
[2018-04-03] MEDS: DIVALPROEX (EC) 500 MG TAB PO SCH ×2 (08:10→20:29)
[2018-04-03] MEDS: PHENAZOPYRIDINE 200 MG TAB PO SCH ×3 (08:10→21:45)
[2018-04-03] MEDS: HYDROCODONE/APAP (5/325) TAB PO PRN (08:10)
[2018-04-03] MEDS: LEVETIRACETAM 500 MG TAB PO SCH ×2 (08:10→20:30)
[2018-04-03] MEDS: DULOXETINE 30 MG CAP DR PO SCH (08:10)
[2018-04-03] MEDS: ENOXAPARIN 40 MG/0.4 ML SYG SC SCH (08:11)
[2018-04-03] MEDS: MUPIROCIN 2% 22 GM OINT TOP SCH ×2 (09:00→21:56)
[2018-04-03] MEDS: NYSTATIN 15 GM CR TOP SCH ×2 (09:00→20:30)
[2018-04-03] MEDS: SODIUM HYPOCHLORITE (1/40) 1 APPLIC BTL IRR SCH (09:00)
[2018-04-03] MEDS ORDERED: RISPERIDONE 1 MG TAB GTB SCH (11:00)
[2018-04-03] MEDS: ARIPIPRAZOLE 5 MG TAB PO SCH (11:17)
--- NOTE | 2018-04-03 12:35 | PN ---
Date/Time of Note Date/Time of Note DATE: 04/03/18 TIME: 12:33 Assessment/Plan Lines/Catheters IV Catheter Type (from Nrs): Peripheral IV Rob[place] in Place (from Nrs): Yes Assessment/Plan Chief Complaint/Hosp Course 1. Sacral wound: Wound cultures noted -No emergent surgical debridement necessary at this time; debridement as needed -local care> Dakin's packing and yessica-wound care> May be discharged with same wound orders -frequent turning and off-loading -low air loss mattress -vitamin c -short term zinc -optimize nutrition -abx per ID -Recommend follow-up at a wound care clinic 2. UTI: -abx per sensitivity -frequent bladder emptying/cath care 4. Leukocytosis: resolved -As above 5. Depression with psychosis: -psych optimization, currently on cymbalta Thank you. Patient seen and examined in collaboration with Dr. Jaden Lopez. Subjective 24 Hr Interval Summary Feels well. No fevers, chills, sob, congested cough, cp, palpitations, aguilar, dizziness, n/v/d/dysuria, excessive wound drainage/odor. Exam/Review of Systems Vital Signs Vitals Vital Signs Date Temp Pulse Resp B/P (MAP) Pulse Ox O2 O2 Flow FiO2 Time Delivery Rate 04/03/18 98.1 51 18 138/89 08:00 (105) 04/03/18 99 02:00 04/02/18 Room Air 14:00 03/31/18 21 22:11 Intake and Output 04/02/18 04/02/18 04/03/18 1515:00 23:00 07:00 IntakeIntake Total 700 ml 500 ml 1000 ml OutputOutput Total 1400 ml 600 ml BalanceBalance -700 ml -100 ml 1000 ml Exam Free Text/Dictation Constitutional: alert, oriented; No distress Psych: nl mood/affect Head: normocephalic, atraumatic Eyes: nl conjunctiva, EOMI, nl lids, nl sclera ENMT: nl external ears & nose, nl lips & teeth, mucosa pink and moist Neck: supple, non-tender; No jvd, No nuchal rigidity Respiratory: normal air movement; No congested cough, No labored breathing Cardiovascular: regular rate and rhythm, nl pulses; No edema Gastrointestinal: soft, non-tender, other (Left colostomy (productive)) Genitourinary - Female: nl external genitalia Musculoskeletal: nl extremities to inspection, nl gait and stance Extremities: normal pulses Neurological: nl mental status, nl speech, nl strength Skin: nl turgor, other (Sacral: Stage IV (clean, periwound erythema, no odor, scant drainage); perineum, groin and abdominal folds: Erythema- improving); No rash or lesions Results Result Diagram: 04/03/1823 04/03/18 0623 ANGEL SHOEMAKER NP Apr 03, 2018 12:35
--- NOTE | 2018-04-03 14:36 | PN ---
Date/Time of Note Date/Time of Note DATE: 04/03/18 TIME: 14:28 Assessment/Plan VTE Prophylaxis Risk score (from Ns)>0 risk: 2 SCD applied (from Nsg): Yes Pharmacological prophylaxis: heparin Lines/Catheters IV Catheter Type (from Nrsg): Peripheral IV Urinary Cath still in place: Yes Reason Cath still needed: urinary retention Assessment/Plan Hospital Course 43 yo female with h/o MS leading to paraplegia and bedbound state, epilepsy presents with sacral decubitus ulcer with OM OM: - Abx per ID Sacral decubitus ulcer: - Debrdiment per surgery - WOund care Epilepsy: - AEDS Oversedation: - Stop morphine and gabapentin Discharge per CM Result Diagram: 04/03/1862204/03/18622 Results 24hrs Laboratory Tests Test 04/03/18 06:23 04/03/18 10:52 White Blood Count 7.0 Red Blood Count 4.37 Hemoglobin 12.2 Hematocrit 39.1 Mean Corpuscular Volume 89.5 Mean Corpuscular Hemoglobin 27.9 L Mean Corpuscular Hemoglobin Concent 31.2 L Red Cell Distribution Width 16.2 H Platelet Count 401 Mean Platelet Volume 9.4 Immature Granulocytes % 0.300 Neutrophils % 47.7 Lymphocytes % 40.0 Monocytes % 8.1 Eosinophils % 3.3 Basophils % 0.6 Nucleated Red Blood Cells % 0.0 Immature Granulocytes # 0.020 Neutrophils # 3.4 Lymphocytes # 2.8 Monocytes # 0.6 Eosinophils # 0.2 Basophils # 0.0 Nucleated Red Blood Cells # 0.0 Sodium Level 141 Potassium Level 4.2 Chloride Level 106 Carbon Dioxide Level 30 Anion Gap 5 Blood Urea Nitrogen 11 Creatinine 0.43 L Est Glomerular Filtrat Rate mL/min > 60 Glucose Level 101 Calcium Level 9.3 Valproic Acid (Depakene) Level < 10 L Subjective 24 Hr Interval Summary Free Text/Dictation Appears sedated from previous encounters Denies complaints Exam/Review of Systems Exam Vitals Vital Signs Date Temp Pulse Resp B/P (MAP) Pulse Ox O2 O2 Flow FiO2 Time Delivery Rate 04/03/18 98.1 51 18 138/89 08:00 (105) 04/03/18 99 02:00 04/02/18 Room Air 14:00 03/31/18 21 22:11 Intake and Output 04/02/18 04/02/18 04/03/18 1515:00 23:00 07:00 IntakeIntake Total 700 ml 500 ml 1000 ml OutputOutput Total 1400 ml 600 ml BalanceBalance -700 ml -100 ml 1000 ml Exam A bit sedated Responds to voice and physical stimuli No distress Paraplegia Breathing comfortably RRR Constitutional: alert, oriented, well developed Psych: no complaints, nl mood/affect Head: normocephalic, atraumatic Eyes: nl conjunctiva, EOMI, nl lids, nl sclera, PERRL ENMT: nl external ears & nose, nl lips & teeth, nl nasal mucosa & septum Neck: supple, non-tender Respiratory: clear to auscultation, normal air movement Cardiovascular: regular rate and rhythm, nl pulses Gastrointestinal: soft, nl liver, spleen, non-tender Musculoskeletal: nl extremities to inspection, nl gait and stance Extremities: normal pulses Neurological: CARE SPECIALIST II-XII intact, nl mental status, nl speech, nl strength Skin: nl turgor; No rash or lesions Lymph: nl lymph nodes Results Results 24hrs Laboratory Tests Test 04/03/18 06:23 04/03/18 10:52 White Blood Count 7.0 Red Blood Count 4.37 Hemoglobin 12.2 Hematocrit 39.1 Mean Corpuscular Volume 89.5 Mean Corpuscular Hemoglobin 27.9 L Mean Corpuscular Hemoglobin Concent 31.2 L Red Cell Distribution Width 16.2 H Platelet Count 401 Mean Platelet Volume 9.4 Immature Granulocytes % 0.300 Neutrophils % 47.7 Lymphocytes % 40.0 Monocytes % 8.1 Eosinophils % 3.3 Basophils % 0.6 Nucleated Red Blood Cells % 0.0 Immature Granulocytes # 0.020 Neutrophils # 3.4 Lymphocytes # 2.8 Monocytes # 0.6 Eosinophils # 0.2 Basophils # 0.0 Nucleated Red Blood Cells # 0.0 Sodium Level 141 Potassium Level 4.2 Chloride Level 106 Carbon Dioxide Level 30 Anion Gap 5 Blood Urea Nitrogen 11 Creatinine 0.43 L Est Glomerular Filtrat Rate mL/min > 60 Glucose Level 101 Calcium Level 9.3 Valproic Acid (Depakene) Level < 10 L Medications Medication Current Medications Divalproex Sodium (Depakote) 500 mg BID PO Last administered on 04/03/18at 08:10; Admin Dose 500 MG; Start 03/31/18 at 09:00 Duloxetine HCl (Cymbalta) 60 mg DAILY PO Last administered on 04/03/18 08:10; Admin Dose 60 MG; Start 03/31/18 at 09:00 Gabapentin (Neurontin) 300 mg TID PO Last administered on 04/03/18 13:20; Admin Dose 300 MG; Start 03/31/18 at 09:00 Levetiracetam (Keppra) 1,000 mg BID PO Last administered on 04/03/18 08:10; Admin Dose 1,000 MG; Start 03/31/18 at 09:00 Phenazopyridine HCl (Pyridium) 200 mg TID PO Last administered on 04/03/18 13:20; Admin Dose 200 MG; Start 03/31/18 at 09:00 Albuterol (Proventil 0.083% (Neb)) 2.5 mg Q2H RESP THERAPY PRN HHN SHORTNESS OF BREATH Last administered on 03/31/18 22:10; Admin Dose 2.5 MG; Start 03/31/18 at 02:30 IV Flush (NS 3 ml) 3 ml PER PROTOCOL IV ; Start 03/31/18 at 02:30 Ondansetron HCl (Zofran Inj) 4 mg Q6H PRN IV NAUSEA/VOMITING Last administered on 04/02/18 14:55; Admin Dose 4 MG; Start 03/31/18 at 02:30 Acetaminophen (Tylenol Tab) 650 mg Q6H PRN PO .PAIN 1-3 OR TEMP; Start 03/31/18 at 02:30 Acetaminophen/ Hydrocodone Bitart ([place] (5/325)) 1 tab Q6H PRN PO .MOD PAIN 4- 6 Last administered on 04/02/18 00:02; Admin Dose 1 TAB; Start 03/31/18 at 02:30 Acetaminophen/ Hydrocodone Bitart ([place] (5/325)) 2 tab Q6H PRN PO .SEVERE PAIN 7-10 Last administered on 04/03/18 08:10; Admin Dose 2 TAB; Start 03/31/18 at 02:30 Docusate Sodium (Colace) 100 mg Q12H PRN PO .CONSTIPATION; Start 03/31/18 at 02:30 Magnesium Hydroxide (Milk Of Mag) 30 ml DAILY PRN PO .CONSTIPATION; Start 03/31/18 at 02:30 Enoxaparin Sodium (Lovenox) 40 mg DAILY SC Last administered on 04/03/18 08:11; Admin Dose 40 MG; Start 03/31/18 at 09:00 Vancomycin HCl (Vanco Iv Per Pharmacy) VANCOMYCIN PER PHARMACY PER PROTOCOL XX ; Start 03/31/18 at 02:30 Nystatin (Nystatin Cr) 1 applic BID TOP Last administered on 04/03/18 09:00; Admin Dose 1 APPLIC; Start 03/31/18 at 09:00 Sodium Chloride 1,000 ml @ 50 mls/hr Q20H IV Last administered on 04/03/18 02:13; Admin Dose 50 MLS/HR; Start 03/31/18 at 05:00 Vancomycin HCl 250 ml @ 125 mls/hr Q12H IVPB Last administered on 04/03/18 06:28; Admin Dose 125 MLS/HR; Start 03/31/18 at 18:00 Sodium Hypochlorite (Dakin'S (Dilute )) 1 applic DAILY IRR Last administered on 04/03/18 09:00; Admin Dose 1 APPLIC; Start 03/31/18 at 18:00 Morphine Sulfate (morphine) 6 mg Q4H PRN PO SEVERE PAIN LEVEL 7-10 Last administered on 04/03/18 02:11; Admin Dose 6 MG; Start 03/31/18 at 22:30 Zolpidem Tartrate (Ambien) 5 mg HS PRN PO INSOMNIA Last administered on 04/02/18 20:46; Admin Dose 5 MG; Start 04/01/18 at 00:16 Mupirocin (Bactroban) 1 applic BID TOP Last administered on 04/03/18 09:00; Admin Dose 1 APPLIC; Start 04/01/18 at 21:00; Stop 04/08/18 at 20:59 Meropenem/Sodium Chloride 50 ml @ 100 mls/hr Q8 IVPB Last administered on 04/03/18 13:17; Admin Dose 100 MLS/HR; Start 04/02/18 at 14:00 Aripiprazole (Abilify) 5 mg DAILY PO Last administered on 04/03/18 11:17; Admi n Dose 5 MG; Start 04/03/18 at 11:00 Miscellaneous Information (*Rx Drug Level Order Reminder*) VANCOMYCIN TROUGH AT 0500 ONCE ONCE XX ; Start 04/04/18 at 05:00; Stop 04/04/18 at 05:01 TAYLER PATEL MD Apr 03, 2018 14:36
[2018-04-03] MEDS ORDERED: AMIKACIN IV PER PHARMACY XX SCH (15:30)
--- NOTE | 2018-04-03 15:30 | CONS ---
Assessment/Plan Assessment/Plan Hospital Course (Demo Recall) ID PROGRESS NOTE CURRENT ABX: DAY # 3 Vanco IV + Merrem=> Change to Amikacin + Dapto x 7 days s/p Zyvox x1/s/p Fosfomycin x1 s/p Cefepime x1 ED 03/3104/03/18 0623 04/03/18 0623 24H INTERVAL SUMMARY * 43 yo F w/advanced MS -- bedbound with large decub, recurrent UTI, She is resting with eyes closed, no fevers, VSS, looks comfortable, NAD * 03/30/18 CXR: IMPRESSION:1. Stable positioning of the left PICC line. 2. Low lung volumes with mild bibasilar atelectasis. * MICRO: * (+)MRSA Nares * 03/31/18 WOUND CX: WOUND CULTURE Preliminary Organism 1 METHICILLIN RESISTANT S.AUREUS QUANTITY 2+ . MULTI DRUG RESISTANT ORGANISM Organism 2 ENTEROCOCCUS SPECIES QUANTITY ISOLATED FROM BROTH ONLY * 03/31/18 URINE CX (+) URINE CULTURE Final Organism 1 ESCHERICHIA COLI (ESBL) COLONY COUNT >100,000 CFU/ml . MULTI DRUG RESISTANT ORGANISM Organism 2 VANCO RESISTANT ENTEROCOCCUS COLONY COUNT >100,000 CFU/ml . MULTI DRUG RESISTANT ORGANISM Organism 3 PSEUDOMONAS AERUGINOSA COLONY COUNT >100,000 CFU/ml ECOLI ESBL ECOLI ESBL VRE M.I.C. RX M.I.C. RX M.I.C. RX --------- --- --------- --- --------- --- AMIKACIN <=2 S AMPICILLIN >=32 R <=2 S AZTREONAM CEFAZOLIN R CEFEPIME <=1 S CEFOTAXIME R CEFTAZIDIME CIPROFLOXACIN >=4 R >=8 R FOSFOMYCIN S GENTAMICIN >=16 R GENTAMICIN 120 R LEVOFLOXACIN >=8 R >=8 R LINEZOLID 2 S MEROPENEM 0.023 S NITROFURANTOIN <=16 S <=16 S PENICILLIN-G 4 S QUINUPRISTIN/DALFOPRISTIN 8 R STREPTOMYCIN 300 R VANCOMYCIN >=32 R TOBRAMYCIN 8 I TRIMETHOPRIM/SULFAMETHOXAZOLE >=320 R PIPERACILLIN/TAZOBACTAM <=4 S ) P.AERUG P.AERUG M.I.C. RX M.I.C. RX --------- --- --------- --- AMIKACIN 8 S AMPICILLIN AZTREONAM R CEFAZOLIN CEFEPIME 16 I CEFOTAXIME CEFTAZIDIME 16 S CIPROFLOXACIN >=4 R FOSFOMYCIN GENTAMICIN 8 I GENTAMICIN 120 LEVOFLOXACIN >=8 R LINEZOLID MEROPENEM >32 R NITROFURANTOIN PENICILLIN-G QUINUPRISTIN/DALFOPRISTIN STREPTOMYCIN 300 VANCOMYCIN TOBRAMYCIN <=1 S TRIMETHOPRIM/SULFAMETHOXAZOLE PIPERACILLIN/TAZOBACTAM R * 01/28/18 BCX (+) 1/2 bottles in ED: COAGULASE NEGATIVE STAPH PHYSICAL EXAMINATION: GENERAL: Afebrile, VSS, HEENT: AT, NC, anicteric NECK: Supple, CHEST: Equal chest rise bilaterally, without dyspnea on observation HEART: Pulse RRR ABDOMEN: Soft / NT EXTREMITIES: Warm, dry SKIN: No rash, no diaphoresis == DECUB == see photos ID ASSESSMENT 43 yo M w/PMHx of advanced MS admit with: 1. s/p SIRS on admission with mild tachycardia + Leukocytosis = RESOLVED 2. Polymicrobial MDRO complicated UTI -- due to neurogenic bladder w/urinary retention * 03/31/18 URINE CX (+) URINE CULTURE Final Organism 1 ESCHERICHIA COLI (ESBL) Organism 2 VANCO RESISTANT ENTEROCOCCUS Organism 3 PSEUDOMONAS AERUGINOSA 3. Large sacral decub==> no osteo per MRI prior admission == LOCAL WOUND CARE RECOMMENDED BY SURGICAL TEAM * 03/31/18 WOUND CX: WOUND CULTURE Preliminary Organism 1 METHICILLIN RESISTANT S.AUREUS Organism 2 ENTEROCOCCUS SPECIES 4. Hx of HCAP w/aspiration prior admission -- CXR unremarkable this admission 5. COPD - stable 6. HTN 7. Seizure disorder 8. Colostomy status 9. Depression w/ Psychosis -- on meds that interact w/Zyvox -- Fosfomycin x1 given for VRE UTI (+)MRSA Nares-> Bactroban ABX ALLERGIES: PCN INVASIVES: PIV CURRENT ABX: DAY # 3 Vanco IV + Merrem=> Change to Amikacin + Dapto x 7 days s/p Zyvox x1/s/p Fosfomycin x1 s/p Cefepime x1 ED 03/31 ID RECOMMENDATIONS/PLAN: 1. DC Merrem - Hx of SZS 2. DC Vanco IV - Enterococcus likely VRE in decub with purulent drainage 3. DC PLANNING=> When cleared for DC back to SNF may DC on current ABX: * Amikacin IV w/continued dose per pharmacy start 04/03/18 - for a total of 7 days * Daptomycin 6mg/kg daily start 04/03/18 - for a total of 7 days . Consultation Date/Type/Reason Admit Date/Time Apr 02, 2018 at 08:53 Initial Consult Date 03/31/18 Requesting Provider: LESLY TERRY NP Date/Time of Note DATE: 04/03/18 TIME: 14:55 Exam/Review of Systems Exam Vitals Vital Signs Date Temp Pulse Resp B/P (MAP) Pulse Ox O2 O2 Flow FiO2 Time Delivery Rate 04/03/18 98.1 51 18 138/89 08:00 (105) 04/03/18 99 02:00 04/02/18 Room Air 14:00 03/31/18 21 22:11 Intake and Output 04/02/18 04/02/18 04/03/18 1515:00 23:00 07:00 IntakeIntake Total 700 ml 500 ml 1000 ml OutputOutput Total 1400 ml 600 ml BalanceBalance -700 ml -100 ml 1000 ml Results Result Diagram: 04/03/18 0623 04/03/18 0623 Results 24hrs Laboratory Tests Test 04/03/18 06:23 04/03/18 10:52 White Blood Count 7.0 Red Blood Count 4.37 Hemoglobin 12.2 Hematocrit 39.1 Mean Corpuscular Volume 89.5 Mean Corpuscular Hemoglobin 27.9 L Mean Corpuscular Hemoglobin Concent 31.2 L Red Cell Distribution Width 16.2 H Platelet Count 401 Mean Platelet Volume 9.4 Immature Granulocytes % 0.300 Neutrophils % 47.7 Lymphocytes % 40.0 Monocytes % 8.1 Eosinophils % 3.3 Basophils % 0.6 Nucleated Red Blood Cells % 0.0 Immature Granulocytes # 0.020 Neutrophils # 3.4 Lymphocytes # 2.8 Monocytes # 0.6 Eosinophils # 0.2 Basophils # 0.0 Nucleated Red Blood Cells # 0.0 Sodium Level 141 Potassium Level 4.2 Chloride Level 106 Carbon Dioxide Level 30 Anion Gap 5 Blood Urea Nitrogen 11 Creatinine 0.43 L Est Glomerular Filtrat Rate mL/min > 60 Glucose Level 101 Calcium Level 9.3 Valproic Acid (Depakene) Level < 10 L Medications Medication Current Medications Divalproex Sodium (Depakote) 500 mg BID PO Last administered on 04/03/18 08:1 0; Admin Dose 500 MG; Start 03/31/18 at 09:00 Duloxetine HCl (Cymbalta) 60 mg DAILY PO Last administered on 04/03/18 08:10; Admin Dose 60 MG; Start 03/31/18 at 09:00 Levetiracetam (Keppra) 1,000 mg BID PO Last administered on 04/03/18 08:10; Admin Dose 1,000 MG; Start 03/31/18 at 09:00 Phenazopyridine HCl (Pyridium) 200 mg TID PO Last administered on 04/03/18 13:20; Admin Dose 200 MG; Start 03/31/18 at 09:00 Albuterol (Proventil 0.083% (Neb)) 2.5 mg Q2H RESP THERAPY PRN HHN SHORTNESS OF BREATH Last administered on 03/31/18 22:10; Admin Dose 2.5 MG; Start 03/31/18 at 02:30 IV Flush (NS 3 ml) 3 ml PER PROTOCOL IV ; Start 03/31/18 at 02:30 Ondansetron HCl (Zofran Inj) 4 mg Q6H PRN IV NAUSEA/VOMITING Last administered on 04/02/18 14:55; Admin Dose 4 MG; Start 03/31/18 at 02:30 Acetaminophen (Tylenol Tab) 650 mg Q6H PRN PO .PAIN 1-3 OR TEMP; Start 03/31/18 at 02:30 Acetaminophen/ Hydrocodone Bitart ([place] (5/325)) 1 tab Q6H PRN PO .MOD PAIN 4- 6 Last administered on 04/02/18 00:02; Admin Dose 1 TAB; Start 03/31/18 at 02:30 Acetaminophen/ Hydrocodone Bitart ([place] (5/325)) 2 tab Q6H PRN PO .SEVERE PAIN 7-10 Last administered on 04/03/18 08:10; Admin Dose 2 TAB; Start 03/31/18 at 02:30 Docusate Sodium (Colace) 100 mg Q12H PRN PO .CONSTIPATION; Start 03/31/18 at 02:30 Magnesium Hydroxide (Milk Of Mag) 30 ml DAILY PRN PO .CONSTIPATION; Start 03/31/18 at 02:30 Enoxaparin Sodium (Lovenox) 40 mg DAILY SC Last administered on 04/03/18 08:11; Admin Dose 40 MG; Start 03/31/18 at 09:00 Vancomycin HCl (Vanco Iv Per Pharmacy) VANCOMYCIN PER PHARMACY PER PROTOCOL XX ; Start 03/31/18 at 02:30 Nystatin (Nystatin Cr) 1 applic BID TOP Last administered on 04/03/18 09:00; Admin Dose 1 APPLIC; Start 03/31/18 at 09:00 Vancomycin HCl 250 ml @ 125 mls/hr Q12H IVPB Last administered on 04/03/18 06:28; Admin Dose 125 MLS/HR; Start 03/31/18 at 18:00 Sodium Hypochlorite (Dakin'S (Dilute )) 1 applic DAILY IRR Last administered on 04/03/18 09:00; Admin Dose 1 APPLIC; Start 03/31/18 at 18:00 Zolpidem Tartrate (Ambien) 5 mg HS PRN PO INSOMNIA Last administered on 9at 20:46; Admin Dose 5 MG; Start 04/01/18 at 00:16 Mupirocin (Bactroban) 1 applic BID TOP Last administered on 04/03/18 09:00; Admin Dose 1 APPLIC; Start 04/01/18 at 21:00; Stop 04/08/18 at 20:59 Meropenem/Sodium Chloride 50 ml @ 100 mls/hr Q8 IVPB Last administered on 04/03/18at 13:17; Admin Dose 100 MLS/HR; Start 04/02/18 at 14:00 Aripiprazole (Abilify) 5 mg DAILY PO Last administered on 04/03/18 11:17; Admin Dose 5 MG; Start 04/03/18 at 11:00 Miscellaneous Information (*Rx Drug Level Order Reminder*) VANCOMYCIN TROUGH AT 0500 ONCE ONCE XX ; Start 04/04/18 at 05:00; Stop 04/04/18 at 05:01 REMY JUÁREZ [employer] Apr 03, 2018 15:09
[2018-04-03] MEDS: DAPTOMYCIN 500 MG in SOD CHLORIDE 0.9% 100 ML IVPB SCH (17:59)
[2018-04-03] MEDS ORDERED: DEXTROSE 5% IVPB SCH (18:00)
[2018-04-03] MEDS ORDERED: AMIKACIN IVPB SCH (18:00)
[2018-04-03] MEDS: DEXTROSE 5% IVPB SCH (18:31)
[2018-04-03] MEDS: AMIKACIN IVPB SCH (18:31)
[2018-04-03 20:30] VITALS: BP 116/64; PULSE 99; RESP 16
[2018-04-04] MEDS: HYDROCODONE/APAP (5/325) TAB PO PRN ×4 (00:08→21:22)
[2018-04-04 02:47] VITALS: BP 109/66; PULSE 90; RESP 18
[2018-04-04] MEDS: ONDANSETRON 4 MG INJ IV PRN ×3 (05:31→21:22)
[2018-04-04 07:18] VITALS: BP 129/79; PULSE 98; RESP 18
[2018-04-04] MEDS: PHENAZOPYRIDINE 200 MG TAB PO SCH ×3 (09:38→21:19)
[2018-04-04] MEDS: DIVALPROEX (EC) 500 MG TAB PO SCH ×2 (09:38→21:19)
[2018-04-04] MEDS: ARIPIPRAZOLE 5 MG TAB PO SCH (09:38)
[2018-04-04] MEDS: LEVETIRACETAM 500 MG TAB PO SCH ×2 (09:38→21:19)
[2018-04-04] MEDS: DULOXETINE 30 MG CAP DR PO SCH (09:38)
[2018-04-04] MEDS: ENOXAPARIN 40 MG/0.4 ML SYG SC SCH (09:39)
[2018-04-04] MEDS: MUPIROCIN 2% 22 GM OINT TOP SCH ×2 (10:55→21:20)
[2018-04-04] MEDS: NYSTATIN 15 GM CR TOP SCH ×2 (10:57→21:20)
[2018-04-04 14:19] VITALS: BP 138/71; PULSE 114; RESP 18
[2018-04-04] MEDS: SODIUM HYPOCHLORITE (1/40) 1 APPLIC BTL IRR SCH (16:00)
[2018-04-04] MEDS: DAPTOMYCIN 500 MG in SOD CHLORIDE 0.9% 100 ML IVPB SCH (17:04)
--- NOTE | 2018-04-04 17:57 | PN ---
Date/Time of Note Date/Time of Note DATE: 04/04/18 TIME: 17:56 Assessment/Plan VTE Prophylaxis Risk score (from Ns)>0 risk: 8 SCD applied (from Ns): Yes Pharmacological prophylaxis: heparin Lines/Catheters IV Catheter Type (from Nrsg): Peripheral IV Central line still needed: Yes Urinary Cath still in place: Yes Reason Cath still needed: urinary retention Assessment/Plan Hospital Course 43 yo female with h/o MS leading to paraplegia and bedbound state, epilepsy presents with sacral decubitus ulcer with infection Soft tissue infection of decubitus ulcer: - Abx per ID through . Hopefully can be completed at home Sacral decubitus ulcer: - Debrdiment per surgery - Wound care Epilepsy: - AEDS Oversedation: - Stop morphine and gabapentin Discharge per CM to home [facility] to complete abx through Result Diagram: 04/03/1862204/03/18622 Subjective 24 Hr Interval Summary Free Text/Dictation More alert today off of gabapentin Denies complaints Says she wants to be discharged home wt abx if possible Exam/Review of Systems Exam Vitals Vital Signs Date Temp Pulse Resp B/P (MAP) Pulse Ox O2 O2 Flow FiO2 Time Delivery Rate 04/04/18 98.3 114 18 138/71 92 14:19 (93) 04/04/18 Room Air 07:18 03/31/18 21 22:11 Intake and Output 04/03/18 04/03/18 04/04/18 1515:00 23:00 07:00 IntakeIntake Total 470 ml 803.6 ml OutputOutput Total 500 ml 950 ml BalanceBalance -30 ml -146.4 ml Constitutional: alert, oriented, well developed Psych: no complaints, nl mood/affect Head: normocephalic, atraumatic Eyes: nl conjunctiva, EOMI, nl lids, nl sclera, PERRL ENMT: nl external ears & nose, nl lips & teeth, nl nasal mucosa & septum Neck: supple, non-tender Respiratory: clear to auscultation, normal air movement Cardiovascular: regular rate and rhythm, nl pulses Gastrointestinal: soft, nl liver, spleen, non-tender Musculoskeletal: nl extremities to inspection, nl gait and stance Extremities: normal pulses Neurological: IN HOME AIDE II-XII intact, nl mental status, nl speech, nl strength Skin: nl turgor; No rash or lesions Lymph: nl lymph nodes Medications Medication Current Medications Divalproex Sodium (Depakote) 500 mg BID PO Last administered on 04/04/18 09:38; Admin Dose 500 MG; Start 03/31/18 at 09:00 Duloxetine HCl (Cymbalta) 60 mg DAILY PO Last administered on 04/04/18 09:38; Admin Dose 60 MG; Start 03/31/18 at 09:00 Levetiracetam (Keppra) 1,000 mg BID PO Last administered on 04/04/18 09:38; Admin Dose 1,000 MG; Start 03/31/18 at 09:00 Phenazopyridine HCl (Pyridium) 200 mg TID PO Last administered on 04/04/18 12:30; Admin Dose 200 MG; Start 03/31/18 at 09:00 Albuterol (Proventil 0.083% (Neb)) 2.5 mg Q2H RESP THERAPY PRN HHN SHORTNESS OF BREATH Last administered on 03/31/18 22:10; Admin Dose 2.5 MG; Start 03/31/18 at 02:30 IV Flush (NS 3 ml) 3 ml PER PROTOCOL IV ; Start 03/31/18 at 02:30 Ondansetron HCl (Zofran Inj) 4 mg Q6H PRN IV NAUSEA/VOMITING Last administered on 04/04/18 12:30; Admin Dose 4 MG; Start 03/31/18 at 02:30 Acetaminophen (Tylenol Tab) 650 mg Q6H PRN PO .PAIN 1-3 OR TEMP; Start 03/31/18 at 02:30 Acetaminophen/ Hydrocodone Bitart ([place] (5/325)) 1 tab Q6H PRN PO .MOD PAIN 4- 6 Last administered on 04/02/18 00:02; Admin Dose 1 TAB; Start 03/31/18 at 02:30 Acetaminophen/ Hydrocodone Bitart ([place] (5/325)) 2 tab Q6H PRN PO .SEVERE PAIN 7-10 Last administered on 04/04/18 12:30; Admin Dose 2 TAB; Start 03/31/18 at 02:30 Docusate Sodium (Colace) 100 mg Q12H PRN PO .CONSTIPATION; Start 03/31/18 at 02:30 Magnesium Hydroxide (Milk Of Mag) 30 ml DAILY PRN PO .CONSTIPATION; Start 03/31/18 at 02:30 Enoxaparin Sodium (Lovenox) 40 mg DAILY SC Last administered on 04/04/18at 09:39; Admin Dose 40 MG; Start 03/31/18 at 09:00 Nystatin (Nystatin Cr) 1 applic BID TOP Last administered on 04/04/18 10:57; Admin Dose 1 APPLIC; Start 03/31/18 at 09:00 Sodium Hypochlorite (Dakin'S (Dilute )) 1 applic DAILY IRR Last administered on 04/04/18 16:00; Admin Dose 1 APPLIC; Start 03/31/18 at 18:00 Zolpidem Tartrate (Ambien) 5 mg HS PRN PO INSOMNIA Last administered on 04/02/18at 20:46; Admin Dose 5 MG; Start 04/01/18 at 00:16 Mupirocin (Bactroban) 1 applic BID TOP Last administered on 04/04/18 10:55; Admin Dose 1 APPLIC; Start 04/01/18 at 21:00; Stop 04/08/18 at 20:59 Aripiprazole (Abilify) 5 mg DAILY PO Last administered on 04/04/18 09:38; Admin Dose 5 MG; Start 04/03/18 at 11:00 Amikacin Sulfate (Amikacin Iv Per Pharmacy) AMIKACIN PER PHARMACY NOTE XX ; Start 04/03/18 at 15:30; Stop 04/10/18 at 15:29 Daptomycin 500 mg/ Sodium Chloride 100 ml @ 200 mls/hr Q24H IVPB Last administered on 04/04/18at 17:04; Admin Dose 200 MLS/HR; Start 04/03/18 at 17:00; Stop 04/10/18 at 16:59 Amikacin Sulfate 900 mg/Dextrose 253.6 ml @ 253.6 mls/ hr Q24H IVPB Last administered on 04/03/18at 18:31; Admin Dose 253.6 MLS/HR; Start 04/03/18 at 18 :00 Miscellaneous Information (*Rx Drug Level Order Reminder*) AMIKACIN TROUGH @ 1,700 ONCE ONCE XX ; Start 2/24/19 at 17:00; Stop 04/05/18 at 17:01 TAYLRE PATEL MD Apr 04, 2018 17:57
[2018-04-04] MEDS: AMIKACIN IVPB SCH (18:08)
[2018-04-04] MEDS: DEXTROSE 5% IVPB SCH (18:08)
--- NOTE | 2018-04-04 18:17 | PN ---
Date/Time of Note Date/Time of Note DATE: 04/04/18 TIME: 18:15 Assessment/Plan Lines/Catheters IV Catheter Type (from Nrs): Peripheral IV Roberson in Place (from Nrs): Yes Assessment/Plan Chief Complaint/Hosp Course 1. Sacral wound: Wound cultures noted -Debridement as needed -local care> Dakin's packing and yessica-wound care> May be discharged with same wound orders -frequent turning and off-loading -low air loss mattress -vitamin c -short term zinc -optimize nutrition -abx per ID -Recommend follow-up at a wound care clinic 2. UTI: -abx per sensitivity -frequent bladder emptying/cath care 4. Leukocytosis: resolved -As above 5. Depression with psychosis: -psych optimization, currently on cymbalta 6. Constipation: -Increase water intake -Optimize bowel regimen Thank you. Patient seen and examined in collaboration with Dr. Jaden Lopez. Subjective 24 Hr Interval Summary Feels well. Constipation. Tachycardia. No fevers, chills, sob, congested cough, cp, palpitations, aguilar, dizziness, nausea, vomiting, diarrhea, dysuria. Exam/Review of Systems Vital Signs Vitals Vital Signs Date Temp Pulse Resp B/P (MAP) Pulse Ox O2 O2 Flow FiO2 Time Delivery Rate 04/04/18 98.3 114 18 138/71 92 14:19 (93) 04/04/18 Room Air 07:18 03/31/18 21 22:11 Intake and Output 04/03/18 04/03/18 04/04/18 1515:00 23:00 07:00 IntakeIntake Total 470 ml 803.6 ml OutputOutput Total 500 ml 950 ml BalanceBalance -30 ml -146.4 ml Exam Free Text/Dictation Constitutional: alert, oriented; No distress Psych: nl mood/affect Head: normocephalic, atraumatic Eyes: nl conjunctiva, EOMI, nl lids, nl sclera ENMT: nl external ears & nose, nl lips & teeth, mucosa pink and moist Neck: supple, non-tender; No jvd, No nuchal rigidity Respiratory: normal air movement; No congested cough, No labored breathing Cardiovascular: regular rate and rhythm, nl pulses; No edema Gastrointestinal: soft, non-tender, other (Left colostomy (productive)) Genitourinary - Female: nl external genitalia Musculoskeletal: nl extremities to inspection, nl gait and stance Extremities: normal pulses Neurological: nl mental status, nl speech, nl strength Skin: nl turgor, other (Sacral: Stage IV (clean, periwound erythema, no odor, scant drainage); perineum, groin and abdominal folds: Erythema- improving); No rash or lesions Results Result Diagram: 04/03/1823 04/03/18 0623 ANGEL SHOEMAKER NP Apr 04, 2018 18:17
[2018-04-04 20:45] VITALS: BP 119/80; PULSE 112; RESP 20
[2018-04-04] MEDS: ZINC SULFATE 220 MG CAP PO SCH (21:21)
--- NOTE | 2018-04-04 23:05 | CONS ---
Assessment/Plan Assessment/Plan Hospital Course (Demo Recall) ID PROGRESS NOTE CURRENT ABX: DAY # 4 > Amikacin #2 + Dapto #2 x 7 days s/pVanco IV + Merrem= s/p Zyvox x1/s/p Fosfomycin x1 s/p Cefepime x1 ED 03/31 24H INTERVAL SUMMARY * PATIENT IS ASLEEP AND NOT DISTURBED -- NO FEVERS, VSS, LOOKS COMFORTABLY, WITHOUT DISTRSS * 43 yo F w/advanced MS -- bedbound with large decub, recurrent UTI, She is resting with eyes closed, no fevers, VSS, looks comfortable, NAD * 03/30/18 CXR: IMPRESSION:1. Stable positioning of the left PICC line. 2. Low lung volumes with mild bibasilar atelectasis. * MICRO: * (+)MRSA Nares * 03/31/18 WOUND CX: WOUND CULTURE Preliminary Organism 1 METHICILLIN RESISTANT S.AUREUS QUANTITY 2+ . MULTI DRUG RESISTANT ORGANISM Organism 2 ENTEROCOCCUS SPECIES QUANTITY ISOLATED FROM BROTH ONLY * 03/31/18 URINE CX (+) URINE CULTURE Final Organism 1 ESCHERICHIA COLI (ESBL) COLONY COUNT >100,000 CFU/ml . MULTI DRUG RESISTANT ORGANISM Organism 2 VANCO RESISTANT ENTEROCOCCUS COLONY COUNT >100,000 CFU/ml . MULTI DRUG RESISTANT ORGANISM Organism 3 PSEUDOMONAS AERUGINOSA COLONY COUNT >100,000 CFU/ml ECOLI ESBL ECOLI ESBL VRE M.I.C. RX M.I.C. RX M.I.C. RX --------- --- --------- --- --------- --- AMIKACIN <=2 S AMPICILLIN >=32 R <=2 S AZTREONAM CEFAZOLIN R CEFEPIME <=1 S CEFOTAXIME R CEFTAZIDIME CIPROFLOXACIN >=4 R >=8 R FOSFOMYCIN S GENTAMICIN >=16 R GENTAMICIN 120 R LEVOFLOXACIN >=8 R >=8 R LINEZOLID 2 S MEROPENEM 0.023 S NITROFURANTOIN <=16 S <=16 S PENICILLIN-G 4 S QUINUPRISTIN/DALFOPRISTIN 8 R STREPTOMYCIN 300 R VANCOMYCIN >=32 R TOBRAMYCIN 8 I TRIMETHOPRIM/SULFAMETHOXAZOLE >=320 R PIPERACILLIN/TAZOBACTAM <=4 S ) P.AERUG P.AERUG M.I.C. RX M.I.C. RX --------- --- --------- --- AMIKACIN 8 S AMPICILLIN AZTREONAM R CEFAZOLIN CEFEPIME 16 I CEFOTAXIME CEFTAZIDIME 16 S CIPROFLOXACIN >=4 R FOSFOMYCIN GENTAMICIN 8 I GENTAMICIN 120 LEVOFLOXACIN >=8 R LINEZOLID MEROPENEM >32 R NITROFURANTOIN PENICILLIN-G QUINUPRISTIN/DALFOPRISTIN STREPTOMYCIN 300 VANCOMYCIN TOBRAMYCIN <=1 S TRIMETHOPRIM/SULFAMETHOXAZOLE PIPERACILLIN/TAZOBACTAM R * 01/28/18 BCX (+) 1/2 bottles in ED: COAGULASE NEGATIVE STAPH PHYSICAL EXAMINATION: GENERAL: Afebrile, VSS, HEENT: AT, NC, anicteric NECK: Supple, CHEST: Equal chest rise bilaterally, without dyspnea on observation HEART: Pulse RRR ABDOMEN: Soft / NT EXTREMITIES: Warm, dry SKIN: No rash, no diaphoresis == DECUB == see photos ID ASSESSMENT 43 yo M w/PMHx of advanced MS admit with: 1. s/p SIRS on admission with mild tachycardia + Leukocytosis = RESOLVED 2. Polymicrobial MDRO complicated UTI -- due to neurogenic bladder w/urinary retention * 03/31/18 URINE CX (+) URINE CULTURE Final Organism 1 ESCHERICHIA COLI (ESBL) Organism 2 VANCO RESISTANT ENTEROCOCCUS Organism 3 PSEUDOMONAS AERUGINOSA 3. Large sacral decub==> no osteo per MRI prior admission == LOCAL WOUND CARE RECOMMENDED BY SURGICAL TEAM * 03/31/18 WOUND CX: WOUND CULTURE Preliminary Organism 1 METHICILLIN RESISTANT S.AUREUS Organism 2 ENTEROCOCCUS SPECIES 4. Hx of HCAP w/aspiration prior admission -- CXR unremarkable this admission 5. COPD - stable 6. HTN 7. Seizure disorder 8. Colostomy status 9. Depression w/ Psychosis -- on meds that interact w/Zyvox -- Fosfomycin x1 given for VRE UTI (+)MRSA Nares-> Bactroban ABX ALLERGIES: PCN INVASIVES: PIV CURRENT ABX: DAY 4 > Amikacin #2 + Dapto #2 x 7 days s/pVanco IV + Merrem= s/p Zyvox x1/s/p Fosfomycin x1 s/p Cefepime x1 ED 03/31 ID RECOMMENDATIONS/PLAN: 1. DC Merrem - Hx of SZS 2. DC Vanco IV - VRE in decub with purulent drainage 3. DC PLANNING=> When cleared for DC back to SNF may DC on current ABX: * Amikacin IV w/continued dose per pharmacy start 04/03/18 - for a total of 7 days * Daptomycin 6mg/kg daily start 04/03/18 - for a total of 7 days . Consultation Date/Type/Reason Admit Date/Time Apr 02, 2018 at 08:53 Initial Consult Date 03/31/18 Requesting Provider: LESLY TERRY NP Date/Time of Note DATE: 04/04/18 TIME: 23:03 Exam/Review of Systems Exam Vitals Vital Signs Date Temp Pulse Resp B/P (MAP) Pulse Ox O2 O2 Flow FiO2 Time Delivery Rate 04/04/18 98.7 112 20 119/80 97 Room Air 20:45 (93) 03/31/18 21 22:11 Intake and Output 04/03/18 04/03/18 04/04/18 1515:00 23:00 07:00 IntakeIntake Total 470 ml 803.6 ml OutputOutput Total 500 ml 950 ml BalanceBalance -30 ml -146.4 ml Results Result Diagram: 04/03/1823 04/03/1823 Medications Medication Current Medications Divalproex Sodium (Depakote) 500 mg BID PO Last administered on 04/04/18at 21:19; Admin Dose 500 MG; Start 03/31/18 at 09:00 Duloxetine HCl (Cymbalta) 60 mg DAILY PO Last administered on 04/04/18at 09:38; Admin Dose 60 MG; Start 03/31/18 at 09:00 Levetiracetam (Keppra) 1,000 mg BID PO Last administered on 04/04/18at 21:19; Admin Dose 1,000 MG; Start 03/31/18 at 09:00 Phenazopyridine HCl (Pyridium) 200 mg TID PO Last administered on 04/04/18at 21:19; Admin Dose 200 MG; Start 03/31/18 at 09:00 Albuterol (Proventil 0.083% (Neb)) 2.5 mg Q2H RESP THERAPY PRN HHN SHORTNESS OF BREATH Last administered on 03/31/18 22:10; Admin Dose 2.5 MG; Start 03/31/18 at 02:30 IV Flush (NS 3 ml) 3 ml PER PROTOCOL IV ; Start 03/31/18 at 02:30 Ondansetron HCl (Zofran Inj) 4 mg Q6H PRN IV NAUSEA/VOMITING Last administered on 04/04/18 21:22; Admin Dose 4 MG; Start 03/31/18 at 02:30 Acetaminophen (Tylenol Tab) 650 mg Q6H PRN PO .PAIN 1-3 OR TEMP; Start 03/31/18 at 02:30 Acetaminophen/ Hydrocodone Bitart ([place] (5/325)) 1 tab Q6H PRN PO .MOD PAIN 4- 6 Last administered on 04/02/18 00:02; Admin Dose 1 TAB; Start 03/31/18 at 02:30 Acetaminophen/ Hydrocodone Bitart ([place] (5/325)) 2 tab Q6H PRN PO .SEVERE PAIN 7-10 Last administered on 04/04/18 21:22; Admin Dose 2 TAB; Start 03/31/18 at 02:30 Docusate Sodium (Colace) 100 mg Q12H PRN PO .CONSTIPATION; Start 03/31/18 at 02:30 Magnesium Hydroxide (Milk Of Mag) 30 ml DAILY PRN PO .CONSTIPATION; Start 03/31/18 at 02:30 Enoxaparin Sodium (Lovenox) 40 mg DAILY SC Last administered on 04/04/18 09:39; Admin Dose 40 MG; Start 03/31/18 at 09:00 Nystatin (Nystatin Cr) 1 applic BID TOP Last administered on 04/04/18 21:20; Admin Dose 1 APPLIC; Start 03/31/18 at 09:00 Sodium Hypochlorite (Dakin'S (Dilute 40)) 1 applic DAILY IRR Last administered on 04/04/18 16:00; Admin Dose 1 APPLIC; Start 03/31/18 at 18:00 Zolpidem Tartrate (Ambien) 5 mg HS PRN PO INSOMNIA Last administered on 03/14 20:46; Admin Dose 5 MG; Start 04/01/18 at 00:16 Mupirocin (Bactroban) 1 applic BID TOP Last administered on 04/04/18at 21:20; Admin Dose 1 APPLIC; Start 04/01/18 at 21:00; Stop 04/08/18 at 20:59 Aripiprazole (Abilify) 5 mg DAILY PO Last administered on 04/04/18at 09:38; Admin Dose 5 MG; Start 04/03/18 at 11:00 Amikacin Sulfate (Amikacin Iv Per Pharmacy) AMIKACIN PER PHARMACY NOTE XX ; Start 04/03/18 at 15:30; Stop 04/10/18 at 15:29 Daptomycin 500 mg/ Sodium Chloride 100 ml @ 200 mls/hr Q24H IVPB Last administered on 04/04/18at 17:04; Admin Dose 200 MLS/HR; Start 04/03/18 at 17:00; Stop 04/10/18 at 16:59 Amikacin Sulfate 900 mg/Dextrose 253.6 ml @ 253.6 mls/ hr Q24H IVPB Last administered on 04/04/18at 18:08; Admin Dose 253.6 MLS/HR; Start 04/03/18 at 18:00 Miscellaneous Information (*Rx Drug Level Order Reminder*) AMIKACIN TROUGH @ 1,700 ONCE ONCE XX ; Start 04/05/18 at 17:00; Stop 04/05/18 at 17:01 Zinc Sulfate (Zinc Sulfate) 220 mg Q8 PO Last administered on 04/04/18at 21:21; Admin Dose 220 MG; Start 04/04/18 at 22:00 REMY JUÁREZ NP Apr 04, 2018 23:05
[2018-04-05 01:48] VITALS: BP 141/84; PULSE 73; RESP 20
[2018-04-05] MEDS: ZINC SULFATE 220 MG CAP PO SCH ×3 (05:49→21:19)
[2018-04-05 07:30] VITALS: BP 97/57; PULSE 95; RESP 20
[2018-04-05] MEDS: DULOXETINE 30 MG CAP DR PO SCH (10:00)
[2018-04-05] MEDS: PHENAZOPYRIDINE 200 MG TAB PO SCH ×3 (10:01→21:19)
[2018-04-05] MEDS: LEVETIRACETAM 500 MG TAB PO SCH ×2 (10:01→21:19)
[2018-04-05] MEDS: ARIPIPRAZOLE 5 MG TAB PO SCH (10:01)
[2018-04-05] MEDS: DIVALPROEX (EC) 500 MG TAB PO SCH ×2 (10:01→21:19)
[2018-04-05] MEDS: NYSTATIN 15 GM CR TOP SCH ×2 (10:03→21:20)
[2018-04-05] MEDS: MUPIROCIN 2% 22 GM OINT TOP SCH ×2 (10:04→21:20)
[2018-04-05] MEDS: ENOXAPARIN 40 MG/0.4 ML SYG SC SCH (10:05)
[2018-04-05] MEDS: SODIUM HYPOCHLORITE (1/40) 1 APPLIC BTL IRR SCH (10:06)
--- NOTE | 2018-04-05 11:33 | PN ---
Date/Time of Note Date/Time of Note DATE: 04/05/18 TIME: 11:31 Assessment/Plan Lines/Catheters IV Catheter Type (from Nrs): Saline Lock Roberson in Place (from Nrs): Yes Assessment/Plan Chief Complaint/Hosp Course 1. Sacral wound: Wound cultures noted -Debridement as needed -local care> Dakin's packing and yessica-wound care> May be discharged with same wound orders -frequent turning and off-loading -low air loss mattress -vitamin c -short term zinc -optimize nutrition -abx per ID -Recommend follow-up at a wound care clinic 2. UTI: -abx per sensitivity -frequent bladder emptying/cath care 4. Depression with psychosis: -psych optimization, currently on cymbalta 5. Constipation: -Increase water intake -Optimize bowel regimen Thank you. Patient seen and examined in collaboration with Dr. Jaden Lopez. Subjective 24 Hr Interval Summary Feels well. No fevers, chills, sob, congested cough, cp, palpitations, aguilar, dizziness, n/v/d/dysuria. Exam/Review of Systems Vital Signs Vitals Vital Signs Date Temp Pulse Resp B/P (MAP) Pulse Ox O2 O2 Flow FiO2 Time Delivery Rate 04/05/18 98.3 95 20 97/57 (70) 96 Room Air 07:30 Intake and Output 04/04/18 04/04/18 04/05/18 1515:00 23:00 07:00 IntakeIntake Total 240 ml 480 ml OutputOutput Total 1100 ml 850 ml 750 ml BalanceBalance -860 ml -370 ml -750 ml Exam Free Text/Dictation Constitutional: alert, oriented; No distress Psych: nl mood/affect Head: normocephalic, atraumatic Eyes: nl conjunctiva, EOMI, nl lids, nl sclera ENMT: nl external ears & nose, nl lips & teeth, mucosa pink and moist Neck: supple, non-tender; No jvd, No nuchal rigidity Respiratory: normal air movement; No congested cough, No labored breathing Cardiovascular: regular rate and rhythm, nl pulses; No edema Gastrointestinal: soft, non-tender, other (Left colostomy (productive)) Genitourinary - Female: nl external genitalia Musculoskeletal: nl extremities to inspection, nl gait and stance Extremities: normal pulses Neurological: nl mental status, nl speech, nl strength Skin: nl turgor, other (Sacral: Stage IV (clean, periwound erythema, no odor, scant drainage); perineum, groin and abdominal folds: min erythema); No rash or lesions Results Result Diagram: 04/03/1862204/03/18622 ANGEL SHOEMAKER NP Apr 05, 2018 11:33
--- NOTE | 2018-04-05 13:38 | CONS ---
Assessment/Plan Assessment/Plan Hospital Course (Demo Recall) ID PROGRESS NOTE CURRENT ABX: DAY #5 > Amikacin #3 + Dapto #3 x 7 days s/pVanco IV + Merrem= s/p Zyvox x1/s/p Fosfomycin x1 s/p Cefepime x1 ED 03/31 24H INTERVAL SUMMARY * Awake, VSS, NAD no fevers -- clinical status improved on ABX * 43 yo F w/advanced MS -- bedbound with large decub, recurrent UTI * 03/30/18 CXR: IMPRESSION:1. Stable positioning of the left PICC line. 2. Low lung volumes with mild bibasilar atelectasis. * MICRO: * (+)MRSA Nares * 03/31/18 WOUND CX: WOUND CULTURE Preliminary Organism 1 METHICILLIN RESISTANT S.AUREUS QUANTITY 2+ Organism 2 VRE * 03/31/18 URINE CX (+) URINE CULTURE Final Organism 1 ESCHERICHIA COLI (ESBL) COLONY COUNT >100,000 CFU/ml . MULTI DRUG RESISTANT ORGANISM Organism 2 VANCO RESISTANT ENTEROCOCCUS COLONY COUNT >100,000 CFU/ml . MULTI DRUG RESISTANT ORGANISM Organism 3 PSEUDOMONAS AERUGINOSA COLONY COUNT >100,000 CFU/ml ECOLI ESBL ECOLI ESBL VRE M.I.C. RX M.I.C. RX M.I.C. RX --------- --- --------- --- --------- --- AMIKACIN <=2 S AMPICILLIN >=32 R <=2 S AZTREONAM CEFAZOLIN R CEFEPIME <=1 S CEFOTAXIME R CEFTAZIDIME CIPROFLOXACIN >=4 R >=8 R FOSFOMYCIN S GENTAMICIN >=16 R GENTAMICIN 120 R LEVOFLOXACIN >=8 R >=8 R LINEZOLID 2 S MEROPENEM 0.023 S NITROFURANTOIN <=16 S <=16 S PENICILLIN-G 4 S QUINUPRISTIN/DALFOPRISTIN 8 R STREPTOMYCIN 300 R VANCOMYCIN >=32 R TOBRAMYCIN 8 I TRIMETHOPRIM/SULFAMETHOXAZOLE >=320 R PIPERACILLIN/TAZOBACTAM <=4 S ) P.AERUG P.AERUG M.I.C. RX M.I.C. RX --------- --- --------- --- AMIKACIN 8 S AMPICILLIN AZTREONAM R CEFAZOLIN CEFEPIME 16 I CEFOTAXIME CEFTAZIDIME 16 S CIPROFLOXACIN >=4 R FOSFOMYCIN GENTAMICIN 8 I GENTAMICIN 120 LEVOFLOXACIN >=8 R LINEZOLID MEROPENEM >32 R NITROFURANTOIN PENICILLIN-G QUINUPRISTIN/DALFOPRISTIN STREPTOMYCIN 300 VANCOMYCIN TOBRAMYCIN <=1 S TRIMETHOPRIM/SULFAMETHOXAZOLE PIPERACILLIN/TAZOBACTAM R * 01/28/18 BCX (+) 1/2 bottles in ED: COAGULASE NEGATIVE STAPH PHYSICAL EXAMINATION: GENERAL: Afebrile, VSS, HEENT: AT, NC, anicteric NECK: Supple, CHEST: Equal chest rise bilaterally, without dyspnea on observation HEART: Pulse RRR ABDOMEN: Soft / NT EXTREMITIES: Warm, dry SKIN: No rash, no diaphoresis == DECUB == see photos ID ASSESSMENT 43 yo M w/PMHx of advanced MS admit with: 1. s/p SIRS on admission with mild tachycardia + Leukocytosis = RESOLVED 2. Polymicrobial MDRO complicated UTI -- due to neurogenic bladder w/urinary retention * 03/31/18 URINE CX (+) URINE CULTURE Final Organism 1 ESCHERICHIA COLI (ESBL) Organism 2 VANCO RESISTANT ENTEROCOCCUS Organism 3 PSEUDOMONAS AERUGINOSA 3. Large sacral decub==> no osteo per MRI prior admission == LOCAL WOUND CARE RECOMMENDED BY SURGICAL TEAM * 03/31/18 WOUND CX: WOUND CULTURE Preliminary Organism 1 METHICILLIN RESISTANT S.AUREUS Organism 2 VANCO RESISTANT ENTEROCOCCUS 4. Hx of HCAP w/aspiration prior admission -- CXR unremarkable this admission 5. COPD - stable 6. HTN 7. Seizure disorder 8. Colostomy status 9. Depression w/ Psychosis -- on meds that interact w/Zyvox -- Fosfomycin x1 given for VRE UTI (+)MRSA Nares-> Bactroban ABX ALLERGIES: PCN INVASIVES: PIV CURRENT ABX: DAY 5 > Amikacin #3 + Dapto #3 s/pVanco IV + Merrem= s/p Zyvox x1/s/p Fosfomycin x1 s/p Cefepime x1 ED 03/31 ID RECOMMENDATIONS/PLAN: 1. DC Merrem - Hx of SZS 2. DC Vanco IV - VRE in decub with purulent drainage 3. DC PLANNING=> When cleared for DC back to SNF may DC on current ABX: * Amikacin IV w/continued dose per pharmacy start 04/03/18 - for a total of 7 days * Daptomycin 6mg/kg daily start 04/03/18 - for a total of 7 days . Consultation Date/Type/Reason Admit Date/Time Apr 02, 2018 at 08:53 Initial Consult Date 03/31/18 Requesting Provider: LESLY TERRY NP Date/Time of Note DATE: 04/05/18 TIME: 13:34 Exam/Review of Systems Exam Vitals Vital Signs Date Temp Pulse Resp B/P (MAP) Pulse Ox O2 O2 Flow FiO2 Time Delivery Rate 04/05/18 98.3 95 20 97/57 (70) 96 Room Air 07:30 Intake and Output 04/04/18 04/04/18 04/05/18 1414:59 22:59 06:59 IntakeIntake Total 240 ml 480 ml OutputOutput Total 1100 ml 850 ml 750 ml BalanceBalance -860 ml -370 ml -750 ml Results Result Diagram: 04/03/18 0623 04/03/18 0623 Results 24hrs Laboratory Tests Test 04/05/18 05:51 Creatine Kinase 23 Medications Medication Current Medications Divalproex Sodium (Depakote) 500 mg BID PO Last administered on 04/05/18 10:01; Admin Dose 500 MG; Start 03/31/18 at 09:00 Duloxetine HCl (Cymbalta) 60 mg DAILY PO Last administered on 04/05/18 10:00; Admin Dose 60 MG; Start 03/31/18 at 09:00 Levetiracetam (Keppra) 1,000 mg BID PO Last administered on 04/05/18 10:01; Admin Dose 1,000 MG; Start 03/31/18 at 09:00 Phenazopyridine HCl (Pyridium) 200 mg TID PO Last administered on 04/05/18 13:14; Admin Dose 200 MG; Start 03/31/18 at 09:00 Albuterol (Proventil 0.083% (Neb)) 2.5 mg Q2H RESP THERAPY PRN HHN SHORTNESS OF BREATH Last administered on 03/31/18 22:10; Admin Dose 2.5 MG; Start 03/31/18 at 02:30 IV Flush (NS 3 ml) 3 ml PER PROTOCOL IV ; Start 03/31/18 at 02:30 Ondansetron HCl (Zofran Inj) 4 mg Q6H PRN IV NAUSEA/VOMITING Last administered on 04/04/18 21:22; Admin Dose 4 MG; Start 03/31/18 at 02:30 Acetaminophen (Tylenol Tab) 650 mg Q6H PRN PO .PAIN 1-3 OR TEMP; Start 03/31/18 at 02:30 Acetaminophen/ Hydrocodone Bitart ([place] (5/325)) 1 tab Q6H PRN PO .MOD PAIN 4- 6 Last administered on 04/02/18 00:02; Admin Dose 1 TAB; Start 03/31/18 at 02:30 Acetaminophen/ Hydrocodone Bitart ([place] (5/325)) 2 tab Q6H PRN PO .SEVERE PAIN 7-10 Last administered on 04/04/18 21:22; Admin Dose 2 TAB; Start 03/31/18 at 02:30 Docusate Sodium (Colace) 100 mg Q12H PRN PO .CONSTIPATION; Start 03/31/18 at 02:30 Magnesium Hydroxide (Milk Of Mag) 30 ml DAILY PRN PO .CONSTIPATION; Start 03/31/18 at 02:30 Enoxaparin Sodium (Lovenox) 40 mg DAILY SC Last administered on 04/05/18 10:05; Admin Dose 40 MG; Start 03/31/18 at 09:00 Nystatin (Nystatin Cr) 1 applic BID TOP Last administered on 04/05/18 10:03; Admin Dose 1 APPLIC; Start 03/31/18 at 09:00 Sodium Hypochlorite (Dakin'S (Dilute )) 1 applic DAILY IRR Last administered on 04/05/18 10:06; Admin Dose 1 APPLIC; Start 03/31/18 at 18:00 Zolpidem Tartrate (Ambien) 5 mg HS PRN PO INSOMNIA Last administered on 04/02/18 20:46; Admin Dose 5 MG; Start 04/01/18 at 00:16 Mupirocin (Bactroban) 1 applic BID TOP Last administered on 04/05/18 10:04; Admin Dose 1 APPLIC; Start 04/01/18 at 21:00; Stop 04/08/18 at 20:59 Aripiprazole (Abilify) 5 mg DAILY PO Last administered on 04/05/18at 10:01; Admin Dose 5 MG; Start 04/03/18 at 11:00 Amikacin Sulfate (Amikacin Iv Per Pharmacy) AMIKACIN PER PHARMACY NOTE XX ; Start 04/03/18 at 15:30; Stop 04/10/18 at 15:29 Daptomycin 500 mg/ Sodium Chloride 100 ml @ 200 mls/hr Q24H IVPB Last administered on 04/04/18at 17:04; Admin Dose 200 MLS/HR; Start 04/03/18 at 17:00; Stop 04/10/18 at 16:59 Amikacin Sulfate 900 mg/Dextrose 253.6 ml @ 253.6 mls/ hr Q24H IVPB Last administered on 04/04/18at 18:08; Admin Dose 253.6 MLS/HR; Start 04/03/18 at 18:00 Miscellaneous Information (*Rx Drug Level Order Reminder*) AMIKACIN TROUGH @ 1,700 ONCE ONCE XX ; Start 04/05/18 at 17:00; Stop 04/05/18 at 17:01 Zinc Sulfate (Zinc Sulfate) 220 mg Q8 PO Last administered on 04/05/18at 13:14; Admin Dose 220 MG; Start 04/04/18 at 22:00 REMY JUÁREZ NP Apr 05, 2018 13:38
[2018-04-05 14:00] VITALS: BP 110/66; PULSE 116; RESP 18
--- NOTE | 2018-04-05 14:53 | PN ---
Date/Time of Note Date/Time of Note DATE: 04/05/18 TIME: 14:52 Assessment/Plan VTE Prophylaxis Risk score (from Nsg)>0 risk: 5 SCD applied (from Nsg): Yes Pharmacological prophylaxis: heparin Lines/Catheters IV Catheter Type (from Nrsg): Saline Lock Urinary Cath still in place: Yes Reason Cath still needed: urinary retention Assessment/Plan Hospital Course 43 yo female with h/o MS leading to paraplegia and bedbound state, epilepsy presents with sacral decubitus ulcer with infection Soft tissue infection of decubitus ulcer: - Abx per ID through . Hopefully can be completed at home Sacral decubitus ulcer: - Debrdiment per surgery - Wound care Epilepsy: - AEDS Oversedation: - Stop morphine and gabapentin Discharge per CM to home [facility] to complete abx through Result Diagram: 04/03/1862204/03/18622 Results 24hrs Laboratory Tests Test 04/05/18 05:51 Creatine Kinase 23 Subjective 24 Hr Interval Summary Free Text/Dictation No change to clinical status Awaiting arrangement of outpatient antibiotics Exam/Review of Systems Exam Vitals Vital Signs Date Temp Pulse Resp B/P (MAP) Pulse Ox O2 O2 Flow FiO2 Time Delivery Rate 04/05/18 98.3 95 20 97/57 (70) 96 Room Air 07:30 Intake and Output 04/04/18 04/04/18 04/05/18 1515:00 23:00 07:00 IntakeIntake Total 240 ml 480 ml OutputOutput Total 1100 ml 850 ml 750 ml BalanceBalance -860 ml -370 ml -750 ml Results Results 24hrs Laboratory Tests Test 04/05/18 05:51 Creatine Kinase 23 Medications Medication Current Medications Divalproex Sodium (Depakote) 500 mg BID PO Last administered on 04/05/18at 10:01; Admin Dose 500 MG; Start 03/31/18 at 09:00 Duloxetine HCl (Cymbalta) 60 mg DAILY PO Last administered on 04/05/18at 10:00; Admin Dose 60 MG; Start 03/31/18 at 09:00 Levetiracetam (Keppra) 1,000 mg BID PO Last administered on 04/05/18at 10:01; Admin Dose 1,000 MG; Start 03/31/18 at 09:00 Phenazopyridine HCl (Pyridium) 200 mg TID PO Last administered on 04/05/18 13:14; Admin Dose 200 MG; Start 03/31/18 at 09:00 Albuterol (Proventil 0.083% (Neb)) 2.5 mg Q2H RESP THERAPY PRN HHN SHORTNESS OF BREATH Last administered on 03/31/18 22:10; Admin Dose 2.5 MG; Start 03/31/18 at 02:30 IV Flush (NS 3 ml) 3 ml PER PROTOCOL IV ; Start 03/31/18 at 02:30 Ondansetron HCl (Zofran Inj) 4 mg Q6H PRN IV NAUSEA/VOMITING Last administered on 04/04/18 21:22; Admin Dose 4 MG; Start 03/31/18 at 02:30 Acetaminophen (Tylenol Tab) 650 mg Q6H PRN PO .PAIN 1-3 OR TEMP; Start 03/31/18 at 02:30 Acetaminophen/ Hydrocodone Bitart ([place] (5/325)) 1 tab Q6H PRN PO .MOD PAIN 4- 6 Last administered on 04/02/18 00:02; Admin Dose 1 TAB; Start 03/31/18 at 02:30 Acetaminophen/ Hydrocodone Bitart ([place] (5/325)) 2 tab Q6H PRN PO .SEVERE PAIN 7-10 Last administered on 04/04/18 21:22; Admin Dose 2 TAB; Start 03/31/18 at 02:30 Docusate Sodium (Colace) 100 mg Q12H PRN PO .CONSTIPATION; Start 03/31/18 at 02:30 Magnesium Hydroxide (Milk Of Mag) 30 ml DAILY PRN PO .CONSTIPATION; Start 03/31/18 at 02:30 Enoxaparin Sodium (Lovenox) 40 mg DAILY SC Last administered on 04/05/18 10:05; Admin Dose 40 MG; Start 03/31/18 at 09:00 Nystatin (Nystatin Cr) 1 applic BID TOP Last administered on 04/05/18 10:03; Admin Dose 1 APPLIC; Start 03/31/18 at 09:00 Sodium Hypochlorite (Dakin'S (Dilute 40)) 1 applic DAILY IRR Last administered on 04/05/18 10:06; Admin Dose 1 APPLIC; Start 03/31/18 at 18:00 Zolpidem Tartrate (Ambien) 5 mg HS PRN PO INSOMNIA Last administered on 9at 20:46; Admin Dose 5 MG; Start 04/01/18 at 00:16 Mupirocin (Bactroban) 1 applic BID TOP Last administered on 04/05/18 10:04; Admin Dose 1 APPLIC; Start 04/01/18 at 21:00; Stop 04/08/18 at 20:59 Aripiprazole (Abilify) 5 mg DAILY PO Last administered on 04/05/18 10:01; Admin Dose 5 MG; Start 04/03/18 at 11:00 Amikacin Sulfate (Amikacin Iv Per Pharmacy) AMIKACIN PER PHARMACY NOTE XX ; Start 04/03/18 at 15:30; Stop 04/10/18 at 15:29 Daptomycin 500 mg/ Sodium Chloride 100 ml @ 200 mls/hr Q24H IVPB Last administered on 04/04/18at 17:04; Admin Dose 200 MLS/HR; Start 04/03/18 at 17:00; Stop 04/10/18 at 16:59 Amikacin Sulfate 900 mg/Dextrose 253.6 ml @ 253.6 mls/ hr Q24H IVPB Last administered on 04/04/18 18:08; Admin Dose 253.6 MLS/HR; Start 04/03/18 at 18:00 Miscellaneous Information (*Rx Drug Level Order Reminder*) AMIKACIN TROUGH @ 1,700 ONCE ONCE XX ; Start 04/05/18 at 17:00; Stop 04/05/18 at 17:01 Zinc Sulfate (Zinc Sulfate) 220 mg Q8 PO Last administered on 04/05/18at 13:14; Admin Dose 220 MG; Start 04/04/18 at 22:00 TAYLER PATEL MD Apr 05, 2018 14:53
[2018-04-05] MEDS: HYDROCODONE/APAP (5/325) TAB PO PRN (16:29)
[2018-04-05] MEDS: DAPTOMYCIN 500 MG in SOD CHLORIDE 0.9% 100 ML IVPB SCH (16:30)
[2018-04-05] MEDS: DEXTROSE 5% IVPB SCH (17:37)
[2018-04-05] MEDS: AMIKACIN IVPB SCH (17:37)
[2018-04-05 20:00] VITALS: BP 126/67; PULSE 104; RESP 17
[2018-04-05] MEDS: ONDANSETRON 4 MG INJ IV PRN (21:28)
[2018-04-05] MEDS: ACETAMINOPHEN 325 MG TAB PO PRN (21:28)
[2018-04-06 02:01] VITALS: BP 107/80; PULSE 106; RESP 18
[2018-04-06] MEDS: ZINC SULFATE 220 MG CAP PO SCH ×3 (06:06→22:05)
[2018-04-06 07:30] VITALS: BP 113/63; PULSE 95; RESP 18
[2018-04-06] MEDS: DULOXETINE 30 MG CAP DR PO SCH (09:52)
[2018-04-06] MEDS: LEVETIRACETAM 500 MG TAB PO SCH ×2 (09:52→20:44)
[2018-04-06] MEDS: DIVALPROEX (EC) 500 MG TAB PO SCH ×2 (09:53→20:44)
[2018-04-06] MEDS: PHENAZOPYRIDINE 200 MG TAB PO SCH ×3 (09:53→20:44)
[2018-04-06] MEDS: HYDROCODONE/APAP (5/325) TAB PO PRN ×2 (09:53→20:45)
[2018-04-06] MEDS: SODIUM HYPOCHLORITE (1/40) 1 APPLIC BTL IRR SCH (09:54)
[2018-04-06] MEDS: MUPIROCIN 2% 22 GM OINT TOP SCH ×2 (09:54→20:47)
[2018-04-06] MEDS: ARIPIPRAZOLE 5 MG TAB PO SCH (09:56)
[2018-04-06] MEDS: ENOXAPARIN 40 MG/0.4 ML SYG SC SCH (10:01)
--- NOTE | 2018-04-06 12:21 | PN ---
Date/Time of Note Date/Time of Note DATE: 04/06/18 TIME: 12:20 Assessment/Plan Lines/Catheters IV Catheter Type (from Nrsg): Saline Lock Roberson in Place (from Nrsg): Yes Assessment/Plan Chief Complaint/Hosp Course 1. Sacral wound: Wound cultures noted -Continue local care> Dakin's packing and yessica-wound care> May be discharged with same wound orders -frequent turning and off-loading -low air loss mattress -vitamin c -short term zinc -optimize nutrition -abx per ID -Recommend follow-up at a wound care clinic -Debridement as needed 2. UTI: -abx per sensitivity -frequent bladder emptying/cath care 4. Depression with psychosis: -psych optimization, currently on cymbalta 5. Constipation: -Increase water intake -Optimize bowel regimen Thank you. Patient seen and examined in collaboration with Dr. Jaden Lopez. Subjective 24 Hr Interval Summary No acute complaints. No fevers, chills, sob, congested cough, cp, palpitations, aguilar, dizziness, nausea, vomiting, diarrhea, dysuria or wound drainage or odor. Exam/Review of Systems Vital Signs Vitals Vital Signs Date Temp Pulse Resp B/P (MAP) Pulse Ox O2 O2 Flow FiO2 Time Delivery Rate 04/06/18 98.5 95 18 113/63 96 07:30 (80) 04/05/18 Room Air 14:00 Intake and Output 04/05/18 04/05/18 04/06/18 1515:00 23:00 07:00 IntakeIntake Total 560 ml OutputOutput Total 500 ml BalanceBalance 60 ml Exam Free Text/Dictation Constitutional: alert, oriented; No distress Psych: nl mood/affect Head: normocephalic, atraumatic Eyes: nl conjunctiva, EOMI, nl lids, nl sclera ENMT: nl external ears & nose, nl lips & teeth, mucosa pink and moist Neck: supple, non-tender; No jvd, No nuchal rigidity Respiratory: normal air movement; No congested cough, No labored breathing Cardiovascular: regular rate and rhythm, nl pulses; No edema Gastrointestinal: soft, non-tender, other (Left colostomy (productive)) Genitourinary - Female: nl external genitalia Musculoskeletal: nl extremities to inspection, nl gait and stance Extremities: normal pulses Neurological: nl mental status, nl speech, nl strength Skin: nl turgor, other (Sacral: Stage IV (clean, periwound erythema, no odor, scant drainage); perineum, groin and abdominal folds: min erythema); No rash or lesions Results Result Diagram: 04/03/18 0623 04/06/18 0548 ANGEL SHOEMAKER NP Apr 06, 2018 12:21
[2018-04-06] MEDS: ONDANSETRON 4 MG INJ IV PRN ×2 (13:07→20:23)
[2018-04-06] MEDS: NYSTATIN 15 GM CR TOP SCH ×2 (13:11→20:47)
--- NOTE | 2018-04-06 14:08 | CONS ---
Assessment/Plan Assessment/Plan Hospital Course (Demo Recall) Patient is alert and looks comfortable denies pain she is afebrile, no labs Microbiology: Blood culture on admission grew coag negative staph species 1 out of 2 sets. Urine culture growing E. coli ESBL, VRE, pseudomonas aeruginosa. Sacral wound culture growing VRE and MRSA. Nares swab positive for MRSA. Antimicrobials: Amikacin, daptomycin, topical Bactroban Allergy: Penicillin Indwelling: Roberson, left forearm Port-A-Cath Physical examination: This is a chronically ill-appearing middle-aged woman who is in no distress. Head atraumatic normocephalic neck is supple chest rise symmetrical breath sounds diminished bases. Heart: S1-S2. Abdomen soft, bowel sounds present. Extremities wasted without cyanosis. Skin patient has an unstageable sacral wound which is very deep Assessment: 1. Resolving sepsis 2. Recurrent urinary tract infection 3. Chronic unstageable sacral decub 4. Advanced multiple sclerosis 6. Neurogenic bladder 7. Seizure disorder Plan: Remains stable, continue antibiotics, wound care per surgical recommendations, repeat blood cultures Consultation Date/Type/Reason Admit Date/Time Apr 02, 2018 at 08:53 Initial Consult Date 03/31/18 Type of Consult id Requesting Provider: LESLY TERRY NP Date/Time of Note DATE: 04/06/18 TIME: 14:07 Exam/Review of Systems Exam Vitals Vital Signs Date Temp Pulse Resp B/P (MAP) Pulse Ox O2 O2 Flow FiO2 Time Delivery Rate 04/06/18 98.5 95 18 113/63 96 07:30 (80) 04/05/18 Room Air 14:00 Intake and Output 04/05/18 04/05/18 04/06/18 1515:00 23:00 07:00 IntakeIntake Total 560 ml OutputOutput Total 500 ml BalanceBalance 60 ml Results Result Diagram: 04/03/18 0623 04/06/18 0548 Results 24hrs Laboratory Tests Test 04/06/18 05:48 Blood Urea Nitrogen 10 Creatinine 0.50 Medications Medication Current Medications Divalproex Sodium (Depakote) 500 mg BID PO Last administered on 04/06/18at 09:53; Admin Dose 500 MG; Start 03/31/18 at 09:00 Duloxetine HCl (Cymbalta) 60 mg DAILY PO Last administered on 04/06/18 09:52; Admin Dose 60 MG; Start 03/31/18 at 09:00 Levetiracetam (Keppra) 1,000 mg BID PO Last administered on 04/06/18 09:52; Admin Dose 1,000 MG; Start 03/31/18 at 09:00 Phenazopyridine HCl (Pyridium) 200 mg TID PO Last administered on 04/06/18 13:06; Admin Dose 200 MG; Start 03/31/18 at 09:00 Albuterol (Proventil 0.083% (Neb)) 2.5 mg Q2H RESP THERAPY PRN HHN SHORTNESS OF BREATH Last administered on 03/31/18 22:10; Admin Dose 2.5 MG; Start 03/31/18 at 02:30 IV Flush (NS 3 ml) 3 ml PER PROTOCOL IV ; Start 03/31/18 at 02:30 Ondansetron HCl (Zofran Inj) 4 mg Q6H PRN IV NAUSEA/VOMITING Last administered on 04/06/18 13:07; Admin Dose 4 MG; Start 03/31/18 at 02:30 Acetaminophen (Tylenol Tab) 650 mg Q6H PRN PO .PAIN 1-3 OR TEMP Last ad ministered on 04/05/18 21:28; Admin Dose 650 MG; Start 03/31/18 at 02:30 Acetaminophen/ Hydrocodone Bitart ([place] (5/325)) 1 tab Q6H PRN PO .MOD PAIN 4- 6 Last administered on 04/02/18 00:02; Admin Dose 1 TAB; Start 03/31/18 at 02:30 Acetaminophen/ Hydrocodone Bitart ([place] (5/325)) 2 tab Q6H PRN PO .SEVERE PAIN 7-10 Last administered on 04/06/18 09:53; Admin Dose 2 TAB; Start 03/31/18 at 02:30 Docusate Sodium (Colace) 100 mg Q12H PRN PO .CONSTIPATION; Start 03/31/18 at 02:30 Magnesium Hydroxide (Milk Of Mag) 30 ml DAILY PRN PO .CONSTIPATION; Start 03/31/18 at 02:30 Enoxaparin Sodium (Lovenox) 40 mg DAILY SC Last administered on 04/06/18 10:01; Admin Dose 40 MG; Start 03/31/18 at 09:00 Nystatin (Nystatin Cr) 1 applic BID TOP Last administered on 04/06/18 13:11; Admin Dose 1 APPLIC; Start 03/31/18 at 09:00 Sodium Hypochlorite (Dakin'S (Dilute )) 1 applic DAILY IRR Last admi nistered on 04/06/18 09:54; Admin Dose 1 APPLIC; Start 03/31/18 at 18:00 Zolpidem Tartrate (Ambien) 5 mg HS PRN PO INSOMNIA Last administered on 04/02/18 20:46; Admin Dose 5 MG; Start 04/01/18 at 00:16 Mupirocin (Bactroban) 1 applic BID TOP Last administered on 04/06/18 09:54; Admin Dose 1 APPLIC; Start 04/01/18 at 21:00; Stop 04/08/18 at 20:59 Aripiprazole (Abilify) 5 mg DAILY PO Last administered on 04/06/18 09:56; Admin Dose 5 MG; Start 04/03/18 at 11:00 Amikacin Sulfate (Amikacin Iv Per Pharmacy) AMIKACIN PER PHARMACY NOTE XX ; Start 04/03/18 at 15:30; Stop 04/10/18 at 15:29 Daptomycin 500 mg/ Sodium Chloride 100 ml @ 200 mls/hr Q24H IVPB Last administered on 04/05/18 16:30; Admin Dose 200 MLS/HR; Start 04/03/18 at 17:00; Stop 04/10/18 at 16:59 Amikacin Sulfate 900 mg/Dextrose 253.6 ml @ 253.6 mls/ hr Q24H IVPB Last administered on 04/05/18 17:37; Admin Dose 253.6 MLS/HR; Start 04/03/18 at 18:00 Zinc Sulfate (Zinc Sulfate) 220 mg Q8 PO Last administered on 04/06/18 13:06; Admin Dose 220 MG; Start 04/04/18 at 22:00 KASIA TAPIA NP Apr 06, 2018 14:08
[2018-04-06 14:20] VITALS: BP 100/59; PULSE 112; RESP 18
[2018-04-06] MEDS: MAGNESIUM HYDROXIDE 30ML CUP PO PRN (14:51)
[2018-04-06] MEDS: ACETAMINOPHEN 325 MG TAB PO PRN (15:25)
[2018-04-06] MEDS: DOCUSATE SODIUM 100 MG CAP PO PRN (15:25)
[2018-04-06] MEDS: DAPTOMYCIN 500 MG in SOD CHLORIDE 0.9% 100 ML IVPB SCH (16:47)
--- NOTE | 2018-04-06 17:05 | PN ---
Date/Time of Note Date/Time of Note DATE: 04/06/18 TIME: 17:04 Assessment/Plan VTE Prophylaxis Risk score (from Nsg)>0 risk: 3 SCD applied (from Nsg): Yes Pharmacological prophylaxis: LMWH Lines/Catheters IV Catheter Type (from Nrsg): Saline Lock Assessment/Plan Hospital Course 43 yo female with h/o MS leading to paraplegia and bedbound state, epilepsy presents with sacral decubitus ulcer with infection Soft tissue infection of decubitus ulcer: - Abx per ID through . Hopefully can be completed at home Sacral decubitus ulcer: -Debridement per surgery - Wound care Epilepsy: - AEDS Oversedation: - Stopped morphine and gabapentin Prophylaxis: Lovenox Discharge per CM to home with home health to complete abx through Result Diagram: 04/03/1823 04/06/18 0548 Results 24hrs Laboratory Tests Test 04/06/18 05:48 Blood Urea Nitrogen 10 Creatinine 0.50 Subjective 24 Hr Interval Summary Constitutional: no complaints Exam/Review of Systems Exam Vitals Vital Signs Date Temp Pulse Resp B/P (MAP) Pulse Ox O2 O2 Flow FiO2 Time Delivery Rate 04/06/18 98.9 112 18 100/59 94 14:20 (73) 04/05/18 Room Air 14:00 Intake and Output 04/05/18 04/05/18 04/06/18 1515:00 23:00 07:00 IntakeIntake Total 560 ml OutputOutput Total 500 ml BalanceBalance 60 ml Constitutional: alert, oriented Respiratory: clear to auscultation Cardiovascular: regular rate and rhythm Gastrointestinal: soft; No distended Musculoskeletal: nl extremities to inspection Results Results 24hrs Laboratory Tests Test 04/06/18 05:48 Blood Urea Nitrogen 10 Creatinine 0.50 Medications Medication Current Medications Divalproex Sodium (Depakote) 500 mg BID PO Last administered on 04/06/18at 09:53; Admin Dose 500 MG; Start 03/31/18 at 09:00 Duloxetine HCl (Cymbalta) 60 mg DAILY PO Last administered on 04/06/18at 09:52; Admin Dose 60 MG; Start 03/31/18 at 09:00 Levetiracetam (Keppra) 1,000 mg BID PO Last administered on 04/06/18at 09:52; Admin Dose 1,000 MG; Start 03/31/18 at 09:00 Phenazopyridine HCl (Pyridium) 200 mg TID PO Last administered on 04/06/18 13:06; Admin Dose 200 MG; Start 03/31/18 at 09:00 Albuterol (Proventil 0.083% (Neb)) 2.5 mg Q2H RESP THERAPY PRN HHN SHORTNESS OF BREATH Last administered on 03/31/18 22:10; Admin Dose 2.5 MG; Start 03/31/18 at 02:30 IV Flush (NS 3 ml) 3 ml PER PROTOCOL IV ; Start 03/31/18 at 02:30 Ondansetron HCl (Zofran Inj) 4 mg Q6H PRN IV NAUSEA/VOMITING Last administered on 04/06/18 13:07; Admin Dose 4 MG; Start 03/31/18 at 02:30 Acetaminophen (Tylenol Tab) 650 mg Q6H PRN PO .PAIN 1-3 OR TEMP Last administered on 04/06/18 15:25; Admin Dose 650 MG; Start 03/31/18 at 02:30 Acetaminophen/ Hydrocodone Bitart ([place] (5/325)) 1 tab Q6H PRN PO .MOD PAIN 4- 6 Last administered on 04/02/18 00:02; Admin Dose 1 TAB; Start 03/31/18 at 02:30 Acetaminophen/ Hydrocodone Bitart ([place] (5/325)) 2 tab Q6H PRN PO .SEVERE PAIN 7-10 Last administered on 04/06/18 09:53; Admin Dose 2 TAB; Start 03/31/18 at 02:30 Docusate Sodium (Colace) 100 mg Q12H PRN PO .CONSTIPATION Last administered on 04/06/18 15:25; Admin Dose 100 MG; Start 03/31/18 at 02:30 Magnesium Hydroxide (Milk Of Mag) 30 ml DAILY PRN PO .CONSTIPATION Last admin istered on 04/06/18 14:51; Admin Dose 30 ML; Start 03/31/18 at 02:30 Enoxaparin Sodium (Lovenox) 40 mg DAILY SC Last administered on 04/06/18 10:01; Admin Dose 40 MG; Start 03/31/18 at 09:00 Nystatin (Nystatin Cr) 1 applic BID TOP Last administered on 04/06/18 13:11; Admin Dose 1 APPLIC; Start 03/31/18 at 09:00 Sodium Hypochlorite (Dakin'S (Dilute )) 1 applic DAILY IRR Last administered on 04/06/18 09:54; Admin Dose 1 APPLIC; Start 03/31/18 at 18:00 Zolpidem Tartrate (Ambien) 5 mg HS PRN PO INSOMNIA Last administered on 04/02/18 20:46; Admin Dose 5 MG; Start 04/01/18 at 00:16 Mupirocin (Bactroban) 1 applic BID TOP Last administered on 04/06/18 09:54; Admin Dose 1 APPLIC; Start 04/01/18 at 21:00; Stop 04/08/18 at 20:59 Aripiprazole (Abilify) 5 mg DAILY PO Last administered on 04/06/18 09:56; Admin Dose 5 MG; Start 04/03/18 at 11:00 Amikacin Sulfate (Amikacin Iv Per Pharmacy) AMIKACIN PER PHARMACY NOTE XX ; Start 04/03/18 at 15:30; Stop 04/10/18 at 15:29 Daptomycin 500 mg/ Sodium Chloride 100 ml @ 200 mls/hr Q24H IVPB Last administered on 04/06/18 16:47; Admin Dose 200 MLS/HR; Start 04/03/18 at 17:00; Stop 04/10/18 at 16:59 Amikacin Sulfate 900 mg/Dextrose 253.6 ml @ 253.6 mls/ hr Q24H IVPB Last administered on 04/05/18 17:37; Admin Dose 253.6 MLS/HR; Start 04/03/18 at 18:00 Zinc Sulfate (Zinc Sulfate) 220 mg Q8 PO Last administered on 04/06/18 13:06; Admin Dose 220 MG; Start 04/04/18 at 22:00 VANDANA DA SILVA Apr 06, 2018 17:05
[2018-04-06 19:38] VITALS: BP 111/77; PULSE 125; RESP 18
[2018-04-07 02:42] VITALS: BP 129/64; PULSE 105
[2018-04-07] MEDS: ZINC SULFATE 220 MG CAP PO SCH ×3 (06:22→21:43)
[2018-04-07] MEDS: HYDROCODONE/APAP (5/325) TAB PO PRN ×2 (06:25→13:23)
[2018-04-07 08:43] VITALS: BP 118/68; PULSE 82; RESP 18
[2018-04-07] MEDS: DIVALPROEX (EC) 500 MG TAB PO SCH ×2 (09:02→21:41)
[2018-04-07] MEDS: PHENAZOPYRIDINE 200 MG TAB PO SCH ×3 (09:02→21:42)
[2018-04-07] MEDS: DULOXETINE 30 MG CAP DR PO SCH (09:02)
[2018-04-07] MEDS: ARIPIPRAZOLE 5 MG TAB PO SCH (09:02)
[2018-04-07] MEDS: ENOXAPARIN 40 MG/0.4 ML SYG SC SCH (09:03)
[2018-04-07] MEDS: LEVETIRACETAM 500 MG TAB PO SCH ×2 (09:03→21:42)
[2018-04-07] MEDS: MUPIROCIN 2% 22 GM OINT TOP SCH ×2 (09:18→21:42)
[2018-04-07] MEDS: NYSTATIN 15 GM CR TOP SCH ×2 (09:18→21:43)
[2018-04-07] MEDS: SODIUM HYPOCHLORITE (1/40) 1 APPLIC BTL IRR SCH (09:18)
--- NOTE | 2018-04-07 11:00 | PDOCDIS ---
Discharge Instructions CONDITION [id number] Patient Condition: [id number] Good HOME CARE INSTRUCTIONS: [id number] Diet Instructions: [id number] Regular ACTIVITY: [id number] Activity Restrictions: [id number] No Restrictions FOLLOW UP/APPOINTMENTS Follow-up Plan FOLLOW UP WITH YOUR PCP IN 1-2 WEEKS, FOLLOW UP WITH HOME HEALTH VANDANA DA SILVA Apr 07, 2018 11:00
--- NOTE | 2018-04-07 12:19 | CONS ---
Assessment/Plan Assessment/Plan Hospital Course (Demo Recall) No acute events, looks comfortable, afebrile Microbiology: Blood culture on admission grew coag negative staph species 1 out of 2 sets. Urine culture growing E. coli ESBL, VRE, pseudomonas aeruginosa. Sacral wound culture growing VRE and MRSA. Nares swab positive for MRSA. Antimicrobials: Amikacin, Daptomycin, topical Bactroban Allergy: Penicillin Indwelling: Rob[place], left forearm Port-A-Cath Physical examination: This is a chronically ill-appearing middle-aged woman who is in no distress. Head atraumatic normocephalic neck is supple chest rise symmetrical breath sounds diminished bases. Heart: S1-S2. Abdomen soft, bowel sounds present. Extremities wasted without cyanosis. Skin patient has an unstageable sacral wound which is very deep Assessment: 1. Resolving sepsis 2. Recurrent urinary tract infection 3. Chronic unstageable sacral decub 4. Advanced multiple sclerosis 6. Neurogenic bladder 7. Seizure disorder Plan: Remains stable, continue antibiotics, wound care per surgical recommendations, f/u repeat blood cultures Consultation Date/Type/Reason Admit Date/Time Apr 02, 2018 at 08:53 Initial Consult Date 03/31/18 Type of Consult id Requesting Provider: LESLY TERRY NP Date/Time of Note DATE: 04/07/18 TIME: 12:19 Exam/Review of Systems Exam Vitals Vital Signs Date Temp Pulse Resp B/P (MAP) Pulse Ox O2 O2 Flow FiO2 Time Delivery Rate 04/07/18 98.0 82 18 118/68 95 Room Air 08:43 (85) Intake and Output 04/06/18 04/06/18 04/07/18 1515:00 23:00 07:00 IntakeIntake Total 853.6 ml OutputOutput Total 600 ml 650 ml BalanceBalance 253.6 ml -650 ml Results Result Diagram: 04/03/18 0623 04/06/18 0548 Results 24hrs Laboratory Tests Test 04/07/18 12:01 04/07/18 12:03 Lab Scanned Report REFERENCE LAB REFERENCE LAB Medications Medication Current Medications Divalproex Sodium (Depakote) 500 mg BID PO Last administered on 04/07/18at 09:02; Admin Dose 500 MG; Start 03/31/18 at 09:00 Duloxetine HCl (Cymbalta) 60 mg DAILY PO Last administered on 04/07/18 09:02; Admin Dose 60 MG; Start 03/31/18 at 09:00 Levetiracetam (Keppra) 1,000 mg BID PO Last administered on 04/07/18 09:03; Admin Dose 1,000 MG; Start 03/31/18 at 09:00 Phenazopyridine HCl (Pyridium) 200 mg TID PO Last administered on 04/07/18 09:02; Admin Dose 200 MG; Start 03/31/18 at 09:00 Albuterol (Proventil 0.083% (Neb)) 2.5 mg Q2H RESP THERAPY PRN HHN SHORTNESS OF BREATH Last administered on 03/31/18 22:10; Admin Dose 2.5 MG; Start 03/31/18 a t 02:30 IV Flush (NS 3 ml) 3 ml PER PROTOCOL IV ; Start 03/31/18 at 02:30 Ondansetron HCl (Zofran Inj) 4 mg Q6H PRN IV NAUSEA/VOMITING Last administered on 04/06/18 20:23; Admin Dose 4 MG; Start 03/31/18 at 02:30 Acetaminophen (Tylenol Tab) 650 mg Q6H PRN PO .PAIN 1-3 OR TEMP Last administered on 04/06/18 15:25; Admin Dose 650 MG; Start 03/31/18 at 02:30 Acetaminophen/ Hydrocodone Bitart ([place] (5/325)) 1 tab Q6H PRN PO .MOD PAIN 4- 6 Last administered on 04/02/18 00:02; Admin Dose 1 TAB; Start 03/31/18 at 02:30 Acetaminophen/ Hydrocodone Bitart ([place] (5/325)) 2 tab Q6H PRN PO .SEVERE PAIN 7-10 Last administered on 04/07/18 06:25; Admin Dose 2 TAB; Start 03/31/18 at 02:30 Docusate Sodium (Colace) 100 mg Q12H PRN PO .CONSTIPATION Last administered on 04/06/18 15:25; Admin Dose 100 MG; Start 03/31/18 at 02:30 Magnesium Hydroxide (Milk Of Mag) 30 ml DAILY PRN PO .CONSTIPATION Last administered on 04/06/18 14:51; Admin Dose 30 ML; Start 03/31/18 at 02:30 Enoxaparin Sodium (Lovenox) 40 mg DAILY SC Last administered on 04/07/18 09:03; Admin Dose 40 MG; Start 03/31/18 at 09:00 Nystatin (Nystatin Cr) 1 applic BID TOP Last administered on 04/07/18 09:18; Admin Dose 1 APPLIC; Start 03/31/18 at 09:00 Sodium Hypochlorite (Dakin'S (Dilute )) 1 applic DAILY IRR Last admini stered on 04/07/18 09:18; Admin Dose 1 APPLIC; Start 03/31/18 at 18:00 Zolpidem Tartrate (Ambien) 5 mg HS PRN PO INSOMNIA Last administered on 04/02/18 20:46; Admin Dose 5 MG; Start 04/01/18 at 00:16 Mupirocin (Bactroban) 1 applic BID TOP Last administered on 04/07/18 09:18; Admin Dose 1 APPLIC; Start 04/01/18 at 21:00; Stop 04/08/18 at 20:59 Aripiprazole (Abilify) 5 mg DAILY PO Last administered on 04/07/18 09:02; Admin Dose 5 MG; Start 04/03/18 at 11:00 Amikacin Sulfate (Amikacin Iv Per Pharmacy) AMIKACIN PER PHARMACY NOTE XX ; Start 04/03/18 at 15:30; Stop 04/10/18 at 15:29 Daptomycin 500 mg/ Sodium Chloride 100 ml @ 200 mls/hr Q24H IVPB Last administered on 04/06/18at 16:47; Admin Dose 200 MLS/HR; Start 04/03/18 at 17:00; Stop 04/10/18 at 16:59 Zinc Sulfate (Zinc Sulfate) 220 mg Q8 PO Last administered on 04/07/18 06:22; Admin Dose 220 MG; Start 04/04/18 at 22:00 Amikacin Sulfate 900 mg/Dextrose 253.6 ml @ 253.6 mls/ hr Q96H IVPB ; Start 04/09/18 at 18:00; Stop 04/10/18 at 15:29 KASIA TAPIA NP Apr 07, 2018 12:19
--- NOTE | 2018-04-07 12:48 | PN ---
Date/Time of Note Date/Time of Note DATE: 04/07/18 TIME: 12:46 Assessment/Plan Lines/Catheters IV Catheter Type (from Nrs): Saline Lock Assessment/Plan Chief Complaint/Hosp Course 1. Sacral wound: Wound cultures noted -Continue local care> May be discharged with same wound orders -frequent turning and off-loading -low air loss mattress -vitamin c -short term zinc -optimize nutrition -abx per ID -Recommend follow-up at a wound care clinic -Debridement as needed 2. UTI: -abx per sensitivity -frequent bladder emptying/cath care 4. Depression with psychosis: -psych optimization, currently on cymbalta 5. Constipation: -Increase water intake -Optimize bowel regimen Thank you. Patient seen and examined in collaboration with Dr. Jaden Lopez. Subjective 24 Hr Interval Summary Feels well. No acute pain. No fevers, chills, sob, congested cough, cp, palpitations, aguilar, dizziness, n/v/d/dysuria. Exam/Review of Systems Vital Signs Vitals Vital Signs Date Temp Pulse Resp B/P (MAP) Pulse Ox O2 O2 Flow FiO2 Time Delivery Rate 04/07/18 98.0 82 18 118/68 95 Room Air 08:43 (85) Intake and Output 04/06/18 04/06/18 04/07/18 1515:00 23:00 07:00 IntakeIntake Total 853.6 ml OutputOutput Total 600 ml 650 ml BalanceBalance 253.6 ml -650 ml Exam Free Text/Dictation Constitutional: alert, oriented; No distress Psych: nl mood/affect Head: normocephalic, atraumatic Eyes: nl conjunctiva, EOMI, nl lids, nl sclera ENMT: nl external ears & nose, nl lips & teeth, mucosa pink and moist Neck: supple, non-tender; No jvd, No nuchal rigidity Respiratory: normal air movement; No congested cough, No labored breathing Cardiovascular: regular rate and rhythm, nl pulses; No edema Gastrointestinal: soft, non-tender, other (Left colostomy (productive)) Genitourinary - Female: nl external genitalia Musculoskeletal: nl extremities to inspection, nl gait and stance Extremities: normal pulses Neurological: nl mental status, nl speech, nl strength Skin: nl turgor, other (Sacral: Stage IV (clean, periwound erythema, no odor, scant drainage); perineum, groin and abdominal folds: min erythema); No rash or lesions Results Result Diagram: 04/03/18 0623 04/06/18 0548 ANGEL SHOEMAKER NP Apr 07, 2018 12:48
[2018-04-07 14:00] VITALS: BP 111/63; PULSE 120; RESP 18
--- NOTE | 2018-04-07 15:48 | DS ---
Date/Time of Note Date/Time of Note DATE: 04/07/18 TIME: 15:46 Discharge Summary Admission/Discharge Info Admit Date/Time Apr 02, 2018 at 08:53 Discharge Date/Time April 07, 2018 Discharge Diagnosis 43 yo female with h/o MS leading to paraplegia and bedbound state, epilepsy presents with sacral decubitus ulcer with infection Soft tissue infection of decubitus ulcer: - Abx per ID through . Antibiotics to be completed via home health Sacral decubitus ulcer: -Debridement per surgery, no debridement indicated at this time -Continue wound care Epilepsy: - AEDS Oversedation: - Stopped morphine and gabapentin Patient Condition: Good Hospital Course Patient is a 43 yo female with h/o MS leading to paraplegia and bedbound state, epilepsy presents with sacral decubitus ulcer with infection. Patient was seen by ID and started on IV antibiotics and is to continue through . Patient was seen by surgery and recommendation was for wound care, no surgery needed at this time. [employer] did arrange for home health to continue IV antibiotics, on the day of discharge patient's vitals, labs and physical exam are stable. Home Meds Active Scripts Phenazopyridine Hcl* (Phenazopyridine Hcl*) 200 Mg Tablet, 200 MG PO TID for 30 Days, #90 TAB Prov:VANDANA DA SILVA 03/23/18 Reported Medications Albuterol Sulfate* (Ventolin HFA*) 18 Gm Hfa.aer.ad, 2 PUFF INHALATION Q4H, #1 INHALER 03/19/18 Gabapentin* (Gabapentin*) 300 Mg Capsule, 300 MG PO TID, #90 CAP 03/19/18 Duloxetine Hcl* (Duloxetine Hcl*) 60 Mg Capsule.dr, 60 MG PO DAILY, #30 CAP 03/17/17 Divalproex Sodium* (Depakote*) 500 Mg Tablet.dr, 500 MG PO BID, #120 TAB 03/17/17 Temazepam* (Temazepam*) 30 Mg Capsule, 30 MG PO HS PRN for INSOMNIA, CAP 03/17/17 Levetiracetam* (Keppra*) 1,000 Mg Tablet, 1000 MG PO BID, TAB 03/17/17 Follow-up Plan FOLLOW UP WITH YOUR PCP IN 1-2 WEEKS, FOLLOW UP WITH HOME HEALTH Primary Care Provider Care Physician No Primary Time spent on discharge: > 30 minutes VANDANA DA SILVA Apr 07, 2018 15:48
[2018-04-07] MEDS: ONDANSETRON 4 MG INJ IV PRN (17:12)
[2018-04-07] MEDS: DAPTOMYCIN 500 MG in SOD CHLORIDE 0.9% 100 ML IVPB SCH (17:39)
[2018-04-07 19:58] VITALS: BP 118/74; PULSE 104; RESP 20
[2018-04-07] MEDS ORDERED: ONDANSETRON 4 MG INJ IV ONE (20:30)
[2018-04-07] MEDS: DOCUSATE SODIUM 100 MG CAP PO PRN (21:43)
[2018-04-08] MEDS: ZOLPIDEM 5 MG TAB PO PRN (00:29)
[2018-04-08 01:34] VITALS: BP 117/66; PULSE 98; RESP 21
[2018-04-08 02:40] VITALS: RESP 16
[2018-04-08] MEDS: ZINC SULFATE 220 MG CAP PO SCH ×3 (05:16→21:00)
[2018-04-08 08:00] VITALS: BP 148/69; PULSE 104; RESP 18
[2018-04-08] MEDS: DIVALPROEX (EC) 500 MG TAB PO SCH ×2 (09:12→20:57)
[2018-04-08] MEDS: PHENAZOPYRIDINE 200 MG TAB PO SCH ×3 (09:12→20:57)
[2018-04-08] MEDS: LEVETIRACETAM 500 MG TAB PO SCH ×2 (09:12→20:57)
[2018-04-08] MEDS: DULOXETINE 30 MG CAP DR PO SCH (09:12)
[2018-04-08] MEDS: ARIPIPRAZOLE 5 MG TAB PO SCH (09:12)
[2018-04-08] MEDS: NYSTATIN 15 GM CR TOP SCH ×2 (09:13→20:58)
[2018-04-08] MEDS: MUPIROCIN 2% 22 GM OINT TOP SCH (09:13)
[2018-04-08] MEDS: SODIUM HYPOCHLORITE (1/40) 1 APPLIC BTL IRR SCH (09:13)
[2018-04-08] MEDS: ENOXAPARIN 40 MG/0.4 ML SYG SC SCH (09:15)
--- NOTE | 2018-04-08 11:12 | CONS ---
Assessment/Plan Assessment/Plan Hospital Course (Demo Recall) No acute events Microbiology: Blood culture on admission grew coag negative staph species 1 out of 2 sets. Urine culture growing E. coli ESBL, VRE, pseudomonas aeruginosa. Sacral wound culture growing VRE and MRSA. Nares swab positive for MRSA. Antimicrobials: Amikacin, Daptomycin, topical Bactroban Allergy: Penicillin Indwelling: [place], left forearm Port-A-Cath Physical examination: This is a chronically ill-appearing middle-aged woman who is in no distress. Head atraumatic normocephalic neck is supple chest rise symmetrical breath sounds diminished bases. Heart: S1-S2. Abdomen soft, bowel sounds present. Extremities wasted without cyanosis. Skin patient has an unstageable sacral wound which is very deep Assessment: 1. Resolving sepsis 2. Recurrent urinary tract infection 3. Chronic unstageable sacral decub 4. Advanced multiple sclerosis 6. Neurogenic bladder 7. Seizure disorder Plan: Stable, continue abx, local wound care, repeat bld cx negative Consultation Date/Type/Reason Admit Date/Time Apr 02, 2018 at 08:53 Initial Consult Date 03/31/18 Type of Consult id Requesting Provider: LESLY TERRY NP Date/Time of Note DATE: 04/08/18 TIME: 11:12 Exam/Review of Systems Exam Vitals Vital Signs Date Temp Pulse Resp B/P (MAP) Pulse Ox O2 O2 Flow FiO2 Time Delivery Rate 04/08/18 98.7 104 18 148/69 97 Room Air 08:00 (95) Intake and Output 04/07/18 04/07/18 04/08/18 1515:00 23:00 07:00 IntakeIntake Total 380 ml 480 ml OutputOutput Total 450 ml 950 ml BalanceBalance 380 ml 30 ml -950 ml Results Result Diagram: 04/06/18 0548 Results 24hrs Laboratory Tests Test 04/07/18 12:01 04/07/18 12:03 Lab Scanned Report REFERENCE LAB REFERENCE LAB Medications Medication Current Medications Divalproex Sodium (Depakote) 500 mg BID PO Last administered on 04/08/18at 09:12; Admin Dose 500 MG; Start 03/31/18 at 09:00 Duloxetine HCl (Cymbalta) 60 mg DAILY PO Last administered on 04/08/18at 09:12; Admin Dose 60 MG; Start 03/31/18 at 09:00 Levetiracetam (Keppra) 1,000 mg BID PO Last administered on 04/08/18 09:12; Admin Dose 1,000 MG; Start 03/31/18 at 09:00 Phenazopyridine HCl (Pyridium) 200 mg TID PO Last administered on 04/08/18 09:12; Admin Dose 200 MG; Start 03/31/18 at 09:00 Albuterol (Proventil 0.083% (Neb)) 2.5 mg Q2H RESP THERAPY PRN HHN SHORTNESS OF BREATH Last administered on 03/31/18 22:10; Admin Dose 2.5 MG; Start 03/31/18 at 02:30 IV Flush (NS 3 ml) 3 ml PER PROTOCOL IV ; Start 03/31/18 at 02:30 Ondansetron HCl (Zofran Inj) 4 mg Q6H PRN IV NAUSEA/VOMITING Last administered on 04/07/18 17:12; Admin Dose 4 MG; Start 03/31/18 at 02:30 Acetaminophen (Tylenol Tab) 650 mg Q6H PRN PO .PAIN 1-3 OR TEMP Last administered on 04/06/18 15:25; Admin Dose 650 MG; Start 03/31/18 at 02:30 Acetaminophen/ Hydrocodone Bitart ([place] (5/325)) 1 tab Q6H PRN PO .MOD PAIN 4- 6 Last administered on 04/02/18 00:02; Admin Dose 1 TAB; Start 03/31/18 at 02:30 Acetaminophen/ Hydrocodone Bitart ([place] (5/325)) 2 tab Q6H PRN PO .SEVERE PAIN 7-10 Last administered on 04/07/18 13:23; Admin Dose 2 TAB; Start 03/31/18 at 02:30 Docusate Sodium (Colace) 100 mg Q12H PRN PO .CONSTIPATION Last administered on 04/07/18 21:43; Admin Dose 100 MG; Start 03/31/18 at 02:30 Magnesium Hydroxide (Milk Of Mag) 30 ml DAILY PRN PO .CONSTIPATION Last administered on 04/06/18 14:51; Admin Dose 30 ML; Start 03/31/18 at 02:30 Enoxaparin Sodium (Lovenox) 40 mg DAILY SC Last administered on 04/08/18 09: 15; Admin Dose 40 MG; Start 03/31/18 at 09:00 Nystatin (Nystatin Cr) 1 applic BID TOP Last administered on 04/08/18 09:13; Admin Dose 1 APPLIC; Start 03/31/18 at 09:00 Sodium Hypochlorite (Dakin'S (Dilute )) 1 applic DAILY IRR Last administered on 04/08/18 09:13; Admin Dose 1 APPLIC; Start 03/31/18 at 18:00 Zolpidem Tartrate (Ambien) 5 mg HS PRN PO INSOMNIA Last administered on 04/08/18 00:29; Admin Dose 5 MG; Start 04/01/18 at 00:16 Mupirocin (Bactroban) 1 applic BID TOP Last administered on 04/08/18 09:13; Admin Dose 1 APPLIC; Start 04/01/18 at 21:00; Stop 04/08/18 at 20:59 Aripiprazole (Abilify) 5 mg DAILY PO Last administered on 04/08/18 09:12; Admin Dose 5 MG; Start 04/03/18 at 11:00 Amikacin Sulfate (Amikacin Iv Per Pharmacy) AMIKACIN PER PHARMACY NOTE XX ; Start 04/03/18 at 15:30; Stop 04/10/18 at 15:29 Daptomycin 500 mg/ Sodium Chloride 100 ml @ 200 mls/hr Q24H IVPB Last administered on 04/07/18at 17:39; Admin Dose 200 MLS/HR; Start 04/03/18 at 17:00; Stop 04/10/18 at 16:59 Zinc Sulfate (Zinc Sulfate) 220 mg Q8 PO Last administered on 04/08/18at 05:16; Admin Dose 220 MG; Start 04/04/18 at 22:00 Amikacin Sulfate 900 mg/Dextrose 253.6 ml @ 253.6 mls/ hr Q96H IVPB ; Start 04/09/18 at 18:00; Stop 04/10/18 at 15:29 KASIA TAPIA NP Apr 08, 2018 11:12
[2018-04-08] MEDS: HYDROCODONE/APAP (5/325) TAB PO PRN ×2 (13:52→20:59)
--- NOTE | 2018-04-08 13:52 | PN ---
Date/Time of Note Date/Time of Note DATE: 04/08/18 TIME: 13:50 Assessment/Plan Lines/Catheters IV Catheter Type (from Nrs): Saline Lock Assessment/Plan Chief Complaint/Hosp Course 1. Sacral wound: Wound cultures noted -Continue local care> May be discharged with same wound orders -frequent turning and off-loading -low air loss mattress -vitamin c -short term zinc -optimize nutrition -abx per ID -Recommend follow-up at a wound care clinic -Debridement as needed 2. UTI: -abx per sensitivity -frequent bladder emptying/cath care 4. Depression with psychosis: -psych optimization, currently on cymbalta 5. Constipation: -Increase water intake -Optimize bowel regimen Thank you. Patient seen and examined in collaboration with Dr. Jaden Lopez. Subjective 24 Hr Interval Summary Feels well. No acute pain. No fevers, chills, sob, congested cough, cp, palpitations, aguilar, dizziness, nausea, vomiting, diarrhea, dysuria. Exam/Review of Systems Vital Signs Vitals Vital Signs Date Temp Pulse Resp B/P (MAP) Pulse Ox O2 O2 Flow FiO2 Time Delivery Rate 04/08/18 98.7 104 18 148/69 97 Room Air 08:00 (95) Intake and Output 04/07/18 04/07/18 04/08/18 1414:59 22:59 06:59 IntakeIntake Total 380 ml 480 ml OutputOutput Total 450 ml 950 ml BalanceBalance 380 ml 30 ml -950 ml Exam Free Text/Dictation Constitutional: alert, oriented; No distress Psych: nl mood/affect Head: normocephalic, atraumatic Eyes: nl conjunctiva, EOMI, nl lids, nl sclera ENMT: nl external ears & nose, nl lips & teeth, mucosa pink and moist Neck: supple, non-tender; No jvd, No nuchal rigidity Respiratory: normal air movement; No congested cough, No labored breathing Cardiovascular: regular rate and rhythm, nl pulses; No edema Gastrointestinal: soft, non-tender, other (Left colostomy (productive)) Genitourinary - Female: nl external genitalia Musculoskeletal: nl extremities to inspection, nl gait and stance Extremities: normal pulses Neurological: nl mental status, nl speech, nl strength Skin: nl turgor, other (Sacral: Stage IV (clean, periwound erythema-improved, no odor, scant drainage); perineum, groin and abdominal folds: min erythema); No rash or lesions Results Result Diagram: 04/06/18 0548 ANGEL SHOEMAKER NP Apr 08, 2018 13:52
[2018-04-08 14:00] VITALS: BP 100/56; PULSE 69
[2018-04-08] MEDS: DEXTROSE 5% IVPB SCH (14:13)
[2018-04-08] MEDS: AMIKACIN IVPB SCH (14:13)
--- NOTE | 2018-04-08 14:38 | PN ---
Date/Time of Note Date/Time of Note DATE: 04/08/18 TIME: 14:36 Assessment/Plan VTE Prophylaxis Risk score (from Nsg)>0 risk: 6 SCD applied (from Nsg): Yes Pharmacological prophylaxis: LMWH Lines/Catheters IV Catheter Type (from Nrsg): Saline Lock Assessment/Plan Hospital Course 43 yo female with h/o MS leading to paraplegia and bedbound state, epilepsy presents with sacral decubitus ulcer with infection Soft tissue infection of decubitus ulcer: - Abx per ID through . Antibiotics to be completed via home health Sacral decubitus ulcer: -Debridement per surgery, no debridement indicated at this time -Continue wound care Epilepsy: - AEDS Oversedation: - Stopped morphine and gabapentin Prophylaxis: Lovenox DC planning: Awaiting hospital bed, DC tomorrow Result Diagram: 04/06/18 0548 Results 24hrs Laboratory Tests Test 04/08/18 06:23 04/08/18 12:12 Random Amikacin Level <2.5 L Lab Scanned Report REFERENCE LAB Subjective 24 Hr Interval Summary Constitutional: no complaints Exam/Review of Systems Exam Vitals Vital Signs Date Temp Pulse Resp B/P (MAP) Pulse Ox O2 O2 Flow FiO2 Time Delivery Rate 04/08/18 98.7 104 18 148/69 97 Room Air 08:00 (95) Intake and Output 04/07/18 04/07/18 04/08/18 1414:59 22:59 06:59 IntakeIntake Total 380 ml 480 ml OutputOutput Total 450 ml 950 ml BalanceBalance 380 ml 30 ml -950 ml Constitutional: alert Respiratory: clear to auscultation Cardiovascular: regular rate and rhythm Gastrointestinal: soft; No distended Musculoskeletal: nl extremities to inspection Results Results 24hrs Laboratory Tests Test 04/08/18 06:23 04/08/18 12:12 Random Amikacin Level <2.5 L Lab Scanned Report REFERENCE LAB Medications Medication Current Medications Divalproex Sodium (Depakote) 500 mg BID PO Last administered on 04/08/18at 09:12; Admin Dose 500 MG; Start 03/31/18 at 09:00 Duloxetine HCl (Cymbalta) 60 mg DAILY PO Last administered on 04/08/18at 09:12; Admin Dose 60 MG; Start 03/31/18 at 09:00 Levetiracetam (Keppra) 1,000 mg BID PO Last administered on 04/08/18 09:12; Admin Dose 1,000 MG; Start 03/31/18 at 09:00 Phenazopyridine HCl (Pyridium) 200 mg TID PO Last administered on 04/08/18 13:48; Admin Dose 200 MG; Start 03/31/18 at 09:00 Albuterol (Proventil 0.083% (Neb)) 2.5 mg Q2H RESP THERAPY PRN HHN SHORTNESS OF BREATH Last administered on 03/31/18 22:10; Admin Dose 2.5 MG; Start 03/31/18 at 02:30 IV Flush (NS 3 ml) 3 ml PER PROTOCOL IV ; Start 03/31/18 at 02:30 Ondansetron HCl (Zofran Inj) 4 mg Q6H PRN IV NAUSEA/VOMITING Last administered on 04/07/18 17:12; Admin Dose 4 MG; Start 03/31/18 at 02:30 Acetaminophen (Tylenol Tab) 650 mg Q6H PRN PO .PAIN 1-3 OR TEMP Last administered on 04/06/18 15:25; Admin Dose 650 MG; Start 03/31/18 at 02:30 Acetaminophen/ Hydrocodone Bitart ([place] (5/325)) 1 tab Q6H PRN PO .MOD PAIN 4- 6 Last administered on 04/02/18 00:02; Admin Dose 1 TAB; Start 03/31/18 at 02:30 Acetaminophen/ Hydrocodone Bitart ([place] (5/325)) 2 tab Q6H PRN PO .SEVERE PAIN 7-10 Last administered on 04/08/18 13:52; Admin Dose 2 TAB; Start 03/31/18 at 02:30 Docusate Sodium (Colace) 100 mg Q12H PRN PO .CONSTIPATION Last administered on 04/07/18 21:43; Admin Dose 100 MG; Start 03/31/18 at 02:30 Magnesium Hydroxide (Milk Of Mag) 30 ml DAILY PRN PO .CONSTIPATION Last administered on 04/06/18 14:51; Admin Dose 30 ML; Start 03/31/18 at 02:30 Enoxaparin Sodium (Lovenox) 40 mg DAILY SC Last administered on 04/08/18 09:15; Admin Dose 40 MG; Start 03/31/18 at 09:00 Nystatin (Nystatin Cr) 1 applic BID TOP Last administered on 04/08/18 09:13; Admin Dose 1 APPLIC; Start 03/31/18 at 09:00 Sodium Hypochlorite (Dakin'S (Dilute )) 1 applic DAILY IRR Last admin istered on 04/08/18 09:13; Admin Dose 1 APPLIC; Start 03/31/18 at 18:00 Zolpidem Tartrate (Ambien) 5 mg HS PRN PO INSOMNIA Last administered on 04/08/18 00:29; Admin Dose 5 MG; Start 04/01/18 at 00:16 Mupirocin (Bactroban) 1 applic BID TOP Last administered on 04/08/18 09:13; Admin Dose 1 APPLIC; Start 04/01/18 at 21:00; Stop 04/08/18 at 20:59 Aripiprazole (Abilify) 5 mg DAILY PO Last administered on 04/08/18 09:12; Admin Dose 5 MG; Start 04/03/18 at 11:00 Amikacin Sulfate (Amikacin Iv Per Pharmacy) AMIKACIN PER PHARMACY NOTE XX ; Start 04/03/18 at 15:30; Stop 04/10/18 at 15:29 Daptomycin 500 mg/ Sodium Chloride 100 ml @ 200 mls/hr Q24H IVPB Last administered on 04/07/18 17:39; Admin Dose 200 MLS/HR; Start 04/03/18 at 17:00; Stop 04/10/18 at 16:59 Zinc Sulfate (Zinc Sulfate) 220 mg Q8 PO Last administered on 04/08/18 13:48; Admin Dose 220 MG; Start 04/04/18 at 22:00 Amikacin Sulfate 900 mg/Dextrose 253.6 ml @ 253.6 mls/ hr Q24H IVPB Last administered on 04/08/18 14:13; Admin Dose 253.6 MLS/HR; Start 04/08/18 at 14:00 Miscellaneous Information (*Rx Drug Level Order Reminder*) AMIKACIN TROUGH LEVEL ON... ONCE ONCE XX ; Start 04/09/18 at 13:00; Stop 04/09/18 at 13:01 VANDANA DA SILVA Apr 08, 2018 14:37
[2018-04-08] MEDS: COLLAGENASE 5 GM (UD JAR) TOP SCH (16:54)
[2018-04-08] MEDS: ONDANSETRON 4 MG INJ IV PRN ×2 (16:54→22:41)
[2018-04-08] MEDS: DAPTOMYCIN 500 MG in SOD CHLORIDE 0.9% 100 ML IVPB SCH (17:53)
[2018-04-08 20:00] VITALS: BP 102/69; PULSE 129; RESP 18
[2018-04-08] MEDS ORDERED: AL HYDROX/MG HYDROX/SIMETH 30 ML CUP PO PRN (20:30)
[2018-04-08] MEDS: PANTOPRAZOLE (EC) 40 MG TAB PO SCH (20:56)
[2018-04-08] MEDS: DOCUSATE SODIUM 100 MG CAP PO PRN (20:58)
[2018-04-08] MEDS: MAGNESIUM HYDROXIDE 30ML CUP PO PRN (20:59)
[2018-04-08 23:04] VITALS: PULSE 108
[2018-04-09 02:31] VITALS: BP 103/63; PULSE 101; RESP 19
[2018-04-09] MEDS: PANTOPRAZOLE (EC) 40 MG TAB PO SCH ×2 (05:55→06:05)
[2018-04-09] MEDS: ZINC SULFATE 220 MG CAP PO SCH ×2 (06:05→13:27)
[2018-04-09 08:00] VITALS: BP 104/60; PULSE 90; RESP 18
[2018-04-09] MEDS: LEVETIRACETAM 500 MG TAB PO SCH ×2 (08:42→20:04)
[2018-04-09] MEDS: PHENAZOPYRIDINE 200 MG TAB PO SCH ×3 (08:42→20:04)
[2018-04-09] MEDS: DULOXETINE 30 MG CAP DR PO SCH (08:42)
[2018-04-09] MEDS: DIVALPROEX (EC) 500 MG TAB PO SCH ×2 (08:42→20:04)
[2018-04-09] MEDS: COLLAGENASE 5 GM (UD JAR) TOP SCH (08:42)
[2018-04-09] MEDS: ARIPIPRAZOLE 5 MG TAB PO SCH (08:43)
[2018-04-09] MEDS: ENOXAPARIN 40 MG/0.4 ML SYG SC SCH (08:43)
[2018-04-09] MEDS: SODIUM HYPOCHLORITE (1/40) 1 APPLIC BTL IRR SCH (08:43)
[2018-04-09] MEDS: NYSTATIN 15 GM CR TOP SCH ×2 (08:44→20:06)
--- NOTE | 2018-04-09 11:36 | PN ---
Date/Time of Note Date/Time of Note DATE: 04/09/18 TIME: 11:35 Assessment/Plan Lines/Catheters IV Catheter Type (from Nrs): Peripheral IV Assessment/Plan Chief Complaint/Hosp Course 1. Sacral wound: Wound cultures noted -Continue local care> May be discharged with same wound orders -frequent turning and off-loading -low air loss mattress -vitamin c -short term zinc -optimize nutrition -abx per ID -Recommend follow-up at a wound care clinic -Debridement as needed 2. UTI: -abx per sensitivity -frequent bladder emptying/cath care 4. Depression with psychosis: -psych optimization, currently on cymbalta 5. Constipation: -Increase water intake -Optimize bowel regimen Thank you. Patient seen and examined in collaboration with Dr. Jaden Lopez. Subjective 24 Hr Interval Summary Sleepy today. Pending discharge. No fevers, chills, sob, congested cough, cp, palpitations, aguilar, dizziness, nausea, vomiting, diarrhea, dysuria. Exam/Review of Systems Vital Signs Vitals Vital Signs Date Temp Pulse Resp B/P (MAP) Pulse Ox O2 O2 Flow FiO2 Time Delivery Rate 04/09/18 97 Room Air 11:29 04/09/18 2.0 09:21 04/09/18 97.8 90 18 104/60 08:00 (75) Intake and Output 04/08/18 04/08/18 04/09/18 1515:00 23:00 07:00 IntakeIntake Total 240 ml 733.6 ml OutputOutput Total 600 ml BalanceBalance 240 ml 733.6 ml -600 ml Exam Free Text/Dictation Constitutional: alert, oriented; No distress Psych: nl mood/affect Head: normocephalic, atraumatic Eyes: nl conjunctiva, EOMI, nl lids, nl sclera ENMT: nl external ears & nose, nl lips & teeth, mucosa pink and moist Neck: supple, non-tender; No jvd, No nuchal rigidity Respiratory: normal air movement; No congested cough, No labored breathing Cardiovascular: regular rate and rhythm, nl pulses; No edema Gastrointestinal: soft, non-tender, other (Left colostomy (productive)) Genitourinary - Female: nl external genitalia Musculoskeletal: nl extremities to inspection, nl gait and stance Extremities: normal pulses Neurological: nl mental status, nl speech, nl strength Skin: nl turgor, other (Sacral: Stage IV (clean, periwound erythema-improved, no odor, scant drainage)) No rash or lesions Results Result Diagram: 04/06/18 0548 ANGEL SHOEMAKER NP Apr 09, 2018 11:36
--- NOTE | 2018-04-09 12:02 | DS ---
Date/Time of Note Date/Time of Note DATE: 04/09/18 TIME: 11:59 Discharge Summary Admission/Discharge Info Admit Date/Time Apr 02, 2018 at 08:53 Discharge Date/Time April 09, 2018 Discharge Diagnosis 43 yo female with h/o MS leading to paraplegia and bedbound state, epilepsy presents with sacral decubitus ulcer with infection Soft tissue infection of decubitus ulcer: -Status post course of Abx -manager fashion has arranged for home health and hospital bed Sacral decubitus ulcer: -Debridement per surgery, no debridement indicated at this time -Continue wound care Epilepsy: - AEDS Oversedation: - Stopped morphine and gabapentin Patient Condition: Good Hospital Course Patient is a 43 yo female with h/o MS leading to paraplegia and bedbound state, epilepsy presents with sacral decubitus ulcer with infection. Patient was seen by ID and started on IV antibiotics and patient completed a course during this hospitalization. Patient was seen by surgery and recommendation was for wound care, no surgery needed at this time. manager fashion did arrange for home health for wound care and hospital bed, patient did ultimately complete her antibiotic course during his hospitalization. On the day of discharge patient's vitals, labs and physical exam are stable. Home Meds Active Scripts Phenazopyridine Hcl* (Phenazopyridine Hcl*) 200 Mg Tablet, 200 MG PO TID for 30 Days, #90 TAB Prov:VANDANA DA SILVA 03/23/18 Reported Medications Albuterol Sulfate* (Ventolin HFA*) 18 Gm Hfa.aer.ad, 2 PUFF INHALATION Q4H, #1 INHALER 03/19/18 Gabapentin* (Gabapentin*) 300 Mg Capsule, 300 MG PO TID, #90 CAP 03/19/18 Duloxetine Hcl* (Duloxetine Hcl*) 60 Mg Capsule.dr, 60 MG PO DAILY, #30 CAP 03/17/17 Divalproex Sodium* (Depakote*) 500 Mg Tablet.dr, 500 MG PO BID, #120 TAB 03/17/17 Temazepam* (Temazepam*) 30 Mg Capsule, 30 MG PO HS PRN for INSOMNIA, CAP 03/17/17 Levetiracetam* (Keppra*) 1,000 Mg Tablet, 1000 MG PO BID, TAB 03/17/17 Follow-up Plan FOLLOW UP WITH YOUR PCP IN 1-2 WEEKS, FOLLOW UP WITH HOME HEALTH Primary Care Provider Care Physician No Primary Time spent on discharge: > 30 minutes VANDANA DA SILVA Apr 09, 2018 12:02
[2018-04-09] MEDS: DEXTROSE 5% IVPB SCH (13:27)
[2018-04-09] MEDS: AMIKACIN IVPB SCH (13:27)
[2018-04-09 14:00] VITALS: BP 108/62; PULSE 101; RESP 18
--- NOTE | 2018-04-09 14:46 | CONS ---
Assessment/Plan Assessment/Plan Hospital Course (Demo Recall) No acute events, looks comfortable, no fevers Microbiology: Blood culture on admission grew coag negative staph species 1 out of 2 sets. Urine culture growing E. coli ESBL, VRE, pseudomonas aeruginosa. Sacral wound culture growing VRE and MRSA. Nares swab positive for MRSA. Antimicrobials: Amikacin, Daptomycin, topical Bactroban Allergy: Penicillin Indwelling: Roberson, left forearm Port-A-Cath Physical examination: This is a chronically ill-appearing middle-aged woman who is in no distress. Head atraumatic normocephalic neck is supple chest rise symmetrical breath sounds diminished bases. Heart: S1-S2. Abdomen soft, bowel sounds present. Extremities wasted without cyanosis. Skin patient has an unstageable sacral wound which is very deep Assessment: 1. Resolving sepsis 2. Recurrent urinary tract infection 3. Chronic unstageable sacral decub 4. Advanced multiple sclerosis 6. Neurogenic bladder 7. Seizure disorder Plan: Remains sable, repeat bld cx negative, pending dc Consultation Date/Type/Reason Admit Date/Time Apr 02, 2018 at 08:53 Initial Consult Date 03/31/18 Type of Consult id Requesting Provider: LESLY TERRY NP Date/Time of Note DATE: 04/09/18 TIME: 14:42 Exam/Review of Systems Exam Vitals Vital Signs Date Temp Pulse Resp B/P (MAP) Pulse Ox O2 O2 Flow FiO2 Time Delivery Rate 04/09/18 97 Room Air 11:29 04/09/18 2.0 09:21 04/09/18 97.8 90 18 104/60 08:00 (75) Intake and Output 04/08/18 04/08/18 04/09/18 1515:00 23:00 07:00 IntakeIntake Total 240 ml 733.6 ml OutputOutput Total 600 ml BalanceBalance 240 ml 733.6 ml -600 ml Results Result Diagram: 04/06/18 0548 Medications Medication Current Medications Divalproex Sodium (Depakote) 500 mg BID PO Last administered on 04/09/18at 08:42; Admin Dose 500 MG; Start 03/31/18 at 09:00 Duloxetine HCl (Cymbalta) 60 mg DAILY PO Last administered on 04/09/18at 08:42; Admin Dose 60 MG; Start 03/31/18 at 09:00 Levetiracetam (Keppra) 1,000 mg BID PO Last administered on 04/09/18 08:42; Admin Dose 1,000 MG; Start 03/31/18 at 09:00 Phenazopyridine HCl (Pyridium) 200 mg TID PO Last administered on 04/09/18 12:45; Admin Dose 200 MG; Start 03/31/18 at 09:00 Albuterol (Proventil 0.083% (Neb)) 2.5 mg Q2H RESP THERAPY PRN HHN SHORTNESS OF BREATH Last administered on 03/31/18 22:10; Admin Dose 2.5 MG; Start 03/31/18 at 02:30 IV Flush (NS 3 ml) 3 ml PER PROTOCOL IV ; Start 03/31/18 at 02:30 Ondansetron HCl (Zofran Inj) 4 mg Q6H PRN IV NAUSEA/VOMITING Last administered on 04/08/18 22:41; Admin Dose 4 MG; Start 03/31/18 at 02:30 Acetaminophen (Tylenol Tab) 650 mg Q6H PRN PO .PAIN 1-3 OR TEMP Last administered on 04/06/18 15:25; Admin Dose 650 MG; Start 03/31/18 at 02:30 Acetaminophen/ Hydrocodone Bitart ([place] (5/325)) 1 tab Q6H PRN PO .MOD PAIN 4- 6 Last administered on 04/02/18 00:02; Admin Dose 1 TAB; Start 03/31/18 at 02:30 Acetaminophen/ Hydrocodone Bitart ([place] (5/325)) 2 tab Q6H PRN PO .SEVERE PAIN 7-10 Last administered on 04/08/18 20:59; Admin Dose 2 TAB; Start 03/31/18 at 02:30 Docusate Sodium (Colace) 100 mg Q12H PRN PO .CONSTIPATION Last administered on 04/08/18 20:58; Admin Dose 100 MG; Start 03/31/18 at 02:30 Magnesium Hydroxide (Milk Of Mag) 30 ml DAILY PRN PO .CONSTIPATION Last administered on 04/08/18 20:59; Admin Dose 30 ML; Start 03/31/18 at 02:30 Enoxaparin Sodium (Lovenox) 40 mg DAILY SC Last administered on 04/09/18 08: 43; Admin Dose 40 MG; Start 03/31/18 at 09:00 Nystatin (Nystatin Cr) 1 applic BID TOP Last administered on 04/09/18 08:44; Admin Dose 1 APPLIC; Start 03/31/18 at 09:00 Sodium Hypochlorite (Dakin'S (Dilute )) 1 applic DAILY IRR Last administered on 04/09/18 08:43; Admin Dose 1 APPLIC; Start 03/31/18 at 18:00 Zolpidem Tartrate (Ambien) 5 mg HS PRN PO INSOMNIA Last administered on 04/08/18 00:29; Admin Dose 5 MG; Start 04/01/18 at 00:16 Aripiprazole (Abilify) 5 mg DAILY PO Last administered on 04/09/18 08:43; Admin Dose 5 MG; Start 04/03/18 at 11:00 Amikacin Sulfate (Amikacin Iv Per Pharmacy) AMIKACIN PER PHARMACY NOTE XX ; Start 04/03/18 at 15:30; Stop 04/10/18 at 15:29 Daptomycin 500 mg/ Sodium Chloride 100 ml @ 200 mls/hr Q24H IVPB Last administered on 04/08/18 17:53; Admin Dose 200 MLS/HR; Start 04/03/18 at 17:00; Stop 04/10/18 at 16:59 Zinc Sulfate (Zinc Sulfate) 220 mg Q8 PO Last administered on 04/09/18 13:27; Admin Dose 220 MG; Start 04/04/18 at 22:00 Amikacin Sulfate 900 mg/Dextrose 253.6 ml @ 253.6 mls/ hr Q24H IVPB Last administered on 04/09/18 13:27; Admin Dose 253.6 MLS/HR; Start 04/08/18 at 14:00; Stop 04/10/18 at 15:29 Collagenase (Santyl) 1 applic DAILY TOP Last administered on 04/09/18 08:42; Admin Dose 1 APPLIC; Start 04/08/18 at 15:30 Al Hydrox/Mg Hydrox/Simethicone (Mag-Al Plus) 30 ml Q6H PRN PO GASTROINTESTINAL UPSET Last administered on 04/08/18 22:40; Admin Dose 30 ML; Start 04/08/18 at 20:30 Pantoprazole (Protonix Tab) 40 mg DAILY@06 PO Last administered on 04/09/18at 06:05; Admin Dose 40 MG; Start 04/08/18 at 20:15 KASIA TAPIA NP Apr 09, 2018 14:46
[2018-04-09] MEDS: DAPTOMYCIN 500 MG in SOD CHLORIDE 0.9% 100 ML IVPB SCH (16:05)
[2018-04-09] MEDS: HYDROCODONE/APAP (5/325) TAB PO PRN (16:25)
[2018-04-09] MEDS: ONDANSETRON 4 MG INJ IV PRN (16:27)
[2018-04-09 20:00] VITALS: BP 109/51; PULSE 120; RESP 18
[2018-04-09 21:05] VITALS: BP 110/70; PULSE 77; RESP 19
== END 2018-04-09 21:26 | disposition home health service (06) | DRG 871 ==
LOC: E/R 18:31 → PP2 03-31 01:01 → OBSVTOIN 04-02 08:53 → 5EC 04-02 17:10
PROVIDERS: ADMIT Internal Medicine; ATTEND Internal Medicine
DX: A41.9 Sepsis, unspecified organism (principal); L89.154 Pressure ulcer of sacral region, stage 4; N39.0 Urinary tract infection, site not specified; F33.3 Major depressive disorder, recurrent, severe with psychotic symptoms; G82.20 Paraplegia, unspecified; L08.89 Other specified local infections of the skin and subcutaneous tissue; G40.909 Epilepsy, unspecified, not intractable, without status epilepticus; G35 Multiple sclerosis; N31.9 Neuromuscular dysfunction of bladder, unspecified; J44.9 Chronic obstructive pulmonary disease, unspecified; R33.9 Retention of urine, unspecified; Z74.01 Bed confinement status; Z93.3 Colostomy status; Z87.891 Personal history of nicotine dependence; Z88.0 Allergy status to penicillin
CPT/HCPCS: 71045; 80048; 80053; 80150; 80164; 80202; 81001; 82550; 82565; 83605; 83735; 84100; 84484; 84520; 85025; 85610; 85730; 87040; 87045; 87070; 87081; 87086; 93005; 94664; 97162; 97167; G0378; J0278; J0692; J1650; J2185; J2270; J2405; J3370; J7030; J7050; J7070

== ENCOUNTER 2018-09-14 15:55 | Observation (INO) | payer MEDICARE, OTHER ==
[~2018-09-14] VITALS: Ht 167.6 cm; Wt 81.0 kg
[~2018-09-14 15:55] MED LIST changes: +ALPR2TAB PO; +DIVA-75 PO; +ESCI10TA48 PO; +GABA-526 PO; +NAPR-927 PO; +NEOM28OI2 TP; +NITR100C7 PO; +ZOLP5TAB7 PO
--- NOTE | 2018-09-14 16:06 | ERD ---
ER Documentation Chief Complaint Chief Complaint UTI HPI The patient is a 42-year-old female, presenting to the ER from home because her doctors called her at home asked her to go to the ER because she has acute UTI. She is unable to provide any history, the history is obtained from EMS and medical record. She has history of substance abuse Past medical history: MS, epilepsy, COPD, paraplegia, history of sacral decubitus ulcer Past surgical history: Colostomy ROS All systems reviewed and are negative except as per history of present illness. Medications Home Meds Reported Medications Duloxetine Hcl* (Duloxetine Hcl*) 60 Mg Capsule.dr, 60 MG PO DAILY, #30 CAP 09/14/18 Zolpidem Tartrate* (Zolpidem Tartrate*) 5 Mg Tablet, 5 MG PO QHS PRN for INSOMNI A, #30 TAB 09/14/18 Gabapentin* (Gabapentin*) 600 Mg Tablet, 600 MG PO TID, #90 TAB 09/14/18 Escitalopram Oxalate* (Escitalopram Oxalate*) 10 Mg Tablet, 10 MG PO DAILY, #30 TAB 09/14/18 Alprazolam* (Xanax*) 2 Mg Tablet, 2 MG PO Q12H PRN for ANXIETY, TAB 09/14/18 Divalproex Sodium* (Depakote ER*) 500 Mg Tabsr, 500 MG PO BID, #30 TAB.SA 09/14/18 Albuterol Sulfate* (Ventolin HFA*) 18 Gm Hfa.aer.ad, 2 PUFF INHALATION Q4H, #1 INHALER 03/19/18 Discontinued Reported Medications Gabapentin* (Gabapentin*) 300 Mg Capsule, 300 MG PO TID, #90 CAP 03/19/18 Duloxetine Hcl* (Duloxetine Hcl*) 60 Mg Capsule.dr, 60 MG PO DAILY, #30 CAP 03/17/17 Divalproex Sodium* (Depakote*) 500 Mg Tablet.dr, 500 MG PO BID, #120 TAB 03/17/17 Temazepam* (Temazepam*) 30 Mg Capsule, 30 MG PO HS PRN for INSOMNIA, CAP 03/17/17 Levetiracetam* (Keppra*) 1,000 Mg Tablet, 1000 MG PO BID, TAB 03/17/17 Discontinued Scripts Phenazopyridine Hcl* (Phenazopyridine Hcl*) 200 Mg Tablet, 200 MG PO TID for 30 Days, #90 TAB Prov:VANDANA DA SILVA 03/23/18 Allergies Allergies: Coded Allergies: Penicillins (Verified Allergy, Unknown, 09/14/18) labetalol (Verified Allergy, Unknown, 09/14/18) latex (Verified Allergy, Unknown, 09/14/18) PMhx/Soc History of Surgery: Yes (Colostomy) Anesthesia Reaction: No Hx Neurological Disorder: Yes (Multiple sclerosis, hx of seizures) Hx Respiratory Disorders: Yes (COPD) Hx Cardiac Disorders: No Hx Psychiatric Problems: No Hx Miscellaneous Medical Probl: No Hx Alcohol Use: No Hx Substance Use: Yes (Current Marijuana. Hx of Speed, Coke) Hx Tobacco Use: No Physical Exam Vitals Vital Signs Date Temp Pulse Resp B/P (MAP) Pulse Ox O2 O2 Flow FiO2 Time Delivery Rate 09/14/18 98.1 80 18 111/70 98 Room Air 16:43 (84) 09/14/18 98.9 82 18 98/56 (70) 99 16:02 Physical Exam Const: No acute distress. Head: Atraumatic. Eyes: Normal Conjunctiva. ENT: Normal External Ears, Nose and Mouth. Neck: Full range of motion. No meningismus. Resp: Clear to auscultation bilaterally. Cardio: Regular rate and rhythm. Abd: Soft, non distended, normal bowel sounds, non tender. Colostomy Skin: No petechiae or rashes. Back: No midline or flank tenderness. Ext: No cyanosis, or edema. Neur: Unable to perform due to her condition Psych: Unable to perform due to her condition Result Diagram: 09/14/18 1710 09/14/18 1710 Results 24 hrs Laboratory Tests Test 09/14/18 17:09 09/14/18 17:10 09/14/18 17:43 09/14/18 17:51 POC Venous Lactate 0.7 mmol/L White Blood Count 10.7 10^3/ul Red Blood Count 4.54 10^6/ul Hemoglobin 13.1 g/dl Hematocrit 40.3 % Mean Corpuscular 88.8 fl Volume Mean Corpuscular 28.9 pg Hemoglobin Mean Corpuscular 32.5 g/dl Hemoglobin Concent Red Cell 14.5 % Distribution Width Platelet Count 352 10^3/UL Mean Platelet 9.5 fl Volume Immature 0.200 % Granulocytes % Neutrophils % 62.0 % Lymphocytes % 28.8 % Monocytes % 6.1 % Eosinophils % 2.5 % Basophils % 0.4 % Nucleated Red 0.0 /100WBC Blood Cells % Immature 0.020 10^3/ul Granulocytes # Neutrophils # 6.7 10^3/ul Lymphocytes # 3.1 10^3/ul Monocytes # 0.7 10^3/ul Eosinophils # 0.3 10^3/ul Basophils # 0.0 10^3/ul Nucleated Red 0.0 10^3/ul Blood Cells # Prothrombin Time 12.1 Sec Prothrombin Time 0.9 Ratio INR International 0.89 Normalized Ratio Activated 29.[address] Time Sodium Level 141 mmol/L Potassium Level 4.4 mmol/L Chloride Level 106 mmol/L Carbon Dioxide 27 mmol/L Level Anion Gap 8 Blood Urea 23 mg/dl Nitrogen Creatinine 0.57 mg/dl Est Glomerular > 60 mL/min Filtrat Rate mL/min Glucose Level 110 mg/dl Calcium Level 9.8 mg/dl Total Bilirubin 0.3 mg/dl Direct Bilirubin 0.00 mg/dl Indirect Bilirubin 0.3 mg/dl Aspartate Amino 17 IU/L Transf (AST/SGOT) Alanine 24 IU/L Aminotransferase ( ALT/SGPT) Alkaline 62 IU/L Phosphatase Troponin I < 0.012 ng/ml Total Protein 8.0 g/dl Albumin 3.9 g/dl Globulin 4.10 g/dl Albumin/Globulin 0.95 Ratio Ethyl Alcohol < 10.0 mg/dl Level Urine Color YELLOW Urine Clarity CLOUDY Urine pH 6.0 Urine Specific 1.009 [place] Urine Ketones NEGATIVE mg/dL Urine Nitrite NEGATIVE mg/dL Urine Bilirubin NEGATIVE mg/dL Urine Urobilinogen NEGATIVE mg/dL Urine Leukocyte 2+ K[place]/ul Esterase Urine Microscopic 6 /HPF RBC Urine Microscopic 41 /HPF WBC Urine Squamous MANY /HPF Epithelial Cells Urine Bacteria FEW /HPF Urine Hemoglobin NEGATIVE mg/dL Urine Glucose NEGATIVE mg/dL Urine Total NEGATIVE mg/dl Protein Urine Opiates Negative Screen Urine Barbiturates Negative Urine Amphetamines Negative Screen Urine Positive Benzodiazepines Screen Urine Cocaine Negative Screen Urine Cannabinoids Positive Bedside Urine pH 6.0 (LAB) Bedside Urine Trace Protein (LAB) Bedside Urine Negative Glucose (UA) Bedside Urine Negative Ketones (LAB) Bedside Urine Trace-intact Blood Bedside Urine Negative Nitrite (LAB) Bedside Urine 2+ Leukocyte Esterase (L Current Medications Medications Dose Sig/Stacey Start Time Status Last (Trade) Ordered Route PRN Stop Time Admin Dose Reason Admin Sodium 2,430 ml BOLUS OVER 2 09/14/18 DC 09/14/18 Chloride HOURS STAT 16:10 09/14/18 17:44 (NS) IV* 16:12 50 ml @ ONCE STAT 09/14/18 DC Meropenem/Sod 100 mls/hr IVPB 19:17 09/14/18 ium Chloride 19:46 Procedures/MDM [place] [address] Radiology Main Line: [phone] DIAGNOSTIC IMAGING REPORT Patient: JEYSON CARTER : 1975 Age: 43 Sex: F MR #: [id number] DOS: 09/14/18 1610 Ordering MD: RADHA CENTENO MD Location: E/R Room/Bed: PROCEDURE: XR Chest. CLINICAL INDICATION: Chest pain. Possible sepsis TECHNIQUE: Portable AP semi erect view of the chest was obtained. COMPARISON: 06/14/2018 FINDINGS: The cardiomediastinal silhouette is within normal limits. Interstitial changes of the lung parenchyma are similar to the prior study without evidence of lobar alveolar infiltrate. A left-sided PICC remains in satisfactory position the distal tip projecting in the upper right atrium. There is no evidence for pleural effusion, pneumothorax or pulmonary vascular congestion. The osseous structures are intact with no evidence for acute abnormality. RPTAT:HJJR IMPRESSION: 1. Stable subtle interstitial changes of the lung parenchyma compared to 06/14/2018 without evidence of lobar consolidation to suggest acute pneumonia. 2. Left-sided PICC remains in satisfactory position. Physician Sergio Date Time Electronically viewed and signed by Physician Sergio on 09/14/2018 16:41 JR/ CC: RADHA CENTENO MD [id number] EKG: Read by emergency physician Rate/Rhythm: Normal Sinus Rhythm 81 beats/min QRS, ST, T-waves: No ST elevation, no T inversion Impression: Normal EKG MEDICAL MAKING DECISION: The patient is a 43-year-old female, presenting with acute cystitis, acute dehydration, substance abuse Roberson catheter were replaced and a clean urine specimen was submitted She was treated with normosaline 30 mm/kg IV for acute dehydration, meropenem IV for acute cystitis The differential diagnoses considered include but are not limited to substance abuse, cholelithiasis, cholecystitis, choledocholithiasis, cholangitis, pancreatitis, hepatitis, gastritis, peptic ulcer disease, gastric ulcer, appendicitis, cystitis, diverticulitis, partial small bowel obstruction. Departure Diagnosis: Primary Impression: UTI (urinary tract infection) Additional Impressions: Dehydration Substance abuse Condition: Stable Comments I discussed the findings with the patient. I notified the patient with Dr. Mckeon at 7:20p via [employer], who was made aware of the lab, the treatment, the patient condition. The patient is admitted to [facility] Disclaimer: Inadvertent spelling and grammatical errors are likely due to EHR/dictation software use and do not reflect on the overall quality of patient care. Also, please note that the electronic time recorded on this note does not necessarily reflect the actual time of the patient encounter. RADHA CENTENO MD Sep 14, 2018 16:05
[2018-09-14] MEDS ORDERED: SODIUM CHLORIDE 0.9% 1L BAG IV* STA (16:10)
[2018-09-14] MEDS ORDERED: MEROPENEM 1 GM/50ML(PMX) 50 ML IVPB STA (19:17)
[2018-09-14] MEDS ORDERED: SOD CHLORIDE 0.9% 1,000 ML IV SCH (20:58)
[2018-09-14] MEDS ORDERED: DOCUSATE SODIUM 100 MG CAP PO PRN (21:00)
[2018-09-14] MEDS ORDERED: NACL 0.9% 3 ML SYG IV SCH (21:00)
[2018-09-14] MEDS ORDERED: ONDANSETRON 4 MG INJ IV PRN (21:00)
[2018-09-14] MEDS ORDERED: BISACODYL (EC) 5 MG TAB PO PRN (21:00)
[2018-09-14 22:17] VITALS: BP 105/51; PULSE 76; RESP 17
[2018-09-14] MEDS: HEPARIN 5,000 UNIT/1 ML VIAL SC SCH (22:29)
[2018-09-14 23:00] VITALS: Ht 167.6 cm; Wt 81.0 kg
[2018-09-14] MEDS ORDERED: PENDING SANTYL ORDER FOR WOUND CARE XX PRN (23:00)
--- NOTE | 2018-09-14 23:48 | HP ---
Date/Time of Note Date/Time of Note DATE: 09/14/18 TIME: 23:48 Assessment/Plan VTE Prophylaxis Pharmacological prophylaxis: heparin Lines/Catheters IV [facility] Urinary Cath still in place: Yes Reason Cath still needed: other (indicate) (neurogenic bladder) Assessment/Plan Hospital Course This is a 42-year-old female being admitted to the [facility] floor for: 1. Catheter related urinary tract infection: Patient has a chronic Roberson. History of multidrug-resistant organisms/ESBL. Await urine culture results. Will initiate the patient on meropenem IV. Consider infectious disease consultation. 2. Advanced multiple sclerosis - stable, continue supportive care 3. Epilepsy - continue home medications, check Depakote level 4. chronic decub: Consult wound care team. 5. DVT GI prophylaxis: Heparin, no GI prophylaxis indicated. Result Diagram: 09/14/18 1710 09/14/18 1710 Results 24hrs Laboratory Tests Test 09/14/18 17:09 09/14/18 17:10 09/14/18 17:43 09/14/18 17:51 POC Venous Lactate 0.7 White Blood Count 10.7 # Red Blood Count 4.54 Hemoglobin 13.1 Hematocrit 40.3 Mean Corpuscular 88.8 Volume Mean Corpuscular 28.9 L Hemoglobin Mean Corpuscular 32.5 Hemoglobin Concent Red Cell Distribution 14.5 Width Platelet Count 352 Mean Platelet Volume 9.5 Immature Granulocytes 0.200 % Neutrophils % 62.0 Lymphocytes % 28.8 Monocytes % 6.1 Eosinophils % 2.5 Basophils % 0.4 Nucleated Red Blood 0.0 Cells % Immature Granulocytes 0.020 # Neutrophils # 6.7 Lymphocytes # 3.1 H Monocytes # 0.7 Eosinophils # 0.3 Basophils # 0.0 Nucleated Red Blood 0.0 Cells # Prothrombin Time 12.1 Prothrombin Time 0.9 Ratio INR International 0.89 Normalized Ratio Activated 29.0 Partial Thromboplast Time Sodium Level 141 Potassium Level 4.4 Chloride Level 106 Carbon Dioxide Level 27 Anion Gap 8 Blood Urea Nitrogen 23 H Creatinine 0.57 Est Glomerular > 60 Filtrat Rate mL/min Glucose Level 110 Calcium Level 9.8 Total Bilirubin 0.3 Direct Bilirubin 0.00 Indirect Bilirubin 0.3 Aspartate Amino 17 Transf (AST/SGOT) Alanine 24 Aminotransferase (ALT /SGPT) Alkaline Phosphatase 62 Troponin I < 0.012 Total Protein 8.0 Albumin 3.9 Globulin 4.10 H Albumin/Globulin 0.95 Ratio Ethyl Alcohol Level < 10.0 H Urine Color YELLOW Urine Clarity CLOUDY A Urine pH 6.0 Urine Specific 1.009 [place] Urine Ketones NEGATIVE Urine Nitrite NEGATIVE Urine Bilirubin NEGATIVE Urine Urobilinogen NEGATIVE Urine Leukocyte 2+ H Esterase Urine Microscopic RBC 6 H Urine Microscopic WBC 41 H Urine Squamous MANY A Epithelial Cells Urine Bacteria FEW A Urine Hemoglobin NEGATIVE Urine Glucose NEGATIVE Urine Total Protein NEGATIVE Urine Opiates Screen Negative Urine Barbiturates Negative Urine Amphetamines Negative Screen Urine Benzodiazepines Positive Screen Urine Cocaine Screen Negative Urine Cannabinoids Positive Bedside Urine pH 6.0 (LAB) Bedside Urine Protein Trace H (LAB) Bedside Urine Glucose Negative (UA) Bedside Urine Ketones Negative (LAB) Bedside Urine Blood Trace-intact H Bedside Urine Nitrite Negative (LAB) Bedside Urine 2+ H Leukocyte Esterase (L Test 09/14/18 19:21 09/14/18 21:24 Lactic Acid Level 0.6 0.8 HPI/ROS Admit Date/Time Admit Date/Time Sep 14, 2018 at 19:19 Hx of Present Illness Chief complaint: Presented to ER as PMD told her to come due to a UTI This is a 43-year-old female with a past medical history of severe multiple sclerosis resulting in debility, chronic sacral decub, neurogenic bladder with chronic Roberson who presented to the emergency department after her doctor called her home and told her to come to the emergency department due to her urinalysis being positive for a UTI. Patient is a poor historian. Upon questioning she was asking how long she was at this day at the hospital. She denies any nausea vomiting or diarrhea. Denies any chest pain. Denies any fevers. allergies: Penicillin, labetalol, latex Medications: Albuterol when Ventolin HFA 18 g 2 puffs every 4 hours as needed Xanax 2 mg p.o. every 12 hours as needed Depakote ER 500 mg p.o. twice daily Duloxetine 60 mg p.o. daily Escitalopram 10 mg p.o. daily Gabapentin 600 mg p.o. 3 times daily Zolpidem 5 mg p.o. nightly as needed ROS Const: As per HPI Eyes : No pain discharge or redness or change in visual acuity ENT: No pain, sore throat, congestion, congestion, dysphagia or discharge Respiratory: No shortness of breath, cough, sputum, wheezing, or pleuritic pain Cardiovascular: No chest pain, palpitation, PND, or edema GI : no change in appetite, abdominal pain, nausea, vomiting, diarrhea, constipation, or change in the color his stool Genitourinary: No dysuria, hematuria, flank pain , discharge or CVA tenderness Musculoskeletal: No joint pain, back pain, neck pain, restricted range of motion in neck or joints Skin: No rash, bruising or hives Neuro: No headache, dizziness, syncope, seizure, focal weakness Endocrine: No polyuria, polydipsia, temperature intolerance Psych: No hallucination, depression, anxiety or suicidal ideation PMH/Family/Social Past Medical History Severe MS, epilepsy, COPD, , history of sacral decubitus ulcer Medications Current Medications Sodium Chloride 1,000 ml @ 75 mls/hr [id number] IV Last administered on 09/14/18at 22:25; Admin Dose 75 MLS/HR; Start 09/14/18 at 20:58; Stop 09/15/18 at 10:17 IV Flush (NS 3 ml) 3 ml PER PROTOCOL IV ; Start 09/14/18 at 21:00 Ondansetron HCl (Zofran Inj) 4 mg Q6H PRN IV NAUSEA/VOMITING; Start 09/14/18 at 21:00 Acetaminophen (Tylenol Tab) 650 mg Q6H PRN PO .PAIN 1-3 OR TEMP; Start 09/14/18 at 21:00 Docusate Sodium (Colace) 100 mg Q12H PRN PO .CONSTIPATION; Start 09/14/18 at 21:00 Bisacodyl (Dulcolax) 5 mg DAILY PRN PO .CONSTIPATION; Start 09/14/18 at 21:00 Heparin Sodium (Porcine) (Heparin (5000 Units/1ml)) 5,000 unit Q8 SC Last administered on 09/14/18at 22:29; Admin Dose 5,000 UNIT; Start 09/14/18 at 22:00 Meropenem/Sodium Chloride 50 ml @ 100 mls/hr Q12 IVPB ; Start 09/15/18 at 09:00 Miscellaneous Information (Pending Santyl Order For Wound Care) This patient aguilar... PRN PRN XX WOUND CARE; Start 09/14/18 at 23:00 Coded Allergies: Penicillins (Verified Allergy, Unknown, 8/5/19) labetalol (Verified Allergy, Unknown, 09/14/18) latex (Verified Allergy, Unknown, 09/14/18) Past Surgical History Colostomy Family History Significant Family History: no pertinent family hx Social History Alcohol Use: none Smoking Status: Never smoker Drug Use: none Exam/Review of Systems Vital Signs Vitals Vital Signs Date Temp Pulse Resp B/P (MAP) Pulse Ox O2 O2 Flow FiO2 Time Delivery Rate 09/14/18 98.2 76 17 105/51 97 22:17 (69) 09/14/18 Room Air 21:00 Exam Exam General: Patient is currently lying in bed in no acute distress, she is asking when she can go home.. HEENT: Atraumatic, normocephalic. The pupils are equal, round and reactive. Extraocular motor are intact Neck: Supple with full range of motion. No rigidity or meningismus Chest: Nontender Lungs: Clear to auscultation bilaterally no crackles rales or wheezing Heart: Normal S1-S2, Regular rhythm and rate. No murmur, S3, or S4 Abdomen: Soft , nontender, nondistended , bowel sounds are present. No guarding no rebound tenderness , No masses or organomegaly. No costovertebral temporal angle mass Extremities: Normal to inspection, no edema no cyanosis Skin: Sacral decub stage IV approximately 1.5 cm x 2 cm Neurologic: Alert and awake, limited secondary to patient's chronic medical conditions LANDRY FABIAN Sep 14, 2018 23:48
[2018-09-15 01:27] VITALS: BP 104/60; PULSE 73; RESP 17
[2018-09-15] MEDS: HEPARIN 5,000 UNIT/1 ML VIAL SC SCH ×3 (05:42→21:27)
[2018-09-15] MEDS ORDERED: ZOLPIDEM 5 MG TAB PO PRN (07:00)
[2018-09-15] MEDS ORDERED: ALPRAZOLAM 1 MG TAB PO PRN (07:00)
[2018-09-15] MEDS ORDERED: ALBUTEROL HFA 8 GM INHALER INH PRN (07:30)
[2018-09-15 08:06] VITALS: BP 103/57; PULSE 71; RESP 20
[2018-09-15] MEDS: MEROPENEM 1 GM/50ML(PMX) 50 ML IVPB SCH ×2 (09:03→21:02)
[2018-09-15] MEDS: DIVALPROEX (ER) 500 MG TAB PO SCH ×2 (09:03→21:02)
[2018-09-15] MEDS: GABAPENTIN 300 MG CAP PO SCH ×3 (09:03→21:02)
[2018-09-15] MEDS: DULOXETINE 30 MG CAP DR PO SCH (09:03)
[2018-09-15] MEDS: ESCITALOPRAM 10 MG TAB PO SCH (09:04)
[2018-09-15] MEDS ORDERED: COLLAGENASE 5 GM (UD JAR) TOP PRN (12:30)
[2018-09-15] MEDS: COLLAGENASE 5 GM (UD JAR) TOP SCH ×2 (14:10→21:03)
[2018-09-15 14:25] VITALS: BP_SYST 104; BP_SYST 133; BP_DIAS 55; BP_DIAS 78; PULSE 68; PULSE 78; RESP 18
--- NOTE | 2018-09-15 15:04 | PN ---
Date/Time of Note Date/Time of Note DATE: 09/15/18 TIME: 14:57 Assessment/Plan VTE Prophylaxis Risk score (from Ns)>0 risk: 9 SCD applied (from Ns): Yes Pharmacological prophylaxis: heparin Lines/Catheters IV [facility]from [facility] Urinary Cath still in place: Yes Reason Cath still needed: urinary retention Assessment/Plan Assessment/Plan 42 yo woman with history of multiple sclerosis and chronic Roberson presents with UTI. 1. Catheter related urinary tract infection: - Patient has a chronic Roberson. History of multidrug-resistant organisms/ESBL. - Await urine culture results. - Continue IV meropenem. 2. Advanced multiple sclerosis - stable, continue supportive care 3. Epilepsy - continue home medications 4. chronic decub: Consult wound care team. 5. DVT GI prophylaxis: Heparin, no GI prophylaxis indicated. Result Diagram: 09/15/1852309/15/18523 Subjective 24 Hr Interval Summary Free Text/Dictation No acute overnight events. Patient awake and alert, eating breakfast. Exam/Review of Systems Exam Vitals Vital Signs Date Temp Pulse Resp B/P (MAP) Pulse Ox O2 O2 Flow FiO2 Time Delivery Rate 09/15/18 98.0 71 20 103/57 100 08:06 (72) 09/14/18 Room Air 21:00 Intake and Output 09/14/18 09/14/18 09/15/18 1515:00 23:00 07:00 IntakeIntake Total 1920 ml OutputOutput Total 1350 ml BalanceBalance 570 ml Exam General: Patient is currently lying in bed in no acute distress HEENT: Atraumatic, normocephalic. The pupils are equal, round and reactive. Extraocular motor are intact Neck: Supple with full range of motion. No rigidity or meningismus Chest: Nontender Lungs: Clear to auscultation bilaterally no crackles rales or wheezing Heart: Normal S1-S2, Regular rhythm and rate. No murmur, S3, or S4 Abdomen: Soft , nontender, nondistended , bowel sounds are present. No guarding no rebound tenderness , Colostomy in place with brown stool. Extremities: Normal to inspection, no edema no cyanosis Skin: Sacral decub stage IV approximately 1.5 cm x 2 cm Results Results 24hrs Laboratory Tests Test 09/14/18 17:09 09/14/18 17:10 09/14/18 17:43 09/14/18 17:51 POC Venous Lactate 0.7 White Blood Count 10.7 # Red Blood Count 4.54 Hemoglobin 13.1 Hematocrit 40.3 Mean Corpuscular 88.8 Volume Mean Corpuscular 28.9 L Hemoglobin Mean Corpuscular 32.5 Hemoglobin Concent Red Cell Distribution 14.5 Width Platelet Count 352 Mean Platelet Volume 9.5 Immature Granulocytes 0.200 % Neutrophils % 62.0 Lymphocytes % 28.8 Monocytes % 6.1 Eosinophils % 2.5 Basophils % 0.4 Nucleated Red Blood 0.0 Cells % Immature Granulocytes 0.020 # Neutrophils # 6.7 Lymphocytes # 3.1 H Monocytes # 0.7 Eosinophils # 0.3 Basophils # 0.0 Nucleated Red Blood 0.0 Cells # Prothrombin Time 12.1 Prothrombin Time 0.9 Ratio INR International 0.89 Normalized Ratio Activated 29.0 Partial Thromboplast Time Sodium Level 141 Potassium Level 4.4 Chloride Level 106 Carbon Dioxide Level 27 Anion Gap 8 Blood Urea Nitrogen 23 H Creatinine 0.57 Est Glomerular > 60 Filtrat Rate mL/min Glucose Level 110 Calcium Level 9.8 Total Bilirubin 0.3 Direct Bilirubin 0.00 Indirect Bilirubin 0.3 Aspartate Amino 17 Transf (AST/SGOT) Alanine 24 Aminotransferase (ALT /SGPT) Alkaline Phosphatase 62 Troponin I < 0.012 Total Protein 8.0 Albumin 3.9 Globulin 4.10 H Albumin/Globulin 0.95 Ratio Ethyl Alcohol Level < 10.0 H Urine Color YELLOW Urine Clarity CLOUDY A Urine pH 6.0 Urine Specific 1.009 [place] Urine Ketones NEGATIVE Urine Nitrite NEGATIVE Urine Bilirubin NEGATIVE Urine Urobilinogen NEGATIVE Urine Leukocyte 2+ H Esterase Urine Microscopic RBC 6 H Urine Microscopic WBC 41 H Urine Squamous MANY A Epithelial Cells Urine Bacteria FEW A Urine Hemoglobin NEGATIVE Urine Glucose NEGATIVE Urine Total Protein NEGATIVE Urine Opiates Screen Negative Urine Barbiturates Negative Urine Amphetamines Negative Screen Urine Benzodiazepines Positive Screen Urine Cocaine Screen Negative Urine Cannabinoids Positive Bedside Urine pH 6.0 (LAB) Bedside Urine Protein Trace H (LAB) Bedside Urine Glucose Negative (UA) Bedside Urine Ketones Negative (LAB) Bedside Urine Blood Trace-intact H Bedside Urine Nitrite Negative (LAB) Bedside Urine 2+ H Leukocyte Esterase (L Test 09/14/18 19:21 09/14/18 21:24 09/15/18 05:24 Lactic Acid Level 0.6 0.8 White Blood Count 10.7 Red Blood Count 4.38 Hemoglobin 12.4 Hematocrit 39.9 Mean Corpuscular 91.1 Volume Mean Corpuscular 28.3 L Hemoglobin Mean Corpuscular 31.1 L Hemoglobin Concent Red Cell Distribution 14.3 Width Platelet Count 320 Mean Platelet Volume 9.8 Immature Granulocytes 0.300 % Neutrophils % 41.5 Lymphocytes % 46.7 Monocytes % 7.4 Eosinophils % 3.6 Basophils % 0.5 Nucleated Red Blood 0.0 Cells % Immature Granulocytes 0.030 # Neutrophils # 4.4 Lymphocytes # 5.0 H Monocytes # 0.8 Eosinophils # 0.4 Basophils # 0.1 Nucleated Red Blood 0.0 Cells # Sodium Level 141 Potassium Level 3.9 Chloride Level 110 Carbon Dioxide Level 24 Anion Gap 7 Blood Urea Nitrogen 17 Creatinine 0.44 Est Glomerular > 60 Filtrat Rate mL/min Glucose Level 131 Calcium Level 8.8 Magnesium Level 1.9 Total Bilirubin 0.2 Direct Bilirubin 0.00 Indirect Bilirubin 0.2 Aspartate Amino 20 Transf (AST/SGOT) Alanine 22 Aminotransferase (ALT /SGPT) Alkaline Phosphatase 59 Total Protein 7.1 Albumin 3.4 Globulin 3.70 H Albumin/Globulin 0.91 Ratio Valproic Acid < 10 L (Depakene) Level Medications Medication Current Medications IV Flush (NS 3 ml) 3 ml PER PROTOCOL IV ; Start 09/14/18 at 21:00 Ondansetron HCl (Zofran Inj) 4 mg Q6H PRN IV NAUSEA/VOMITING; Start 09/14/18 at 21:00 Acetaminophen (Tylenol Tab) 650 mg Q6H PRN PO .PAIN 1-3 OR TEMP; Start 09/14/18 at 21:00 Docusate Sodium (Colace) 100 mg Q12H PRN PO .CONSTIPATION; Start 09/14/18 at 21:00 Bisacodyl (Dulcolax) 5 mg DAILY PRN PO .CONSTIPATION; Start 09/14/18 at 21:00 Heparin Sodium (Porcine) (Heparin (5000 Units/1ml)) 5,000 unit Q8 SC Last administered on 09/15/18at 13:22; Admin Dose 5,000 UNIT; Start 09/14/18 at 22:00 Meropenem/Sodium Chloride 50 ml @ 100 mls/hr Q12 IVPB Last administered on 09/15/18at 09:03; Admin Dose 100 MLS/HR; Start 09/15/18 at 09:00 Miscellaneous Information (Pending Santyl Order For Wound Care) This patient aguilar... PRN PRN XX WOUND CARE; Start 09/14/18 at 23:00 Albuterol (Ventolin Hfa) 2 puff Q4H RESP THERAPY PRN INH SHORTNESS OF BREATH; Start 09/15/18 at 07:30 Alprazolam (Xanax) 2 mg Q12H PRN PO ANXIETY; Start 09/15/18 at 07:00 Divalproex Sodium (Depakote Er) 500 mg BID PO Last administered on 09/15/18at 09:03; Admin Dose 500 MG; Start 09/15/18 at 09:00 Duloxetine HCl (Cymbalta) 60 mg DAILY PO Last administered on 09/15/18at 09:03; Admin Dose 60 MG; Start 09/15/18 at 09:00 Escitalopram Oxalate (Lexapro) 10 mg DAILY PO Last administered on 09/15/18at 09:04; Admin Dose 10 MG; Start 09/15/18 at 09:00 Gabapentin (Neurontin) 600 mg TID PO Last administered on 09/15/18at 13:13; Admin Dose 600 MG; Start 09/15/18 at 09:00 Zolpidem Tartrate (Ambien) 5 mg QHS PRN PO INSOMNIA; Start 09/15/18 at 07:00 Collagenase (Santyl) 1 applic Q12 TOP Last administered on 09/15/18at 14:10; Admin Dose 1 APPLIC; Start 09/15/18 at 12:30 Collagenase (Santyl) 1 applic PRN PRN TOP .WOUND; Start 09/15/18 at 12:30 ANTHONY JACKSON MD Sep 15, 2018 15:04
[2018-09-15 20:18] VITALS: BP 157/68; PULSE 60; RESP 18
[2018-09-15] MEDS: ACETAMINOPHEN 325 MG TAB PO PRN (21:02)
[2018-09-16 01:57] VITALS: BP 97/56; PULSE 82; RESP 18
[2018-09-16] MEDS: ACETAMINOPHEN 325 MG TAB PO PRN (06:39)
[2018-09-16] MEDS: HEPARIN 5,000 UNIT/1 ML VIAL SC SCH ×3 (06:42→20:38)
[2018-09-16 08:29] VITALS: BP 104/63; PULSE 75; RESP 17
[2018-09-16] MEDS: MEROPENEM 1 GM/50ML(PMX) 50 ML IVPB SCH ×2 (09:36→20:11)
[2018-09-16] MEDS: COLLAGENASE 5 GM (UD JAR) TOP SCH ×2 (09:41→20:10)
[2018-09-16] MEDS: ESCITALOPRAM 10 MG TAB PO SCH (09:42)
[2018-09-16] MEDS: DIVALPROEX (ER) 500 MG TAB PO SCH ×2 (09:42→20:11)
[2018-09-16] MEDS: GABAPENTIN 300 MG CAP PO SCH ×3 (09:42→20:11)
[2018-09-16] MEDS: EUCERIN 113 GM CR TOP SCH ×2 (09:42→20:10)
[2018-09-16] MEDS: DULOXETINE 30 MG CAP DR PO SCH (09:42)
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
[2018-09-16 14:30] VITALS: BP 116/70; PULSE 77; RESP 18
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
[2018-09-16] MEDS ORDERED: HEPARIN (100 UNITS/ML) 5 ML SYG CATHETER ONE (17:00)
[2018-09-16 19:57] VITALS: BP 121/56; PULSE 117; RESP 17
== END 2018-09-16 22:55 | disposition home or self-care (01) ==
LOC: E/R 15:55 → 2NE 19:19
PROVIDERS: ADMIT Family Medicine; ATTEND Internal Medicine
DX: R82.71 Bacteriuria (principal); J44.9 Chronic obstructive pulmonary disease, unspecified; G82.20 Paraplegia, unspecified; G35 Multiple sclerosis; G40.909 Epilepsy, unspecified, not intractable, without status epilepticus; L89.154 Pressure ulcer of sacral region, stage 4
CPT/HCPCS: 51702; 71045; 80053; 80164; 80307; 81001; 83605; 83735; 84484; 85025; 85610; 85730; 87040; 87086; 93005; 99285; G0378; J1644; J2185; J7030; 81003; 99217; J1642

== ENCOUNTER 2018-09-19 19:19 | Emergency (ER) | payer MEDICARE, OTHER ==
[~2018-09-19] VITALS: Ht 157.5 cm; Wt 72.7 kg
[2018-09-19 19:24] VITALS: Ht 157.5 cm; Wt 72.7 kg
--- NOTE | 2018-09-19 19:57 | ERD ---
ER Documentation Chief Complaint Chief Complaint [id number],from home,bilat feet pain,low blood pressure HPI 43-year-old female history of multiple sclerosis brought to the ED by rescue ambulance complaining of leg pain and requesting steroid infusion. Patient is otherwise asymptomatic. Denies any new weakness or numbness. No chest pain, palpitation or shortness of breath. No abdominal pain, nausea vomiting. No headache, neck pain, visual changes. No fevers or chills. ROS All systems reviewed and are negative except as per history of present illness. Medications Home Meds Active Scripts Neomycin Fajardo/Bacitrac Zn/Poly (Triple Antibiotic Ointment) 28 Gm Oint...g., 28 GM TP DAILY, #1 EA 1 Refill Prov:ANTHONY JACKSON MD 09/16/18 Naproxen* (Naproxen*) 220 Mg Tablet, 220 MG PO TID PRN for lower back pain, #30 TAB Prov:ANTHONY JACKSON MD 09/16/18 Nitrofurantoin Macrocrystal* (Nitrofurantoin Macrocrystal*) 100 Mg Capsule, 100 MG PO Q12 for 5 Days, #10 CAP Prov:ANTHONY JACKSON MD 09/16/18 Reported Medications Duloxetine Hcl* (Duloxetine Hcl*) 60 Mg Capsule.dr, 60 MG PO DAILY, #30 CAP 09/14/18 Zolpidem Tartrate* (Zolpidem Tartrate*) 5 Mg Tablet, 5 MG PO QHS PRN for INSOMNIA, #30 TAB 09/14/18 Gabapentin* (Gabapentin*) 600 Mg Tablet, 600 MG PO TID, #90 TAB 09/14/18 Escitalopram Oxalate* (Escitalopram Oxalate*) 10 Mg Tablet, 10 MG PO DAILY, #30 TAB 09/14/18 Alprazolam* (Xanax*) 2 Mg Tablet, 2 MG PO Q12H PRN for ANXIETY, TAB 09/14/18 Divalproex Sodium* (Depakote ER*) 500 Mg Tabsr, 500 MG PO BID, #30 TAB.SA 09/14/18 Albuterol Sulfate* (Ventolin HFA*) 18 Gm Hfa.aer.ad, 2 PUFF INHALATION Q4H, #1 INHALER 03/19/18 Discontinued Reported Medications Gabapentin* (Gabapentin*) 300 Mg Capsule, 300 MG PO TID, #90 CAP 03/19/18 Duloxetine Hcl* (Duloxetine Hcl*) 60 Mg Capsule.dr, 60 MG PO DAILY, #30 CAP 03/17/17 Divalproex Sodium* (Depakote*) 500 Mg Tablet.dr, 500 MG PO BID, #120 TAB 03/17/17 Temazepam* (Temazepam*) 30 Mg Capsule, 30 MG PO HS PRN for INSOMNIA, CAP 03/17/17 Levetiracetam* (Keppra*) 1,000 Mg Tablet, 1000 MG PO BID, TAB 03/17/17 Discontinued Scripts Phenazopyridine Hcl* (Phenazopyridine Hcl*) 200 Mg Tablet, 200 MG PO TID for 30 Days, #90 TAB Prov:VANDANA DA SILVA 03/23/18 Allergies Allergies: Coded Allergies: Penicillins (Verified Allergy, Unknown, 09/14/18) labetalol (Verified Allergy, Unknown, 09/14/18) latex (Verified Allergy, Unknown, 09/14/18) PMhx/Soc History of Surgery: Yes (S/P Colostomy) Anesthesia Reaction: No (patient unable to recall) Hx Neurological Disorder: Yes (Multiple sclerosis, epilepsy) Hx Respiratory Disorders: Yes (COPD) Hx Cardiac Disorders: No Hx Psychiatric Problems: No (Substance abuse) Hx Alcohol Use: No Hx Substance Use: Yes (current marijuana use, hx of speed and coke) Hx Tobacco Use: No Smoking Status: Never smoker FmHx No family history relevant to presenting complaint Physical Exam Vitals Vital Signs Date Temp Pulse Resp B/P (MAP) Pulse Ox O2 O2 Flow FiO2 Time Delivery Rate 09/20/18 98.0 69 16 111/91 100 Room Air 00:53 (98) 09/19/18 102 17 101/67 100 Room Air 20:37 (78) 09/19/18 98.1 98 19 94/82 (86) 97 19:24 Physical Exam Const: Chronically ill-appearing. Head: Atraumatic Eyes: Normal Conjunctiva ENT: Normal External Ears, Nose and Mouth. Neck: Full range of motion. No meningismus. Resp: Clear to auscultation bilaterally Cardio: Regular rate and rhythm, no murmurs Abd: Soft, non tender, non distended. Normal bowel sounds Skin: No petechiae or rashes Back: No midline or flank tenderness Ext: No cyanosis, or edema. No leg pain or swelling. Neur: Awake and alert. Generalized weakness. Multiple sclerosis. Psych: Patient is not anxious or depressed. Procedures/MDM DOCUMENTS REVIEWED: ED nurse, prior ED, prior records MEDICAL DECISION MAKIN-year-old female history of multiple sclerosis brought to the ED by rescue ambulance complaining of leg pain and requesting steroid infusion. Patient has no evidence of any acute infectious process. Possible MS exacerbation that has been going on for at least a month. Patient has an appointment with her neurologist tomorrow and is willing to defer initiation of steroid treatment until then. No signs of DVT and Dopplers not indicated at this point. Patient's blood pressure chronically approximately 100 mmHg. Stable for discharge with precautionary instructions and outpatient follow-up as counseled. Counseled patient regarding diagnostic workup, diagnosis and need for followup. Understands to return to ED if symptoms recur, worsen or any other concerns. Departure Diagnosis: Primary Impression: Leg pain, bilateral Additional Impression: Exacerbation of multiple sclerosis Condition: Stable TERESO HAMILTON MD Sep 19, 2018 19:57
[2018-09-20 00:53] VITALS: BP 111/91; PULSE 69; RESP 16
== END 2018-09-20 00:58 | disposition home or self-care (01) ==
LOC: E/R 19:19
DX: M79.604 Pain in right leg (principal); R40.2142 Coma scale, eyes open, spontaneous, at arrival to emergency department; R40.2362 Coma scale, best motor response, obeys commands, at arrival to emergency department; R40.2252 Coma scale, best verbal response, oriented, at arrival to emergency department; J44.9 Chronic obstructive pulmonary disease, unspecified; G35 Multiple sclerosis; M79.605 Pain in left leg; Z91.040 Latex allergy status
CPT/HCPCS: 99283